=== PATIENT | female | born 1995 | race Caucasian/White ===

== ENCOUNTER 2019-04-14 17:28 | Inpatient (IN) | payer MEDICAID, OTHER ==
[~2019-04-14] VITALS: Ht 167.6 cm; Wt 79.2 kg
[~2019-04-14 17:28] MED LIST: QUET200T PO
[2019-04-14 18:41] LABS: BASOPHILS % (AUTO) 0.4 % (0.0-2.0); HEMATOCRIT 35.8 % (36-46); HEMOGLOBIN 11.6 g/dL (12.0-16.0); LYMPHOCYTES % (AUTO) 16.4 % (22.0-44.0); MEAN CORPUSCULAR HEMOGLOBIN 29.2 pg (26.0-34.0); MEAN CORPUSCULAR HGB CONC 32.5 G/dL (31.0-37.0); MEAN CORPUSCULAR VOLUME 90 fL (80-100); MONOCYTES # (AUTO) 1.1 K/uL (0.1-1.0); MONOCYTES % (AUTO) 8.8 % (2.0-9.0); NEUTROPHILS # (AUTO) 9.1 K/uL (1.8-7.7); NEUTROPHILS % (AUTO) 73.4 % (40.0-70.0); PLATELET COUNT (AUTO) 260 K/uL (150-450); RED BLOOD CELL COUNT(AUTO) 3.98 MIL/uL (4.00-5.20); RED CELL DISTRIBUTION WIDTH 12.9 % (11.5-14.5)
[2019-04-14 18:48] LABS: ANION GAP 7 mmol/L (8-16); CALCIUM, TOTAL 9.4 mg/dL (8.8-10.5); CARBON DIOXIDE 27 mmol/L (22-29); CHLORIDE 103 mmol/L (98-107); CREATININE 0.86 mg/dL (0.60-1.30); GLOMERULAR FILTR. RATE CALC > 60 mL/min (>60); GLUCOSE,RANDOM 109 mg/dL (70-110); POTASSIUM 3.4 mmol/L (3.5-5.1); SODIUM SERUM 137 mmol/L (136-145); UREA NITROGEN, BLOOD 9 mg/dL (7-18)
[2019-04-14 19:00] LABS: ALANINE AMINOTRANSFERASE 58 U/L (12-78); ALBUMIN 3.7 g/dL (3.4-5.0); ALKALINE PHOSPHATASE 61 U/L (46-116); ASPARTATE AMINOTRANSFERASE 57 U/L (15-37); BILIRUBIN,TOTAL 0.6 mg/dL (0.1-1.0); HCG,QUANTITATIVE < 1 mIU/mL (0-6)
[2019-04-14] MEDS ORDERED: DiphenhydrAMINE HCL 25 MG CAPSULE PO ONE (19:00)
[2019-04-14] MEDS ORDERED: LORazepam 2 MG TABLET PO ONE (19:00)
[2019-04-14] MEDS ORDERED: HALOPERIDOL 5 MG TABLET PO ONE (19:00)
[2019-04-14 19:16] LABS: SALICYLATE < 2.8 mg/dL (2.8-20.0)
[2019-04-14 20:17] LABS: ACETAMINOPHEN < 2 mcg/mL (10-30)
[2019-04-15] MEDS ORDERED: HALOPERIDOL 5 MG TABLET PO PRN (10:15)
[2019-04-15] MEDS ORDERED: LORazepam 2 MG/ML VIAL ONE (13:09)
[2019-04-15] MEDS ORDERED: HALOPERIDOL LACTATE 5 MG/ML VIAL ONE (13:09)
[2019-04-15] MEDS ORDERED: DiphenhydrAMINE HCL 50 MG/ML VIAL ONE (13:09)
[2019-04-15] MEDS ORDERED: HALOPERIDOL LACTATE 5 MG/ML VIAL IM ONE (13:15)
[2019-04-15] MEDS ORDERED: LORazepam 2 MG/ML VIAL IM ONE (13:15)
[2019-04-15] MEDS ORDERED: DiphenhydrAMINE HCL 50 MG/ML VIAL IM ONE (13:15)
[2019-04-15 13:57] VITALS: BP 138/74
[2019-04-15 13:59] VITALS: BP 138/74
[2019-04-15] MEDS ORDERED: MAG HYDROX/AL HYDROX/SIMETH ES 30 ML SUSPENSION UDCUP PO PRN (16:00)
[2019-04-15] MEDS ORDERED: DOCUSATE SODIUM 100 MG CAPSULE PO PRN (16:00)
[2019-04-15] MEDS ORDERED: MAGNESIUM HYDROXIDE SUSPENSION 30 ML UDCUP PO PRN (16:00)
[2019-04-15] MEDS ORDERED: ALBUTEROL SULFATE HFA 90 MCG/PUFF 8 GM INHALER IH PRN (16:00)
[2019-04-15] MEDS ORDERED: ACETAMINOPHEN 325 MG TABLET PO PRN (16:00)
[2019-04-15] MEDS ORDERED: ONDANSETRON HCL 4 MG TABLET PO PRN (16:00)
[2019-04-15] MEDS ORDERED: LOPERAMIDE HCL 2 MG CAPSULE PO PRN (16:00)
[2019-04-15] MEDS ORDERED: PETROLATUM,WHITE 28 GM JELLY TP PRN (16:00)
[2019-04-15] MEDS: NICOTINE 21 MG/24 HOUR PATCH TD SCH (16:00)
[2019-04-15] MEDS ORDERED: GuaiFENesin/D-METHORPHAN [SUGAR-FREE] 200-20MG/10 ML SYRUP UDCUP PO PRN (16:00)
[2019-04-15] MEDS ORDERED: CloNIDine HCL 0.1 MG TABLET PO PRN (16:00)
[2019-04-15] MEDS ORDERED: POTASSIUM CHLORIDE 20 MEQ ER TABLET PO ONE (16:00)
[2019-04-15 16:09] VITALS: BP 102/60
[2019-04-16 05:59] VITALS: BP 115/65
[2019-04-16 08:10] VITALS: BP 104/64
[2019-04-16] MEDS: ZINC OXIDE 16% PASTE 57 GM TUBE TP SCH ×2 (09:41→16:23)
[2019-04-16] MEDS: NICOTINE 21 MG/24 HOUR PATCH TD SCH (09:44)
[2019-04-16 16:04] VITALS: BP 116/64
[2019-04-16] MEDS: LORazepam 2 MG TABLET PO PRN (16:23)
[2019-04-16] MEDS: ZOLPIDEM TARTRATE 10 MG TABLET PO PRN (20:54)
[2019-04-16] MEDS: QUEtiapine FUMARATE 200 MG TABLET PO SCH (20:54)
[2019-04-17 05:21] VITALS: BP 118/67
[2019-04-17 08:13] VITALS: BP 121/79
[2019-04-17 08:24] LABS: BASOPHILS % (AUTO) 0.4 % (0.0-2.0); EOSINOPHILS % (AUTO) 1.8 % (1.0-6.0); HEMATOCRIT 36.4 % (36-46); HEMOGLOBIN 11.7 g/dL (12.0-16.0); LYMPHOCYTES # (AUTO) 1.5 K/uL (1.0-4.8); LYMPHOCYTES % (AUTO) 28.1 % (22.0-44.0); MEAN CORPUSCULAR HEMOGLOBIN 29.4 pg (26.0-34.0); MEAN CORPUSCULAR HGB CONC 32.1 G/dL (31.0-37.0); MEAN CORPUSCULAR VOLUME 92 fL (80-100); MONOCYTES # (AUTO) 0.2 K/uL (0.1-1.0); MONOCYTES % (AUTO) 4.3 % (2.0-9.0); NEUTROPHILS # (AUTO) 3.5 K/uL (1.8-7.7); NEUTROPHILS % (AUTO) 65.4 % (40.0-70.0); PLATELET COUNT (AUTO) 218 K/uL (150-450); RED BLOOD CELL COUNT(AUTO) 3.97 MIL/uL (4.00-5.20); RED CELL DISTRIBUTION WIDTH 13.3 % (11.5-14.5)
[2019-04-17 08:38] LABS: HEMOGLOBIN A1C 4.9 % (4.5-6.2)
[2019-04-17] MEDS: ZINC OXIDE 16% PASTE 57 GM TUBE TP SCH ×2 (09:00→17:00)
[2019-04-17 09:02] LABS: ALANINE AMINOTRANSFERASE 35 U/L (12-78); ALBUMIN 2.8 g/dL (3.4-5.0); ALKALINE PHOSPHATASE 61 U/L (46-116); ANION GAP 6 mmol/L (8-16); ASPARTATE AMINOTRANSFERASE 23 U/L (15-37); BILIRUBIN,TOTAL 0.2 mg/dL (0.1-1.0); CALCIUM, TOTAL 8.9 mg/dL (8.8-10.5); CARBON DIOXIDE 26 mmol/L (22-29); CHLORIDE 107 mmol/L (98-107); CHOL/HDL RATIO 3.1 (3.9-5.7); CHOLESTEROL 156 mg/dL (131-200); CREATININE 0.59 mg/dL (0.60-1.30); GLOMERULAR FILTR. RATE CALC > 60 mL/min (>60); GLUCOSE,RANDOM 114 mg/dL (70-110); HDL CHOLESTEROL 50 mg/dL (40-60); LDL CHOL (CALC.) 87 mg/dL (0-130); POTASSIUM 3.5 mmol/L (3.5-5.1); SODIUM SERUM 139 mmol/L (136-145); THYROID STIMULATING HORMONE 0.33 uIU/mL (0.36-3.74); TOTAL PROTEIN, SERUM 6.2 g/dL (6.4-8.2); TRIGLYCERIDES 95 mg/dL (15-150); UREA NITROGEN, BLOOD 5 mg/dL (7-18)
[2019-04-17] MEDS: QUEtiapine FUMARATE 200 MG TABLET PO SCH ×2 (09:11→21:00)
[2019-04-17] MEDS: NICOTINE 21 MG/24 HOUR PATCH TD SCH (09:21)
[2019-04-17] MEDS ORDERED: HALOPERIDOL LACTATE 5 MG/ML VIAL IM PRN (15:00)
[2019-04-17 16:04] VITALS: BP 134/84
[2019-04-17] MEDS: DIVALPROEX SODIUM 500 MG DR TABLET PO SCH (16:27)
[2019-04-17] MEDS: IBUPROFEN 400 MG TABLET PO PRN (19:14)
[2019-04-17] MEDS: ZOLPIDEM TARTRATE 10 MG TABLET PO PRN (21:00)
[2019-04-18 06:48] VITALS: BP 126/70
[2019-04-18] MEDS: DIVALPROEX SODIUM 500 MG DR TABLET PO SCH ×2 (08:02→17:09)
[2019-04-18] MEDS: QUEtiapine FUMARATE 200 MG TABLET PO SCH ×2 (08:03→20:19)
[2019-04-18] MEDS: NICOTINE 21 MG/24 HOUR PATCH TD SCH (08:09)
[2019-04-18] MEDS: ZINC OXIDE 16% PASTE 57 GM TUBE TP SCH ×2 (08:09→17:09)
[2019-04-19 00:48] VITALS: BP 134/79
[2019-04-19] MEDS: QUEtiapine FUMARATE 200 MG TABLET PO SCH ×2 (08:06→20:36)
[2019-04-19] MEDS: DIVALPROEX SODIUM 500 MG DR TABLET PO SCH ×2 (08:06→16:01)
[2019-04-19] MEDS: LORazepam 2 MG TABLET PO PRN ×2 (08:06→21:06)
[2019-04-19] MEDS: ZINC OXIDE 16% PASTE 57 GM TUBE TP SCH ×2 (08:11→16:25)
[2019-04-19] MEDS: NICOTINE 21 MG/24 HOUR PATCH TD SCH (08:11)
[2019-04-19 08:29] VITALS: BP 155/118
[2019-04-19 12:00] VITALS: BP 127/90
[2019-04-19 16:11] VITALS: BP 112/65
[2019-04-19 21:06] VITALS: BP 128/77
[2019-04-19] MEDS: ZOLPIDEM TARTRATE 10 MG TABLET PO PRN (21:06)
[2019-04-20] MEDS: DIVALPROEX SODIUM 500 MG DR TABLET PO SCH ×2 (08:50→16:09)
[2019-04-20] MEDS: QUEtiapine FUMARATE 200 MG TABLET PO SCH ×2 (08:51→20:26)
[2019-04-20] MEDS: NICOTINE 21 MG/24 HOUR PATCH TD SCH (08:59)
[2019-04-20] MEDS: LORazepam 2 MG TABLET PO PRN (08:59)
[2019-04-20] MEDS: ZINC OXIDE 16% PASTE 57 GM TUBE TP SCH ×2 (08:59→16:09)
[2019-04-20 16:13] VITALS: BP 110/73
[2019-04-20] MEDS: ZOLPIDEM TARTRATE 10 MG TABLET PO PRN (20:28)
[2019-04-21] MEDS: IBUPROFEN 400 MG TABLET PO PRN ×2 (06:40→12:54)
[2019-04-21 08:08] VITALS: BP 114/85
[2019-04-21] MEDS: QUEtiapine FUMARATE 200 MG TABLET PO SCH (08:24)
[2019-04-21] MEDS: DIVALPROEX SODIUM 500 MG DR TABLET PO SCH (08:25)
[2019-04-21] MEDS: NICOTINE 21 MG/24 HOUR PATCH TD SCH (08:44)
[2019-04-21] MEDS ORDERED: DIVA-78 PO (08:47)
[2019-04-21] MEDS: ZINC OXIDE 16% PASTE 57 GM TUBE TP SCH (09:00)
== END 2019-04-21 10:44 | disposition home or self-care (01) | DRG 750 ==
LOC: EMS 17:29 → B3A 04-15 11:33
PROVIDERS: ADMIT Psychiatry & Neurology Psychiatry; ATTEND Psychiatry & Neurology Psychiatry
DX: F20.0 Paranoid schizophrenia (principal); Z59.0 Homelessness; D64.9 Anemia, unspecified; D72.829 Elevated white blood cell count, unspecified; E87.6 Hypokalemia
CPT/HCPCS: 83036; 84443; G0480; G0481; J1200; J1630; J2060

== ENCOUNTER 2019-05-20 08:07 | Inpatient (IN) | payer MEDICAID, OTHER ==
[~2019-05-20] VITALS: Ht 167.6 cm; Wt 68.9 kg
[~2019-05-20 08:07] MED LIST changes: +DIVA-78 PO
[2019-05-20] MEDS ORDERED: LORazepam 2 MG/ML VIAL IM ONE (09:45)
[2019-05-20] MEDS ORDERED: HALOPERIDOL LACTATE 5 MG/ML VIAL IM ONE (09:45)
[2019-05-20] MEDS ORDERED: DiphenhydrAMINE HCL 50 MG/ML VIAL IM ONE (09:45)
[2019-05-20 11:44] LABS: BASOPHILS % (AUTO) 0.5 % (0.0-2.0); EOSINOPHILS % (AUTO) 0.8 % (1.0-6.0); HEMATOCRIT 35.3 % (36-46); HEMOGLOBIN 11.7 g/dL (12.0-16.0); LYMPHOCYTES % (AUTO) 22.4 % (22.0-44.0); MEAN CORPUSCULAR HEMOGLOBIN 29.4 pg (26.0-34.0); MEAN CORPUSCULAR HGB CONC 33.1 G/dL (31.0-37.0); MEAN CORPUSCULAR VOLUME 89 fL (80-100); MONOCYTES % (AUTO) 10.7 % (2.0-9.0); NEUTROPHILS # (AUTO) 5.9 K/uL (1.8-7.7); NEUTROPHILS % (AUTO) 65.6 % (40.0-70.0); PLATELET COUNT (AUTO) 196 K/uL (150-450); RED BLOOD CELL COUNT(AUTO) 3.98 MIL/uL (4.00-5.20); RED CELL DISTRIBUTION WIDTH 13.2 % (11.5-14.5)
[2019-05-20 11:56] LABS: AMPHET/METH SCREEN,URINE POSITIVE (NEGATIVE); BARBITURATE SCREEN, URINE NEGATIVE (NEGATIVE); BENZODIAZEPINES SCREEN,URINE NEGATIVE (NEGATIVE); CANNABINOID SCREEN,URINE NEGATIVE (NEGATIVE); COCAINE SCREEN,URINE NEGATIVE (NEGATIVE); METHADONE SCREEN, URINE NEGATIVE (NEGATIVE); OPIATE SCREEN,URINE NEGATIVE (NEGATIVE)
[2019-05-20 11:58] LABS: PHENCYCLIDINE SCREEN,URINE NEGATIVE (NEGATIVE)
[2019-05-20 12:23] LABS: ALANINE AMINOTRANSFERASE 53 U/L (12-78); ALBUMIN 3.5 g/dL (3.4-5.0); ALKALINE PHOSPHATASE 46 U/L (46-116); ANION GAP 11 mmol/L (8-16); ASPARTATE AMINOTRANSFERASE 67 U/L (15-37); BILIRUBIN,TOTAL 0.7 mg/dL (0.1-1.0); CALCIUM, TOTAL 9.1 mg/dL (8.8-10.5); CARBON DIOXIDE 26 mmol/L (22-29); CHLORIDE 100 mmol/L (98-107); CREATININE 0.68 mg/dL (0.60-1.30); GLOMERULAR FILTR. RATE CALC > 60 mL/min (>60); GLUCOSE,RANDOM 88 mg/dL (70-110); HCG,QUANTITATIVE < 1 mIU/mL (0-6); POTASSIUM 3.4 mmol/L (3.5-5.1); SODIUM SERUM 137 mmol/L (136-145); TOTAL PROTEIN, SERUM 6.9 g/dL (6.4-8.2); UREA NITROGEN, BLOOD 8 mg/dL (7-18)
[2019-05-20 14:33] VITALS: BP 117/78
[2019-05-20] MEDS ORDERED: INFLUENZA VIRUS VACCINE QVS 2019-20 (3YR+)/PF 60 MCG/0.5 ML SYRINGE IM ONE (16:15)
[2019-05-20] MEDS ORDERED: POTASSIUM CHLORIDE 20 MEQ ER TABLET PO ONE (19:15)
[2019-05-20] MEDS: QUEtiapine FUMARATE 200 MG TABLET PO SCH (21:00)
[2019-05-21 07:01] VITALS: BP 109/68
[2019-05-21] MEDS ORDERED: POTASSIUM CHLORIDE 20 MEQ ER TABLET PO ONE (09:45)
[2019-05-21] MEDS: QUEtiapine FUMARATE 200 MG TABLET PO SCH ×2 (10:09→21:00)
[2019-05-21] MEDS: DIVALPROEX SODIUM 500 MG DR TABLET PO SCH ×2 (10:09→16:12)
[2019-05-21] MEDS ORDERED: MAGNESIUM HYDROXIDE SUSPENSION 30 ML UDCUP PO PRN (20:00)
[2019-05-21] MEDS ORDERED: ALBUTEROL SULFATE HFA 90 MCG/PUFF 8 GM INHALER IH PRN (20:00)
[2019-05-21] MEDS ORDERED: CloNIDine HCL 0.1 MG TABLET PO PRN (20:00)
[2019-05-21] MEDS ORDERED: OMEPRAZOLE 20 MG CAPSULE PO PRN (20:00)
[2019-05-21] MEDS ORDERED: PETROLATUM,WHITE 28 GM JELLY TP PRN (20:00)
[2019-05-21] MEDS ORDERED: LOPERAMIDE HCL 2 MG CAPSULE PO PRN (20:00)
[2019-05-21] MEDS ORDERED: BACITRACIN 28.4 GM OINTMENT TP PRN (20:00)
[2019-05-21] MEDS ORDERED: MAG HYDROX/AL HYDROX/SIMETH ES 30 ML SUSPENSION UDCUP PO PRN (20:00)
[2019-05-21] MEDS ORDERED: DOCUSATE SODIUM 100 MG CAPSULE PO PRN (20:00)
[2019-05-21] MEDS ORDERED: BENZOCAINE/MENTHOL LOZENGE MM PRN (20:00)
[2019-05-21] MEDS ORDERED: ONDANSETRON HCL 4 MG TABLET PO PRN (20:00)
[2019-05-21] MEDS ORDERED: ACETAMINOPHEN 325 MG TABLET PO PRN (20:00)
[2019-05-22 08:05] LABS: ANION GAP 11 mmol/L (8-16); CALCIUM, TOTAL 8.1 mg/dL (8.8-10.5); CARBON DIOXIDE 27 mmol/L (22-29); CHLORIDE 106 mmol/L (98-107); CREATININE 0.63 mg/dL (0.60-1.30); GLOMERULAR FILTR. RATE CALC > 60 mL/min (>60); GLUCOSE,RANDOM 87 mg/dL (70-110); POTASSIUM 3.6 mmol/L (3.5-5.1); SODIUM SERUM 144 mmol/L (136-145); UREA NITROGEN, BLOOD 5 mg/dL (7-18)
[2019-05-22] MEDS: QUEtiapine FUMARATE 200 MG TABLET PO SCH ×2 (09:16→21:00)
[2019-05-22] MEDS: DIVALPROEX SODIUM 500 MG DR TABLET PO SCH ×2 (09:16→16:27)
[2019-05-23] MEDS: QUEtiapine FUMARATE 200 MG TABLET PO SCH ×2 (08:06→20:05)
[2019-05-23] MEDS: DIVALPROEX SODIUM 500 MG DR TABLET PO SCH ×2 (08:06→16:52)
[2019-05-24] MEDS: DIVALPROEX SODIUM 500 MG DR TABLET PO SCH ×2 (08:44→17:27)
[2019-05-24] MEDS: QUEtiapine FUMARATE 200 MG TABLET PO SCH ×2 (08:44→20:36)
[2019-05-24] MEDS: LORazepam 2 MG TABLET PO PRN (09:14)
[2019-05-24] MEDS: HALOPERIDOL 5 MG TABLET PO PRN (09:34)
[2019-05-25 05:06] VITALS: BP 119/80
[2019-05-25] MEDS: DIVALPROEX SODIUM 500 MG DR TABLET PO SCH ×2 (08:40→16:49)
[2019-05-25] MEDS: QUEtiapine FUMARATE 200 MG TABLET PO SCH ×2 (08:40→20:35)
[2019-05-25] MEDS: LORazepam 2 MG TABLET PO PRN ×2 (08:40→16:51)
[2019-05-25 08:48] VITALS: BP 102/59
[2019-05-25 16:11] VITALS: BP 106/66
[2019-05-26] MEDS: QUEtiapine FUMARATE 200 MG TABLET PO SCH ×2 (08:42→20:04)
[2019-05-26] MEDS: DIVALPROEX SODIUM 500 MG DR TABLET PO SCH ×2 (08:43→16:26)
[2019-05-26] MEDS: LORazepam 2 MG TABLET PO PRN ×2 (08:43→17:59)
[2019-05-26] MEDS: ZOLPIDEM TARTRATE 10 MG TABLET PO PRN (20:04)
[2019-05-27] MEDS: DIVALPROEX SODIUM 500 MG DR TABLET PO SCH ×2 (08:26→16:07)
[2019-05-27] MEDS: QUEtiapine FUMARATE 200 MG TABLET PO SCH ×2 (08:26→20:13)
[2019-05-27] MEDS: LORazepam 2 MG TABLET PO PRN ×2 (08:26→19:29)
[2019-05-27 16:13] VITALS: BP 114/86
[2019-05-27] MEDS: HALOPERIDOL 5 MG TABLET PO PRN (19:29)
[2019-05-28 08:11] VITALS: BP 112/68
[2019-05-28] MEDS: QUEtiapine FUMARATE 200 MG TABLET PO SCH ×2 (08:51→20:43)
[2019-05-28] MEDS: DIVALPROEX SODIUM 500 MG DR TABLET PO SCH ×2 (08:51→16:45)
[2019-05-28] MEDS: LORazepam 2 MG TABLET PO PRN ×2 (08:53→16:45)
[2019-05-28] MEDS: ZOLPIDEM TARTRATE 10 MG TABLET PO PRN (20:43)
[2019-05-29 07:24] VITALS: BP 117/84
[2019-05-29] MEDS: DIVALPROEX SODIUM 500 MG DR TABLET PO SCH ×2 (08:28→16:18)
[2019-05-29] MEDS: QUEtiapine FUMARATE 200 MG TABLET PO SCH ×2 (08:28→21:04)
[2019-05-29] MEDS: LORazepam 2 MG TABLET PO PRN (14:10)
[2019-05-29] MEDS: HALOPERIDOL 5 MG TABLET PO PRN (14:10)
[2019-05-29 16:12] VITALS: BP 119/71
[2019-05-29] MEDS: ZOLPIDEM TARTRATE 10 MG TABLET PO PRN (23:50)
[2019-05-30 03:17] VITALS: BP 120/76
[2019-05-30] MEDS: LORazepam 2 MG TABLET PO PRN ×2 (08:17→16:05)
[2019-05-30] MEDS: DIVALPROEX SODIUM 500 MG DR TABLET PO SCH ×2 (08:17→16:04)
[2019-05-30] MEDS: QUEtiapine FUMARATE 200 MG TABLET PO SCH ×2 (08:17→20:11)
[2019-05-30 08:45] VITALS: BP 118/74
[2019-05-30 16:22] VITALS: BP 126/61
[2019-05-30] MEDS: HALOPERIDOL 5 MG TABLET PO PRN (16:56)
[2019-05-30] MEDS: IBUPROFEN 600 MG TABLET PO PRN (19:35)
[2019-05-30] MEDS: ZOLPIDEM TARTRATE 10 MG TABLET PO PRN (20:55)
[2019-05-31] MEDS: DIVALPROEX SODIUM 500 MG DR TABLET PO SCH ×2 (08:49→16:08)
[2019-05-31] MEDS: LORazepam 2 MG TABLET PO PRN ×2 (08:49→16:08)
[2019-05-31] MEDS: QUEtiapine FUMARATE 200 MG TABLET PO SCH ×2 (08:49→20:16)
[2019-05-31] MEDS: HALOPERIDOL 5 MG TABLET PO PRN (09:50)
[2019-05-31 16:10] VITALS: BP 114/68
[2019-05-31] MEDS: ZOLPIDEM TARTRATE 10 MG TABLET PO PRN (20:16)
[2019-06-01 01:23] VITALS: BP 121/63
[2019-06-01] MEDS: QUEtiapine FUMARATE 200 MG TABLET PO SCH ×2 (09:26→20:34)
[2019-06-01] MEDS: LORazepam 2 MG TABLET PO PRN ×2 (09:26→18:21)
[2019-06-01] MEDS: DIVALPROEX SODIUM 500 MG DR TABLET PO SCH ×2 (09:26→16:39)
[2019-06-01] MEDS: HALOPERIDOL 5 MG TABLET PO PRN (09:47)
[2019-06-01] MEDS ORDERED: TUBERCULIN, PURIFIED PROTEIN DERIVATIVE 5 TU/0.1 ML SYRINGE ID ONE (11:45)
[2019-06-01 16:21] VITALS: BP 111/66
[2019-06-01] MEDS: IBUPROFEN 600 MG TABLET PO PRN (18:21)
[2019-06-02 08:25] VITALS: BP 111/67
[2019-06-02] MEDS: LORazepam 2 MG TABLET PO PRN (09:30)
[2019-06-02] MEDS: QUEtiapine FUMARATE 200 MG TABLET PO SCH ×2 (09:30→20:41)
[2019-06-02] MEDS: DIVALPROEX SODIUM 500 MG DR TABLET PO SCH ×2 (09:30→16:51)
[2019-06-03] MEDS: LORazepam 2 MG TABLET PO PRN ×2 (09:14→16:16)
[2019-06-03] MEDS: QUEtiapine FUMARATE 200 MG TABLET PO SCH ×2 (09:15→20:15)
[2019-06-03] MEDS: DIVALPROEX SODIUM 500 MG DR TABLET PO SCH ×2 (09:15→16:16)
[2019-06-03 16:13] VITALS: BP 109/66
[2019-06-03] MEDS: HALOPERIDOL 5 MG TABLET PO PRN (16:16)
[2019-06-04 01:59] VITALS: BP 102/70
[2019-06-04 08:23] VITALS: BP 106/71
[2019-06-04] MEDS: DIVALPROEX SODIUM 500 MG DR TABLET PO SCH ×2 (09:06→16:07)
[2019-06-04] MEDS: QUEtiapine FUMARATE 200 MG TABLET PO SCH ×2 (09:06→20:09)
[2019-06-04] MEDS: LORazepam 2 MG TABLET PO PRN ×2 (09:06→18:18)
[2019-06-04 16:04] VITALS: BP 103/52
[2019-06-04 18:18] VITALS: BP 114/70
[2019-06-04] MEDS: IBUPROFEN 600 MG TABLET PO PRN (18:18)
[2019-06-05 02:45] VITALS: BP 104/85
[2019-06-05] MEDS: DIVALPROEX SODIUM 500 MG DR TABLET PO SCH ×2 (08:10→16:43)
[2019-06-05] MEDS: HALOPERIDOL 5 MG TABLET PO PRN (08:10)
[2019-06-05] MEDS: LORazepam 2 MG TABLET PO PRN ×2 (08:10→18:48)
[2019-06-05] MEDS: QUEtiapine FUMARATE 200 MG TABLET PO SCH ×2 (08:10→20:44)
[2019-06-05 08:13] VITALS: BP 106/69
[2019-06-05 18:47] VITALS: BP 110/75
[2019-06-06 08:29] VITALS: BP 123/62
[2019-06-06] MEDS: QUEtiapine FUMARATE 200 MG TABLET PO SCH ×2 (08:42→20:34)
[2019-06-06] MEDS: DIVALPROEX SODIUM 500 MG DR TABLET PO SCH ×2 (08:43→16:23)
[2019-06-06] MEDS: IBUPROFEN 600 MG TABLET PO PRN (18:34)
[2019-06-06] MEDS: LORazepam 2 MG TABLET PO PRN (18:52)
[2019-06-06] MEDS: ZOLPIDEM TARTRATE 10 MG TABLET PO PRN (20:34)
[2019-06-07] MEDS: QUEtiapine FUMARATE 200 MG TABLET PO SCH ×2 (08:35→20:25)
[2019-06-07] MEDS: DIVALPROEX SODIUM 500 MG DR TABLET PO SCH ×2 (08:36→16:13)
[2019-06-07 16:00] VITALS: BP 137/70
[2019-06-07] MEDS: LORazepam 2 MG TABLET PO PRN (16:13)
[2019-06-07] MEDS: HALOPERIDOL 5 MG TABLET PO PRN (17:08)
[2019-06-08 05:06] VITALS: BP 132/68
[2019-06-08] MEDS: DIVALPROEX SODIUM 500 MG DR TABLET PO SCH ×2 (08:34→16:00)
[2019-06-08] MEDS: QUEtiapine FUMARATE 200 MG TABLET PO SCH ×2 (08:34→20:02)
[2019-06-08] MEDS: LORazepam 2 MG TABLET PO PRN ×2 (08:37→16:00)
[2019-06-09] MEDS: DIVALPROEX SODIUM 500 MG DR TABLET PO SCH ×2 (08:51→16:10)
[2019-06-09] MEDS: QUEtiapine FUMARATE 200 MG TABLET PO SCH ×2 (08:51→20:26)
[2019-06-09] MEDS: LORazepam 2 MG TABLET PO PRN ×2 (08:51→16:10)
[2019-06-09 16:32] VITALS: BP 108/72
[2019-06-10 08:34] VITALS: BP 100/69
[2019-06-10 09:00] VITALS: BP 112/78
[2019-06-10] MEDS: QUEtiapine FUMARATE 200 MG TABLET PO SCH ×2 (09:06→20:04)
[2019-06-10] MEDS: LORazepam 2 MG TABLET PO PRN ×2 (09:06→16:09)
[2019-06-10] MEDS: DIVALPROEX SODIUM 500 MG DR TABLET PO SCH ×2 (09:06→16:09)
[2019-06-10 17:15] VITALS: BP 107/62
[2019-06-10] MEDS: ZOLPIDEM TARTRATE 10 MG TABLET PO PRN (20:04)
[2019-06-11] MEDS: LORazepam 2 MG TABLET PO PRN ×2 (08:42→16:04)
[2019-06-11] MEDS: DIVALPROEX SODIUM 500 MG DR TABLET PO SCH ×2 (08:42→16:04)
[2019-06-11] MEDS: QUEtiapine FUMARATE 200 MG TABLET PO SCH ×2 (08:42→20:12)
[2019-06-11 16:34] VITALS: BP 116/72
[2019-06-11] MEDS: ZOLPIDEM TARTRATE 10 MG TABLET PO PRN (20:59)
[2019-06-11 21:08] VITALS: BP 111/67
[2019-06-11] MEDS: IBUPROFEN 600 MG TABLET PO PRN (21:11)
[2019-06-12] MEDS: QUEtiapine FUMARATE 200 MG TABLET PO SCH (09:11)
[2019-06-12] MEDS: DIVALPROEX SODIUM 500 MG DR TABLET PO SCH (09:11)
== END 2019-06-12 11:25 | DRG 750 ==
LOC: EMS 08:08 → B3A 12:03
PROVIDERS: ADMIT Psychiatry & Neurology Psychiatry; ATTEND Psychiatry & Neurology Psychiatry
DX: F20.0 Paranoid schizophrenia (principal); Z78.1 Physical restraint status; G47.00 Insomnia, unspecified; K59.00 Constipation, unspecified; F19.959 Other psychoactive substance use, unspecified with psychoactive substance-induced psychotic disorder, unspecified; Z59.0 Homelessness
CPT/HCPCS: 87081; 96372; 99291; G0480; J1200; J1630; J2060

== ENCOUNTER 2019-06-18 01:40 | Inpatient (IN) | payer MEDICAID, OTHER ==
[~2019-06-18] VITALS: Ht 170.2 cm; Wt 71.1 kg
[2019-06-18 03:21] LABS: BASOPHILS % (AUTO) 0.4 % (0.0-2.0); EOSINOPHILS % (AUTO) 0.9 % (1.0-6.0); HEMATOCRIT 31.9 % (36-46); HEMOGLOBIN 10.7 g/dL (12.0-16.0); LYMPHOCYTES % (AUTO) 31.6 % (22.0-44.0); MEAN CORPUSCULAR HEMOGLOBIN 29.6 pg (26.0-34.0); MEAN CORPUSCULAR HGB CONC 33.5 G/dL (31.0-37.0); MEAN CORPUSCULAR VOLUME 88 fL (80-100); MONOCYTES # (AUTO) 0.8 K/uL (0.1-1.0); MONOCYTES % (AUTO) 12.4 % (2.0-9.0); NEUTROPHILS # (AUTO) 3.5 K/uL (1.8-7.7); NEUTROPHILS % (AUTO) 54.7 % (40.0-70.0); PLATELET COUNT (AUTO) 180 K/uL (150-450); RED BLOOD CELL COUNT(AUTO) 3.61 MIL/uL (4.00-5.20); RED CELL DISTRIBUTION WIDTH 12.8 % (11.5-14.5)
[2019-06-18 03:23] LABS: ANION GAP 7 mmol/L (8-16); CALCIUM, TOTAL 8.6 mg/dL (8.8-10.5); CARBON DIOXIDE 31 mmol/L (22-29); CHLORIDE 103 mmol/L (98-107); CREATININE 0.58 mg/dL (0.60-1.30); GLOMERULAR FILTR. RATE CALC > 60 mL/min (>60); GLUCOSE,RANDOM 99 mg/dL (70-110); SODIUM SERUM 141 mmol/L (136-145); UREA NITROGEN, BLOOD 10 mg/dL (7-18)
[2019-06-18 03:27] LABS: AMPHET/METH SCREEN,URINE POSITIVE (NEGATIVE); BARBITURATE SCREEN, URINE NEGATIVE (NEGATIVE); BENZODIAZEPINES SCREEN,URINE NEGATIVE (NEGATIVE); CANNABINOID SCREEN,URINE NEGATIVE (NEGATIVE); COCAINE SCREEN,URINE NEGATIVE (NEGATIVE); METHADONE SCREEN, URINE NEGATIVE (NEGATIVE); OPIATE SCREEN,URINE NEGATIVE (NEGATIVE)
[2019-06-18 03:29] LABS: PHENCYCLIDINE SCREEN,URINE NEGATIVE (NEGATIVE)
[2019-06-18] MEDS ORDERED: ZOLPIDEM TARTRATE 10 MG TABLET PO PRN (03:30)
[2019-06-18 03:36] LABS: SALICYLATE 1.3 mg/dL (2.8-20.0)
[2019-06-18 03:39] LABS: ACETAMINOPHEN < 2 mcg/mL (10-30); ALANINE AMINOTRANSFERASE 61 U/L (12-78); ALBUMIN 3.4 g/dL (3.4-5.0); ALKALINE PHOSPHATASE 47 U/L (46-116); ASPARTATE AMINOTRANSFERASE 54 U/L (15-37); BILIRUBIN,TOTAL 0.5 mg/dL (0.1-1.0); HCG,QUANTITATIVE 1 mIU/mL (0-6); TOTAL PROTEIN, SERUM 6.8 g/dL (6.4-8.2)
[2019-06-18] MEDS ORDERED: POTASSIUM CHLORIDE 20 MEQ ER TABLET PO ONE (04:00)
[2019-06-18 04:50] LABS: APPEARANCE,URINE CLOUDY (CLEAR); GLUCOSE, URINE (UA) NEGATIVE (NEGATIVE); KETONES,URINE NEGATIVE (NEGATIVE); LEUKOCYTE ESTERASE ,URINE NEGATIVE (NEGATIVE); NITRATE,URINE NEGATIVE (NEGATIVE); OCCULT BLOOD,URINE NEGATIVE (NEGATIVE); PROTEIN,URINE TRACE (NEGATIVE)
[2019-06-18 04:52] LABS: BILIRUBIN,URINE PRELIM. POSITIVE (NEGATIVE)
[2019-06-18 04:59] LABS: BACTERIA,URINE None Seen /HPF (None Seen); RBC,URINE 0-2 /HPF (0-2); SQUAMOUS EPITHELIAL CELL,UR Rare /LPF (None Seen)
[2019-06-18 06:00] VITALS: BP 114/96
[2019-06-18 07:00] VITALS: BP 109/67
[2019-06-18] MEDS: HALOPERIDOL 5 MG TABLET PO PRN (08:28)
[2019-06-18] MEDS: LORazepam 2 MG TABLET PO PRN (08:28)
[2019-06-18] MEDS: DIVALPROEX SODIUM 500 MG DR TABLET PO SCH (17:04)
[2019-06-18] MEDS: QUEtiapine FUMARATE 200 MG TABLET PO SCH (20:47)
[2019-06-19 04:00] VITALS: BP 106/62
[2019-06-19 06:57] VITALS: BP 123/74
[2019-06-19] MEDS ORDERED: INFLUENZA VIRUS VACCINE QVS 2019-20 (3YR+)/PF 60 MCG/0.5 ML SYRINGE IM ONE (07:15)
[2019-06-19] MEDS: DIVALPROEX SODIUM 500 MG DR TABLET PO SCH ×2 (08:02→16:20)
[2019-06-19] MEDS: QUEtiapine FUMARATE 200 MG TABLET PO SCH ×2 (08:02→20:32)
[2019-06-19] MEDS: LORazepam 2 MG TABLET PO PRN ×2 (08:02→16:20)
[2019-06-19 08:26] VITALS: BP 107/67
[2019-06-19] MEDS: HALOPERIDOL 5 MG TABLET PO PRN (09:26)
[2019-06-19 09:36] LABS: CHOL/HDL RATIO 2.4 (3.9-5.7)
[2019-06-19 16:44] VITALS: BP 104/70
[2019-06-19 17:05] VITALS: BP 104/70
[2019-06-20 05:50] VITALS: BP 118/71
[2019-06-20 05:51] VITALS: BP 118/71
[2019-06-20] MEDS: LORazepam 2 MG TABLET PO PRN (08:02)
[2019-06-20] MEDS: HALOPERIDOL 5 MG TABLET PO PRN (08:02)
[2019-06-20] MEDS: DIVALPROEX SODIUM 500 MG DR TABLET PO SCH ×2 (08:02→17:05)
[2019-06-20] MEDS: QUEtiapine FUMARATE 200 MG TABLET PO SCH ×2 (08:02→21:07)
[2019-06-20 08:22] VITALS: BP 111/60
[2019-06-20 16:30] VITALS: BP 104/65
[2019-06-20 17:18] VITALS: BP 104/65
[2019-06-21 03:55] VITALS: BP 125/79
[2019-06-21 08:00] VITALS: BP 136/74
[2019-06-21] MEDS: DIVALPROEX SODIUM 500 MG DR TABLET PO SCH ×2 (08:16→16:22)
[2019-06-21] MEDS: QUEtiapine FUMARATE 200 MG TABLET PO SCH ×2 (08:16→21:05)
[2019-06-21 08:32] VITALS: BP 136/74
[2019-06-21] MEDS ORDERED: IBUPROFEN 400 MG TABLET PO PRN ×2 (09:30→17:45)
[2019-06-21 09:54] VITALS: BP 128/76
[2019-06-21] MEDS: AMOX TR/POT CLAV 500 MG/125 MG TABLET PO SCH ×2 (09:54→16:22)
[2019-06-21] MEDS: LORazepam 2 MG TABLET PO PRN (16:28)
[2019-06-21 16:31] VITALS: BP 120/66
[2019-06-21] MEDS ORDERED: CloNIDine HCL 0.1 MG TABLET PO PRN (17:45)
[2019-06-21] MEDS ORDERED: ACETAMINOPHEN 325 MG TABLET PO PRN (17:45)
[2019-06-21] MEDS ORDERED: ALBUTEROL SULFATE HFA 90 MCG/PUFF 8 GM INHALER IH PRN (17:45)
[2019-06-21] MEDS ORDERED: NICOTINE 14 MG/24 HOUR PATCH TD PRN (17:45)
[2019-06-21] MEDS ORDERED: MAGNESIUM HYDROXIDE SUSPENSION 30 ML UDCUP PO PRN (17:45)
[2019-06-21] MEDS ORDERED: GuaiFENesin/D-METHORPHAN [SUGAR-FREE] 200-20MG/10 ML SYRUP UDCUP PO PRN (17:45)
[2019-06-21] MEDS ORDERED: ONDANSETRON HCL 4 MG TABLET PO PRN (17:45)
[2019-06-21] MEDS ORDERED: MAG HYDROX/AL HYDROX/SIMETH ES 30 ML SUSPENSION UDCUP PO PRN (17:45)
[2019-06-21] MEDS ORDERED: DOCUSATE SODIUM 100 MG CAPSULE PO PRN (17:45)
[2019-06-21] MEDS ORDERED: PETROLATUM,WHITE 28 GM JELLY TP PRN (17:45)
[2019-06-21] MEDS ORDERED: LOPERAMIDE HCL 2 MG CAPSULE PO PRN (17:45)
[2019-06-21 17:50] VITALS: BP 120/66
[2019-06-22] MEDS: QUEtiapine FUMARATE 200 MG TABLET PO SCH (08:16)
[2019-06-22] MEDS: DIVALPROEX SODIUM 500 MG DR TABLET PO SCH (08:17)
[2019-06-22] MEDS: AMOX TR/POT CLAV 500 MG/125 MG TABLET PO SCH (08:18)
[2019-06-22 08:21] VITALS: BP 100/63
[2019-06-22] MEDS: LORazepam 2 MG TABLET PO PRN (08:21)
[2019-06-22 08:38] VITALS: BP 100/63
[2019-06-22] MEDS ORDERED: AMOX1TAB15 PO (09:12)
== END 2019-06-22 10:00 | DRG 750 ==
LOC: EMS 01:42 → B3A 04:17
PROVIDERS: ADMIT Psychiatry & Neurology Psychiatry; ATTEND Psychiatry & Neurology Psychiatry
DX: F25.9 Schizoaffective disorder, unspecified (principal); D64.9 Anemia, unspecified; E87.6 Hypokalemia; F10.10 Alcohol abuse, uncomplicated; F15.10 Other stimulant abuse, uncomplicated; F17.210 Nicotine dependence, cigarettes, uncomplicated; F31.9 Bipolar disorder, unspecified; Z79.899 Other long term (current) drug therapy
CPT/HCPCS: 84132; 87081; G0480; G0481

== ENCOUNTER 2019-12-08 18:09 | Emergency (ER) | payer OTHER ==
[~2019-12-08] VITALS: Ht 170.2 cm; Wt 72.7 kg
[~2019-12-08 18:09] MED LIST changes: +AMOX1TAB15 PO
[2019-12-08 18:33] VITALS: BP 138/61
[2019-12-09] MEDS ORDERED: BENZ1TAB10 PO (13:08)
[2019-12-09] MEDS ORDERED: QUET25TA PO (13:08)
[2019-12-09] MEDS ORDERED: HALO50VI4 IM (13:08)
== END 2019-12-08 18:49 | disposition left against medical advice (07) ==
LOC: EMS 18:09
DX: F10.129 Alcohol abuse with intoxication, unspecified (principal); Z53.21 Procedure and treatment not carried out due to patient leaving prior to being seen by health care provider; Y90.9 Presence of alcohol in blood, level not specified

== ENCOUNTER 2019-12-09 11:18 | Emergency (ER) | payer OTHER ==
[~2019-12-09] VITALS: Ht 172.7 cm; Wt 70.5 kg
[~2019-12-09 11:18] MED LIST changes: -AMOX1TAB15 PO
[2019-12-09] MEDS ORDERED: LORazepam 2 MG/ML VIAL IM ONE (13:00)
[2019-12-09] MEDS ORDERED: HALOPERIDOL LACTATE 5 MG/ML VIAL IM ONE (13:00)
[2019-12-09] MEDS ORDERED: DiphenhydrAMINE HCL 50 MG/ML VIAL IM ONE (13:00)
[2019-12-09] MEDS ORDERED: HALO50VI4 IM (13:08)
[2019-12-09] MEDS ORDERED: QUET25TA PO (13:08)
[2019-12-09] MEDS ORDERED: BENZ1TAB10 PO (13:08)
[2019-12-09 14:03] LABS: BASOPHILS % (AUTO) 0.4 % (0.0-2.0); EOSINOPHILS % (AUTO) 0.4 % (1.0-6.0); HEMATOCRIT 32.5 % (36-46); HEMOGLOBIN 10.9 g/dL (12.0-16.0); LYMPHOCYTES % (AUTO) 26.4 % (22.0-44.0); MEAN CORPUSCULAR HEMOGLOBIN 30.9 pg (26.0-34.0); MEAN CORPUSCULAR HGB CONC 33.5 G/dL (31.0-37.0); MEAN CORPUSCULAR VOLUME 92 fL (80-100); MONOCYTES # (AUTO) 0.8 K/uL (0.1-1.0); NEUTROPHILS # (AUTO) 4.7 K/uL (1.8-7.7); NEUTROPHILS % (AUTO) 61.8 % (40.0-70.0); PLATELET COUNT (AUTO) 198 K/uL (150-450); RED BLOOD CELL COUNT(AUTO) 3.53 MIL/uL (4.00-5.20); RED CELL DISTRIBUTION WIDTH 12.5 % (11.5-14.5)
[2019-12-09 14:20] LABS: ANION GAP 10 mmol/L (8-16); CALCIUM, TOTAL 9.1 mg/dL (8.8-10.5); CARBON DIOXIDE 28 mmol/L (22-29); CHLORIDE 102 mmol/L (98-107); CREATININE 0.65 mg/dL (0.60-1.30); GLOMERULAR FILTR. RATE CALC > 60 mL/min (>60); GLUCOSE,RANDOM 104 mg/dL (70-110); POTASSIUM 3.2 mmol/L (3.5-5.1); SODIUM SERUM 140 mmol/L (136-145); UREA NITROGEN, BLOOD 6 mg/dL (7-18)
[2019-12-09 14:27] LABS: ALANINE AMINOTRANSFERASE 55 U/L (12-78); ALBUMIN 3.9 g/dL (3.4-5.0); ALKALINE PHOSPHATASE 50 U/L (46-116); ASPARTATE AMINOTRANSFERASE 65 U/L (15-37); BILIRUBIN,TOTAL 0.4 mg/dL (0.1-1.0)
[2019-12-09 14:28] VITALS: BP 108/66
[2019-12-09] MEDS ORDERED: POTASSIUM CHLORIDE 20 MEQ ER TABLET PO ONE (14:45)
[2019-12-09 16:02] LABS: HCG,QUANTITATIVE < 1 mIU/mL (0-6)
== END 2019-12-09 16:53 | disposition home or self-care (01) ==
LOC: EMS 11:21
DX: F20.9 Schizophrenia, unspecified (principal); F17.200 Nicotine dependence, unspecified, uncomplicated; F15.90 Other stimulant use, unspecified, uncomplicated
CPT/HCPCS: 80053; 84702; 85025; 96372; 99285; G0480; J1200; J1630; J2060

== ENCOUNTER 2019-12-09 18:09 | Inpatient (IN) | payer MEDICAID, OTHER ==
[~2019-12-09] VITALS: Ht 167.6 cm; Wt 85.8 kg
[~2019-12-09 18:09] MED LIST changes: +BENZ1TAB10 PO; +DIVA-112 PO; -DIVA-78 PO; +HALO50VI4 IM; +QUET25TA PO
[2019-12-10 00:28] VITALS: BP 151/64
[2019-12-10] MEDS ORDERED: BACITRACIN 28.4 GM OINTMENT TP PRN (11:45)
[2019-12-10] MEDS ORDERED: POTASSIUM CHLORIDE 20 MEQ ER TABLET PO ONE (11:45)
[2019-12-10] MEDS ORDERED: DOCUSATE SODIUM 100 MG CAPSULE PO PRN (11:45)
[2019-12-10] MEDS ORDERED: MAGNESIUM HYDROXIDE SUSPENSION 30 ML UDCUP PO PRN (11:45)
[2019-12-10] MEDS ORDERED: ONDANSETRON HCL 4 MG TABLET PO PRN (11:45)
[2019-12-10] MEDS ORDERED: LOPERAMIDE HCL 2 MG CAPSULE PO PRN (11:45)
[2019-12-10] MEDS ORDERED: MAG HYDROX/AL HYDROX/SIMETH ES 30 ML SUSPENSION UDCUP PO PRN (11:45)
[2019-12-10] MEDS ORDERED: BENZOCAINE/MENTHOL LOZENGE MM PRN (11:45)
[2019-12-10] MEDS ORDERED: ALBUTEROL SULFATE HFA 90 MCG/PUFF 8 GM INHALER IH PRN (11:45)
[2019-12-10] MEDS ORDERED: OMEPRAZOLE 20 MG CAPSULE PO PRN (11:45)
[2019-12-10] MEDS ORDERED: CloNIDine HCL 0.1 MG TABLET PO PRN (11:45)
[2019-12-10 16:00] VITALS: BP 111/58
[2019-12-10] MEDS: LORazepam 2 MG TABLET PO PRN (16:40)
[2019-12-10] MEDS: QUEtiapine FUMARATE 200 MG TABLET PO SCH (20:37)
[2019-12-11] MEDS: DIVALPROEX SODIUM 500 MG DR TABLET PO SCH ×2 (07:56→16:06)
[2019-12-11] MEDS: QUEtiapine FUMARATE 200 MG TABLET PO SCH ×2 (07:56→20:08)
[2019-12-11 08:00] VITALS: BP 106/69
[2019-12-11] MEDS: LORazepam 2 MG TABLET PO PRN (14:23)
[2019-12-11] MEDS: HALOPERIDOL 5 MG TABLET PO PRN (14:23)
[2019-12-11] MEDS: IBUPROFEN 600 MG TABLET PO PRN (14:24)
[2019-12-11 16:00] VITALS: BP 107/64
[2019-12-12] MEDS: QUEtiapine FUMARATE 200 MG TABLET PO SCH ×2 (09:47→20:23)
[2019-12-12] MEDS: DIVALPROEX SODIUM 500 MG DR TABLET PO SCH ×2 (09:47→16:23)
[2019-12-12] MEDS: IBUPROFEN 600 MG TABLET PO PRN (17:58)
[2019-12-12] MEDS: ACETAMINOPHEN 325 MG TABLET PO PRN (20:52)
[2019-12-12 21:20] VITALS: BP 138/94
[2019-12-12] MEDS: LORazepam 2 MG TABLET PO PRN (21:39)
[2019-12-13] MEDS: LORazepam 2 MG TABLET PO PRN (08:45)
[2019-12-13] MEDS: QUEtiapine FUMARATE 200 MG TABLET PO SCH ×2 (08:46→20:31)
[2019-12-13] MEDS: DIVALPROEX SODIUM 500 MG DR TABLET PO SCH ×2 (08:46→16:49)
[2019-12-13] MEDS: ACETAMINOPHEN 325 MG TABLET PO PRN ×2 (08:46→20:26)
[2019-12-13 09:13] VITALS: BP 135/88
[2019-12-13 20:22] VITALS: BP 140/76
[2019-12-13] MEDS: ZOLPIDEM TARTRATE 10 MG TABLET PO PRN (23:18)
[2019-12-14 00:01] VITALS: BP 140/98
[2019-12-14] MEDS: LORazepam 2 MG TABLET PO PRN ×3 (00:02→14:36)
[2019-12-14] MEDS: PETROLATUM,WHITE 28 GM JELLY TP PRN (02:04)
[2019-12-14] MEDS: HALOPERIDOL 5 MG TABLET PO PRN ×3 (03:02→14:36)
[2019-12-14] MEDS: QUEtiapine FUMARATE 200 MG TABLET PO SCH ×2 (07:37→20:35)
[2019-12-14] MEDS: DIVALPROEX SODIUM 500 MG DR TABLET PO SCH ×2 (07:37→17:01)
[2019-12-14 08:00] VITALS: BP 121/69
[2019-12-14 16:06] VITALS: BP 122/81
[2019-12-15 08:00] VITALS: BP 131/72
[2019-12-15] MEDS: LORazepam 2 MG TABLET PO PRN ×2 (09:30→16:06)
[2019-12-15] MEDS: QUEtiapine FUMARATE 200 MG TABLET PO SCH ×2 (09:30→21:12)
[2019-12-15] MEDS: HALOPERIDOL 5 MG TABLET PO PRN (09:30)
[2019-12-15] MEDS: DIVALPROEX SODIUM 500 MG DR TABLET PO SCH ×2 (09:30→16:04)
[2019-12-15 16:04] VITALS: BP 121/80
[2019-12-15] MEDS: ACETAMINOPHEN 325 MG TABLET PO PRN (16:04)
[2019-12-16] MEDS ORDERED: TUBERCULIN, PURIFIED PROTEIN DERIVATIVE 5 TU/0.1 ML SYRINGE ID ONE (08:00)
[2019-12-16 08:03] LABS: BAND NEUTROPHILS % (MANUAL) 0 % (0-5)
[2019-12-16 08:15] LABS: HEMATOCRIT 36.1 % (36-46); MEAN CORPUSCULAR HEMOGLOBIN 31.1 pg (26.0-34.0); MEAN CORPUSCULAR HGB CONC 33.4 G/dL (31.0-37.0); MEAN CORPUSCULAR VOLUME 93 fL (80-100); PLATELET COUNT (AUTO) 216 K/uL (150-450); RED BLOOD CELL COUNT(AUTO) 3.88 MIL/uL (4.00-5.20); RED CELL DISTRIBUTION WIDTH 12.8 % (11.5-14.5)
[2019-12-16 09:21] LABS: ANION GAP 7 mmol/L (8-16); CALCIUM, TOTAL 8.8 mg/dL (8.8-10.5); CARBON DIOXIDE 29 mmol/L (22-29); CHLORIDE 105 mmol/L (98-107); CREATININE 0.59 mg/dL (0.60-1.30); GLOMERULAR FILTR. RATE CALC > 60 mL/min (>60); GLUCOSE,RANDOM 88 mg/dL (70-110); PHOSPHORUS 3.4 mg/dL (2.5-4.9); POTASSIUM 4.1 mmol/L (3.5-5.1); SODIUM SERUM 141 mmol/L (136-145); UREA NITROGEN, BLOOD 10 mg/dL (7-18)
[2019-12-16 09:27] LABS: % IRON SATURATION 25.4 % (22-44); IRON, SERUM 74 mcg/dL (50-175); TOTAL IRON BINDING CAPACITY 291 mcg/dL (250-450)
[2019-12-16 09:50] LABS: EOSINOPHILS % (MANUAL) 1 % (1-6); LYMPHOCYTES % (MANUAL) 34 % (22-44); MONOCYTES % (MANUAL) 3 % (2-9); SEGMENTED NEUTROPHILS % 62 % (40-70)
[2019-12-16] MEDS: DIVALPROEX SODIUM 500 MG DR TABLET PO SCH ×2 (10:50→16:34)
[2019-12-16] MEDS: QUEtiapine FUMARATE 200 MG TABLET PO SCH ×2 (10:50→20:17)
[2019-12-16] MEDS: LORazepam 2 MG TABLET PO PRN (10:50)
[2019-12-16] MEDS: HALOPERIDOL 5 MG TABLET PO PRN (10:50)
[2019-12-17 00:58] VITALS: BP 107/75
[2019-12-17] MEDS: BENZOCAINE 10% 7 GM GEL TP PRN (01:00)
[2019-12-17] MEDS: IBUPROFEN 600 MG TABLET PO PRN ×2 (01:00→15:38)
[2019-12-17] MEDS: QUEtiapine FUMARATE 200 MG TABLET PO SCH ×2 (08:42→20:18)
[2019-12-17] MEDS: DIVALPROEX SODIUM 500 MG DR TABLET PO SCH ×2 (08:42→16:04)
[2019-12-17] MEDS: LORazepam 2 MG TABLET PO PRN (15:28)
[2019-12-17 16:41] VITALS: BP 120/83
[2019-12-18] MEDS: DIVALPROEX SODIUM 500 MG DR TABLET PO SCH ×2 (09:58→15:56)
[2019-12-18] MEDS: QUEtiapine FUMARATE 200 MG TABLET PO SCH ×2 (09:58→20:42)
[2019-12-18] MEDS: BENZOCAINE 10% 7 GM GEL TP PRN (11:32)
[2019-12-18] MEDS: IBUPROFEN 600 MG TABLET PO PRN (11:33)
[2019-12-18] MEDS: LORazepam 2 MG TABLET PO PRN (15:56)
[2019-12-19 09:10] VITALS: BP 142/86
[2019-12-19] MEDS: DIVALPROEX SODIUM 500 MG DR TABLET PO SCH ×2 (09:22→17:20)
[2019-12-19] MEDS: QUEtiapine FUMARATE 200 MG TABLET PO SCH ×2 (09:22→20:14)
[2019-12-19] MEDS: LORazepam 2 MG TABLET PO PRN (15:39)
[2019-12-19 16:29] VITALS: BP 101/73
[2019-12-19] MEDS: HALOPERIDOL 5 MG TABLET PO PRN (19:22)
[2019-12-20 09:07] VITALS: BP 124/71
[2019-12-20] MEDS: DIVALPROEX SODIUM 500 MG DR TABLET PO SCH ×2 (11:48→17:14)
[2019-12-20] MEDS: QUEtiapine FUMARATE 200 MG TABLET PO SCH ×2 (11:48→20:13)
[2019-12-20] MEDS: LORazepam 2 MG TABLET PO PRN (15:47)
[2019-12-20 17:02] VITALS: BP 114/78
[2019-12-20] MEDS: HALOPERIDOL 5 MG TABLET PO PRN (18:50)
[2019-12-21 08:00] VITALS: BP 131/72
[2019-12-21] MEDS: LORazepam 2 MG TABLET PO PRN (08:21)
[2019-12-21] MEDS: DIVALPROEX SODIUM 500 MG DR TABLET PO SCH ×2 (08:22→16:00)
[2019-12-21] MEDS: QUEtiapine FUMARATE 200 MG TABLET PO SCH ×2 (08:22→20:34)
[2019-12-21 16:05] VITALS: BP 108/68
[2019-12-21 17:31] VITALS: BP 104/50
[2019-12-21] MEDS: IBUPROFEN 600 MG TABLET PO PRN (17:31)
[2019-12-22 03:44] VITALS: BP 133/81
[2019-12-22] MEDS: IBUPROFEN 600 MG TABLET PO PRN (03:47)
[2019-12-22] MEDS: LORazepam 2 MG TABLET PO PRN ×2 (03:47→10:14)
[2019-12-22] MEDS: HALOPERIDOL 5 MG TABLET PO PRN ×2 (03:47→10:14)
[2019-12-22 10:02] VITALS: BP 106/77
[2019-12-22] MEDS: QUEtiapine FUMARATE 200 MG TABLET PO SCH ×2 (10:14→20:59)
[2019-12-22] MEDS: DIVALPROEX SODIUM 500 MG DR TABLET PO SCH ×2 (10:14→17:37)
[2019-12-22 16:15] VITALS: BP 112/72
[2019-12-23] MEDS: IBUPROFEN 600 MG TABLET PO PRN ×2 (02:03→19:25)
[2019-12-23] MEDS: BENZOCAINE 10% 7 GM GEL TP PRN (02:03)
[2019-12-23] MEDS: LORazepam 2 MG TABLET PO PRN ×2 (02:03→09:53)
[2019-12-23] MEDS: QUEtiapine FUMARATE 200 MG TABLET PO SCH ×2 (09:53→20:32)
[2019-12-23] MEDS: DIVALPROEX SODIUM 500 MG DR TABLET PO SCH ×2 (09:53→17:43)
[2019-12-23] MEDS: HALOPERIDOL 5 MG TABLET PO PRN (09:53)
[2019-12-24] MEDS: QUEtiapine FUMARATE 200 MG TABLET PO SCH ×2 (10:07→20:16)
[2019-12-24] MEDS: DIVALPROEX SODIUM 500 MG DR TABLET PO SCH ×2 (10:07→16:50)
[2019-12-24 18:30] VITALS: BP 120/82
[2019-12-24] MEDS: ACETAMINOPHEN 325 MG TABLET PO PRN (18:36)
[2019-12-24] MEDS: ZOLPIDEM TARTRATE 10 MG TABLET PO PRN (21:52)
[2019-12-25 08:15] VITALS: BP 132/74
[2019-12-25] MEDS: DIVALPROEX SODIUM 500 MG DR TABLET PO SCH ×2 (08:29→16:08)
[2019-12-25] MEDS: QUEtiapine FUMARATE 200 MG TABLET PO SCH ×2 (08:29→19:59)
[2019-12-25] MEDS: IBUPROFEN 600 MG TABLET PO PRN (16:08)
[2019-12-25] MEDS: HALOPERIDOL 5 MG TABLET PO PRN (16:08)
[2019-12-25 16:09] VITALS: BP 122/61
[2019-12-25] MEDS: LORazepam 2 MG TABLET PO PRN (19:48)
[2019-12-25] MEDS: ZOLPIDEM TARTRATE 10 MG TABLET PO PRN (20:28)
[2019-12-26] MEDS: QUEtiapine FUMARATE 200 MG TABLET PO SCH ×2 (09:36→20:20)
[2019-12-26] MEDS: DIVALPROEX SODIUM 500 MG DR TABLET PO SCH ×2 (09:36→16:40)
[2019-12-26] MEDS: IBUPROFEN 600 MG TABLET PO PRN ×2 (14:10→21:33)
[2019-12-26 16:08] VITALS: BP 102/72
[2019-12-26] MEDS: ZOLPIDEM TARTRATE 10 MG TABLET PO PRN (20:49)
[2019-12-27] MEDS: LORazepam 2 MG TABLET PO PRN (03:56)
[2019-12-27] MEDS: QUEtiapine FUMARATE 200 MG TABLET PO SCH ×2 (08:24→20:45)
[2019-12-27] MEDS: DIVALPROEX SODIUM 500 MG DR TABLET PO SCH ×2 (08:24→16:15)
[2019-12-27] MEDS: IBUPROFEN 600 MG TABLET PO PRN (20:45)
[2019-12-27 20:46] VITALS: BP 118/76
[2019-12-28] MEDS: ZOLPIDEM TARTRATE 10 MG TABLET PO PRN ×2 (01:33→20:37)
[2019-12-28 02:23] VITALS: BP 100/72
[2019-12-28] MEDS: QUEtiapine FUMARATE 200 MG TABLET PO SCH ×2 (09:46→20:37)
[2019-12-28] MEDS: DIVALPROEX SODIUM 500 MG DR TABLET PO SCH ×2 (09:46→16:16)
[2019-12-28 23:34] VITALS: BP 141/90
[2019-12-28] MEDS: LORazepam 2 MG TABLET PO PRN (23:34)
[2019-12-28] MEDS: IBUPROFEN 600 MG TABLET PO PRN (23:34)
[2019-12-29] MEDS: DIVALPROEX SODIUM 500 MG DR TABLET PO SCH ×2 (09:46→16:33)
[2019-12-29] MEDS: LORazepam 2 MG TABLET PO PRN (09:47)
[2019-12-29] MEDS: QUEtiapine FUMARATE 200 MG TABLET PO SCH ×2 (09:47→20:54)
[2019-12-29] MEDS: HALOPERIDOL 5 MG TABLET PO PRN ×2 (09:47→16:33)
[2019-12-29 17:53] VITALS: BP 100/60
[2019-12-29] MEDS: ZOLPIDEM TARTRATE 10 MG TABLET PO PRN (20:54)
[2019-12-29 22:16] VITALS: BP 105/65
[2019-12-29] MEDS: IBUPROFEN 600 MG TABLET PO PRN (22:17)
[2019-12-30] MEDS: QUEtiapine FUMARATE 200 MG TABLET PO SCH ×2 (08:12→21:02)
[2019-12-30] MEDS: DIVALPROEX SODIUM 500 MG DR TABLET PO SCH ×2 (08:13→16:02)
[2019-12-30] MEDS: LORazepam 2 MG TABLET PO PRN ×2 (12:56→19:15)
[2019-12-30] MEDS: HALOPERIDOL 5 MG TABLET PO PRN ×2 (12:56→17:00)
[2019-12-31] MEDS: IBUPROFEN 600 MG TABLET PO PRN (00:09)
[2019-12-31] MEDS: ZOLPIDEM TARTRATE 10 MG TABLET PO PRN (00:09)
[2019-12-31] MEDS: LORazepam 2 MG TABLET PO PRN (01:39)
[2019-12-31] MEDS: HALOPERIDOL 5 MG TABLET PO PRN (01:39)
[2019-12-31] MEDS: QUEtiapine FUMARATE 200 MG TABLET PO SCH ×2 (09:01→20:20)
[2019-12-31] MEDS: DIVALPROEX SODIUM 500 MG DR TABLET PO SCH ×2 (09:01→16:50)
[2020-01-01] MEDS: ZOLPIDEM TARTRATE 10 MG TABLET PO PRN ×2 (00:22→20:21)
[2020-01-01] MEDS: QUEtiapine FUMARATE 200 MG TABLET PO SCH ×2 (09:39→20:20)
[2020-01-01] MEDS: DIVALPROEX SODIUM 500 MG DR TABLET PO SCH ×2 (09:39→16:18)
[2020-01-01] MEDS: HALOPERIDOL 5 MG TABLET PO PRN (16:18)
[2020-01-01] MEDS: LORazepam 2 MG TABLET PO PRN (19:43)
[2020-01-01 20:28] VITALS: BP 117/77
[2020-01-02] MEDS: DIVALPROEX SODIUM 500 MG DR TABLET PO SCH ×2 (08:56→16:42)
[2020-01-02] MEDS: QUEtiapine FUMARATE 200 MG TABLET PO SCH ×2 (08:57→20:15)
[2020-01-02] MEDS: HALOPERIDOL 5 MG TABLET PO PRN (20:16)
[2020-01-02] MEDS: LORazepam 2 MG TABLET PO PRN (20:16)
[2020-01-03] MEDS: QUEtiapine FUMARATE 200 MG TABLET PO SCH ×2 (09:05→20:26)
[2020-01-03] MEDS: DIVALPROEX SODIUM 500 MG DR TABLET PO SCH ×2 (09:05→16:32)
[2020-01-04 00:20] VITALS: BP 111/73
[2020-01-04] MEDS: ZOLPIDEM TARTRATE 10 MG TABLET PO PRN ×2 (00:25→21:46)
[2020-01-04] MEDS: HALOPERIDOL 5 MG TABLET PO PRN (03:21)
[2020-01-04] MEDS: LORazepam 2 MG TABLET PO PRN (03:21)
[2020-01-04] MEDS: DIVALPROEX SODIUM 500 MG DR TABLET PO SCH ×2 (08:20→16:19)
[2020-01-04] MEDS: QUEtiapine FUMARATE 200 MG TABLET PO SCH ×2 (08:20→20:07)
[2020-01-04 08:48] VITALS: BP 108/72
[2020-01-04 16:33] VITALS: BP 95/58
[2020-01-05 03:24] VITALS: BP 117/72
[2020-01-05] MEDS: QUEtiapine FUMARATE 200 MG TABLET PO SCH ×2 (08:55→20:03)
[2020-01-05] MEDS: DIVALPROEX SODIUM 500 MG DR TABLET PO SCH ×2 (08:56→16:35)
[2020-01-05 16:32] VITALS: BP 103/69
[2020-01-05] MEDS: PETROLATUM,WHITE 28 GM JELLY TP PRN (18:08)
[2020-01-05] MEDS: ZOLPIDEM TARTRATE 10 MG TABLET PO PRN (22:58)
[2020-01-06 00:20] VITALS: BP 114/71
[2020-01-06 08:00] VITALS: BP 129/75
[2020-01-06] MEDS: DIVALPROEX SODIUM 500 MG DR TABLET PO SCH ×2 (09:01→16:23)
[2020-01-06] MEDS: QUEtiapine FUMARATE 200 MG TABLET PO SCH ×2 (09:02→20:41)
[2020-01-06 17:17] VITALS: BP 107/69
[2020-01-06] MEDS: ZOLPIDEM TARTRATE 10 MG TABLET PO PRN (23:43)
[2020-01-07 00:55] VITALS: BP 123/89
[2020-01-07] MEDS: DIVALPROEX SODIUM 500 MG DR TABLET PO SCH ×2 (08:25→16:25)
[2020-01-07] MEDS: QUEtiapine FUMARATE 200 MG TABLET PO SCH ×2 (08:25→21:11)
[2020-01-07] MEDS: LORazepam 2 MG TABLET PO PRN (08:25)
[2020-01-07 08:43] VITALS: BP 134/87
[2020-01-07 16:05] VITALS: BP 97/55
[2020-01-07] MEDS: ZOLPIDEM TARTRATE 10 MG TABLET PO PRN (23:00)
[2020-01-08 09:09] VITALS: BP 99/61
[2020-01-08] MEDS: DIVALPROEX SODIUM 500 MG DR TABLET PO SCH ×2 (09:27→16:16)
[2020-01-08] MEDS: QUEtiapine FUMARATE 200 MG TABLET PO SCH ×2 (09:28→20:16)
[2020-01-08 17:03] VITALS: BP 112/78
[2020-01-08] MEDS: LORazepam 2 MG TABLET PO PRN (18:25)
[2020-01-08] MEDS: HALOPERIDOL 5 MG TABLET PO PRN (18:25)
[2020-01-09 08:00] VITALS: BP 114/76
[2020-01-09] MEDS: DIVALPROEX SODIUM 500 MG DR TABLET PO SCH ×2 (09:03→16:49)
[2020-01-09] MEDS: QUEtiapine FUMARATE 200 MG TABLET PO SCH ×2 (09:03→20:32)
[2020-01-09 16:00] VITALS: BP 91/56
[2020-01-10] MEDS: ZOLPIDEM TARTRATE 10 MG TABLET PO PRN ×2 (00:25→22:01)
[2020-01-10 08:15] VITALS: BP 101/65
[2020-01-10] MEDS: QUEtiapine FUMARATE 200 MG TABLET PO SCH ×2 (08:54→20:16)
[2020-01-10] MEDS: DIVALPROEX SODIUM 500 MG DR TABLET PO SCH ×2 (08:54→16:13)
[2020-01-10] MEDS: PETROLATUM,WHITE 28 GM JELLY TP PRN (16:13)
[2020-01-10 17:50] VITALS: BP 123/85
[2020-01-10] MEDS: HALOPERIDOL 5 MG TABLET PO PRN (17:52)
[2020-01-10] MEDS: LORazepam 2 MG TABLET PO PRN (17:52)
[2020-01-11] MEDS: HALOPERIDOL 5 MG TABLET PO PRN ×2 (08:59→20:18)
[2020-01-11] MEDS: LORazepam 2 MG TABLET PO PRN ×2 (08:59→20:18)
[2020-01-11] MEDS: DIVALPROEX SODIUM 500 MG DR TABLET PO SCH ×2 (08:59→16:25)
[2020-01-11] MEDS: QUEtiapine FUMARATE 200 MG TABLET PO SCH ×2 (08:59→20:18)
[2020-01-12] MEDS: HALOPERIDOL 5 MG TABLET PO PRN (08:54)
[2020-01-12] MEDS: LORazepam 2 MG TABLET PO PRN ×2 (08:54→19:36)
[2020-01-12] MEDS: DIVALPROEX SODIUM 500 MG DR TABLET PO SCH ×2 (08:54→16:40)
[2020-01-12] MEDS: QUEtiapine FUMARATE 200 MG TABLET PO SCH ×2 (08:54→20:07)
[2020-01-13 08:00] VITALS: BP 96/56
[2020-01-13] MEDS: QUEtiapine FUMARATE 200 MG TABLET PO SCH ×2 (09:33→20:12)
[2020-01-13] MEDS: DIVALPROEX SODIUM 500 MG DR TABLET PO SCH ×2 (09:33→16:22)
[2020-01-13 16:05] VITALS: BP 102/52
[2020-01-13] MEDS: ZOLPIDEM TARTRATE 10 MG TABLET PO PRN (23:32)
[2020-01-13] MEDS: LORazepam 2 MG TABLET PO PRN (23:32)
[2020-01-14] VITALS: BP 109/72
[2020-01-14] MEDS: DIVALPROEX SODIUM 500 MG DR TABLET PO SCH ×2 (08:05→16:47)
[2020-01-14] MEDS: QUEtiapine FUMARATE 200 MG TABLET PO SCH ×2 (08:05→20:43)
[2020-01-14 09:38] VITALS: BP 105/67
[2020-01-14 16:00] VITALS: BP 110/78
[2020-01-14] MEDS: ZOLPIDEM TARTRATE 10 MG TABLET PO PRN (23:36)
[2020-01-14] MEDS: LORazepam 2 MG TABLET PO PRN (23:37)
[2020-01-15] VITALS: BP 123/85
[2020-01-15] MEDS: QUEtiapine FUMARATE 200 MG TABLET PO SCH ×2 (09:20→20:48)
[2020-01-15] MEDS: DIVALPROEX SODIUM 500 MG DR TABLET PO SCH ×2 (09:20→16:33)
[2020-01-15 16:52] VITALS: BP 93/68
[2020-01-15] MEDS: ZOLPIDEM TARTRATE 10 MG TABLET PO PRN (23:13)
[2020-01-16 00:10] VITALS: BP 126/77
[2020-01-16 05:42] VITALS: BP 129/84
[2020-01-16] MEDS: LORazepam 2 MG TABLET PO PRN (05:43)
[2020-01-16] MEDS: QUEtiapine FUMARATE 200 MG TABLET PO SCH ×2 (09:54→20:35)
[2020-01-16] MEDS: DIVALPROEX SODIUM 500 MG DR TABLET PO SCH ×2 (09:55→16:12)
[2020-01-17 00:05] VITALS: BP 116/70
[2020-01-17] MEDS: ZOLPIDEM TARTRATE 10 MG TABLET PO PRN (00:06)
[2020-01-17] MEDS: LORazepam 2 MG TABLET PO PRN ×2 (00:06→22:29)
[2020-01-17] MEDS: QUEtiapine FUMARATE 200 MG TABLET PO SCH ×3 (10:02→20:01)
[2020-01-17] MEDS: DIVALPROEX SODIUM 500 MG DR TABLET PO SCH ×2 (10:02→16:48)
[2020-01-17] MEDS: HALOPERIDOL 5 MG TABLET PO PRN (22:29)
[2020-01-18] MEDS: DIVALPROEX SODIUM 500 MG DR TABLET PO SCH ×2 (09:09→16:12)
[2020-01-18] MEDS: QUEtiapine FUMARATE 200 MG TABLET PO SCH ×2 (09:09→20:22)
[2020-01-18] MEDS: ZOLPIDEM TARTRATE 10 MG TABLET PO PRN (20:21)
[2020-01-18] MEDS: LORazepam 2 MG TABLET PO PRN (22:46)
[2020-01-19 08:43] VITALS: BP 126/67
[2020-01-19] MEDS: DIVALPROEX SODIUM 500 MG DR TABLET PO SCH ×2 (09:07→16:13)
[2020-01-19] MEDS: QUEtiapine FUMARATE 200 MG TABLET PO SCH ×2 (09:07→20:22)
[2020-01-19 16:43] VITALS: BP 101/65
[2020-01-19] MEDS: LORazepam 2 MG TABLET PO PRN ×2 (19:04→23:28)
[2020-01-19] MEDS: ACETAMINOPHEN 325 MG TABLET PO PRN (19:04)
[2020-01-19 23:25] VITALS: BP 106/70
[2020-01-19] MEDS: ZOLPIDEM TARTRATE 10 MG TABLET PO PRN (23:28)
[2020-01-20 00:05] VITALS: BP 108/67
[2020-01-20] MEDS: ACETAMINOPHEN 325 MG TABLET PO PRN (00:06)
[2020-01-20] MEDS: QUEtiapine FUMARATE 200 MG TABLET PO SCH ×2 (08:39→20:13)
[2020-01-20] MEDS: DIVALPROEX SODIUM 500 MG DR TABLET PO SCH ×2 (08:39→16:18)
[2020-01-21] VITALS: BP 107/78
[2020-01-21] MEDS: LORazepam 2 MG TABLET PO PRN (06:39)
[2020-01-21] MEDS: DIVALPROEX SODIUM 500 MG DR TABLET PO SCH ×2 (08:06→19:50)
[2020-01-21] MEDS: QUEtiapine FUMARATE 200 MG TABLET PO SCH ×2 (08:06→22:03)
[2020-01-21 09:49] VITALS: BP 118/89
[2020-01-21] MEDS ORDERED: DiphenhydrAMINE HCL 50 MG/ML VIAL ONE (12:33)
[2020-01-21] MEDS ORDERED: HALOPERIDOL LACTATE 5 MG/ML VIAL ONE (12:33)
[2020-01-21] MEDS ORDERED: DiphenhydrAMINE HCL 50 MG/ML VIAL IM ONE (12:45)
[2020-01-21] MEDS ORDERED: HALOPERIDOL LACTATE 5 MG/ML VIAL IM ONE (12:45)
[2020-01-21] MEDS ORDERED: LORazepam 2 MG/ML VIAL IM ONE (12:45)
[2020-01-22] MEDS: LORazepam 2 MG TABLET PO PRN (10:43)
[2020-01-22] MEDS: QUEtiapine FUMARATE 200 MG TABLET PO SCH ×2 (10:43→20:11)
[2020-01-22] MEDS: HALOPERIDOL 5 MG TABLET PO PRN (10:44)
[2020-01-22] MEDS: DIVALPROEX SODIUM 500 MG DR TABLET PO SCH ×2 (10:44→17:52)
[2020-01-23] MEDS: LORazepam 2 MG TABLET PO PRN ×2 (00:59→20:26)
[2020-01-23] MEDS: ZOLPIDEM TARTRATE 10 MG TABLET PO PRN (00:59)
[2020-01-23] MEDS: QUEtiapine FUMARATE 200 MG TABLET PO SCH ×2 (07:58→20:35)
[2020-01-23] MEDS: DIVALPROEX SODIUM 500 MG DR TABLET PO SCH ×2 (07:58→16:30)
[2020-01-23 16:37] VITALS: BP 109/56
[2020-01-24] MEDS: LORazepam 2 MG TABLET PO PRN ×2 (00:33→20:24)
[2020-01-24] MEDS: ZOLPIDEM TARTRATE 10 MG TABLET PO PRN (00:33)
[2020-01-24] MEDS: ACETAMINOPHEN 325 MG TABLET PO PRN (05:15)
[2020-01-24] MEDS: DIVALPROEX SODIUM 500 MG DR TABLET PO SCH ×2 (08:45→16:26)
[2020-01-24] MEDS: QUEtiapine FUMARATE 200 MG TABLET PO SCH ×2 (08:45→20:21)
[2020-01-24 16:05] VITALS: BP 134/88
[2020-01-25] VITALS: BP 117/76
[2020-01-25] MEDS: ZOLPIDEM TARTRATE 10 MG TABLET PO PRN ×2 (00:09→23:58)
[2020-01-25] MEDS: LORazepam 2 MG TABLET PO PRN ×2 (01:39→23:59)
[2020-01-25] MEDS: HALOPERIDOL 5 MG TABLET PO PRN (01:39)
[2020-01-25] MEDS: DIVALPROEX SODIUM 500 MG DR TABLET PO SCH ×2 (08:27→17:36)
[2020-01-25] MEDS: QUEtiapine FUMARATE 200 MG TABLET PO SCH ×2 (08:27→20:42)
[2020-01-26] MEDS: QUEtiapine FUMARATE 200 MG TABLET PO SCH ×2 (08:27→21:10)
[2020-01-26] MEDS: DIVALPROEX SODIUM 500 MG DR TABLET PO SCH ×2 (08:27→16:07)
[2020-01-26] MEDS: LORazepam 2 MG TABLET PO PRN ×2 (17:48→23:46)
[2020-01-26] MEDS: HALOPERIDOL 5 MG TABLET PO PRN ×2 (17:48→23:46)
[2020-01-27] MEDS: ZOLPIDEM TARTRATE 10 MG TABLET PO PRN ×2 (00:41→21:05)
[2020-01-27] MEDS: QUEtiapine FUMARATE 200 MG TABLET PO SCH ×2 (08:39→20:17)
[2020-01-27] MEDS: VALPROIC ACID 250 MG/5 ML SYRUP UDCUP PO SCH ×2 (08:39→20:17)
[2020-01-27] MEDS: LORazepam 2 MG TABLET PO PRN (23:43)
[2020-01-28 00:01] VITALS: BP 108/57
[2020-01-28] MEDS: HALOPERIDOL 5 MG TABLET PO PRN (01:33)
[2020-01-28] MEDS: QUEtiapine FUMARATE 200 MG TABLET PO SCH ×2 (08:16→21:12)
[2020-01-28] MEDS: VALPROIC ACID 250 MG/5 ML SYRUP UDCUP PO SCH ×2 (08:17→21:12)
[2020-01-28] MEDS: LORazepam 2 MG TABLET PO PRN (23:44)
[2020-01-28] MEDS: ZOLPIDEM TARTRATE 10 MG TABLET PO PRN (23:44)
[2020-01-29 00:41] VITALS: BP 97/68
[2020-01-29] MEDS: VALPROIC ACID 250 MG/5 ML SYRUP UDCUP PO SCH ×2 (08:14→20:49)
[2020-01-29] MEDS: QUEtiapine FUMARATE 200 MG TABLET PO SCH ×2 (08:14→20:48)
[2020-01-29 16:46] VITALS: BP 102/70
[2020-01-30] MEDS: ZOLPIDEM TARTRATE 10 MG TABLET PO PRN ×2 (01:04→23:39)
[2020-01-30] MEDS: LORazepam 2 MG TABLET PO PRN ×2 (01:04→23:39)
[2020-01-30] MEDS: QUEtiapine FUMARATE 200 MG TABLET PO SCH ×2 (09:05→20:55)
[2020-01-30] MEDS: VALPROIC ACID 250 MG/5 ML SYRUP UDCUP PO SCH ×2 (09:05→20:55)
[2020-01-30 16:25] VITALS: BP 106/74
[2020-01-31 00:21] VITALS: BP 110/78
[2020-01-31] MEDS: VALPROIC ACID 250 MG/5 ML SYRUP UDCUP PO SCH ×2 (08:08→20:49)
[2020-01-31] MEDS: QUEtiapine FUMARATE 200 MG TABLET PO SCH ×2 (08:08→20:49)
[2020-01-31] MEDS: HALOPERIDOL 5 MG TABLET PO PRN (15:47)
[2020-01-31] MEDS: LORazepam 2 MG TABLET PO PRN (15:48)
[2020-01-31 17:01] VITALS: BP 103/62
[2020-01-31] MEDS: ZOLPIDEM TARTRATE 10 MG TABLET PO PRN (20:50)
[2020-02-01] MEDS: QUEtiapine FUMARATE 200 MG TABLET PO SCH ×2 (08:36→20:16)
[2020-02-01] MEDS: VALPROIC ACID 250 MG/5 ML SYRUP UDCUP PO SCH ×2 (08:36→20:13)
[2020-02-01] MEDS: LORazepam 2 MG TABLET PO PRN (23:54)
[2020-02-01] MEDS: ZOLPIDEM TARTRATE 10 MG TABLET PO PRN (23:54)
[2020-02-02] MEDS: VALPROIC ACID 250 MG/5 ML SYRUP UDCUP PO SCH ×2 (08:48→20:24)
[2020-02-02] MEDS: QUEtiapine FUMARATE 200 MG TABLET PO SCH ×2 (08:48→20:23)
[2020-02-02] MEDS: HALOPERIDOL 5 MG TABLET PO PRN ×2 (15:31→22:52)
[2020-02-02] MEDS: LORazepam 2 MG TABLET PO PRN ×2 (15:31→22:52)
[2020-02-03] MEDS: VALPROIC ACID 250 MG/5 ML SYRUP UDCUP PO SCH ×2 (08:32→20:23)
[2020-02-03] MEDS: QUEtiapine FUMARATE 200 MG TABLET PO SCH ×2 (08:32→20:23)
[2020-02-03] MEDS: HALOPERIDOL 5 MG TABLET PO PRN (20:23)
[2020-02-03] MEDS: LORazepam 2 MG TABLET PO PRN (20:23)
[2020-02-04] MEDS: VALPROIC ACID 250 MG/5 ML SYRUP UDCUP PO SCH ×2 (08:38→20:49)
[2020-02-04] MEDS: QUEtiapine FUMARATE 200 MG TABLET PO SCH ×2 (08:38→20:49)
[2020-02-04] MEDS: HALOPERIDOL 5 MG TABLET PO PRN (20:48)
[2020-02-04] MEDS: LORazepam 2 MG TABLET PO PRN (20:48)
[2020-02-05] MEDS: ZOLPIDEM TARTRATE 10 MG TABLET PO PRN ×2 (00:17→22:28)
[2020-02-05] MEDS: IBUPROFEN 600 MG TABLET PO PRN ×2 (04:33→17:02)
[2020-02-05] MEDS: VALPROIC ACID 250 MG/5 ML SYRUP UDCUP PO SCH ×2 (08:52→20:13)
[2020-02-05] MEDS: QUEtiapine FUMARATE 200 MG TABLET PO SCH ×2 (08:52→20:13)
[2020-02-05] MEDS: HALOPERIDOL 5 MG TABLET PO PRN (19:08)
[2020-02-05] MEDS: LORazepam 2 MG TABLET PO PRN (19:08)
[2020-02-06] MEDS: QUEtiapine FUMARATE 200 MG TABLET PO SCH ×2 (08:45→20:31)
[2020-02-06] MEDS: VALPROIC ACID 250 MG/5 ML SYRUP UDCUP PO SCH ×2 (08:46→20:31)
[2020-02-06] MEDS: IBUPROFEN 600 MG TABLET PO PRN (14:25)
[2020-02-06 20:18] VITALS: BP 118/79
[2020-02-06] MEDS: LORazepam 2 MG TABLET PO PRN (20:20)
[2020-02-07] MEDS: IBUPROFEN 600 MG TABLET PO PRN (02:05)
[2020-02-07] MEDS: QUEtiapine FUMARATE 200 MG TABLET PO SCH ×2 (08:41→20:36)
[2020-02-07] MEDS: VALPROIC ACID 250 MG/5 ML SYRUP UDCUP PO SCH ×2 (08:41→20:36)
[2020-02-07] MEDS: ZOLPIDEM TARTRATE 10 MG TABLET PO PRN (23:46)
[2020-02-07] MEDS: LORazepam 2 MG TABLET PO PRN (23:46)
[2020-02-08] MEDS: HALOPERIDOL 5 MG TABLET PO PRN (01:41)
[2020-02-08] MEDS: QUEtiapine FUMARATE 200 MG TABLET PO SCH ×2 (09:00→20:24)
[2020-02-08] MEDS: VALPROIC ACID 250 MG/5 ML SYRUP UDCUP PO SCH ×2 (09:01→20:24)
[2020-02-08] MEDS: ZOLPIDEM TARTRATE 10 MG TABLET PO PRN (23:28)
[2020-02-08] MEDS: LORazepam 2 MG TABLET PO PRN (23:49)
[2020-02-09 00:17] VITALS: BP 125/79
[2020-02-09] MEDS: QUEtiapine FUMARATE 200 MG TABLET PO SCH ×2 (08:01→22:21)
[2020-02-09] MEDS: VALPROIC ACID 250 MG/5 ML SYRUP UDCUP PO SCH ×2 (08:02→22:22)
[2020-02-09 16:00] VITALS: BP 124/78
[2020-02-09] MEDS: LORazepam 2 MG TABLET PO PRN (17:07)
[2020-02-09] MEDS: HALOPERIDOL 5 MG TABLET PO PRN (17:07)
[2020-02-09] MEDS: ZOLPIDEM TARTRATE 10 MG TABLET PO PRN (22:21)
[2020-02-10] MEDS: QUEtiapine FUMARATE 200 MG TABLET PO SCH ×2 (08:14→20:37)
[2020-02-10] MEDS: VALPROIC ACID 250 MG/5 ML SYRUP UDCUP PO SCH ×2 (08:14→20:37)
[2020-02-10 16:30] VITALS: BP 116/83
[2020-02-11] MEDS: LORazepam 2 MG TABLET PO PRN ×2 (00:04→23:43)
[2020-02-11] MEDS: ZOLPIDEM TARTRATE 10 MG TABLET PO PRN ×2 (00:04→23:43)
[2020-02-11 00:06] VITALS: BP 137/82
[2020-02-11] MEDS: IBUPROFEN 600 MG TABLET PO PRN ×2 (04:51→23:44)
[2020-02-11] MEDS: QUEtiapine FUMARATE 200 MG TABLET PO SCH ×2 (08:34→20:24)
[2020-02-11] MEDS: VALPROIC ACID 250 MG/5 ML SYRUP UDCUP PO SCH ×2 (08:35→20:23)
[2020-02-11 17:00] VITALS: BP 118/57
[2020-02-11 23:40] VITALS: BP 117/76
[2020-02-12] MEDS: VALPROIC ACID 250 MG/5 ML SYRUP UDCUP PO SCH ×2 (08:42→20:47)
[2020-02-12] MEDS: QUEtiapine FUMARATE 200 MG TABLET PO SCH ×2 (08:43→20:47)
[2020-02-12 10:13] VITALS: BP 118/57
[2020-02-12] MEDS: LORazepam 2 MG TABLET PO PRN (23:42)
[2020-02-12] MEDS: ZOLPIDEM TARTRATE 10 MG TABLET PO PRN (23:42)
[2020-02-13 00:23] VITALS: BP 107/76
[2020-02-13] MEDS: QUEtiapine FUMARATE 200 MG TABLET PO SCH ×2 (09:08→20:13)
[2020-02-13] MEDS: VALPROIC ACID 250 MG/5 ML SYRUP UDCUP PO SCH ×2 (09:09→20:13)
[2020-02-13 16:13] VITALS: BP 112/70
[2020-02-13] MEDS: LORazepam 2 MG TABLET PO PRN (17:46)
[2020-02-13] MEDS: HALOPERIDOL 5 MG TABLET PO PRN (17:46)
[2020-02-13] MEDS: ZOLPIDEM TARTRATE 10 MG TABLET PO PRN (20:27)
[2020-02-14] MEDS: VALPROIC ACID 250 MG/5 ML SYRUP UDCUP PO SCH ×2 (08:09→21:08)
[2020-02-14] MEDS: QUEtiapine FUMARATE 200 MG TABLET PO SCH ×2 (08:09→21:07)
[2020-02-14] MEDS: HALOPERIDOL 5 MG TABLET PO PRN (16:30)
[2020-02-14] MEDS: LORazepam 2 MG TABLET PO PRN (16:30)
[2020-02-14 16:46] VITALS: BP 123/79
[2020-02-14] MEDS: ZOLPIDEM TARTRATE 10 MG TABLET PO PRN (21:09)
[2020-02-15] MEDS: QUEtiapine FUMARATE 200 MG TABLET PO SCH ×2 (09:09→20:18)
[2020-02-15] MEDS: VALPROIC ACID 250 MG/5 ML SYRUP UDCUP PO SCH ×2 (09:09→20:18)
[2020-02-15 17:53] VITALS: BP 117/79
[2020-02-15] MEDS: TRIAMCINOLONE 0.1% 15 GM CREAM TP SCH (18:36)
[2020-02-15] MEDS: ZOLPIDEM TARTRATE 10 MG TABLET PO PRN (23:52)
[2020-02-15] MEDS: LORazepam 2 MG TABLET PO PRN (23:52)
[2020-02-15] MEDS: HALOPERIDOL 5 MG TABLET PO PRN (23:53)
[2020-02-16 00:03] VITALS: BP 120/80
[2020-02-16] MEDS: VALPROIC ACID 250 MG/5 ML SYRUP UDCUP PO SCH ×2 (08:22→20:41)
[2020-02-16] MEDS: QUEtiapine FUMARATE 200 MG TABLET PO SCH ×2 (08:22→20:41)
[2020-02-16] MEDS: TRIAMCINOLONE 0.1% 15 GM CREAM TP SCH ×2 (08:23→17:48)
[2020-02-17] MEDS: LORazepam 2 MG TABLET PO PRN (00:11)
[2020-02-17] MEDS: ZOLPIDEM TARTRATE 10 MG TABLET PO PRN (00:11)
[2020-02-17] MEDS: TRIAMCINOLONE 0.1% 15 GM CREAM TP SCH ×2 (08:48→16:57)
[2020-02-17] MEDS: VALPROIC ACID 250 MG/5 ML SYRUP UDCUP PO SCH ×2 (08:49→20:34)
[2020-02-17] MEDS: QUEtiapine FUMARATE 200 MG TABLET PO SCH ×2 (08:49→20:34)
[2020-02-17 21:39] VITALS: BP 122/68
[2020-02-17] MEDS: ACETAMINOPHEN 325 MG TABLET PO PRN (21:44)
[2020-02-18] MEDS: QUEtiapine FUMARATE 200 MG TABLET PO SCH ×2 (08:42→20:34)
[2020-02-18] MEDS: VALPROIC ACID 250 MG/5 ML SYRUP UDCUP PO SCH ×2 (08:42→20:34)
[2020-02-18] MEDS: TRIAMCINOLONE 0.1% 15 GM CREAM TP SCH ×2 (14:14→17:16)
[2020-02-18] MEDS: LORazepam 2 MG TABLET PO PRN ×2 (23:43)
[2020-02-18] MEDS: ZOLPIDEM TARTRATE 10 MG TABLET PO PRN ×2 (23:43)
[2020-02-19 00:56] VITALS: BP 115/78
[2020-02-19] MEDS: VALPROIC ACID 250 MG/5 ML SYRUP UDCUP PO SCH ×2 (08:26→20:21)
[2020-02-19] MEDS: QUEtiapine FUMARATE 200 MG TABLET PO SCH ×2 (08:26→20:20)
[2020-02-19] MEDS: TRIAMCINOLONE 0.1% 15 GM CREAM TP SCH ×2 (08:27→17:07)
[2020-02-20] MEDS: ZOLPIDEM TARTRATE 10 MG TABLET PO PRN (00:53)
[2020-02-20] MEDS: LORazepam 2 MG TABLET PO PRN (00:54)
[2020-02-20] MEDS: VALPROIC ACID 250 MG/5 ML SYRUP UDCUP PO SCH ×2 (08:27→20:32)
[2020-02-20] MEDS: QUEtiapine FUMARATE 200 MG TABLET PO SCH ×2 (08:27→20:32)
[2020-02-20] MEDS: TRIAMCINOLONE 0.1% 15 GM CREAM TP SCH ×2 (09:47→16:32)
[2020-02-21 01:28] VITALS: BP 110/77
[2020-02-21 08:00] VITALS: BP 132/89
[2020-02-21] MEDS: VALPROIC ACID 250 MG/5 ML SYRUP UDCUP PO SCH ×2 (08:14→20:47)
[2020-02-21] MEDS: QUEtiapine FUMARATE 200 MG TABLET PO SCH ×2 (08:14→20:47)
[2020-02-21] MEDS: TRIAMCINOLONE 0.1% 15 GM CREAM TP SCH ×2 (08:22→16:41)
[2020-02-21 16:25] VITALS: BP 121/77
[2020-02-22] MEDS: LORazepam 2 MG TABLET PO PRN ×2 (00:16→16:10)
[2020-02-22] MEDS: ZOLPIDEM TARTRATE 10 MG TABLET PO PRN (00:16)
[2020-02-22 00:28] VITALS: BP 123/85
[2020-02-22] MEDS: QUEtiapine FUMARATE 200 MG TABLET PO SCH ×2 (08:02→21:13)
[2020-02-22] MEDS: TRIAMCINOLONE 0.1% 15 GM CREAM TP SCH ×2 (08:03→16:10)
[2020-02-22] MEDS: VALPROIC ACID 250 MG/5 ML SYRUP UDCUP PO SCH ×2 (08:03→21:13)
[2020-02-23 06:46] LABS: BAND NEUTROPHILS % (MANUAL) 0 % (0-5)
[2020-02-23 06:51] LABS: HEMATOCRIT 37.7 % (36-46); HEMOGLOBIN 13.1 g/dL (12.0-16.0); MEAN CORPUSCULAR HEMOGLOBIN 30.8 pg (26.0-34.0); MEAN CORPUSCULAR HGB CONC 34.6 G/dL (31.0-37.0); MEAN CORPUSCULAR VOLUME 89 fL (80-100); PLATELET COUNT (AUTO) 202 K/uL (150-450); RED BLOOD CELL COUNT(AUTO) 4.24 MIL/uL (4.00-5.20); RED CELL DISTRIBUTION WIDTH 12.8 % (11.5-14.5)
[2020-02-23 07:23] LABS: ANION GAP 9 mmol/L (8-16); CALCIUM, TOTAL 9.1 mg/dL (8.8-10.5); CARBON DIOXIDE 28 mmol/L (22-29); CHLORIDE 107 mmol/L (98-107); CREATININE 0.52 mg/dL (0.60-1.30); GLOMERULAR FILTR. RATE CALC > 60 mL/min (>60); GLUCOSE,RANDOM 109 mg/dL (70-110); PHOSPHORUS 3.8 mg/dL (2.5-4.9); POTASSIUM 4.1 mmol/L (3.5-5.1); SODIUM SERUM 144 mmol/L (136-145); UREA NITROGEN, BLOOD 16 mg/dL (7-18)
[2020-02-23] MEDS: QUEtiapine FUMARATE 200 MG TABLET PO SCH ×2 (08:07→20:28)
[2020-02-23] MEDS: VALPROIC ACID 250 MG/5 ML SYRUP UDCUP PO SCH ×2 (08:07→20:28)
[2020-02-23] MEDS: TRIAMCINOLONE 0.1% 15 GM CREAM TP SCH ×2 (09:30→16:03)
[2020-02-23 11:50] LABS: LYMPHOCYTES % (MANUAL) 40 % (22-44); MONOCYTES % (MANUAL) 6 % (2-9); SEGMENTED NEUTROPHILS % 54 % (40-70)
[2020-02-23] MEDS: LORazepam 2 MG TABLET PO PRN (19:30)
[2020-02-23] MEDS: HALOPERIDOL 5 MG TABLET PO PRN (19:30)
[2020-02-23] MEDS: ZOLPIDEM TARTRATE 10 MG TABLET PO PRN (21:41)
[2020-02-24] MEDS: QUEtiapine FUMARATE 200 MG TABLET PO SCH ×2 (08:18→20:45)
[2020-02-24] MEDS: VALPROIC ACID 250 MG/5 ML SYRUP UDCUP PO SCH ×2 (08:18→20:46)
[2020-02-24] MEDS: TRIAMCINOLONE 0.1% 15 GM CREAM TP SCH ×2 (11:24→16:03)
[2020-02-24] MEDS: HALOPERIDOL 5 MG TABLET PO PRN (18:04)
[2020-02-24] MEDS: LORazepam 2 MG TABLET PO PRN (18:04)
[2020-02-25] MEDS: VALPROIC ACID 250 MG/5 ML SYRUP UDCUP PO SCH ×2 (08:35→20:39)
[2020-02-25] MEDS: QUEtiapine FUMARATE 200 MG TABLET PO SCH ×2 (08:35→20:39)
[2020-02-25] MEDS: TRIAMCINOLONE 0.1% 15 GM CREAM TP SCH ×2 (09:48→16:48)
[2020-02-25 17:15] VITALS: BP 127/84
[2020-02-26 00:39] VITALS: BP 132/85
[2020-02-26] MEDS: ZOLPIDEM TARTRATE 10 MG TABLET PO PRN (00:59)
[2020-02-26] MEDS: LORazepam 2 MG TABLET PO PRN ×2 (00:59→18:40)
[2020-02-26] MEDS: VALPROIC ACID 250 MG/5 ML SYRUP UDCUP PO SCH ×2 (10:05→20:15)
[2020-02-26] MEDS: HALOPERIDOL 5 MG TABLET PO PRN ×2 (10:05→18:40)
[2020-02-26] MEDS: TRIAMCINOLONE 0.1% 15 GM CREAM TP SCH ×2 (10:06→16:49)
[2020-02-26] MEDS: QUEtiapine FUMARATE 200 MG TABLET PO SCH ×2 (10:06→20:15)
[2020-02-26] MEDS: MAGNESIUM OXIDE 400 MG TABLET PO SCH ×2 (10:06→16:49)
[2020-02-27] MEDS: VALPROIC ACID 250 MG/5 ML SYRUP UDCUP PO SCH ×2 (08:47→19:58)
[2020-02-27] MEDS: QUEtiapine FUMARATE 200 MG TABLET PO SCH ×2 (08:48→19:58)
[2020-02-27] MEDS: MAGNESIUM OXIDE 400 MG TABLET PO SCH ×2 (08:48→16:09)
[2020-02-27] MEDS: IBUPROFEN 600 MG TABLET PO PRN (08:48)
[2020-02-27] MEDS: TRIAMCINOLONE 0.1% 15 GM CREAM TP SCH ×2 (09:32→16:09)
[2020-02-27 16:00] VITALS: BP 123/74
[2020-02-27 16:47] VITALS: BP 123/74
[2020-02-27] MEDS: LORazepam 2 MG TABLET PO PRN (18:48)
[2020-02-27] MEDS: HALOPERIDOL 5 MG TABLET PO PRN (19:56)
[2020-02-28] MEDS: QUEtiapine FUMARATE 200 MG TABLET PO SCH ×2 (09:28→20:27)
[2020-02-28] MEDS: MAGNESIUM OXIDE 400 MG TABLET PO SCH ×2 (09:28→16:15)
[2020-02-28] MEDS: VALPROIC ACID 250 MG/5 ML SYRUP UDCUP PO SCH ×2 (09:30→20:27)
[2020-02-28] MEDS: TRIAMCINOLONE 0.1% 15 GM CREAM TP SCH ×2 (09:30→16:15)
[2020-02-28 16:05] VITALS: BP 124/78
[2020-02-28] MEDS: LORazepam 2 MG TABLET PO PRN (18:55)
[2020-02-28] MEDS: HALOPERIDOL 5 MG TABLET PO PRN (20:24)
[2020-02-29] MEDS: MAGNESIUM OXIDE 400 MG TABLET PO SCH ×2 (08:35→16:36)
[2020-02-29] MEDS: QUEtiapine FUMARATE 200 MG TABLET PO SCH ×2 (08:35→20:40)
[2020-02-29] MEDS: VALPROIC ACID 250 MG/5 ML SYRUP UDCUP PO SCH ×2 (08:36→20:40)
[2020-02-29] MEDS: TRIAMCINOLONE 0.1% 15 GM CREAM TP SCH ×2 (08:36→16:34)
[2020-03-01] MEDS: MAGNESIUM OXIDE 400 MG TABLET PO SCH ×2 (08:20→16:12)
[2020-03-01] MEDS: TRIAMCINOLONE 0.1% 15 GM CREAM TP SCH ×2 (08:21→16:12)
[2020-03-01] MEDS: QUEtiapine FUMARATE 200 MG TABLET PO SCH ×2 (08:21→20:36)
[2020-03-01] MEDS: VALPROIC ACID 250 MG/5 ML SYRUP UDCUP PO SCH ×2 (08:21→20:35)
[2020-03-01 17:10] VITALS: BP 116/69
[2020-03-01 18:24] VITALS: BP 112/76
[2020-03-01] MEDS: ACETAMINOPHEN 325 MG TABLET PO PRN (18:24)
[2020-03-02] MEDS: ACETAMINOPHEN 325 MG TABLET PO PRN (00:34)
[2020-03-02] MEDS: MAGNESIUM OXIDE 400 MG TABLET PO SCH ×2 (08:37→17:36)
[2020-03-02] MEDS: TRIAMCINOLONE 0.1% 15 GM CREAM TP SCH ×2 (08:37→17:36)
[2020-03-02] MEDS: QUEtiapine FUMARATE 200 MG TABLET PO SCH (08:37)
[2020-03-02] MEDS: VALPROIC ACID 250 MG/5 ML SYRUP UDCUP PO SCH ×2 (08:37→20:20)
[2020-03-02] MEDS: QUEtiapine FUMARATE 300 MG TABLET PO SCH (20:20)
[2020-03-03 08:00] VITALS: BP 110/70
[2020-03-03] MEDS: VALPROIC ACID 250 MG/5 ML SYRUP UDCUP PO SCH ×2 (08:44→20:18)
[2020-03-03] MEDS: QUEtiapine FUMARATE 300 MG TABLET PO SCH ×2 (08:44→20:18)
[2020-03-03] MEDS: TRIAMCINOLONE 0.1% 15 GM CREAM TP SCH ×2 (08:44→16:58)
[2020-03-03] MEDS: MAGNESIUM OXIDE 400 MG TABLET PO SCH ×2 (08:44→16:58)
[2020-03-03 17:12] VITALS: BP 107/66
[2020-03-04] MEDS: TRIAMCINOLONE 0.1% 15 GM CREAM TP SCH ×2 (08:34→16:20)
[2020-03-04] MEDS: MAGNESIUM OXIDE 400 MG TABLET PO SCH ×2 (08:34→16:20)
[2020-03-04] MEDS: QUEtiapine FUMARATE 300 MG TABLET PO SCH ×2 (08:34→20:56)
[2020-03-04] MEDS: VALPROIC ACID 250 MG/5 ML SYRUP UDCUP PO SCH ×2 (08:34→20:55)
[2020-03-04 16:40] VITALS: BP 111/70
[2020-03-05] MEDS: VALPROIC ACID 250 MG/5 ML SYRUP UDCUP PO SCH ×2 (08:16→20:27)
[2020-03-05] MEDS: QUEtiapine FUMARATE 300 MG TABLET PO SCH ×2 (08:16→20:28)
[2020-03-05] MEDS: TRIAMCINOLONE 0.1% 15 GM CREAM TP SCH ×2 (08:17→16:39)
[2020-03-05] MEDS: MAGNESIUM OXIDE 400 MG TABLET PO SCH ×2 (08:17→16:38)
[2020-03-05] MEDS: ACETAMINOPHEN 325 MG TABLET PO PRN (09:00)
[2020-03-06] MEDS: LORazepam 2 MG TABLET PO PRN (00:10)
[2020-03-06] MEDS: ZOLPIDEM TARTRATE 10 MG TABLET PO PRN (00:10)
[2020-03-06] MEDS: VALPROIC ACID 250 MG/5 ML SYRUP UDCUP PO SCH ×2 (08:15→20:34)
[2020-03-06] MEDS: MAGNESIUM OXIDE 400 MG TABLET PO SCH ×2 (08:15→17:14)
[2020-03-06] MEDS: QUEtiapine FUMARATE 300 MG TABLET PO SCH ×2 (08:15→20:34)
[2020-03-06] MEDS: TRIAMCINOLONE 0.1% 15 GM CREAM TP SCH ×2 (09:00→17:14)
[2020-03-07] MEDS: MAGNESIUM OXIDE 400 MG TABLET PO SCH ×2 (08:18→17:25)
[2020-03-07] MEDS: VALPROIC ACID 250 MG/5 ML SYRUP UDCUP PO SCH ×2 (08:18→20:08)
[2020-03-07] MEDS: TRIAMCINOLONE 0.1% 15 GM CREAM TP SCH ×2 (08:18→17:25)
[2020-03-07] MEDS: QUEtiapine FUMARATE 300 MG TABLET PO SCH ×2 (08:18→20:08)
[2020-03-07] MEDS: HALOPERIDOL 5 MG TABLET PO PRN (20:08)
[2020-03-07] MEDS: LORazepam 2 MG TABLET PO PRN (20:08)
[2020-03-08] MEDS: MAGNESIUM OXIDE 400 MG TABLET PO SCH ×2 (09:09→16:58)
[2020-03-08] MEDS: VALPROIC ACID 250 MG/5 ML SYRUP UDCUP PO SCH ×2 (09:09→21:04)
[2020-03-08] MEDS: TRIAMCINOLONE 0.1% 15 GM CREAM TP SCH ×2 (09:09→16:58)
[2020-03-08] MEDS: QUEtiapine FUMARATE 300 MG TABLET PO SCH ×2 (09:09→21:04)
[2020-03-08] MEDS: LORazepam 2 MG TABLET PO PRN (21:03)
[2020-03-08] MEDS: HALOPERIDOL 5 MG TABLET PO PRN (21:03)
[2020-03-09] MEDS: MAGNESIUM OXIDE 400 MG TABLET PO SCH ×2 (09:02→15:59)
[2020-03-09] MEDS: QUEtiapine FUMARATE 300 MG TABLET PO SCH ×2 (09:02→21:04)
[2020-03-09] MEDS: VALPROIC ACID 250 MG/5 ML SYRUP UDCUP PO SCH ×2 (09:03→21:03)
[2020-03-09] MEDS: TRIAMCINOLONE 0.1% 15 GM CREAM TP SCH ×2 (09:03→15:59)
[2020-03-09] MEDS: LORazepam 2 MG TABLET PO PRN (19:56)
[2020-03-09] MEDS: HALOPERIDOL 5 MG TABLET PO PRN (19:56)
[2020-03-10] MEDS: VALPROIC ACID 250 MG/5 ML SYRUP UDCUP PO SCH ×2 (08:19→20:44)
[2020-03-10] MEDS: QUEtiapine FUMARATE 300 MG TABLET PO SCH ×2 (08:19→20:43)
[2020-03-10] MEDS: MAGNESIUM OXIDE 400 MG TABLET PO SCH ×2 (08:19→16:27)
[2020-03-10] MEDS: TRIAMCINOLONE 0.1% 15 GM CREAM TP SCH ×2 (08:19→16:27)
[2020-03-11] MEDS: MAGNESIUM OXIDE 400 MG TABLET PO SCH ×2 (08:26→16:26)
[2020-03-11] MEDS: HALOPERIDOL 5 MG TABLET PO PRN (08:26)
[2020-03-11] MEDS: QUEtiapine FUMARATE 300 MG TABLET PO SCH ×2 (08:26→20:05)
[2020-03-11] MEDS: VALPROIC ACID 250 MG/5 ML SYRUP UDCUP PO SCH ×2 (08:26→20:05)
[2020-03-11] MEDS: TRIAMCINOLONE 0.1% 15 GM CREAM TP SCH ×2 (08:27→16:26)
[2020-03-11 22:52] VITALS: BP 130/77
[2020-03-11] MEDS: ACETAMINOPHEN 325 MG TABLET PO PRN (22:52)
[2020-03-12] MEDS: MAGNESIUM OXIDE 400 MG TABLET PO SCH ×2 (08:17→16:48)
[2020-03-12] MEDS: VALPROIC ACID 250 MG/5 ML SYRUP UDCUP PO SCH ×2 (08:17→20:26)
[2020-03-12] MEDS: QUEtiapine FUMARATE 300 MG TABLET PO SCH ×2 (08:17→20:26)
[2020-03-12] MEDS: TRIAMCINOLONE 0.1% 15 GM CREAM TP SCH ×2 (08:18→16:48)
[2020-03-12 17:02] VITALS: BP 118/63
[2020-03-12] MEDS: LORazepam 2 MG TABLET PO PRN (23:40)
[2020-03-12] MEDS: ZOLPIDEM TARTRATE 10 MG TABLET PO PRN (23:40)
[2020-03-13] VITALS: BP 110/75
[2020-03-13] MEDS: QUEtiapine FUMARATE 300 MG TABLET PO SCH ×2 (08:17→20:32)
[2020-03-13] MEDS: TRIAMCINOLONE 0.1% 15 GM CREAM TP SCH ×2 (08:17→17:36)
[2020-03-13] MEDS: MAGNESIUM OXIDE 400 MG TABLET PO SCH ×2 (08:17→17:35)
[2020-03-13] MEDS: VALPROIC ACID 250 MG/5 ML SYRUP UDCUP PO SCH ×2 (08:17→20:32)
[2020-03-13] MEDS: HALOPERIDOL 5 MG TABLET PO PRN (20:30)
[2020-03-13] MEDS: LORazepam 2 MG TABLET PO PRN (20:30)
[2020-03-14] MEDS: MAGNESIUM OXIDE 400 MG TABLET PO SCH ×2 (08:53→16:18)
[2020-03-14] MEDS: QUEtiapine FUMARATE 300 MG TABLET PO SCH ×2 (08:53→20:07)
[2020-03-14] MEDS: VALPROIC ACID 250 MG/5 ML SYRUP UDCUP PO SCH ×2 (08:53→20:07)
[2020-03-14] MEDS: TRIAMCINOLONE 0.1% 15 GM CREAM TP SCH ×2 (08:53→17:28)
[2020-03-14] MEDS: ATENOLOL 50 MG TABLET PO SCH (09:00)
[2020-03-14] MEDS: ZOLPIDEM TARTRATE 10 MG TABLET PO PRN (23:12)
[2020-03-15] MEDS: QUEtiapine FUMARATE 300 MG TABLET PO SCH ×2 (08:58→20:23)
[2020-03-15] MEDS: VALPROIC ACID 250 MG/5 ML SYRUP UDCUP PO SCH ×2 (08:58→20:23)
[2020-03-15] MEDS: MAGNESIUM OXIDE 400 MG TABLET PO SCH ×2 (08:58→16:51)
[2020-03-15] MEDS: TRIAMCINOLONE 0.1% 15 GM CREAM TP SCH ×2 (08:59→16:51)
[2020-03-15] MEDS: ATENOLOL 50 MG TABLET PO SCH (09:00)
[2020-03-15 23:23] VITALS: BP 122/85
[2020-03-15] MEDS: LORazepam 2 MG TABLET PO PRN (23:24)
[2020-03-16] MEDS: VALPROIC ACID 250 MG/5 ML SYRUP UDCUP PO SCH ×2 (08:17→20:32)
[2020-03-16] MEDS: TRIAMCINOLONE 0.1% 15 GM CREAM TP SCH ×2 (08:17→16:33)
[2020-03-16] MEDS: QUEtiapine FUMARATE 300 MG TABLET PO SCH ×2 (08:17→20:32)
[2020-03-16] MEDS: ATENOLOL 50 MG TABLET PO SCH (08:17)
[2020-03-16] MEDS: MAGNESIUM OXIDE 400 MG TABLET PO SCH ×2 (08:17→16:33)
[2020-03-17] MEDS: QUEtiapine FUMARATE 300 MG TABLET PO SCH ×2 (08:25→20:08)
[2020-03-17] MEDS: MAGNESIUM OXIDE 400 MG TABLET PO SCH ×2 (08:25→16:32)
[2020-03-17] MEDS: ATENOLOL 50 MG TABLET PO SCH (08:26)
[2020-03-17] MEDS: VALPROIC ACID 250 MG/5 ML SYRUP UDCUP PO SCH ×2 (08:26→20:08)
[2020-03-17] MEDS: TRIAMCINOLONE 0.1% 15 GM CREAM TP SCH ×2 (08:26→16:32)
[2020-03-17 10:17] VITALS: BP 116/88
[2020-03-17 16:45] VITALS: BP 123/78
[2020-03-17] MEDS: ACETAMINOPHEN 325 MG TABLET PO PRN (17:06)
[2020-03-18] MEDS: QUEtiapine FUMARATE 300 MG TABLET PO SCH ×2 (09:42→22:41)
[2020-03-18] MEDS: ATENOLOL 50 MG TABLET PO SCH (09:42)
[2020-03-18] MEDS: TRIAMCINOLONE 0.1% 15 GM CREAM TP SCH ×2 (09:42→16:13)
[2020-03-18] MEDS: VALPROIC ACID 250 MG/5 ML SYRUP UDCUP PO SCH ×2 (09:42→22:41)
[2020-03-18] MEDS: MAGNESIUM OXIDE 400 MG TABLET PO SCH ×2 (09:42→16:12)
[2020-03-18] MEDS: LORazepam 2 MG TABLET PO PRN (16:14)
[2020-03-18] MEDS: HALOPERIDOL 5 MG TABLET PO PRN (16:14)
[2020-03-19] MEDS: VALPROIC ACID 250 MG/5 ML SYRUP UDCUP PO SCH ×2 (08:46→20:15)
[2020-03-19] MEDS: MAGNESIUM OXIDE 400 MG TABLET PO SCH ×2 (08:46→17:00)
[2020-03-19] MEDS: TRIAMCINOLONE 0.1% 15 GM CREAM TP SCH ×2 (08:47→17:00)
[2020-03-19] MEDS: QUEtiapine FUMARATE 300 MG TABLET PO SCH ×2 (08:47→20:15)
[2020-03-19] MEDS: ATENOLOL 50 MG TABLET PO SCH (08:49)
[2020-03-19] MEDS: ZOLPIDEM TARTRATE 10 MG TABLET PO PRN (23:03)
[2020-03-19] MEDS: HALOPERIDOL 5 MG TABLET PO PRN (23:42)
[2020-03-19] MEDS: LORazepam 2 MG TABLET PO PRN (23:42)
[2020-03-20] MEDS: MAGNESIUM OXIDE 400 MG TABLET PO SCH ×2 (08:44→16:42)
[2020-03-20] MEDS: QUEtiapine FUMARATE 300 MG TABLET PO SCH ×2 (08:44→20:14)
[2020-03-20] MEDS: VALPROIC ACID 250 MG/5 ML SYRUP UDCUP PO SCH ×2 (08:44→20:14)
[2020-03-20] MEDS: ATENOLOL 50 MG TABLET PO SCH (09:00)
[2020-03-20] MEDS: TRIAMCINOLONE 0.1% 15 GM CREAM TP SCH ×2 (11:08→16:42)
[2020-03-21 08:00] VITALS: BP 118/74
[2020-03-21] MEDS: ATENOLOL 50 MG TABLET PO SCH (08:13)
[2020-03-21] MEDS: MAGNESIUM OXIDE 400 MG TABLET PO SCH ×2 (08:13→16:16)
[2020-03-21] MEDS: QUEtiapine FUMARATE 300 MG TABLET PO SCH ×2 (08:13→22:09)
[2020-03-21] MEDS: VALPROIC ACID 250 MG/5 ML SYRUP UDCUP PO SCH ×2 (08:14→22:09)
[2020-03-21] MEDS: TRIAMCINOLONE 0.1% 15 GM CREAM TP SCH ×2 (08:14→16:16)
[2020-03-21] MEDS: HALOPERIDOL 5 MG TABLET PO PRN (16:58)
[2020-03-21] MEDS: LORazepam 2 MG TABLET PO PRN (16:58)
[2020-03-21 19:00] VITALS: BP 113/67
[2020-03-21] MEDS ORDERED: QUET300T2 PO (22:57)
[2020-03-22] MEDS: QUEtiapine FUMARATE 300 MG TABLET PO SCH (08:24)
[2020-03-22] MEDS: MAGNESIUM OXIDE 400 MG TABLET PO SCH (08:24)
[2020-03-22] MEDS: VALPROIC ACID 250 MG/5 ML SYRUP UDCUP PO SCH (08:25)
[2020-03-22] MEDS: TRIAMCINOLONE 0.1% 15 GM CREAM TP SCH (08:29)
[2020-03-22] MEDS: ATENOLOL 50 MG TABLET PO SCH (09:00)
[2020-03-22] MEDS ORDERED: QUET300T2 PO (11:50)
[2020-03-22] MEDS ORDERED: DIVA-80 PO ×2 (11:53)
[2020-03-22] MEDS ORDERED: ATEN-73 PO (11:54)
[2020-03-22] MEDS ORDERED: MAGOX PO (11:55)
[2020-03-22] MEDS ORDERED: TRIA15CR49 TP (11:56)
== END 2020-03-22 11:50 | DRG 885 ==
LOC: EMS 18:09 → 3EC 20:53 → 3EI 01-01 21:45 → 3EC 01-21 12:33
PROVIDERS: ADMIT Psychiatry & Neurology Psychiatry; ATTEND Psychiatry & Neurology Psychiatry
DX: F20.0 Paranoid schizophrenia (principal); Z59.0 Homelessness; G47.00 Insomnia, unspecified; K59.00 Constipation, unspecified; F41.9 Anxiety disorder, unspecified; D64.9 Anemia, unspecified; I10 Essential (primary) hypertension; E87.6 Hypokalemia; F19.10 Other psychoactive substance abuse, uncomplicated; R00.0 Tachycardia, unspecified; D72.819 Decreased white blood cell count, unspecified; R45.87 Impulsiveness; Z20.828 Contact with and (suspected) exposure to other viral communicable diseases; Z56.0 Unemployment, unspecified; Z91.14 Patient's other noncompliance with medication regimen
CPT/HCPCS: 83540; 83550; 83735; 84100; 84132; 85007; 87081; J1200; J1630; J2060; 36415-L1; 36415-TC; 71046; 71046-TC; 87635

== ENCOUNTER 2020-03-31 15:35 | Inpatient (IN) | payer MEDICAID ==
[~2020-03-31] VITALS: Ht 172.7 cm; Wt 119.7 kg
[~2020-03-31 15:35] MED LIST changes: +ATEN-73 PO; -BENZ1TAB10 PO; -DIVA-112 PO; +DIVA-80 PO; -HALO50VI4 IM; +MAGN400T7 PO; -QUET200T PO; -QUET25TA PO; +QUET300T2 PO; +TRIA15CR49 TP
[2020-03-31 17:51] VITALS: BP 113/98
[2020-04-01 04:25] VITALS: BP 110/68
[2020-04-01] MEDS ORDERED: ONDANSETRON HCL 4 MG TABLET PO PRN (07:00)
[2020-04-01] MEDS ORDERED: LOPERAMIDE HCL 2 MG CAPSULE PO PRN (07:00)
[2020-04-01] MEDS ORDERED: ALBUTEROL SULFATE HFA 90 MCG/PUFF 8 GM INHALER IH PRN (07:00)
[2020-04-01] MEDS ORDERED: BENZOCAINE/MENTHOL LOZENGE PO PRN (07:00)
[2020-04-01] MEDS ORDERED: CloNIDine HCL 0.1 MG TABLET PO PRN (07:00)
[2020-04-01] MEDS ORDERED: BACITRACIN 28 GM OINTMENT TP PRN (07:00)
[2020-04-01] MEDS ORDERED: PETROLATUM,WHITE 28 GM JELLY TP PRN (07:00)
[2020-04-01 08:08] LABS: BASOPHILS % (AUTO) 0.4 % (0.0-2.0); EOSINOPHILS % (AUTO) 1.4 % (1.0-6.0); HEMATOCRIT 32.2 % (36-46); HEMOGLOBIN 10.9 g/dL (12.0-16.0); LYMPHOCYTES # (AUTO) 1.5 K/uL (1.0-4.8); LYMPHOCYTES % (AUTO) 26.2 % (22.0-44.0); MEAN CORPUSCULAR HEMOGLOBIN 30.6 pg (26.0-34.0); MEAN CORPUSCULAR HGB CONC 33.9 G/dL (31.0-37.0); MEAN CORPUSCULAR VOLUME 90 fL (80-100); MONOCYTES # (AUTO) 0.5 K/uL (0.1-1.0); NEUTROPHILS # (AUTO) 3.5 K/uL (1.8-7.7); PLATELET COUNT (AUTO) 199 K/uL (150-450); RED BLOOD CELL COUNT(AUTO) 3.57 MIL/uL (4.00-5.20); RED CELL DISTRIBUTION WIDTH 13.3 % (11.5-14.5)
[2020-04-01 08:24] LABS: HEMOGLOBIN A1C 4.7 % (3.8-5.6)
[2020-04-01 08:38] LABS: ALANINE AMINOTRANSFERASE 37 U/L (12-78); ALKALINE PHOSPHATASE 44 U/L (46-116); ANION GAP 6 mmol/L (8-16); ASPARTATE AMINOTRANSFERASE 24 U/L (15-37); BILIRUBIN,TOTAL 0.3 mg/dL (0.1-1.0); CALCIUM, TOTAL 8.4 mg/dL (8.8-10.5); CARBON DIOXIDE 30 mmol/L (22-29); CHLORIDE 101 mmol/L (98-107); CHOL/HDL RATIO 2.7 (3.9-5.7); CHOLESTEROL 111 mg/dL (131-200); CREATININE 0.68 mg/dL (0.60-1.30); FREE T4 (FREE THYROXINE) 1.54 ng/dL (0.76-1.46); GLOMERULAR FILTR. RATE CALC > 60 mL/min (>60); GLUCOSE,RANDOM 106 mg/dL (70-110); HCG,QUANTITATIVE < 1 mIU/mL (0-6); HDL CHOLESTEROL 41 mg/dL (40-60); LDL CHOL (CALC.) 59 mg/dL (0-130); POTASSIUM 3.3 mmol/L (3.5-5.1); SODIUM SERUM 137 mmol/L (136-145); THYROID STIMULATING HORMONE 0.48 uIU/mL (0.36-3.74); TOTAL PROTEIN, SERUM 5.9 g/dL (6.4-8.2); TRIGLYCERIDES 55 mg/dL (15-150); UREA NITROGEN, BLOOD 12 mg/dL (7-18)
[2020-04-01] MEDS: LORazepam 2 MG TABLET PO PRN ×2 (08:46→15:53)
[2020-04-01] MEDS: NICOTINE 21 MG/24 HOUR PATCH TD SCH (08:46)
[2020-04-01] MEDS: DIVALPROEX SODIUM 500 MG DR TABLET PO SCH ×3 (12:32→22:19)
[2020-04-01] MEDS: QUEtiapine FUMARATE 300 MG TABLET PO SCH ×2 (12:32→20:36)
[2020-04-01] MEDS: HALOPERIDOL 5 MG TABLET PO PRN (15:53)
[2020-04-01 22:28] VITALS: BP 114/72
[2020-04-02] MEDS ORDERED: LORazepam 2 MG/ML VIAL ONE (01:13)
[2020-04-02] MEDS ORDERED: HALOPERIDOL LACTATE 5 MG/ML VIAL ONE (01:14)
[2020-04-02] MEDS ORDERED: DiphenhydrAMINE HCL 50 MG/ML VIAL ONE (01:14)
[2020-04-02] MEDS ORDERED: LORazepam 2 MG/ML VIAL IM ONE (01:30)
[2020-04-02] MEDS ORDERED: HALOPERIDOL LACTATE 5 MG/ML VIAL IM ONE (01:30)
[2020-04-02] MEDS ORDERED: DiphenhydrAMINE HCL 50 MG/ML VIAL IM ONE (01:30)
[2020-04-02 08:45] VITALS: BP 124/81
[2020-04-02] MEDS ORDERED: POTASSIUM CHLORIDE 20 MEQ ER TABLET PO ONE (09:00)
[2020-04-02] MEDS: QUEtiapine FUMARATE 300 MG TABLET PO SCH (09:02)
[2020-04-02] MEDS: DIVALPROEX SODIUM 500 MG DR TABLET PO SCH ×2 (09:02→21:04)
[2020-04-02] MEDS: LORazepam 2 MG TABLET PO PRN ×2 (09:06→14:58)
[2020-04-02] MEDS: NICOTINE 21 MG/24 HOUR PATCH TD SCH (09:08)
[2020-04-02] MEDS: LITHIUM CARBONATE 300 MG CAPSULE PO SCH (17:03)
[2020-04-02] MEDS: QUEtiapine FUMARATE 200 MG TABLET PO SCH (17:03)
[2020-04-03 02:03] VITALS: BP 115/79
[2020-04-03 08:00] VITALS: BP 116/74
[2020-04-03] MEDS: DIVALPROEX SODIUM 500 MG DR TABLET PO SCH ×2 (09:33→21:48)
[2020-04-03] MEDS: NICOTINE 21 MG/24 HOUR PATCH TD SCH (09:33)
[2020-04-03] MEDS: LITHIUM CARBONATE 300 MG CAPSULE PO SCH ×2 (09:33→17:18)
[2020-04-03] MEDS: QUEtiapine FUMARATE 200 MG TABLET PO SCH ×2 (09:33→17:18)
[2020-04-03] MEDS: LORazepam 2 MG TABLET PO PRN ×2 (09:36→20:55)
[2020-04-04] MEDS: IBUPROFEN 600 MG TABLET PO PRN (05:59)
[2020-04-04 08:21] VITALS: BP 125/85
[2020-04-04] MEDS: LITHIUM CARBONATE 300 MG CAPSULE PO SCH ×2 (08:28→16:47)
[2020-04-04] MEDS: QUEtiapine FUMARATE 200 MG TABLET PO SCH ×2 (08:28→16:47)
[2020-04-04] MEDS: NICOTINE 21 MG/24 HOUR PATCH TD SCH (08:28)
[2020-04-04] MEDS: DIVALPROEX SODIUM 500 MG DR TABLET PO SCH ×2 (08:28→20:19)
[2020-04-04] MEDS: LORazepam 2 MG TABLET PO PRN (08:28)
[2020-04-04] MEDS: ACETAMINOPHEN 325 MG TABLET PO PRN (09:16)
[2020-04-04 16:14] VITALS: BP 122/84
[2020-04-04] MEDS: HALOPERIDOL 5 MG TABLET PO PRN (16:47)
[2020-04-05 08:19] LABS: POTASSIUM 4.4 mmol/L (3.5-5.1)
[2020-04-05] MEDS: HALOPERIDOL 5 MG TABLET PO PRN (08:28)
[2020-04-05] MEDS: NICOTINE 21 MG/24 HOUR PATCH TD SCH (09:00)
[2020-04-05] MEDS ORDERED: TUBERCULIN, PURIFIED PROTEIN DERIVATIVE 5 TU/0.1 ML SYRINGE ID ONE (10:15)
[2020-04-05] MEDS: LITHIUM CARBONATE 300 MG CAPSULE PO SCH ×2 (10:52→16:37)
[2020-04-05] MEDS: DIVALPROEX SODIUM 500 MG DR TABLET PO SCH ×2 (10:52→20:34)
[2020-04-05] MEDS: QUEtiapine FUMARATE 200 MG TABLET PO SCH ×2 (10:52→16:37)
[2020-04-05] MEDS: ZOLPIDEM TARTRATE 10 MG TABLET PO PRN (20:34)
[2020-04-06] MEDS: DIVALPROEX SODIUM 500 MG DR TABLET PO SCH ×2 (08:19→20:32)
[2020-04-06] MEDS: QUEtiapine FUMARATE 200 MG TABLET PO SCH ×2 (08:19→16:06)
[2020-04-06] MEDS: NICOTINE 21 MG/24 HOUR PATCH TD SCH (08:19)
[2020-04-06] MEDS: LITHIUM CARBONATE 300 MG CAPSULE PO SCH ×2 (08:19→16:06)
[2020-04-06] MEDS: LORazepam 2 MG TABLET PO PRN ×2 (08:19→16:06)
[2020-04-06 16:09] VITALS: BP 121/74
[2020-04-06] MEDS: ACETAMINOPHEN 325 MG TABLET PO PRN (16:31)
[2020-04-06] MEDS: ZOLPIDEM TARTRATE 10 MG TABLET PO PRN (20:36)
[2020-04-07] MEDS: DIVALPROEX SODIUM 500 MG DR TABLET PO SCH ×2 (08:02→20:10)
[2020-04-07] MEDS: QUEtiapine FUMARATE 200 MG TABLET PO SCH ×2 (08:02→16:44)
[2020-04-07] MEDS: LITHIUM CARBONATE 300 MG CAPSULE PO SCH (08:02)
[2020-04-07] MEDS: NICOTINE 21 MG/24 HOUR PATCH TD SCH (08:02)
[2020-04-07 08:21] VITALS: BP 117/74
[2020-04-07] MEDS: LORazepam 2 MG TABLET PO PRN ×2 (08:34→16:46)
[2020-04-07 16:39] VITALS: BP 105/63
[2020-04-07] MEDS: LITHIUM CARBONATE 600 MG CAPSULE PO SCH (16:44)
[2020-04-07] MEDS: ZOLPIDEM TARTRATE 10 MG TABLET PO PRN (20:10)
[2020-04-08 08:21] VITALS: BP 121/78
[2020-04-08 08:46] LABS: APPEARANCE,URINE CLOUDY (CLEAR); BILIRUBIN,URINE NEGATIVE (NEGATIVE); GLUCOSE, URINE (UA) NEGATIVE (NEGATIVE); KETONES,URINE NEGATIVE (NEGATIVE); LEUKOCYTE ESTERASE ,URINE MODERATE (NEGATIVE); NITRATE,URINE NEGATIVE (NEGATIVE); OCCULT BLOOD,URINE NEGATIVE (NEGATIVE); PH,URINE 7.5 (5.0-8.0); PROTEIN,URINE NEGATIVE (NEGATIVE); UROBILINOGEN,URINE 0.2 mg/dL (<=1.0)
[2020-04-08] MEDS: HALOPERIDOL 5 MG TABLET PO PRN (08:48)
[2020-04-08] MEDS: LORazepam 2 MG TABLET PO PRN (08:48)
[2020-04-08] MEDS: DIVALPROEX SODIUM 500 MG DR TABLET PO SCH ×2 (08:48→20:08)
[2020-04-08] MEDS: LITHIUM CARBONATE 600 MG CAPSULE PO SCH ×2 (08:48→17:11)
[2020-04-08] MEDS: QUEtiapine FUMARATE 200 MG TABLET PO SCH ×2 (08:48→17:12)
[2020-04-08] MEDS: NICOTINE 21 MG/24 HOUR PATCH TD SCH (08:49)
[2020-04-08 09:01] LABS: AMPHET/METH SCREEN,URINE NEGATIVE (NEGATIVE); BACTERIA,URINE Few /HPF (None Seen); BARBITURATE SCREEN, URINE NEGATIVE (NEGATIVE); BENZODIAZEPINES SCREEN,URINE NEGATIVE (NEGATIVE); CANNABINOID SCREEN,URINE NEGATIVE (NEGATIVE); COCAINE SCREEN,URINE NEGATIVE (NEGATIVE); METHADONE SCREEN, URINE NEGATIVE (NEGATIVE); OPIATE SCREEN,URINE NEGATIVE (NEGATIVE); RBC,URINE None Seen /HPF (0-2)
[2020-04-08 09:02] LABS: SQUAMOUS EPITHELIAL CELL,UR Moderate /LPF (None Seen)
[2020-04-08 09:08] LABS: PHENCYCLIDINE SCREEN,URINE NEGATIVE (NEGATIVE)
[2020-04-08 16:12] VITALS: BP 119/69
[2020-04-08] MEDS: IBUPROFEN 600 MG TABLET PO PRN (19:46)
[2020-04-08] MEDS: ZOLPIDEM TARTRATE 10 MG TABLET PO PRN (20:08)
[2020-04-09 00:31] VITALS: BP 112/63
[2020-04-09] MEDS: NICOTINE 21 MG/24 HOUR PATCH TD SCH (09:00)
[2020-04-09] MEDS: QUEtiapine FUMARATE 200 MG TABLET PO SCH ×2 (10:01→16:26)
[2020-04-09] MEDS: LITHIUM CARBONATE 600 MG CAPSULE PO SCH ×2 (10:01→16:26)
[2020-04-09] MEDS: DIVALPROEX SODIUM 500 MG DR TABLET PO SCH ×2 (10:02→20:19)
[2020-04-09] MEDS: LORazepam 2 MG TABLET PO PRN (15:37)
[2020-04-09 16:50] VITALS: BP 130/85
[2020-04-09] MEDS: ZOLPIDEM TARTRATE 10 MG TABLET PO PRN (20:19)
[2020-04-09] MEDS: ACETAMINOPHEN 325 MG TABLET PO PRN (20:45)
[2020-04-10 04:04] VITALS: BP 132/79
[2020-04-10 08:19] VITALS: BP 111/73
[2020-04-10] MEDS: NICOTINE 21 MG/24 HOUR PATCH TD SCH (09:00)
[2020-04-10] MEDS: QUEtiapine FUMARATE 200 MG TABLET PO SCH ×2 (09:18→16:07)
[2020-04-10] MEDS: DIVALPROEX SODIUM 500 MG DR TABLET PO SCH ×2 (09:18→20:09)
[2020-04-10] MEDS: LITHIUM CARBONATE 600 MG CAPSULE PO SCH ×2 (09:18→16:06)
[2020-04-10] MEDS: LORazepam 2 MG TABLET PO PRN ×2 (14:35→18:35)
[2020-04-10] MEDS: HALOPERIDOL 5 MG TABLET PO PRN ×2 (14:35→18:35)
[2020-04-10 16:09] VITALS: BP 119/76
[2020-04-11 06:26] VITALS: BP 115/62
[2020-04-11 08:29] VITALS: BP 112/78
[2020-04-11] MEDS: NICOTINE 21 MG/24 HOUR PATCH TD SCH (09:00)
[2020-04-11] MEDS: LITHIUM CARBONATE 600 MG CAPSULE PO SCH ×2 (09:32→16:30)
[2020-04-11] MEDS: DIVALPROEX SODIUM 500 MG DR TABLET PO SCH ×2 (09:33→20:36)
[2020-04-11] MEDS: HALOPERIDOL 5 MG TABLET PO PRN (09:33)
[2020-04-11] MEDS: QUEtiapine FUMARATE 200 MG TABLET PO SCH ×2 (09:33→16:30)
[2020-04-11] MEDS: LORazepam 2 MG TABLET PO PRN (09:33)
[2020-04-11 16:16] VITALS: BP 102/70
[2020-04-11] MEDS: ZOLPIDEM TARTRATE 10 MG TABLET PO PRN (20:36)
[2020-04-12 01:10] VITALS: BP 100/72
[2020-04-12] MEDS: QUEtiapine FUMARATE 200 MG TABLET PO SCH ×2 (08:47→16:37)
[2020-04-12] MEDS: LITHIUM CARBONATE 600 MG CAPSULE PO SCH ×2 (08:47→16:37)
[2020-04-12] MEDS: DIVALPROEX SODIUM 500 MG DR TABLET PO SCH ×2 (08:47→20:38)
[2020-04-12] MEDS: LORazepam 2 MG TABLET PO PRN (08:47)
[2020-04-12] MEDS: NICOTINE 21 MG/24 HOUR PATCH TD SCH (08:47)
[2020-04-12 16:20] VITALS: BP 110/74
[2020-04-12] MEDS: ZOLPIDEM TARTRATE 10 MG TABLET PO PRN (20:37)
[2020-04-12] MEDS ORDERED: NICOTINE 21 MG/24 HOUR PATCH TD PRN (22:45)
[2020-04-13] MEDS: LORazepam 2 MG TABLET PO PRN (01:36)
[2020-04-13] MEDS: HALOPERIDOL 5 MG TABLET PO PRN (01:36)
[2020-04-13 04:40] VITALS: BP 106/78
[2020-04-13 08:23] VITALS: BP 109/62
[2020-04-13] MEDS: DIVALPROEX SODIUM 500 MG DR TABLET PO SCH ×2 (09:47→20:13)
[2020-04-13] MEDS: LITHIUM CARBONATE 600 MG CAPSULE PO SCH ×2 (09:47→16:52)
[2020-04-13] MEDS: QUEtiapine FUMARATE 200 MG TABLET PO SCH ×2 (09:47→16:52)
[2020-04-13] MEDS: ZOLPIDEM TARTRATE 10 MG TABLET PO PRN (20:13)
[2020-04-14 01:28] VITALS: BP 104/63
[2020-04-14 07:59] LABS: BASOPHILS % (AUTO) 0.3 % (0.0-2.0); EOSINOPHILS % (AUTO) 0.7 % (1.0-6.0); HEMATOCRIT 39.2 % (36-46); HEMOGLOBIN 13.1 g/dL (12.0-16.0); LYMPHOCYTES # (AUTO) 2.2 K/uL (1.0-4.8); LYMPHOCYTES % (AUTO) 25.6 % (22.0-44.0); MEAN CORPUSCULAR HEMOGLOBIN 30.7 pg (26.0-34.0); MEAN CORPUSCULAR HGB CONC 33.5 G/dL (31.0-37.0); MEAN CORPUSCULAR VOLUME 92 fL (80-100); MONOCYTES # (AUTO) 0.4 K/uL (0.1-1.0); NEUTROPHILS # (AUTO) 5.9 K/uL (1.8-7.7); NEUTROPHILS % (AUTO) 68.4 % (40.0-70.0); PLATELET COUNT (AUTO) 203 K/uL (150-450); RED BLOOD CELL COUNT(AUTO) 4.27 MIL/uL (4.00-5.20)
[2020-04-14 08:11] LABS: ALANINE AMINOTRANSFERASE 20 U/L (12-78); ALBUMIN 3.4 g/dL (3.4-5.0); ALKALINE PHOSPHATASE 68 U/L (46-116); ANION GAP 10 mmol/L (8-16); ASPARTATE AMINOTRANSFERASE 9 U/L (15-37); BILIRUBIN,TOTAL 0.2 mg/dL (0.1-1.0); CALCIUM, TOTAL 9.2 mg/dL (8.8-10.5); CARBON DIOXIDE 24 mmol/L (22-29); CHLORIDE 102 mmol/L (98-107); CREATININE 0.89 mg/dL (0.60-1.30); GLOMERULAR FILTR. RATE CALC > 60 mL/min (>60); GLUCOSE,RANDOM 119 mg/dL (70-110); PHOSPHORUS 4.2 mg/dL (2.5-4.9); POTASSIUM 3.9 mmol/L (3.5-5.1); SODIUM SERUM 136 mmol/L (136-145); TOTAL PROTEIN, SERUM 7.6 g/dL (6.4-8.2); UREA NITROGEN, BLOOD 16 mg/dL (7-18)
[2020-04-14 08:14] LABS: % IRON SATURATION 12.8 % (22-44); IRON, SERUM 54 mcg/dL (50-175); TOTAL IRON BINDING CAPACITY 420 mcg/dL (250-450)
[2020-04-14 08:16] VITALS: BP 112/78
[2020-04-14] MEDS: LITHIUM CARBONATE 600 MG CAPSULE PO SCH ×2 (08:23→16:34)
[2020-04-14] MEDS: DIVALPROEX SODIUM 500 MG DR TABLET PO SCH ×2 (08:24→20:21)
[2020-04-14] MEDS: QUEtiapine FUMARATE 200 MG TABLET PO SCH ×2 (08:25→16:34)
[2020-04-14 16:13] VITALS: BP 118/68
[2020-04-14] MEDS: ACETAMINOPHEN 325 MG TABLET PO PRN (18:36)
[2020-04-14] MEDS: ZOLPIDEM TARTRATE 10 MG TABLET PO PRN (20:22)
[2020-04-15 01:42] VITALS: BP 116/65
[2020-04-15] MEDS: LITHIUM CARBONATE 600 MG CAPSULE PO SCH ×2 (08:12→16:43)
[2020-04-15] MEDS: QUEtiapine FUMARATE 200 MG TABLET PO SCH ×2 (08:12→16:43)
[2020-04-15] MEDS: DIVALPROEX SODIUM 500 MG DR TABLET PO SCH ×2 (08:12→20:04)
[2020-04-15 08:17] VITALS: BP 127/69
[2020-04-15] MEDS: LORazepam 2 MG TABLET PO PRN (13:00)
[2020-04-15 16:31] VITALS: BP 121/68
[2020-04-15] MEDS: ZOLPIDEM TARTRATE 10 MG TABLET PO PRN (20:04)
[2020-04-16 04:00] VITALS: BP 114/66
[2020-04-16 08:21] VITALS: BP 121/82
[2020-04-16] MEDS: LORazepam 2 MG TABLET PO PRN (08:48)
[2020-04-16] MEDS: LITHIUM CARBONATE 600 MG CAPSULE PO SCH ×2 (08:48→16:30)
[2020-04-16] MEDS: DIVALPROEX SODIUM 500 MG DR TABLET PO SCH ×2 (08:48→20:17)
[2020-04-16] MEDS: QUEtiapine FUMARATE 200 MG TABLET PO SCH ×2 (08:49→16:30)
[2020-04-16] MEDS: HALOPERIDOL 5 MG TABLET PO PRN (08:49)
[2020-04-16] MEDS: ZOLPIDEM TARTRATE 10 MG TABLET PO PRN (20:29)
[2020-04-17 08:10] VITALS: BP 116/68
[2020-04-17] MEDS: ACETAMINOPHEN 325 MG TABLET PO PRN (08:31)
[2020-04-17] MEDS: DIVALPROEX SODIUM 500 MG DR TABLET PO SCH ×2 (08:31→20:14)
[2020-04-17] MEDS: HALOPERIDOL 5 MG TABLET PO PRN (08:32)
[2020-04-17] MEDS: QUEtiapine FUMARATE 200 MG TABLET PO SCH ×2 (08:32→16:20)
[2020-04-17] MEDS: LITHIUM CARBONATE 600 MG CAPSULE PO SCH ×2 (08:32→16:20)
[2020-04-17] MEDS: LORazepam 2 MG TABLET PO PRN (08:42)
[2020-04-17] MEDS: ZOLPIDEM TARTRATE 10 MG TABLET PO PRN (20:14)
[2020-04-18 01:40] VITALS: BP 112/65
[2020-04-18] MEDS: DIVALPROEX SODIUM 500 MG DR TABLET PO SCH ×2 (08:53→20:33)
[2020-04-18] MEDS: LORazepam 2 MG TABLET PO PRN (08:53)
[2020-04-18] MEDS: HALOPERIDOL 5 MG TABLET PO PRN (08:53)
[2020-04-18] MEDS: QUEtiapine FUMARATE 200 MG TABLET PO SCH ×2 (08:53→18:04)
[2020-04-18] MEDS: LITHIUM CARBONATE 600 MG CAPSULE PO SCH ×2 (08:53→18:05)
[2020-04-18 13:14] VITALS: BP 113/68
[2020-04-18 16:15] VITALS: BP 128/60
[2020-04-18 20:30] VITALS: BP 124/68
[2020-04-18] MEDS: ACETAMINOPHEN 325 MG TABLET PO PRN (20:34)
[2020-04-19 01:09] VITALS: BP 117/73
[2020-04-19] MEDS: LORazepam 2 MG TABLET PO PRN (01:45)
[2020-04-19] MEDS: LITHIUM CARBONATE 600 MG CAPSULE PO SCH ×2 (08:34→17:21)
[2020-04-19] MEDS: HALOPERIDOL 5 MG TABLET PO PRN (08:34)
[2020-04-19] MEDS: QUEtiapine FUMARATE 200 MG TABLET PO SCH ×2 (08:34→17:21)
[2020-04-19] MEDS: DIVALPROEX SODIUM 500 MG DR TABLET PO SCH ×2 (08:34→21:17)
[2020-04-20 04:18] VITALS: BP 110/68
[2020-04-20] MEDS: LITHIUM CARBONATE 600 MG CAPSULE PO SCH ×2 (08:30→17:00)
[2020-04-20] MEDS: HALOPERIDOL 5 MG TABLET PO PRN (08:30)
[2020-04-20] MEDS: DIVALPROEX SODIUM 500 MG DR TABLET PO SCH ×2 (08:31→20:32)
[2020-04-20] MEDS: QUEtiapine FUMARATE 200 MG TABLET PO SCH ×2 (08:31→17:00)
[2020-04-20 08:36] VITALS: BP 114/69
[2020-04-20 16:11] VITALS: BP 142/81
[2020-04-20] MEDS: ACETAMINOPHEN 325 MG TABLET PO PRN (20:32)
[2020-04-20 20:33] VITALS: BP 139/75
[2020-04-21 02:45] VITALS: BP 125/72
[2020-04-21] MEDS: LORazepam 2 MG TABLET PO PRN (02:49)
[2020-04-21] MEDS: ACETAMINOPHEN 325 MG TABLET PO PRN ×2 (02:49→21:37)
[2020-04-21] MEDS: LITHIUM CARBONATE 600 MG CAPSULE PO SCH ×2 (08:37→16:51)
[2020-04-21] MEDS: DIVALPROEX SODIUM 500 MG DR TABLET PO SCH ×2 (08:37→19:59)
[2020-04-21] MEDS: HALOPERIDOL 5 MG TABLET PO PRN (08:37)
[2020-04-21] MEDS: QUEtiapine FUMARATE 200 MG TABLET PO SCH ×2 (08:37→16:51)
[2020-04-22 02:44] VITALS: BP 122/75
[2020-04-22 07:51] LABS: HEMATOCRIT 37.2 % (36-46); HEMOGLOBIN 12.7 g/dL (12.0-16.0); MEAN CORPUSCULAR HEMOGLOBIN 30.6 pg (26.0-34.0); MEAN CORPUSCULAR HGB CONC 34.1 G/dL (31.0-37.0); MEAN CORPUSCULAR VOLUME 90 fL (80-100); PLATELET COUNT (AUTO) 242 K/uL (150-450); RED BLOOD CELL COUNT(AUTO) 4.14 MIL/uL (4.00-5.20); RED CELL DISTRIBUTION WIDTH 12.8 % (11.5-14.5)
[2020-04-22 08:04] LABS: ANION GAP 4 mmol/L (8-16); CALCIUM, TOTAL 8.8 mg/dL (8.8-10.5); CARBON DIOXIDE 29 mmol/L (22-29); CHLORIDE 105 mmol/L (98-107); CREATININE 0.61 mg/dL (0.60-1.30); GLOMERULAR FILTR. RATE CALC > 60 mL/min (>60); GLUCOSE,RANDOM 87 mg/dL (70-110); PHOSPHORUS 3.8 mg/dL (2.5-4.9); SODIUM SERUM 138 mmol/L (136-145); UREA NITROGEN, BLOOD 12 mg/dL (7-18)
[2020-04-22 08:40] LABS: BAND NEUTROPHILS % (MANUAL) 1 % (0-5); EOSINOPHILS % (MANUAL) 1 % (1-6); LYMPHOCYTES % (MANUAL) 22 % (22-44); MONOCYTES % (MANUAL) 4 % (2-9); SEGMENTED NEUTROPHILS % 72 % (40-70)
[2020-04-22] MEDS: LITHIUM CARBONATE 600 MG CAPSULE PO SCH ×2 (08:45→16:12)
[2020-04-22] MEDS: DIVALPROEX SODIUM 500 MG DR TABLET PO SCH ×2 (08:45→19:58)
[2020-04-22] MEDS: QUEtiapine FUMARATE 200 MG TABLET PO SCH ×2 (08:45→16:13)
[2020-04-22] MEDS: HALOPERIDOL 5 MG TABLET PO PRN (08:45)
[2020-04-22 08:59] VITALS: BP 118/71
[2020-04-22] MEDS: LORazepam 2 MG TABLET PO PRN (16:13)
[2020-04-22 16:14] VITALS: BP 126/86
[2020-04-23 08:06] VITALS: BP 120/70
[2020-04-23] MEDS: QUEtiapine FUMARATE 200 MG TABLET PO SCH ×2 (08:07→17:32)
[2020-04-23] MEDS: DIVALPROEX SODIUM 500 MG DR TABLET PO SCH ×2 (08:07→20:45)
[2020-04-23] MEDS: LITHIUM CARBONATE 600 MG CAPSULE PO SCH ×2 (08:07→17:32)
[2020-04-23 20:21] VITALS: BP 114/97
[2020-04-24] MEDS: LITHIUM CARBONATE 600 MG CAPSULE PO SCH ×2 (08:45→16:19)
[2020-04-24] MEDS: QUEtiapine FUMARATE 200 MG TABLET PO SCH ×2 (08:45→16:20)
[2020-04-24] MEDS: DIVALPROEX SODIUM 500 MG DR TABLET PO SCH ×2 (08:46→20:07)
[2020-04-24 16:16] VITALS: BP 112/66
[2020-04-25 00:18] VITALS: BP 136/97
[2020-04-25] MEDS: LORazepam 2 MG TABLET PO PRN (00:44)
[2020-04-25] MEDS: QUEtiapine FUMARATE 200 MG TABLET PO SCH ×2 (09:29→16:08)
[2020-04-25] MEDS: DIVALPROEX SODIUM 500 MG DR TABLET PO SCH ×2 (09:29→20:10)
[2020-04-25] MEDS: LITHIUM CARBONATE 600 MG CAPSULE PO SCH ×2 (09:29→16:08)
[2020-04-25] MEDS: ZOLPIDEM TARTRATE 10 MG TABLET PO PRN (20:10)
[2020-04-26 01:11] VITALS: BP 124/86
[2020-04-26] MEDS: DIVALPROEX SODIUM 500 MG DR TABLET PO SCH ×2 (09:27→20:05)
[2020-04-26] MEDS: QUEtiapine FUMARATE 200 MG TABLET PO SCH ×2 (09:27→16:41)
[2020-04-26] MEDS: LITHIUM CARBONATE 600 MG CAPSULE PO SCH ×2 (09:27→16:41)
[2020-04-26 13:38] VITALS: BP 114/76
[2020-04-26] MEDS: ZOLPIDEM TARTRATE 10 MG TABLET PO PRN (20:05)
[2020-04-27 01:23] VITALS: BP 110/78
[2020-04-27] MEDS: LITHIUM CARBONATE 600 MG CAPSULE PO SCH ×2 (09:27→16:38)
[2020-04-27] MEDS: DIVALPROEX SODIUM 500 MG DR TABLET PO SCH ×2 (09:27→20:39)
[2020-04-27] MEDS: QUEtiapine FUMARATE 200 MG TABLET PO SCH ×2 (09:29→16:39)
[2020-04-27] MEDS: ZOLPIDEM TARTRATE 10 MG TABLET PO PRN (20:39)
[2020-04-28 01:26] VITALS: BP 117/65
[2020-04-28] MEDS: LITHIUM CARBONATE 600 MG CAPSULE PO SCH ×2 (08:15→17:12)
[2020-04-28] MEDS: DIVALPROEX SODIUM 500 MG DR TABLET PO SCH ×2 (08:16→21:11)
[2020-04-28] MEDS: QUEtiapine FUMARATE 200 MG TABLET PO SCH ×2 (08:17→17:12)
[2020-04-28] MEDS: HALOPERIDOL 5 MG TABLET PO SCH (21:00)
[2020-04-29 00:11] VITALS: BP 115/63
[2020-04-29] MEDS: LITHIUM CARBONATE 600 MG CAPSULE PO SCH ×2 (08:29→17:48)
[2020-04-29] MEDS: QUEtiapine FUMARATE 200 MG TABLET PO SCH ×2 (08:29→17:49)
[2020-04-29] MEDS: DIVALPROEX SODIUM 500 MG DR TABLET PO SCH ×2 (08:30→20:42)
[2020-04-29] MEDS: LORazepam 2 MG TABLET PO PRN (08:50)
[2020-04-29] MEDS: HALOPERIDOL 5 MG TABLET PO SCH (20:43)
[2020-04-29] MEDS ORDERED: HALOPERIDOL LACTATE 5 MG/ML VIAL IM PRN (21:15)
[2020-04-29] MEDS: ACETAMINOPHEN 325 MG TABLET PO PRN (22:49)
[2020-04-30 02:02] VITALS: BP 101/67
[2020-04-30] MEDS: DIVALPROEX SODIUM 500 MG DR TABLET PO SCH ×2 (08:10→21:14)
[2020-04-30] MEDS: LITHIUM CARBONATE 600 MG CAPSULE PO SCH ×2 (08:10→16:13)
[2020-04-30] MEDS: QUEtiapine FUMARATE 200 MG TABLET PO SCH ×2 (08:10→16:13)
[2020-04-30 08:13] VITALS: BP 100/62
[2020-04-30 16:10] VITALS: BP 118/71
[2020-04-30] MEDS: HALOPERIDOL 5 MG TABLET PO SCH (21:13)
[2020-05-01 00:59] VITALS: BP 111/70
[2020-05-01 08:20] VITALS: BP 109/61
[2020-05-01] MEDS: DIVALPROEX SODIUM 500 MG DR TABLET PO SCH ×2 (09:00→20:37)
[2020-05-01] MEDS: LITHIUM CARBONATE 600 MG CAPSULE PO SCH ×2 (09:00→16:39)
[2020-05-01] MEDS: QUEtiapine FUMARATE 200 MG TABLET PO SCH ×2 (09:01→16:39)
[2020-05-01] MEDS: LORazepam 2 MG TABLET PO PRN (20:36)
[2020-05-01] MEDS: HALOPERIDOL 5 MG TABLET PO SCH (20:37)
[2020-05-02 00:45] VITALS: BP 102/68
[2020-05-02 08:09] LABS: LITHIUM 0.62 mmol/L (0.60-1.20)
[2020-05-02] MEDS: LITHIUM CARBONATE 600 MG CAPSULE PO SCH ×2 (08:09→16:10)
[2020-05-02] MEDS: QUEtiapine FUMARATE 300 MG TABLET PO SCH ×2 (08:09→16:10)
[2020-05-02] MEDS: DIVALPROEX SODIUM 500 MG DR TABLET PO SCH ×2 (08:09→20:04)
[2020-05-02 08:25] VITALS: BP 114/68
[2020-05-02] MEDS: HALOPERIDOL 10 MG TABLET PO SCH (20:04)
[2020-05-02] MEDS: OLANZapine 5 MG RAPDIS TABLET PO SCH (20:04)
[2020-05-02] MEDS: LORazepam 2 MG TABLET PO PRN (20:05)
[2020-05-03 01:08] VITALS: BP 105/66
[2020-05-03] MEDS: DIVALPROEX SODIUM 500 MG DR TABLET PO SCH ×2 (09:02→20:21)
[2020-05-03] MEDS: QUEtiapine FUMARATE 300 MG TABLET PO SCH ×2 (09:02→16:37)
[2020-05-03] MEDS: LITHIUM CARBONATE 600 MG CAPSULE PO SCH ×2 (09:02→16:36)
[2020-05-03] MEDS: OLANZapine 5 MG RAPDIS TABLET PO SCH (20:22)
[2020-05-03] MEDS: HALOPERIDOL 10 MG TABLET PO SCH (20:22)
[2020-05-03] MEDS: LORazepam 2 MG TABLET PO PRN (22:04)
[2020-05-04 01:11] VITALS: BP 110/78
[2020-05-04] MEDS: DIVALPROEX SODIUM 500 MG DR TABLET PO SCH ×2 (09:51→20:25)
[2020-05-04] MEDS: LITHIUM CARBONATE 600 MG CAPSULE PO SCH ×2 (09:51→16:40)
[2020-05-04] MEDS: QUEtiapine FUMARATE 300 MG TABLET PO SCH ×2 (09:52→16:40)
[2020-05-04] MEDS: HALOPERIDOL 10 MG TABLET PO SCH (20:25)
[2020-05-04] MEDS: OLANZapine 5 MG RAPDIS TABLET PO SCH (20:25)
[2020-05-04] MEDS: LORazepam 2 MG TABLET PO PRN (20:28)
[2020-05-05 03:51] VITALS: BP 104/68
[2020-05-05] MEDS: LITHIUM CARBONATE 600 MG CAPSULE PO SCH ×2 (08:26→16:23)
[2020-05-05] MEDS: QUEtiapine FUMARATE 300 MG TABLET PO SCH ×2 (08:26→16:23)
[2020-05-05] MEDS: DIVALPROEX SODIUM 500 MG DR TABLET PO SCH ×2 (08:26→20:56)
[2020-05-05] MEDS: LORazepam 2 MG TABLET PO PRN (20:53)
[2020-05-05] MEDS: HALOPERIDOL 10 MG TABLET PO SCH (20:55)
[2020-05-05] MEDS: OLANZapine 5 MG RAPDIS TABLET PO SCH (20:56)
[2020-05-06 01:36] VITALS: BP 101/66
[2020-05-06] MEDS: QUEtiapine FUMARATE 300 MG TABLET PO SCH ×2 (08:39→16:58)
[2020-05-06] MEDS: LITHIUM CARBONATE 600 MG CAPSULE PO SCH ×2 (08:39→16:58)
[2020-05-06] MEDS: DIVALPROEX SODIUM 500 MG DR TABLET PO SCH ×2 (08:39→20:50)
[2020-05-06 17:36] VITALS: BP 108/70
[2020-05-06] MEDS: LORazepam 2 MG TABLET PO PRN (20:50)
[2020-05-06] MEDS: HALOPERIDOL 10 MG TABLET PO SCH (20:50)
[2020-05-06] MEDS: OLANZapine 5 MG RAPDIS TABLET PO SCH (20:51)
[2020-05-07] MEDS: LITHIUM CARBONATE 600 MG CAPSULE PO SCH ×2 (10:41→16:46)
[2020-05-07] MEDS: DIVALPROEX SODIUM 500 MG DR TABLET PO SCH ×2 (10:42→20:10)
[2020-05-07] MEDS: QUEtiapine FUMARATE 300 MG TABLET PO SCH ×2 (10:43→16:46)
[2020-05-07] MEDS: HALOPERIDOL 10 MG TABLET PO SCH (20:09)
[2020-05-07] MEDS: OLANZapine 5 MG RAPDIS TABLET PO SCH (20:11)
[2020-05-08 04:50] VITALS: BP 111/77
[2020-05-08] MEDS: LITHIUM CARBONATE 600 MG CAPSULE PO SCH ×2 (10:03→16:17)
[2020-05-08] MEDS: QUEtiapine FUMARATE 300 MG TABLET PO SCH ×2 (10:03→16:17)
[2020-05-08] MEDS: DIVALPROEX SODIUM 500 MG DR TABLET PO SCH ×2 (10:03→20:04)
[2020-05-08] MEDS: HALOPERIDOL 5 MG TABLET PO PRN (17:11)
[2020-05-08] MEDS: LORazepam 2 MG TABLET PO PRN ×2 (17:17→21:19)
[2020-05-08] MEDS: HALOPERIDOL 10 MG TABLET PO SCH (20:04)
[2020-05-08] MEDS: OLANZapine 5 MG RAPDIS TABLET PO SCH (20:04)
[2020-05-09 02:31] VITALS: BP 120/80
[2020-05-09] MEDS: LITHIUM CARBONATE 600 MG CAPSULE PO SCH ×2 (08:11→16:50)
[2020-05-09] MEDS: DIVALPROEX SODIUM 500 MG DR TABLET PO SCH ×2 (08:11→20:13)
[2020-05-09] MEDS: QUEtiapine FUMARATE 300 MG TABLET PO SCH ×2 (08:11→16:50)
[2020-05-09] MEDS: LORazepam 2 MG TABLET PO PRN ×2 (16:50→22:03)
[2020-05-09] MEDS: OLANZapine 5 MG RAPDIS TABLET PO SCH (20:13)
[2020-05-09] MEDS: HALOPERIDOL 10 MG TABLET PO SCH (20:13)
[2020-05-09] MEDS: ZOLPIDEM TARTRATE 10 MG TABLET PO PRN (22:22)
[2020-05-10 02:51] VITALS: BP 116/71
[2020-05-10 08:44] VITALS: BP 124/78
[2020-05-10] MEDS: DIVALPROEX SODIUM 500 MG DR TABLET PO SCH ×2 (10:20→20:32)
[2020-05-10] MEDS: LITHIUM CARBONATE 600 MG CAPSULE PO SCH ×2 (10:20→16:41)
[2020-05-10] MEDS: QUEtiapine FUMARATE 300 MG TABLET PO SCH ×2 (10:20→16:41)
[2020-05-10] MEDS: LORazepam 2 MG TABLET PO PRN (16:44)
[2020-05-10] MEDS: HALOPERIDOL 10 MG TABLET PO SCH (20:32)
[2020-05-10] MEDS: OLANZapine 5 MG RAPDIS TABLET PO SCH (20:33)
[2020-05-10] MEDS: ZOLPIDEM TARTRATE 10 MG TABLET PO PRN (20:39)
[2020-05-11 04:14] VITALS: BP 122/75
[2020-05-11] MEDS: DIVALPROEX SODIUM 500 MG DR TABLET PO SCH ×2 (09:15→20:15)
[2020-05-11] MEDS: LITHIUM CARBONATE 600 MG CAPSULE PO SCH ×2 (09:16→16:32)
[2020-05-11] MEDS: QUEtiapine FUMARATE 300 MG TABLET PO SCH ×2 (09:16→16:32)
[2020-05-11] MEDS: LORazepam 2 MG TABLET PO PRN ×2 (16:36→21:53)
[2020-05-11] MEDS: HALOPERIDOL 10 MG TABLET PO SCH (20:16)
[2020-05-11] MEDS: OLANZapine 5 MG RAPDIS TABLET PO SCH (20:17)
[2020-05-11] MEDS: ZOLPIDEM TARTRATE 10 MG TABLET PO PRN (20:32)
[2020-05-11] MEDS: IBUPROFEN 600 MG TABLET PO PRN (23:57)
[2020-05-12] MEDS: LITHIUM CARBONATE 600 MG CAPSULE PO SCH ×2 (08:22→17:27)
[2020-05-12] MEDS: QUEtiapine FUMARATE 300 MG TABLET PO SCH ×2 (08:23→17:27)
[2020-05-12] MEDS: DIVALPROEX SODIUM 500 MG DR TABLET PO SCH ×2 (08:23→20:33)
[2020-05-12] MEDS: HALOPERIDOL 10 MG TABLET PO SCH (20:34)
[2020-05-12] MEDS: OLANZapine 5 MG RAPDIS TABLET PO SCH (20:34)
[2020-05-12] MEDS: LORazepam 2 MG TABLET PO PRN (20:41)
[2020-05-12] MEDS: ZOLPIDEM TARTRATE 10 MG TABLET PO PRN (20:41)
[2020-05-13 02:38] VITALS: BP 123/71
[2020-05-13] MEDS: LORazepam 2 MG TABLET PO PRN ×2 (03:14→21:29)
[2020-05-13] MEDS: HALOPERIDOL 5 MG TABLET PO PRN (03:14)
[2020-05-13] MEDS: QUEtiapine FUMARATE 300 MG TABLET PO SCH ×2 (09:03→16:48)
[2020-05-13] MEDS: LITHIUM CARBONATE 600 MG CAPSULE PO SCH ×2 (09:03→16:48)
[2020-05-13] MEDS: DIVALPROEX SODIUM 500 MG DR TABLET PO SCH ×2 (09:03→21:11)
[2020-05-13 18:18] VITALS: BP 125/74
[2020-05-13] MEDS: HALOPERIDOL 10 MG TABLET PO SCH (21:11)
[2020-05-13] MEDS: OLANZapine 5 MG RAPDIS TABLET PO SCH (21:12)
[2020-05-14 02:37] VITALS: BP 120/78
[2020-05-14] MEDS: QUEtiapine FUMARATE 300 MG TABLET PO SCH ×2 (09:25→16:36)
[2020-05-14] MEDS: LITHIUM CARBONATE 600 MG CAPSULE PO SCH ×2 (09:25→16:36)
[2020-05-14] MEDS: DIVALPROEX SODIUM 500 MG DR TABLET PO SCH ×2 (09:26→20:23)
[2020-05-14] MEDS: OLANZapine 5 MG RAPDIS TABLET PO SCH (20:22)
[2020-05-14] MEDS: HALOPERIDOL 10 MG TABLET PO SCH (20:23)
[2020-05-14] MEDS: ZOLPIDEM TARTRATE 10 MG TABLET PO PRN (21:02)
[2020-05-15 00:18] VITALS: BP 102/72
[2020-05-15] MEDS: LORazepam 2 MG TABLET PO PRN ×3 (04:35→21:06)
[2020-05-15] MEDS: QUEtiapine FUMARATE 300 MG TABLET PO SCH ×2 (09:19→15:53)
[2020-05-15] MEDS: LITHIUM CARBONATE 600 MG CAPSULE PO SCH ×2 (09:19→15:53)
[2020-05-15] MEDS: DIVALPROEX SODIUM 500 MG DR TABLET PO SCH ×2 (09:19→20:04)
[2020-05-15] MEDS: TRIAMCINOLONE 0.1% 80 GM CREAM TP SCH ×3 (09:20→15:54)
[2020-05-15] MEDS: HALOPERIDOL 10 MG TABLET PO SCH (20:04)
[2020-05-15] MEDS: OLANZapine 5 MG RAPDIS TABLET PO SCH (20:04)
[2020-05-15] MEDS: ZOLPIDEM TARTRATE 10 MG TABLET PO PRN (22:10)
[2020-05-15] MEDS: IBUPROFEN 600 MG TABLET PO PRN (23:06)
[2020-05-16 08:22] VITALS: BP 110/62
[2020-05-16] MEDS: LITHIUM CARBONATE 600 MG CAPSULE PO SCH ×2 (08:45→16:48)
[2020-05-16] MEDS: DIVALPROEX SODIUM 500 MG DR TABLET PO SCH ×2 (08:45→20:30)
[2020-05-16] MEDS: QUEtiapine FUMARATE 300 MG TABLET PO SCH ×2 (08:45→16:48)
[2020-05-16] MEDS: TRIAMCINOLONE 0.1% 80 GM CREAM TP SCH ×3 (08:50→17:08)
[2020-05-16] MEDS: HALOPERIDOL 10 MG TABLET PO SCH (20:29)
[2020-05-16] MEDS: OLANZapine 5 MG RAPDIS TABLET PO SCH (20:30)
[2020-05-17] MEDS: ZOLPIDEM TARTRATE 10 MG TABLET PO PRN ×2 (00:06→22:01)
[2020-05-17 01:11] VITALS: BP 112/72
[2020-05-17 08:15] LABS: BASOPHILS % (AUTO) 0.3 % (0.0-2.0); EOSINOPHILS % (AUTO) 3.7 % (1.0-6.0); HEMATOCRIT 35.9 % (36-46); HEMOGLOBIN 12.5 g/dL (12.0-16.0); LYMPHOCYTES # (AUTO) 2.6 K/uL (1.0-4.8); LYMPHOCYTES % (AUTO) 38.7 % (22.0-44.0); MEAN CORPUSCULAR HEMOGLOBIN 31.3 pg (26.0-34.0); MEAN CORPUSCULAR HGB CONC 34.7 G/dL (31.0-37.0); MEAN CORPUSCULAR VOLUME 90 fL (80-100); MONOCYTES # (AUTO) 0.6 K/uL (0.1-1.0); MONOCYTES % (AUTO) 8.6 % (2.0-9.0); NEUTROPHILS # (AUTO) 3.3 K/uL (1.8-7.7); NEUTROPHILS % (AUTO) 48.7 % (40.0-70.0); PLATELET COUNT (AUTO) 205 K/uL (150-450); RED BLOOD CELL COUNT(AUTO) 3.99 MIL/uL (4.00-5.20)
[2020-05-17] MEDS: QUEtiapine FUMARATE 300 MG TABLET PO SCH ×2 (08:40→16:08)
[2020-05-17] MEDS: DIVALPROEX SODIUM 500 MG DR TABLET PO SCH ×2 (08:40→20:14)
[2020-05-17] MEDS: LITHIUM CARBONATE 600 MG CAPSULE PO SCH ×2 (08:40→16:08)
[2020-05-17] MEDS: TRIAMCINOLONE 0.1% 80 GM CREAM TP SCH ×3 (08:41→16:08)
[2020-05-17 08:47] LABS: HEMOGLOBIN A1C 4.9 % (3.8-5.6)
[2020-05-17 08:53] LABS: ALANINE AMINOTRANSFERASE 12 U/L (12-78); ALBUMIN 2.9 g/dL (3.4-5.0); ALKALINE PHOSPHATASE 54 U/L (46-116); ANION GAP 5 mmol/L (8-16); ASPARTATE AMINOTRANSFERASE 8 U/L (15-37); BILIRUBIN,TOTAL 0.2 mg/dL (0.1-1.0); CALCIUM, TOTAL 8.6 mg/dL (8.8-10.5); CARBON DIOXIDE 28 mmol/L (22-29); CHLORIDE 105 mmol/L (98-107); CHOL/HDL RATIO 2.7 (3.9-5.7); CHOLESTEROL 135 mg/dL (131-200); CREATININE 0.61 mg/dL (0.60-1.30); GLOMERULAR FILTR. RATE CALC > 60 mL/min (>60); GLUCOSE,RANDOM 91 mg/dL (70-110); HDL CHOLESTEROL 50 mg/dL (40-60); PHOSPHORUS 4.2 mg/dL (2.5-4.9); POTASSIUM 4.2 mmol/L (3.5-5.1); SODIUM SERUM 138 mmol/L (136-145); TOTAL PROTEIN, SERUM 6.1 g/dL (6.4-8.2); TRIGLYCERIDES 107 mg/dL (15-150); UREA NITROGEN, BLOOD 14 mg/dL (7-18)
[2020-05-17 08:54] LABS: LDL CHOL (CALC.) 64 mg/dL (0-130); THYROID STIMULATING HORMONE 4.95 uIU/mL (0.36-3.74)
[2020-05-17] MEDS: OLANZapine 5 MG RAPDIS TABLET PO SCH (20:15)
[2020-05-17] MEDS: HALOPERIDOL 10 MG TABLET PO SCH (20:15)
[2020-05-17] MEDS: IBUPROFEN 600 MG TABLET PO PRN (22:00)
[2020-05-18 01:59] VITALS: BP 121/68
[2020-05-18] MEDS: QUEtiapine FUMARATE 300 MG TABLET PO SCH ×2 (09:08→16:26)
[2020-05-18] MEDS: DIVALPROEX SODIUM 500 MG DR TABLET PO SCH ×2 (09:08→19:54)
[2020-05-18] MEDS: LITHIUM CARBONATE 600 MG CAPSULE PO SCH ×2 (09:09→16:26)
[2020-05-18] MEDS: TRIAMCINOLONE 0.1% 80 GM CREAM TP SCH ×3 (09:09→16:26)
[2020-05-18 16:11] VITALS: BP 119/80
[2020-05-18] MEDS: ACETAMINOPHEN 325 MG TABLET PO PRN (19:45)
[2020-05-18] MEDS: OLANZapine 5 MG RAPDIS TABLET PO SCH (19:54)
[2020-05-18] MEDS: HALOPERIDOL 10 MG TABLET PO SCH (19:54)
[2020-05-18] MEDS: LORazepam 2 MG TABLET PO PRN (19:55)
[2020-05-18] MEDS: ZOLPIDEM TARTRATE 10 MG TABLET PO PRN (22:01)
[2020-05-19 01:26] VITALS: BP 111/78
[2020-05-19 08:19] VITALS: BP 116/74
[2020-05-19] MEDS: TRIAMCINOLONE 0.1% 80 GM CREAM TP SCH ×3 (08:25→16:17)
[2020-05-19] MEDS: QUEtiapine FUMARATE 300 MG TABLET PO SCH ×2 (08:25→16:13)
[2020-05-19] MEDS: DIVALPROEX SODIUM 500 MG DR TABLET PO SCH ×2 (08:25→20:05)
[2020-05-19] MEDS: LITHIUM CARBONATE 600 MG CAPSULE PO SCH ×2 (08:25→16:13)
[2020-05-19 16:00] VITALS: BP 118/76
[2020-05-19] MEDS: HALOPERIDOL 10 MG TABLET PO SCH (20:05)
[2020-05-19] MEDS: OLANZapine 5 MG RAPDIS TABLET PO SCH (20:05)
[2020-05-20 01:17] VITALS: BP 112/74
[2020-05-20 08:22] VITALS: BP 114/79
[2020-05-20] MEDS: DIVALPROEX SODIUM 500 MG DR TABLET PO SCH ×2 (08:26→20:06)
[2020-05-20] MEDS: QUEtiapine FUMARATE 300 MG TABLET PO SCH ×2 (08:26→16:20)
[2020-05-20] MEDS: LITHIUM CARBONATE 600 MG CAPSULE PO SCH ×2 (08:26→17:27)
[2020-05-20] MEDS: TRIAMCINOLONE 0.1% 80 GM CREAM TP SCH ×3 (10:22→16:21)
[2020-05-20 16:24] VITALS: BP 116/73
[2020-05-20] MEDS: OLANZapine 5 MG RAPDIS TABLET PO SCH (20:06)
[2020-05-20] MEDS: HALOPERIDOL 10 MG TABLET PO SCH (20:06)
[2020-05-21 00:39] VITALS: BP 112/74
[2020-05-21] MEDS: DIVALPROEX SODIUM 500 MG DR TABLET PO SCH ×2 (08:01→20:27)
[2020-05-21] MEDS: QUEtiapine FUMARATE 300 MG TABLET PO SCH ×2 (08:01→16:25)
[2020-05-21] MEDS: LITHIUM CARBONATE 600 MG CAPSULE PO SCH ×2 (08:01→16:25)
[2020-05-21] MEDS: TRIAMCINOLONE 0.1% 80 GM CREAM TP SCH ×3 (08:17→16:25)
[2020-05-21] MEDS: OLANZapine 5 MG RAPDIS TABLET PO SCH (20:27)
[2020-05-21] MEDS: HALOPERIDOL 10 MG TABLET PO SCH (20:27)
[2020-05-22 01:55] VITALS: BP 116/76
[2020-05-22] MEDS: TRIAMCINOLONE 0.1% 80 GM CREAM TP SCH ×3 (08:17→16:16)
[2020-05-22] MEDS: LITHIUM CARBONATE 600 MG CAPSULE PO SCH ×2 (08:17→16:15)
[2020-05-22] MEDS: QUEtiapine FUMARATE 300 MG TABLET PO SCH ×2 (08:17→16:15)
[2020-05-22] MEDS: DIVALPROEX SODIUM 500 MG DR TABLET PO SCH ×2 (08:17→20:00)
[2020-05-22 16:15] VITALS: BP 145/53
[2020-05-22] MEDS: HALOPERIDOL 5 MG TABLET PO PRN ×2 (19:19→23:48)
[2020-05-22] MEDS: OLANZapine 5 MG RAPDIS TABLET PO SCH (20:00)
[2020-05-22] MEDS: HALOPERIDOL 10 MG TABLET PO SCH (20:00)
[2020-05-23 04:58] VITALS: BP 128/67
[2020-05-23] MEDS: DIVALPROEX SODIUM 500 MG DR TABLET PO SCH ×2 (08:08→20:25)
[2020-05-23] MEDS: QUEtiapine FUMARATE 300 MG TABLET PO SCH ×2 (08:08→16:31)
[2020-05-23] MEDS: LITHIUM CARBONATE 600 MG CAPSULE PO SCH ×2 (08:09→16:31)
[2020-05-23] MEDS: TRIAMCINOLONE 0.1% 80 GM CREAM TP SCH ×3 (08:10→16:32)
[2020-05-23 08:24] VITALS: BP 124/76
[2020-05-23] MEDS: HALOPERIDOL 10 MG TABLET PO SCH (20:25)
[2020-05-23] MEDS: OLANZapine 5 MG RAPDIS TABLET PO SCH (20:25)
[2020-05-24 00:55] VITALS: BP 120/72
[2020-05-24] MEDS: LEVOTHYROXINE SODIUM 25 MCG TABLET PO SCH (06:11)
[2020-05-24] MEDS: LITHIUM CARBONATE 600 MG CAPSULE PO SCH ×2 (08:26→16:11)
[2020-05-24] MEDS: QUEtiapine FUMARATE 300 MG TABLET PO SCH ×2 (08:26→16:11)
[2020-05-24] MEDS: DIVALPROEX SODIUM 500 MG DR TABLET PO SCH ×2 (08:26→20:11)
[2020-05-24] MEDS: TRIAMCINOLONE 0.1% 80 GM CREAM TP SCH ×3 (08:28→16:11)
[2020-05-24 12:57] VITALS: BP 119/78
[2020-05-24] MEDS: HALOPERIDOL 10 MG TABLET PO SCH (20:11)
[2020-05-24] MEDS: OLANZapine 5 MG RAPDIS TABLET PO SCH (20:11)
[2020-05-25 01:23] VITALS: BP 112/76
[2020-05-25] MEDS: LEVOTHYROXINE SODIUM 25 MCG TABLET PO SCH (06:08)
[2020-05-25] MEDS: DIVALPROEX SODIUM 500 MG DR TABLET PO SCH ×2 (08:20→20:05)
[2020-05-25 08:21] VITALS: BP 119/74
[2020-05-25] MEDS: QUEtiapine FUMARATE 300 MG TABLET PO SCH ×2 (08:21→16:50)
[2020-05-25] MEDS: LITHIUM CARBONATE 600 MG CAPSULE PO SCH ×2 (08:21→16:50)
[2020-05-25] MEDS: TRIAMCINOLONE 0.1% 80 GM CREAM TP SCH ×3 (08:22→16:50)
[2020-05-25 16:50] VITALS: BP 116/70
[2020-05-25] MEDS: OLANZapine 5 MG RAPDIS TABLET PO SCH (20:05)
[2020-05-25] MEDS: HALOPERIDOL 10 MG TABLET PO SCH (20:05)
[2020-05-25] MEDS: ACETAMINOPHEN 325 MG TABLET PO PRN (20:57)
[2020-05-26 04:45] VITALS: BP 118/71
[2020-05-26] MEDS: LEVOTHYROXINE SODIUM 25 MCG TABLET PO SCH (06:23)
[2020-05-26] MEDS: LITHIUM CARBONATE 600 MG CAPSULE PO SCH ×2 (08:18→17:17)
[2020-05-26] MEDS: TRIAMCINOLONE 0.1% 80 GM CREAM TP SCH ×3 (08:18→17:18)
[2020-05-26] MEDS: DIVALPROEX SODIUM 500 MG DR TABLET PO SCH ×2 (08:18→19:55)
[2020-05-26] MEDS: QUEtiapine FUMARATE 300 MG TABLET PO SCH ×2 (08:18→17:17)
[2020-05-26] MEDS: OLANZapine 5 MG RAPDIS TABLET PO SCH (19:55)
[2020-05-26] MEDS: HALOPERIDOL 10 MG TABLET PO SCH (19:55)
[2020-05-26] MEDS: MAGNESIUM HYDROXIDE SUSPENSION 30 ML UDCUP PO PRN (20:57)
[2020-05-26] MEDS: HALOPERIDOL 5 MG TABLET PO PRN (23:02)
[2020-05-26] MEDS: ACETAMINOPHEN 325 MG TABLET PO PRN (23:02)
[2020-05-27] MEDS: LEVOTHYROXINE SODIUM 25 MCG TABLET PO SCH (06:16)
[2020-05-27] MEDS: DIVALPROEX SODIUM 500 MG DR TABLET PO SCH ×2 (09:01→20:09)
[2020-05-27] MEDS: QUEtiapine FUMARATE 300 MG TABLET PO SCH ×2 (09:01→16:30)
[2020-05-27] MEDS: LITHIUM CARBONATE 600 MG CAPSULE PO SCH ×2 (09:01→16:30)
[2020-05-27] MEDS: TRIAMCINOLONE 0.1% 80 GM CREAM TP SCH ×3 (09:21→16:30)
[2020-05-27 16:18] VITALS: BP 116/71
[2020-05-27] MEDS: OLANZapine 5 MG RAPDIS TABLET PO SCH (20:09)
[2020-05-27] MEDS: HALOPERIDOL 10 MG TABLET PO SCH (20:09)
[2020-05-28 01:58] VITALS: BP 114/69
[2020-05-28] MEDS: LEVOTHYROXINE SODIUM 25 MCG TABLET PO SCH (06:49)
[2020-05-28 08:32] VITALS: BP 116/71
[2020-05-28] MEDS: DIVALPROEX SODIUM 500 MG DR TABLET PO SCH ×2 (10:16→20:37)
[2020-05-28] MEDS: LITHIUM CARBONATE 600 MG CAPSULE PO SCH ×2 (10:16→17:11)
[2020-05-28] MEDS: TRIAMCINOLONE 0.1% 80 GM CREAM TP SCH ×3 (10:17→17:10)
[2020-05-28] MEDS: QUEtiapine FUMARATE 300 MG TABLET PO SCH ×2 (10:17→17:11)
[2020-05-28] MEDS: OLANZapine 5 MG RAPDIS TABLET PO SCH (20:37)
[2020-05-28] MEDS: HALOPERIDOL 10 MG TABLET PO SCH (20:37)
[2020-05-29 01:12] VITALS: BP 111/75
[2020-05-29] MEDS: LEVOTHYROXINE SODIUM 25 MCG TABLET PO SCH (05:59)
[2020-05-29 08:39] VITALS: BP 113/78
[2020-05-29] MEDS: TRIAMCINOLONE 0.1% 80 GM CREAM TP SCH ×3 (09:57→16:53)
[2020-05-29] MEDS: QUEtiapine FUMARATE 300 MG TABLET PO SCH ×2 (09:58→16:52)
[2020-05-29] MEDS: LITHIUM CARBONATE 600 MG CAPSULE PO SCH ×2 (09:58→16:52)
[2020-05-29] MEDS: DIVALPROEX SODIUM 500 MG DR TABLET PO SCH ×2 (09:58→20:34)
[2020-05-29] MEDS: OLANZapine 5 MG RAPDIS TABLET PO SCH (20:35)
[2020-05-29] MEDS: HALOPERIDOL 10 MG TABLET PO SCH (20:35)
[2020-05-30 01:27] VITALS: BP 110/73
[2020-05-30] MEDS: LEVOTHYROXINE SODIUM 25 MCG TABLET PO SCH (06:24)
[2020-05-30 08:20] VITALS: BP 124/82
[2020-05-30] MEDS: QUEtiapine FUMARATE 300 MG TABLET PO SCH ×2 (08:31→16:15)
[2020-05-30] MEDS: LITHIUM CARBONATE 600 MG CAPSULE PO SCH ×2 (08:31→16:15)
[2020-05-30] MEDS: DIVALPROEX SODIUM 500 MG DR TABLET PO SCH ×2 (08:31→20:16)
[2020-05-30] MEDS: TRIAMCINOLONE 0.1% 80 GM CREAM TP SCH ×3 (08:32→16:16)
[2020-05-30] MEDS: HALOPERIDOL 5 MG TABLET PO PRN (16:15)
[2020-05-30] MEDS: HALOPERIDOL 10 MG TABLET PO SCH (20:13)
[2020-05-30] MEDS: OLANZapine 5 MG RAPDIS TABLET PO SCH (20:13)
[2020-05-31 01:16] VITALS: BP 120/77
[2020-05-31] MEDS: LEVOTHYROXINE SODIUM 25 MCG TABLET PO SCH (06:20)
[2020-05-31] MEDS: TRIAMCINOLONE 0.1% 80 GM CREAM TP SCH ×3 (09:08→16:22)
[2020-05-31] MEDS: DIVALPROEX SODIUM 500 MG DR TABLET PO SCH ×2 (09:08→20:33)
[2020-05-31] MEDS: QUEtiapine FUMARATE 300 MG TABLET PO SCH ×2 (09:08→16:22)
[2020-05-31] MEDS: LITHIUM CARBONATE 600 MG CAPSULE PO SCH ×2 (09:08→16:22)
[2020-05-31] MEDS: OLANZapine 5 MG RAPDIS TABLET PO SCH (20:33)
[2020-05-31] MEDS: HALOPERIDOL 10 MG TABLET PO SCH (20:33)
[2020-06-01] MEDS: HALOPERIDOL 5 MG TABLET PO PRN (00:01)
[2020-06-01 01:21] VITALS: BP 116/74
[2020-06-01] MEDS: LEVOTHYROXINE SODIUM 25 MCG TABLET PO SCH (06:20)
[2020-06-01 08:25] VITALS: BP 118/71
[2020-06-01] MEDS: DIVALPROEX SODIUM 500 MG DR TABLET PO SCH ×2 (08:27→20:48)
[2020-06-01] MEDS: QUEtiapine FUMARATE 300 MG TABLET PO SCH ×2 (08:27→16:37)
[2020-06-01] MEDS: LITHIUM CARBONATE 600 MG CAPSULE PO SCH ×2 (08:27→16:37)
[2020-06-01] MEDS: TRIAMCINOLONE 0.1% 80 GM CREAM TP SCH ×3 (08:28→16:37)
[2020-06-01] MEDS: HALOPERIDOL 10 MG TABLET PO SCH (20:48)
[2020-06-01] MEDS: OLANZapine 5 MG RAPDIS TABLET PO SCH (20:48)
[2020-06-02] MEDS: LEVOTHYROXINE SODIUM 25 MCG TABLET PO SCH (06:41)
[2020-06-02] MEDS: LITHIUM CARBONATE 600 MG CAPSULE PO SCH ×2 (08:15→16:17)
[2020-06-02] MEDS: DIVALPROEX SODIUM 500 MG DR TABLET PO SCH ×2 (08:15→20:03)
[2020-06-02] MEDS: QUEtiapine FUMARATE 300 MG TABLET PO SCH ×2 (08:15→16:17)
[2020-06-02] MEDS: TRIAMCINOLONE 0.1% 80 GM CREAM TP SCH ×3 (08:16→16:21)
[2020-06-02] MEDS: OLANZapine 5 MG RAPDIS TABLET PO SCH (20:03)
[2020-06-02] MEDS: HALOPERIDOL 10 MG TABLET PO SCH (20:03)
[2020-06-03 01:17] VITALS: BP 106/74
[2020-06-03] MEDS: LEVOTHYROXINE SODIUM 25 MCG TABLET PO SCH (06:22)
[2020-06-03 08:25] VITALS: BP 116/16
[2020-06-03] MEDS: LITHIUM CARBONATE 600 MG CAPSULE PO SCH ×2 (08:38→16:11)
[2020-06-03] MEDS: TRIAMCINOLONE 0.1% 80 GM CREAM TP SCH ×3 (08:38→16:12)
[2020-06-03] MEDS: DIVALPROEX SODIUM 500 MG DR TABLET PO SCH ×2 (08:38→20:42)
[2020-06-03] MEDS: QUEtiapine FUMARATE 300 MG TABLET PO SCH ×2 (08:38→16:11)
[2020-06-03] MEDS: HALOPERIDOL 10 MG TABLET PO SCH (20:43)
[2020-06-03] MEDS: OLANZapine 5 MG RAPDIS TABLET PO SCH (20:44)
[2020-06-04 06:22] VITALS: BP 110/73
[2020-06-04] MEDS: LEVOTHYROXINE SODIUM 25 MCG TABLET PO SCH (06:42)
[2020-06-04 08:38] VITALS: BP 113/74
[2020-06-04] MEDS: LITHIUM CARBONATE 600 MG CAPSULE PO SCH ×2 (09:19→16:25)
[2020-06-04] MEDS: QUEtiapine FUMARATE 300 MG TABLET PO SCH ×2 (09:19→16:25)
[2020-06-04] MEDS: DIVALPROEX SODIUM 500 MG DR TABLET PO SCH ×2 (09:19→20:30)
[2020-06-04] MEDS: TRIAMCINOLONE 0.1% 80 GM CREAM TP SCH ×4 (09:20→16:25)
[2020-06-04] MEDS: ACETAMINOPHEN 325 MG TABLET PO PRN (17:52)
[2020-06-04] MEDS: OLANZapine 5 MG RAPDIS TABLET PO SCH (20:30)
[2020-06-04] MEDS: HALOPERIDOL 10 MG TABLET PO SCH (20:30)
[2020-06-05] MEDS: LEVOTHYROXINE SODIUM 25 MCG TABLET PO SCH (06:17)
[2020-06-05] MEDS: LITHIUM CARBONATE 600 MG CAPSULE PO SCH ×2 (08:20→16:45)
[2020-06-05] MEDS: DIVALPROEX SODIUM 500 MG DR TABLET PO SCH ×2 (08:20→20:06)
[2020-06-05] MEDS: QUEtiapine FUMARATE 300 MG TABLET PO SCH ×2 (08:20→16:45)
[2020-06-05] MEDS: TRIAMCINOLONE 0.1% 80 GM CREAM TP SCH ×3 (09:39→16:54)
[2020-06-05] MEDS: HALOPERIDOL 10 MG TABLET PO SCH (20:06)
[2020-06-05] MEDS: OLANZapine 5 MG RAPDIS TABLET PO SCH (20:06)
[2020-06-06 00:15] VITALS: BP 114/88
[2020-06-06] MEDS: LEVOTHYROXINE SODIUM 25 MCG TABLET PO SCH (06:10)
[2020-06-06] MEDS: LITHIUM CARBONATE 600 MG CAPSULE PO SCH ×2 (08:17→16:45)
[2020-06-06] MEDS: TRIAMCINOLONE 0.1% 80 GM CREAM TP SCH ×3 (08:17→16:45)
[2020-06-06] MEDS: QUEtiapine FUMARATE 300 MG TABLET PO SCH ×2 (08:17→16:45)
[2020-06-06] MEDS: DIVALPROEX SODIUM 500 MG DR TABLET PO SCH ×2 (08:17→20:06)
[2020-06-06] MEDS: OLANZapine 5 MG RAPDIS TABLET PO SCH (20:05)
[2020-06-06] MEDS: HALOPERIDOL 10 MG TABLET PO SCH (20:06)
[2020-06-07 01:26] VITALS: BP 116/76
[2020-06-07] MEDS: LEVOTHYROXINE SODIUM 25 MCG TABLET PO SCH (06:05)
[2020-06-07 08:20] VITALS: BP 110/74
[2020-06-07] MEDS: DIVALPROEX SODIUM 500 MG DR TABLET PO SCH ×2 (08:21→20:16)
[2020-06-07] MEDS: LITHIUM CARBONATE 600 MG CAPSULE PO SCH ×2 (08:21→16:32)
[2020-06-07] MEDS: TRIAMCINOLONE 0.1% 80 GM CREAM TP SCH ×3 (08:21→16:32)
[2020-06-07] MEDS: QUEtiapine FUMARATE 300 MG TABLET PO SCH ×2 (08:21→16:32)
[2020-06-07] MEDS: HALOPERIDOL 10 MG TABLET PO SCH (20:16)
[2020-06-07] MEDS: OLANZapine 5 MG RAPDIS TABLET PO SCH (20:16)
[2020-06-08 00:47] VITALS: BP 116/72
[2020-06-08] MEDS: LEVOTHYROXINE SODIUM 25 MCG TABLET PO SCH (06:49)
[2020-06-08] MEDS: QUEtiapine FUMARATE 300 MG TABLET PO SCH ×2 (08:19→16:51)
[2020-06-08] MEDS: LITHIUM CARBONATE 600 MG CAPSULE PO SCH ×2 (08:19→16:51)
[2020-06-08] MEDS: DIVALPROEX SODIUM 500 MG DR TABLET PO SCH ×2 (08:19→20:15)
[2020-06-08] MEDS: TRIAMCINOLONE 0.1% 80 GM CREAM TP SCH ×3 (08:23→16:52)
[2020-06-08] MEDS: HALOPERIDOL 10 MG TABLET PO SCH (20:15)
[2020-06-08] MEDS: OLANZapine 5 MG RAPDIS TABLET PO SCH (20:16)
[2020-06-09 01:11] VITALS: BP 105/74
[2020-06-09] MEDS: HALOPERIDOL 5 MG TABLET PO PRN (02:00)
[2020-06-09] MEDS: LEVOTHYROXINE SODIUM 25 MCG TABLET PO SCH (06:08)
[2020-06-09 07:44] LABS: HEMATOCRIT 36.1 % (36-46); HEMOGLOBIN 12.2 g/dL (12.0-16.0); MEAN CORPUSCULAR HEMOGLOBIN 30.5 pg (26.0-34.0); MEAN CORPUSCULAR HGB CONC 33.7 G/dL (31.0-37.0); MEAN CORPUSCULAR VOLUME 91 fL (80-100); PLATELET COUNT (AUTO) 185 K/uL (150-450); RED BLOOD CELL COUNT(AUTO) 3.98 MIL/uL (4.00-5.20); RED CELL DISTRIBUTION WIDTH 13.1 % (11.5-14.5)
[2020-06-09 08:00] LABS: ANION GAP 9 mmol/L (8-16); CALCIUM, TOTAL 8.8 mg/dL (8.8-10.5); CARBON DIOXIDE 26 mmol/L (22-29); CHLORIDE 105 mmol/L (98-107); CREATININE 0.55 mg/dL (0.60-1.30); GLOMERULAR FILTR. RATE CALC > 60 mL/min (>60); GLUCOSE,RANDOM 93 mg/dL (70-110); POTASSIUM 3.9 mmol/L (3.5-5.1); SODIUM SERUM 140 mmol/L (136-145); UREA NITROGEN, BLOOD 13 mg/dL (7-18)
[2020-06-09 08:20] LABS: BAND NEUTROPHILS % (MANUAL) 2 % (0-5); EOSINOPHILS % (MANUAL) 2 % (1-6); LYMPHOCYTES % (MANUAL) 33 % (22-44); MONOCYTES % (MANUAL) 1 % (2-9); SEGMENTED NEUTROPHILS % 62 % (40-70)
[2020-06-09] MEDS: LITHIUM CARBONATE 600 MG CAPSULE PO SCH ×2 (08:20→16:28)
[2020-06-09] MEDS: DIVALPROEX SODIUM 500 MG DR TABLET PO SCH ×2 (08:20→20:29)
[2020-06-09] MEDS: QUEtiapine FUMARATE 300 MG TABLET PO SCH ×2 (08:20→16:28)
[2020-06-09] MEDS: TRIAMCINOLONE 0.1% 80 GM CREAM TP SCH ×3 (08:20→16:29)
[2020-06-09] MEDS: OLANZapine 5 MG RAPDIS TABLET PO SCH (20:29)
[2020-06-09] MEDS: HALOPERIDOL 10 MG TABLET PO SCH (20:29)
[2020-06-09] MEDS: ACETAMINOPHEN 325 MG TABLET PO PRN (21:31)
[2020-06-10] MEDS: IBUPROFEN 600 MG TABLET PO PRN (06:13)
[2020-06-10] MEDS: LEVOTHYROXINE SODIUM 25 MCG TABLET PO SCH (06:13)
[2020-06-10] MEDS: DIVALPROEX SODIUM 500 MG DR TABLET PO SCH ×2 (08:17→20:11)
[2020-06-10] MEDS: TRIAMCINOLONE 0.1% 80 GM CREAM TP SCH ×3 (08:17→16:45)
[2020-06-10] MEDS: QUEtiapine FUMARATE 300 MG TABLET PO SCH ×2 (08:17→16:44)
[2020-06-10] MEDS: LITHIUM CARBONATE 600 MG CAPSULE PO SCH ×2 (08:17→16:44)
[2020-06-10 16:12] VITALS: BP 109/59
[2020-06-10] MEDS: OLANZapine 5 MG RAPDIS TABLET PO SCH (20:11)
[2020-06-10] MEDS: HALOPERIDOL 10 MG TABLET PO SCH (20:11)
[2020-06-11] MEDS: IBUPROFEN 600 MG TABLET PO PRN (01:02)
[2020-06-11] MEDS: HALOPERIDOL 5 MG TABLET PO PRN (01:02)
[2020-06-11 01:09] VITALS: BP 114/66
[2020-06-11] MEDS: LEVOTHYROXINE SODIUM 25 MCG TABLET PO SCH (06:16)
[2020-06-11 08:21] VITALS: BP 112/78
[2020-06-11] MEDS: TRIAMCINOLONE 0.1% 80 GM CREAM TP SCH ×3 (08:37→16:03)
[2020-06-11] MEDS: QUEtiapine FUMARATE 300 MG TABLET PO SCH ×2 (08:38→16:02)
[2020-06-11] MEDS: DIVALPROEX SODIUM 500 MG DR TABLET PO SCH ×2 (08:38→20:18)
[2020-06-11] MEDS: LITHIUM CARBONATE 600 MG CAPSULE PO SCH ×2 (08:38→16:02)
[2020-06-11] MEDS: OLANZapine 5 MG RAPDIS TABLET PO SCH (20:18)
[2020-06-11] MEDS: HALOPERIDOL 10 MG TABLET PO SCH (20:18)
[2020-06-12] MEDS: HALOPERIDOL 5 MG TABLET PO PRN ×2 (01:26→08:08)
[2020-06-12 01:55] VITALS: BP 116/75
[2020-06-12] MEDS: LEVOTHYROXINE SODIUM 25 MCG TABLET PO SCH (06:42)
[2020-06-12] MEDS: QUEtiapine FUMARATE 300 MG TABLET PO SCH ×2 (08:08→16:09)
[2020-06-12] MEDS: DIVALPROEX SODIUM 500 MG DR TABLET PO SCH ×2 (08:08→19:49)
[2020-06-12] MEDS: LITHIUM CARBONATE 600 MG CAPSULE PO SCH ×2 (08:08→16:09)
[2020-06-12] MEDS: TRIAMCINOLONE 0.1% 80 GM CREAM TP SCH ×3 (08:08→16:57)
[2020-06-12 08:15] VITALS: BP 103/64
[2020-06-12] MEDS: HALOPERIDOL 10 MG TABLET PO SCH (19:48)
[2020-06-12] MEDS: OLANZapine 5 MG RAPDIS TABLET PO SCH (19:48)
[2020-06-13 01:29] VITALS: BP 101/69
[2020-06-13] MEDS: ACETAMINOPHEN 325 MG TABLET PO PRN ×2 (02:02→11:06)
[2020-06-13] MEDS: HALOPERIDOL 5 MG TABLET PO PRN ×2 (02:34→08:08)
[2020-06-13] MEDS: LEVOTHYROXINE SODIUM 25 MCG TABLET PO SCH (06:02)
[2020-06-13] MEDS: QUEtiapine FUMARATE 300 MG TABLET PO SCH ×2 (08:08→16:55)
[2020-06-13] MEDS: DIVALPROEX SODIUM 500 MG DR TABLET PO SCH ×2 (08:08→20:12)
[2020-06-13] MEDS: LITHIUM CARBONATE 600 MG CAPSULE PO SCH ×2 (08:08→16:55)
[2020-06-13 08:22] VITALS: BP 123/94
[2020-06-13] MEDS: TRIAMCINOLONE 0.1% 80 GM CREAM TP SCH ×3 (09:00→16:57)
[2020-06-13 16:05] VITALS: BP 122/69
[2020-06-13] MEDS: HALOPERIDOL 10 MG TABLET PO SCH (20:12)
[2020-06-13] MEDS: OLANZapine 5 MG RAPDIS TABLET PO SCH (20:12)
[2020-06-14 01:25] VITALS: BP 116/72
[2020-06-14] MEDS: LEVOTHYROXINE SODIUM 25 MCG TABLET PO SCH (06:27)
[2020-06-14] MEDS: LITHIUM CARBONATE 600 MG CAPSULE PO SCH ×2 (09:23→16:39)
[2020-06-14] MEDS: DIVALPROEX SODIUM 500 MG DR TABLET PO SCH ×2 (09:23→20:32)
[2020-06-14] MEDS: QUEtiapine FUMARATE 300 MG TABLET PO SCH ×2 (09:23→16:39)
[2020-06-14] MEDS: TRIAMCINOLONE 0.1% 80 GM CREAM TP SCH ×3 (09:25→16:40)
[2020-06-14] MEDS: OLANZapine 5 MG RAPDIS TABLET PO SCH (20:32)
[2020-06-14] MEDS: HALOPERIDOL 10 MG TABLET PO SCH (20:32)
[2020-06-15 02:24] VITALS: BP 112/3
[2020-06-15] MEDS: LEVOTHYROXINE SODIUM 25 MCG TABLET PO SCH (06:11)
[2020-06-15 08:18] VITALS: BP 118/84
[2020-06-15] MEDS: QUEtiapine FUMARATE 300 MG TABLET PO SCH ×2 (08:26→16:47)
[2020-06-15] MEDS: LITHIUM CARBONATE 600 MG CAPSULE PO SCH ×2 (08:26→16:47)
[2020-06-15] MEDS: DIVALPROEX SODIUM 500 MG DR TABLET PO SCH ×2 (08:26→20:51)
[2020-06-15] MEDS: TRIAMCINOLONE 0.1% 80 GM CREAM TP SCH ×3 (08:26→17:03)
[2020-06-15 08:38] LABS: LITHIUM 0.6 mmol/L (0.60-1.20)
[2020-06-15] MEDS: HALOPERIDOL 10 MG TABLET PO SCH (20:52)
[2020-06-15] MEDS: OLANZapine 5 MG RAPDIS TABLET PO SCH (20:52)
[2020-06-16 01:26] VITALS: BP 111/80
[2020-06-16] MEDS: LEVOTHYROXINE SODIUM 25 MCG TABLET PO SCH (06:32)
[2020-06-16] MEDS: DIVALPROEX SODIUM 500 MG DR TABLET PO SCH ×2 (08:13→20:11)
[2020-06-16] MEDS: LITHIUM CARBONATE 600 MG CAPSULE PO SCH ×2 (08:13→16:32)
[2020-06-16] MEDS: QUEtiapine FUMARATE 300 MG TABLET PO SCH ×2 (08:13→16:32)
[2020-06-16 08:14] VITALS: BP 151/101
[2020-06-16] MEDS: ACETAMINOPHEN 325 MG TABLET PO PRN (08:14)
[2020-06-16] MEDS: TRIAMCINOLONE 0.1% 80 GM CREAM TP SCH ×3 (08:14→16:47)
[2020-06-16] MEDS: MAGNESIUM OXIDE 400 MG TABLET PO SCH ×2 (10:20→16:32)
[2020-06-16 17:22] VITALS: BP 125/82
[2020-06-16] MEDS: OLANZapine 5 MG RAPDIS TABLET PO SCH (20:10)
[2020-06-16] MEDS: HALOPERIDOL 10 MG TABLET PO SCH (20:10)
[2020-06-17 03:55] VITALS: BP 122/78
[2020-06-17] MEDS: LEVOTHYROXINE SODIUM 25 MCG TABLET PO SCH (06:22)
[2020-06-17 08:23] VITALS: BP 135/93
[2020-06-17] MEDS: MAGNESIUM OXIDE 400 MG TABLET PO SCH ×2 (08:32→16:54)
[2020-06-17] MEDS: LITHIUM CARBONATE 600 MG CAPSULE PO SCH ×2 (08:32→16:54)
[2020-06-17] MEDS: QUEtiapine FUMARATE 300 MG TABLET PO SCH ×2 (08:33→16:54)
[2020-06-17] MEDS: DIVALPROEX SODIUM 500 MG DR TABLET PO SCH ×2 (08:33→20:31)
[2020-06-17] MEDS: TRIAMCINOLONE 0.1% 80 GM CREAM TP SCH ×2 (09:30→16:55)
[2020-06-17] MEDS: DOCUSATE SODIUM 100 MG CAPSULE PO PRN (09:38)
[2020-06-17] MEDS ORDERED: MAGNESIUM CITRATE 300 ML ORAL SOLUTION PO ONE (10:30)
[2020-06-17] MEDS ORDERED: SODIUM PHOS/SODIUM BIPHOS 133 ML ENEMA PR ONE (10:45)
[2020-06-17 16:18] VITALS: BP 129/89
[2020-06-17] MEDS: SENNA/DOCUSATE SODIUM 8.6-50 MG TABLET PO SCH (18:33)
[2020-06-17] MEDS: OLANZapine 5 MG RAPDIS TABLET PO SCH (20:30)
[2020-06-17] MEDS: HALOPERIDOL 10 MG TABLET PO SCH (20:31)
[2020-06-18 00:20] VITALS: BP 124/82
[2020-06-18] MEDS: LEVOTHYROXINE SODIUM 25 MCG TABLET PO SCH (06:36)
[2020-06-18] MEDS: DIVALPROEX SODIUM 500 MG DR TABLET PO SCH ×2 (08:17→20:02)
[2020-06-18] MEDS: MAGNESIUM OXIDE 400 MG TABLET PO SCH ×2 (08:17→16:10)
[2020-06-18] MEDS: QUEtiapine FUMARATE 300 MG TABLET PO SCH ×2 (08:17→16:06)
[2020-06-18] MEDS: LITHIUM CARBONATE 600 MG CAPSULE PO SCH ×2 (08:17→16:06)
[2020-06-18] MEDS: SENNA/DOCUSATE SODIUM 8.6-50 MG TABLET PO SCH (08:19)
[2020-06-18] MEDS: TRIAMCINOLONE 0.1% 80 GM CREAM TP SCH ×3 (11:01→18:18)
[2020-06-18] MEDS: HALOPERIDOL 10 MG TABLET PO SCH (20:02)
[2020-06-18] MEDS: OLANZapine 5 MG RAPDIS TABLET PO SCH (20:02)
[2020-06-19 00:35] VITALS: BP 122/77
[2020-06-19] MEDS: LEVOTHYROXINE SODIUM 25 MCG TABLET PO SCH (06:49)
[2020-06-19] MEDS: LITHIUM CARBONATE 600 MG CAPSULE PO SCH ×2 (08:10→16:19)
[2020-06-19] MEDS: QUEtiapine FUMARATE 300 MG TABLET PO SCH ×2 (08:10→16:19)
[2020-06-19] MEDS: MAGNESIUM OXIDE 400 MG TABLET PO SCH ×2 (08:10→16:19)
[2020-06-19] MEDS: DIVALPROEX SODIUM 500 MG DR TABLET PO SCH ×2 (08:10→20:15)
[2020-06-19] MEDS: TRIAMCINOLONE 0.1% 80 GM CREAM TP SCH ×3 (08:11→16:20)
[2020-06-19] MEDS: SENNA/DOCUSATE SODIUM 8.6-50 MG TABLET PO SCH (08:11)
[2020-06-19] MEDS: MAGNESIUM HYDROXIDE SUSPENSION 30 ML UDCUP PO PRN (13:42)
[2020-06-19 16:00] VITALS: BP 138/94
[2020-06-19] MEDS: HALOPERIDOL 10 MG TABLET PO SCH (20:15)
[2020-06-19] MEDS: OLANZapine 5 MG RAPDIS TABLET PO SCH (20:15)
[2020-06-20 01:58] VITALS: BP 128/84
[2020-06-20] MEDS: LEVOTHYROXINE SODIUM 25 MCG TABLET PO SCH (06:21)
[2020-06-20 08:14] VITALS: BP 116/70
[2020-06-20] MEDS: TRIAMCINOLONE 0.1% 80 GM CREAM TP SCH ×3 (08:59→16:13)
[2020-06-20] MEDS: MAGNESIUM OXIDE 400 MG TABLET PO SCH ×2 (09:01→16:11)
[2020-06-20] MEDS: SENNA/DOCUSATE SODIUM 8.6-50 MG TABLET PO SCH (09:01)
[2020-06-20] MEDS: QUEtiapine FUMARATE 300 MG TABLET PO SCH ×2 (09:01→16:05)
[2020-06-20] MEDS: LITHIUM CARBONATE 600 MG CAPSULE PO SCH ×2 (09:02→16:05)
[2020-06-20] MEDS: DIVALPROEX SODIUM 500 MG DR TABLET PO SCH ×2 (09:02→20:54)
[2020-06-20 16:17] VITALS: BP 104/72
[2020-06-20] MEDS: HALOPERIDOL 10 MG TABLET PO SCH (20:54)
[2020-06-20] MEDS: OLANZapine 5 MG RAPDIS TABLET PO SCH (20:54)
[2020-06-21 00:43] VITALS: BP 100/70
[2020-06-21] MEDS: LEVOTHYROXINE SODIUM 25 MCG TABLET PO SCH (06:34)
[2020-06-21] MEDS: LITHIUM CARBONATE 600 MG CAPSULE PO SCH ×2 (08:25→16:14)
[2020-06-21] MEDS: DIVALPROEX SODIUM 500 MG DR TABLET PO SCH ×2 (08:25→20:31)
[2020-06-21] MEDS: QUEtiapine FUMARATE 300 MG TABLET PO SCH ×2 (08:25→16:14)
[2020-06-21] MEDS: SENNA/DOCUSATE SODIUM 8.6-50 MG TABLET PO SCH (08:25)
[2020-06-21] MEDS: MAGNESIUM OXIDE 400 MG TABLET PO SCH ×2 (08:25→16:14)
[2020-06-21 08:26] VITALS: BP 120/79
[2020-06-21] MEDS: TRIAMCINOLONE 0.1% 80 GM CREAM TP SCH ×3 (08:26→16:15)
[2020-06-21] MEDS: OLANZapine 5 MG RAPDIS TABLET PO SCH (20:31)
[2020-06-21] MEDS: HALOPERIDOL 10 MG TABLET PO SCH (20:31)
[2020-06-22 01:14] VITALS: BP 111/75
[2020-06-22] MEDS: LEVOTHYROXINE SODIUM 25 MCG TABLET PO SCH (06:52)
[2020-06-22 08:28] VITALS: BP 121/69
[2020-06-22] MEDS: MAGNESIUM OXIDE 400 MG TABLET PO SCH ×2 (08:51→16:39)
[2020-06-22] MEDS: DIVALPROEX SODIUM 500 MG DR TABLET PO SCH ×2 (08:52→20:24)
[2020-06-22] MEDS: QUEtiapine FUMARATE 300 MG TABLET PO SCH ×2 (08:52→16:39)
[2020-06-22] MEDS: LITHIUM CARBONATE 600 MG CAPSULE PO SCH ×2 (08:52→16:39)
[2020-06-22] MEDS: SENNA/DOCUSATE SODIUM 8.6-50 MG TABLET PO SCH (08:53)
[2020-06-22] MEDS: TRIAMCINOLONE 0.1% 80 GM CREAM TP SCH ×3 (08:53→16:40)
[2020-06-22 16:14] VITALS: BP 110/66
[2020-06-22] MEDS: HALOPERIDOL 10 MG TABLET PO SCH (20:24)
[2020-06-22] MEDS: OLANZapine 5 MG RAPDIS TABLET PO SCH (20:24)
[2020-06-22] MEDS: ACETAMINOPHEN 325 MG TABLET PO PRN (22:57)
[2020-06-23 00:57] VITALS: BP 117/67
[2020-06-23] MEDS: ACETAMINOPHEN 325 MG TABLET PO PRN (04:04)
[2020-06-23] MEDS: LEVOTHYROXINE SODIUM 25 MCG TABLET PO SCH (06:55)
[2020-06-23] MEDS: MAGNESIUM OXIDE 400 MG TABLET PO SCH ×2 (08:39→16:24)
[2020-06-23] MEDS: LITHIUM CARBONATE 600 MG CAPSULE PO SCH ×2 (08:39→16:24)
[2020-06-23] MEDS: TRIAMCINOLONE 0.1% 80 GM CREAM TP SCH ×3 (08:39→16:27)
[2020-06-23] MEDS: SENNA/DOCUSATE SODIUM 8.6-50 MG TABLET PO SCH (08:39)
[2020-06-23] MEDS: QUEtiapine FUMARATE 300 MG TABLET PO SCH ×2 (08:39→16:24)
[2020-06-23] MEDS: DIVALPROEX SODIUM 500 MG DR TABLET PO SCH ×2 (08:39→20:11)
[2020-06-23] MEDS: IBUPROFEN 600 MG TABLET PO PRN (16:53)
[2020-06-23] MEDS: OLANZapine 5 MG RAPDIS TABLET PO SCH (20:11)
[2020-06-23] MEDS: HALOPERIDOL 10 MG TABLET PO SCH (20:11)
[2020-06-24 00:26] VITALS: BP 114/77
[2020-06-24] MEDS: LEVOTHYROXINE SODIUM 25 MCG TABLET PO SCH (06:25)
[2020-06-24] MEDS: DIVALPROEX SODIUM 500 MG DR TABLET PO SCH ×2 (08:25→20:19)
[2020-06-24] MEDS: TRIAMCINOLONE 0.1% 80 GM CREAM TP SCH ×3 (08:25→16:01)
[2020-06-24] MEDS: LITHIUM CARBONATE 600 MG CAPSULE PO SCH ×2 (08:25→16:00)
[2020-06-24] MEDS: QUEtiapine FUMARATE 300 MG TABLET PO SCH ×2 (08:25→16:00)
[2020-06-24] MEDS: MAGNESIUM OXIDE 400 MG TABLET PO SCH ×2 (08:25→16:00)
[2020-06-24] MEDS: SENNA/DOCUSATE SODIUM 8.6-50 MG TABLET PO SCH (08:25)
[2020-06-24 18:07] VITALS: BP 116/68
[2020-06-24] MEDS: IBUPROFEN 600 MG TABLET PO PRN (18:07)
[2020-06-24] MEDS: HALOPERIDOL 10 MG TABLET PO SCH (20:19)
[2020-06-24] MEDS: OLANZapine 5 MG RAPDIS TABLET PO SCH (20:19)
[2020-06-25 00:51] VITALS: BP 112/72
[2020-06-25] MEDS: LEVOTHYROXINE SODIUM 25 MCG TABLET PO SCH (06:24)
[2020-06-25] MEDS: SENNA/DOCUSATE SODIUM 8.6-50 MG TABLET PO SCH (09:31)
[2020-06-25] MEDS: MAGNESIUM OXIDE 400 MG TABLET PO SCH ×2 (09:32→16:06)
[2020-06-25] MEDS: LITHIUM CARBONATE 600 MG CAPSULE PO SCH ×2 (09:32→16:05)
[2020-06-25] MEDS: DIVALPROEX SODIUM 500 MG DR TABLET PO SCH ×2 (09:32→20:14)
[2020-06-25] MEDS: QUEtiapine FUMARATE 300 MG TABLET PO SCH ×2 (09:32→16:06)
[2020-06-25] MEDS: TRIAMCINOLONE 0.1% 80 GM CREAM TP SCH ×3 (09:33→16:08)
[2020-06-25 16:18] VITALS: BP 113/79
[2020-06-25] MEDS: HALOPERIDOL 10 MG TABLET PO SCH (20:14)
[2020-06-25] MEDS: OLANZapine 5 MG RAPDIS TABLET PO SCH (20:14)
[2020-06-26 00:16] VITALS: BP 118/76
[2020-06-26] MEDS: LEVOTHYROXINE SODIUM 25 MCG TABLET PO SCH (05:51)
[2020-06-26] MEDS: LITHIUM CARBONATE 600 MG CAPSULE PO SCH ×2 (09:02→16:15)
[2020-06-26] MEDS: QUEtiapine FUMARATE 300 MG TABLET PO SCH ×2 (09:02→16:15)
[2020-06-26] MEDS: SENNA/DOCUSATE SODIUM 8.6-50 MG TABLET PO SCH (09:02)
[2020-06-26] MEDS: MAGNESIUM OXIDE 400 MG TABLET PO SCH ×2 (09:02→16:15)
[2020-06-26] MEDS: DIVALPROEX SODIUM 500 MG DR TABLET PO SCH ×2 (09:02→20:00)
[2020-06-26] MEDS: TRIAMCINOLONE 0.1% 80 GM CREAM TP SCH ×3 (09:03→16:16)
[2020-06-26] MEDS: HALOPERIDOL 10 MG TABLET PO SCH (20:00)
[2020-06-26] MEDS: OLANZapine 5 MG RAPDIS TABLET PO SCH (20:00)
[2020-06-27 00:38] VITALS: BP 110/73
[2020-06-27] MEDS: LEVOTHYROXINE SODIUM 25 MCG TABLET PO SCH (06:27)
[2020-06-27] MEDS: LITHIUM CARBONATE 600 MG CAPSULE PO SCH ×2 (08:11→17:04)
[2020-06-27] MEDS: MAGNESIUM OXIDE 400 MG TABLET PO SCH ×2 (08:11→17:04)
[2020-06-27] MEDS: QUEtiapine FUMARATE 300 MG TABLET PO SCH ×2 (08:11→17:04)
[2020-06-27] MEDS: DIVALPROEX SODIUM 500 MG DR TABLET PO SCH ×2 (08:11→20:47)
[2020-06-27] MEDS: SENNA/DOCUSATE SODIUM 8.6-50 MG TABLET PO SCH (08:11)
[2020-06-27] MEDS: TRIAMCINOLONE 0.1% 80 GM CREAM TP SCH ×3 (08:12→17:04)
[2020-06-27] MEDS: HALOPERIDOL 10 MG TABLET PO SCH (20:46)
[2020-06-27] MEDS: OLANZapine 5 MG RAPDIS TABLET PO SCH (20:47)
[2020-06-27 22:37] LABS: COVID AG,FIA SOURCE NASOPHARYNGEAL
[2020-06-28 00:39] VITALS: BP 112/76
[2020-06-28] MEDS: LEVOTHYROXINE SODIUM 25 MCG TABLET PO SCH (06:20)
[2020-06-28] MEDS: SENNA/DOCUSATE SODIUM 8.6-50 MG TABLET PO SCH (08:35)
[2020-06-28] MEDS: MAGNESIUM OXIDE 400 MG TABLET PO SCH ×2 (08:35→16:36)
[2020-06-28] MEDS: DIVALPROEX SODIUM 500 MG DR TABLET PO SCH ×2 (08:35→19:59)
[2020-06-28] MEDS: LITHIUM CARBONATE 600 MG CAPSULE PO SCH ×2 (08:35→16:36)
[2020-06-28] MEDS: QUEtiapine FUMARATE 300 MG TABLET PO SCH ×2 (08:35→16:36)
[2020-06-28] MEDS: TRIAMCINOLONE 0.1% 80 GM CREAM TP SCH ×3 (08:36→16:36)
[2020-06-28] MEDS: HALOPERIDOL 10 MG TABLET PO SCH (19:59)
[2020-06-28] MEDS: OLANZapine 5 MG RAPDIS TABLET PO SCH (19:59)
[2020-06-29 02:39] VITALS: BP 122/73
[2020-06-29] MEDS: LEVOTHYROXINE SODIUM 25 MCG TABLET PO SCH (06:30)
[2020-06-29 08:11] VITALS: BP 116/71
[2020-06-29] MEDS: MAGNESIUM OXIDE 400 MG TABLET PO SCH ×2 (08:19→16:57)
[2020-06-29] MEDS: DIVALPROEX SODIUM 500 MG DR TABLET PO SCH ×2 (08:19→20:40)
[2020-06-29] MEDS: SENNA/DOCUSATE SODIUM 8.6-50 MG TABLET PO SCH (08:20)
[2020-06-29] MEDS: QUEtiapine FUMARATE 300 MG TABLET PO SCH ×2 (08:20→16:57)
[2020-06-29] MEDS: LITHIUM CARBONATE 600 MG CAPSULE PO SCH ×2 (08:20→16:57)
[2020-06-29] MEDS: TRIAMCINOLONE 0.1% 80 GM CREAM TP SCH ×3 (08:20→16:57)
[2020-06-29] MEDS: DOCUSATE SODIUM 100 MG CAPSULE PO PRN (18:41)
[2020-06-29] MEDS: HALOPERIDOL 10 MG TABLET PO SCH (20:40)
[2020-06-29] MEDS: OLANZapine 5 MG RAPDIS TABLET PO SCH (20:41)
[2020-06-29] MEDS: HALOPERIDOL 5 MG TABLET PO PRN (21:22)
[2020-06-29 22:45] VITALS: BP 115/73
[2020-06-29] MEDS: ACETAMINOPHEN 325 MG TABLET PO PRN (22:52)
[2020-06-30 00:28] VITALS: BP 112/76
[2020-06-30] MEDS: LEVOTHYROXINE SODIUM 25 MCG TABLET PO SCH (06:29)
[2020-06-30 08:16] VITALS: BP 128/82
[2020-06-30] MEDS: SENNA/DOCUSATE SODIUM 8.6-50 MG TABLET PO SCH (08:18)
[2020-06-30] MEDS: QUEtiapine FUMARATE 300 MG TABLET PO SCH ×2 (08:18→16:41)
[2020-06-30] MEDS: DIVALPROEX SODIUM 500 MG DR TABLET PO SCH ×2 (08:18→20:01)
[2020-06-30] MEDS: LITHIUM CARBONATE 600 MG CAPSULE PO SCH ×2 (08:18→16:41)
[2020-06-30] MEDS: MAGNESIUM OXIDE 400 MG TABLET PO SCH ×2 (08:18→16:41)
[2020-06-30] MEDS: TRIAMCINOLONE 0.1% 80 GM CREAM TP SCH ×3 (08:19→16:42)
[2020-06-30] MEDS: HALOPERIDOL 10 MG TABLET PO SCH (20:01)
[2020-06-30] MEDS: OLANZapine 5 MG RAPDIS TABLET PO SCH (20:01)
[2020-07-01 01:55] VITALS: BP 115/79
[2020-07-01] MEDS: LEVOTHYROXINE SODIUM 25 MCG TABLET PO SCH (06:32)
[2020-07-01 08:14] VITALS: BP 114/76
[2020-07-01] MEDS: MAGNESIUM OXIDE 400 MG TABLET PO SCH ×2 (08:39→16:18)
[2020-07-01] MEDS: TRIAMCINOLONE 0.1% 80 GM CREAM TP SCH ×3 (08:39→16:18)
[2020-07-01] MEDS: SENNA/DOCUSATE SODIUM 8.6-50 MG TABLET PO SCH (08:39)
[2020-07-01] MEDS: DIVALPROEX SODIUM 500 MG DR TABLET PO SCH ×2 (08:39→20:00)
[2020-07-01] MEDS: LITHIUM CARBONATE 600 MG CAPSULE PO SCH ×2 (08:39→16:18)
[2020-07-01] MEDS: QUEtiapine FUMARATE 300 MG TABLET PO SCH ×2 (08:39→16:18)
[2020-07-01] MEDS: HALOPERIDOL 10 MG TABLET PO SCH (20:01)
[2020-07-01] MEDS: OLANZapine 5 MG RAPDIS TABLET PO SCH (20:05)
[2020-07-02 00:35] VITALS: BP 116/74
[2020-07-02] MEDS: LEVOTHYROXINE SODIUM 25 MCG TABLET PO SCH (06:51)
[2020-07-02] MEDS: DIVALPROEX SODIUM 500 MG DR TABLET PO SCH ×2 (08:30→19:56)
[2020-07-02] MEDS: LITHIUM CARBONATE 600 MG CAPSULE PO SCH ×2 (08:30→16:12)
[2020-07-02] MEDS: MAGNESIUM OXIDE 400 MG TABLET PO SCH ×2 (08:30→16:12)
[2020-07-02] MEDS: QUEtiapine FUMARATE 300 MG TABLET PO SCH ×2 (08:31→16:12)
[2020-07-02] MEDS: SENNA/DOCUSATE SODIUM 8.6-50 MG TABLET PO SCH (08:31)
[2020-07-02] MEDS: TRIAMCINOLONE 0.1% 80 GM CREAM TP SCH ×3 (08:42→16:22)
[2020-07-02] MEDS: ACETAMINOPHEN 325 MG TABLET PO PRN (18:59)
[2020-07-02] MEDS: HALOPERIDOL 10 MG TABLET PO SCH (19:56)
[2020-07-02] MEDS: OLANZapine 5 MG RAPDIS TABLET PO SCH (19:57)
[2020-07-02] MEDS: IBUPROFEN 600 MG TABLET PO PRN (21:39)
[2020-07-03 00:01] VITALS: BP 135/87
[2020-07-03] MEDS: LEVOTHYROXINE SODIUM 25 MCG TABLET PO SCH (06:41)
[2020-07-03] MEDS: MAGNESIUM OXIDE 400 MG TABLET PO SCH ×2 (08:24→16:26)
[2020-07-03] MEDS: QUEtiapine FUMARATE 300 MG TABLET PO SCH ×2 (08:24→16:26)
[2020-07-03] MEDS: DIVALPROEX SODIUM 500 MG DR TABLET PO SCH ×2 (08:24→20:03)
[2020-07-03] MEDS: LITHIUM CARBONATE 600 MG CAPSULE PO SCH ×2 (08:24→16:26)
[2020-07-03] MEDS: SENNA/DOCUSATE SODIUM 8.6-50 MG TABLET PO SCH (08:24)
[2020-07-03] MEDS: TRIAMCINOLONE 0.1% 80 GM CREAM TP SCH ×3 (08:25→16:27)
[2020-07-03] MEDS: HALOPERIDOL 10 MG TABLET PO SCH (20:03)
[2020-07-03] MEDS: OLANZapine 5 MG RAPDIS TABLET PO SCH (20:04)
[2020-07-03] MEDS: ACETAMINOPHEN 325 MG TABLET PO PRN ×2 (21:17)
[2020-07-04] MEDS: LEVOTHYROXINE SODIUM 25 MCG TABLET PO SCH (06:24)
[2020-07-04 08:10] VITALS: BP 125/80
[2020-07-04] MEDS: QUEtiapine FUMARATE 300 MG TABLET PO SCH ×2 (08:38→16:42)
[2020-07-04] MEDS: MAGNESIUM OXIDE 400 MG TABLET PO SCH ×2 (08:38→16:44)
[2020-07-04] MEDS: LITHIUM CARBONATE 600 MG CAPSULE PO SCH ×2 (08:38→16:44)
[2020-07-04] MEDS: DIVALPROEX SODIUM 500 MG DR TABLET PO SCH ×2 (08:38→20:26)
[2020-07-04] MEDS: SENNA/DOCUSATE SODIUM 8.6-50 MG TABLET PO SCH (08:39)
[2020-07-04] MEDS: TRIAMCINOLONE 0.1% 80 GM CREAM TP SCH ×3 (08:39→16:44)
[2020-07-04] MEDS: OLANZapine 5 MG RAPDIS TABLET PO SCH (20:25)
[2020-07-04] MEDS: HALOPERIDOL 10 MG TABLET PO SCH (20:26)
[2020-07-05 04:05] VITALS: BP 127/68
[2020-07-05] MEDS: LEVOTHYROXINE SODIUM 25 MCG TABLET PO SCH (06:26)
[2020-07-05 08:12] VITALS: BP 112/66
[2020-07-05] MEDS: DIVALPROEX SODIUM 500 MG DR TABLET PO SCH ×2 (08:33→20:50)
[2020-07-05] MEDS: MAGNESIUM OXIDE 400 MG TABLET PO SCH ×2 (08:33→16:26)
[2020-07-05] MEDS: SENNA/DOCUSATE SODIUM 8.6-50 MG TABLET PO SCH (08:33)
[2020-07-05] MEDS: LITHIUM CARBONATE 600 MG CAPSULE PO SCH ×2 (08:33→16:26)
[2020-07-05] MEDS: QUEtiapine FUMARATE 300 MG TABLET PO SCH ×2 (08:33→16:26)
[2020-07-05] MEDS: TRIAMCINOLONE 0.1% 80 GM CREAM TP SCH ×3 (08:35→16:26)
[2020-07-05 16:10] VITALS: BP 114/68
[2020-07-05] MEDS: OLANZapine 5 MG RAPDIS TABLET PO SCH (20:50)
[2020-07-05] MEDS: HALOPERIDOL 10 MG TABLET PO SCH (20:50)
[2020-07-06 00:47] VITALS: BP 109/76
[2020-07-06] MEDS: LEVOTHYROXINE SODIUM 25 MCG TABLET PO SCH (06:26)
[2020-07-06] MEDS: SENNA/DOCUSATE SODIUM 8.6-50 MG TABLET PO SCH (08:12)
[2020-07-06] MEDS: MAGNESIUM OXIDE 400 MG TABLET PO SCH ×2 (08:12→16:02)
[2020-07-06] MEDS: LITHIUM CARBONATE 600 MG CAPSULE PO SCH ×2 (08:13→16:02)
[2020-07-06] MEDS: DIVALPROEX SODIUM 500 MG DR TABLET PO SCH ×2 (08:13→20:33)
[2020-07-06] MEDS: QUEtiapine FUMARATE 300 MG TABLET PO SCH ×2 (08:13→16:02)
[2020-07-06] MEDS: TRIAMCINOLONE 0.1% 80 GM CREAM TP SCH ×3 (08:14→16:02)
[2020-07-06 16:12] VITALS: BP 112/71
[2020-07-06] MEDS: OLANZapine 5 MG RAPDIS TABLET PO SCH (20:33)
[2020-07-06] MEDS: HALOPERIDOL 10 MG TABLET PO SCH (20:33)
[2020-07-07 00:24] VITALS: BP 104/71
[2020-07-07] MEDS: HALOPERIDOL 5 MG TABLET PO PRN (00:39)
[2020-07-07] MEDS: LEVOTHYROXINE SODIUM 25 MCG TABLET PO SCH (06:40)
[2020-07-07] MEDS: SENNA/DOCUSATE SODIUM 8.6-50 MG TABLET PO SCH (08:02)
[2020-07-07] MEDS: DIVALPROEX SODIUM 500 MG DR TABLET PO SCH ×2 (08:02→20:25)
[2020-07-07] MEDS: LITHIUM CARBONATE 600 MG CAPSULE PO SCH ×2 (08:02→16:53)
[2020-07-07] MEDS: MAGNESIUM OXIDE 400 MG TABLET PO SCH ×2 (08:02→16:53)
[2020-07-07] MEDS: QUEtiapine FUMARATE 300 MG TABLET PO SCH ×2 (08:02→16:53)
[2020-07-07] MEDS: TRIAMCINOLONE 0.1% 80 GM CREAM TP SCH ×3 (08:02→16:53)
[2020-07-07] MEDS: OLANZapine 5 MG RAPDIS TABLET PO SCH (20:25)
[2020-07-07] MEDS: HALOPERIDOL 10 MG TABLET PO SCH (20:25)
[2020-07-08] MEDS: LEVOTHYROXINE SODIUM 25 MCG TABLET PO SCH (06:23)
[2020-07-08] MEDS: TRIAMCINOLONE 0.1% 80 GM CREAM TP SCH ×3 (08:02→16:19)
[2020-07-08] MEDS: MAGNESIUM OXIDE 400 MG TABLET PO SCH ×2 (08:02→16:19)
[2020-07-08] MEDS: SENNA/DOCUSATE SODIUM 8.6-50 MG TABLET PO SCH (08:02)
[2020-07-08] MEDS: LITHIUM CARBONATE 600 MG CAPSULE PO SCH ×2 (08:02→16:19)
[2020-07-08] MEDS: DIVALPROEX SODIUM 500 MG DR TABLET PO SCH ×2 (08:02→20:07)
[2020-07-08] MEDS: QUEtiapine FUMARATE 300 MG TABLET PO SCH ×2 (08:03→16:19)
[2020-07-08 08:20] VITALS: BP 116/71
[2020-07-08] MEDS: OLANZapine 5 MG RAPDIS TABLET PO SCH (20:07)
[2020-07-08] MEDS: HALOPERIDOL 10 MG TABLET PO SCH (20:08)
[2020-07-09 00:23] VITALS: BP 111/76
[2020-07-09] MEDS: LEVOTHYROXINE SODIUM 25 MCG TABLET PO SCH (06:17)
[2020-07-09 08:15] VITALS: BP 139/95
[2020-07-09] MEDS: TRIAMCINOLONE 0.1% 80 GM CREAM TP SCH ×3 (08:36→16:43)
[2020-07-09] MEDS: SENNA/DOCUSATE SODIUM 8.6-50 MG TABLET PO SCH (08:37)
[2020-07-09] MEDS: QUEtiapine FUMARATE 300 MG TABLET PO SCH ×2 (08:37→16:39)
[2020-07-09] MEDS: DIVALPROEX SODIUM 500 MG DR TABLET PO SCH ×2 (08:37→20:02)
[2020-07-09] MEDS: MAGNESIUM OXIDE 400 MG TABLET PO SCH ×2 (08:37→16:39)
[2020-07-09] MEDS: LITHIUM CARBONATE 600 MG CAPSULE PO SCH ×2 (08:37→16:38)
[2020-07-09] MEDS: OLANZapine 5 MG RAPDIS TABLET PO SCH (20:02)
[2020-07-09] MEDS: HALOPERIDOL 10 MG TABLET PO SCH (20:02)
[2020-07-10] MEDS: LEVOTHYROXINE SODIUM 25 MCG TABLET PO SCH (06:20)
[2020-07-10 08:09] VITALS: BP 110/74
[2020-07-10] MEDS: SENNA/DOCUSATE SODIUM 8.6-50 MG TABLET PO SCH (08:28)
[2020-07-10] MEDS: QUEtiapine FUMARATE 300 MG TABLET PO SCH ×2 (08:28→16:01)
[2020-07-10] MEDS: MAGNESIUM OXIDE 400 MG TABLET PO SCH ×2 (08:28→16:01)
[2020-07-10] MEDS: DIVALPROEX SODIUM 500 MG DR TABLET PO SCH ×2 (08:28→20:48)
[2020-07-10] MEDS: TRIAMCINOLONE 0.1% 80 GM CREAM TP SCH ×3 (08:28→16:02)
[2020-07-10] MEDS: LITHIUM CARBONATE 600 MG CAPSULE PO SCH ×2 (08:28→16:01)
[2020-07-10] MEDS: HALOPERIDOL 10 MG TABLET PO SCH (20:48)
[2020-07-10] MEDS: OLANZapine 5 MG RAPDIS TABLET PO SCH (20:48)
[2020-07-11 00:34] VITALS: BP 121/68
[2020-07-11] MEDS: LEVOTHYROXINE SODIUM 25 MCG TABLET PO SCH (06:25)
[2020-07-11 08:13] VITALS: BP 111/66
[2020-07-11] MEDS: TRIAMCINOLONE 0.1% 80 GM CREAM TP SCH ×3 (08:23→16:04)
[2020-07-11] MEDS: DIVALPROEX SODIUM 500 MG DR TABLET PO SCH ×2 (08:23→20:06)
[2020-07-11] MEDS: MAGNESIUM OXIDE 400 MG TABLET PO SCH ×2 (08:23→16:03)
[2020-07-11] MEDS: QUEtiapine FUMARATE 300 MG TABLET PO SCH ×2 (08:23→16:03)
[2020-07-11] MEDS: SENNA/DOCUSATE SODIUM 8.6-50 MG TABLET PO SCH (08:23)
[2020-07-11] MEDS: LITHIUM CARBONATE 600 MG CAPSULE PO SCH ×2 (08:23→16:03)
[2020-07-11] MEDS: HALOPERIDOL 10 MG TABLET PO SCH (20:06)
[2020-07-11] MEDS: OLANZapine 5 MG RAPDIS TABLET PO SCH (21:00)
[2020-07-12] MEDS: LEVOTHYROXINE SODIUM 25 MCG TABLET PO SCH (06:22)
[2020-07-12] MEDS: LITHIUM CARBONATE 600 MG CAPSULE PO SCH ×2 (08:00→16:03)
[2020-07-12] MEDS: TRIAMCINOLONE 0.1% 80 GM CREAM TP SCH ×3 (08:00→16:04)
[2020-07-12] MEDS: DIVALPROEX SODIUM 500 MG DR TABLET PO SCH ×2 (08:00→20:40)
[2020-07-12] MEDS: SENNA/DOCUSATE SODIUM 8.6-50 MG TABLET PO SCH (08:00)
[2020-07-12] MEDS: QUEtiapine FUMARATE 300 MG TABLET PO SCH ×2 (08:00→16:03)
[2020-07-12] MEDS: MAGNESIUM OXIDE 400 MG TABLET PO SCH ×2 (08:00→16:03)
[2020-07-12 16:16] VITALS: BP 117/92
[2020-07-12] MEDS: OLANZapine 5 MG RAPDIS TABLET PO SCH (20:40)
[2020-07-12] MEDS: HALOPERIDOL 10 MG TABLET PO SCH (20:40)
[2020-07-13] MEDS: LEVOTHYROXINE SODIUM 25 MCG TABLET PO SCH (06:44)
[2020-07-13 08:22] VITALS: BP 110/69
[2020-07-13] MEDS: DIVALPROEX SODIUM 500 MG DR TABLET PO SCH ×2 (08:56→20:16)
[2020-07-13] MEDS: MAGNESIUM OXIDE 400 MG TABLET PO SCH ×2 (08:56→16:37)
[2020-07-13] MEDS: TRIAMCINOLONE 0.1% 80 GM CREAM TP SCH ×3 (08:56→16:37)
[2020-07-13] MEDS: LITHIUM CARBONATE 600 MG CAPSULE PO SCH ×2 (08:56→16:37)
[2020-07-13] MEDS: SENNA/DOCUSATE SODIUM 8.6-50 MG TABLET PO SCH (08:56)
[2020-07-13] MEDS: QUEtiapine FUMARATE 300 MG TABLET PO SCH ×2 (08:56→16:37)
[2020-07-13 16:08] VITALS: BP 118/74
[2020-07-13] MEDS: OLANZapine 5 MG RAPDIS TABLET PO SCH (20:17)
[2020-07-13] MEDS: HALOPERIDOL 10 MG TABLET PO SCH (20:17)
[2020-07-13 20:37] LABS: COVID AG,FIA SOURCE NASOPHARYNGEAL
[2020-07-14] MEDS: LEVOTHYROXINE SODIUM 25 MCG TABLET PO SCH (06:13)
[2020-07-14] MEDS: MAGNESIUM OXIDE 400 MG TABLET PO SCH ×2 (08:04→16:03)
[2020-07-14] MEDS: TRIAMCINOLONE 0.1% 80 GM CREAM TP SCH ×3 (08:05→16:04)
[2020-07-14] MEDS: LITHIUM CARBONATE 600 MG CAPSULE PO SCH ×2 (08:05→16:03)
[2020-07-14] MEDS: QUEtiapine FUMARATE 300 MG TABLET PO SCH ×2 (08:05→16:03)
[2020-07-14] MEDS: SENNA/DOCUSATE SODIUM 8.6-50 MG TABLET PO SCH (08:05)
[2020-07-14] MEDS: DIVALPROEX SODIUM 500 MG DR TABLET PO SCH ×2 (08:05→20:10)
[2020-07-14] MEDS: HALOPERIDOL 5 MG TABLET PO PRN (08:29)
[2020-07-14 08:32] VITALS: BP 121/83
[2020-07-14] MEDS: OLANZapine 5 MG RAPDIS TABLET PO SCH (20:10)
[2020-07-14] MEDS: HALOPERIDOL 10 MG TABLET PO SCH (20:10)
[2020-07-15 01:26] VITALS: BP 118/78
[2020-07-15] MEDS: LEVOTHYROXINE SODIUM 25 MCG TABLET PO SCH (06:12)
[2020-07-15] MEDS: QUEtiapine FUMARATE 300 MG TABLET PO SCH ×2 (07:59→16:25)
[2020-07-15] MEDS: DIVALPROEX SODIUM 500 MG DR TABLET PO SCH ×2 (07:59→19:47)
[2020-07-15] MEDS: LITHIUM CARBONATE 600 MG CAPSULE PO SCH ×2 (08:00→16:25)
[2020-07-15] MEDS: SENNA/DOCUSATE SODIUM 8.6-50 MG TABLET PO SCH (08:00)
[2020-07-15] MEDS: MAGNESIUM OXIDE 400 MG TABLET PO SCH ×2 (08:00→16:25)
[2020-07-15] MEDS: HALOPERIDOL 5 MG TABLET PO PRN (08:00)
[2020-07-15 08:17] VITALS: BP 110/65
[2020-07-15] MEDS: TRIAMCINOLONE 0.1% 80 GM CREAM TP SCH ×3 (09:13→16:26)
[2020-07-15] MEDS: HALOPERIDOL 10 MG TABLET PO SCH (19:47)
[2020-07-15] MEDS: OLANZapine 5 MG RAPDIS TABLET PO SCH (19:47)
[2020-07-15] MEDS ORDERED: HALOPERIDOL 10 MG TABLET PO ONE (22:30)
[2020-07-16] MEDS: LEVOTHYROXINE SODIUM 25 MCG TABLET PO SCH (06:08)
[2020-07-16 08:36] VITALS: BP 110/64
[2020-07-16] MEDS: DIVALPROEX SODIUM 500 MG DR TABLET PO SCH ×2 (08:50→20:07)
[2020-07-16] MEDS: MAGNESIUM OXIDE 400 MG TABLET PO SCH ×2 (08:50→16:11)
[2020-07-16] MEDS: QUEtiapine FUMARATE 300 MG TABLET PO SCH ×2 (08:50→16:11)
[2020-07-16] MEDS: SENNA/DOCUSATE SODIUM 8.6-50 MG TABLET PO SCH (08:50)
[2020-07-16] MEDS: LITHIUM CARBONATE 600 MG CAPSULE PO SCH ×2 (08:50→16:10)
[2020-07-16] MEDS: TRIAMCINOLONE 0.1% 80 GM CREAM TP SCH ×3 (08:51→16:11)
[2020-07-16 16:03] VITALS: BP 112/69
[2020-07-16] MEDS: HALOPERIDOL 10 MG TABLET PO SCH (20:07)
[2020-07-16] MEDS: OLANZapine 5 MG RAPDIS TABLET PO SCH (20:07)
[2020-07-17 01:18] VITALS: BP 120/81
[2020-07-17] MEDS: LEVOTHYROXINE SODIUM 25 MCG TABLET PO SCH (06:18)
[2020-07-17] MEDS: LITHIUM CARBONATE 600 MG CAPSULE PO SCH ×2 (08:11→16:00)
[2020-07-17] MEDS: SENNA/DOCUSATE SODIUM 8.6-50 MG TABLET PO SCH (08:11)
[2020-07-17] MEDS: DIVALPROEX SODIUM 500 MG DR TABLET PO SCH ×2 (08:11→20:06)
[2020-07-17] MEDS: QUEtiapine FUMARATE 300 MG TABLET PO SCH ×2 (08:11→16:01)
[2020-07-17] MEDS: MAGNESIUM OXIDE 400 MG TABLET PO SCH ×2 (08:11→16:01)
[2020-07-17] MEDS: TRIAMCINOLONE 0.1% 80 GM CREAM TP SCH ×3 (08:12→16:01)
[2020-07-17] MEDS: OLANZapine 5 MG RAPDIS TABLET PO SCH (20:07)
[2020-07-17] MEDS: HALOPERIDOL 10 MG TABLET PO SCH (20:07)
[2020-07-18 01:36] VITALS: BP 114/75
[2020-07-18] MEDS: LEVOTHYROXINE SODIUM 25 MCG TABLET PO SCH (06:07)
[2020-07-18 08:12] VITALS: BP 112/74
[2020-07-18] MEDS: TRIAMCINOLONE 0.1% 80 GM CREAM TP SCH ×3 (08:29→17:03)
[2020-07-18] MEDS: MAGNESIUM OXIDE 400 MG TABLET PO SCH ×2 (08:29→17:03)
[2020-07-18] MEDS: DIVALPROEX SODIUM 500 MG DR TABLET PO SCH ×2 (08:30→20:09)
[2020-07-18] MEDS: LITHIUM CARBONATE 600 MG CAPSULE PO SCH ×2 (08:30→17:03)
[2020-07-18] MEDS: QUEtiapine FUMARATE 300 MG TABLET PO SCH ×2 (08:30→17:03)
[2020-07-18] MEDS: SENNA/DOCUSATE SODIUM 8.6-50 MG TABLET PO SCH (08:30)
[2020-07-18] MEDS: HALOPERIDOL 10 MG TABLET PO SCH (20:09)
[2020-07-18] MEDS: OLANZapine 5 MG RAPDIS TABLET PO SCH (20:09)
[2020-07-19] MEDS: LEVOTHYROXINE SODIUM 25 MCG TABLET PO SCH (06:29)
[2020-07-19] MEDS: TRIAMCINOLONE 0.1% 80 GM CREAM TP SCH ×3 (08:08→16:16)
[2020-07-19] MEDS: SENNA/DOCUSATE SODIUM 8.6-50 MG TABLET PO SCH (08:08)
[2020-07-19] MEDS: DIVALPROEX SODIUM 500 MG DR TABLET PO SCH ×2 (08:09→20:38)
[2020-07-19] MEDS: QUEtiapine FUMARATE 300 MG TABLET PO SCH ×2 (08:09→16:16)
[2020-07-19] MEDS: LITHIUM CARBONATE 600 MG CAPSULE PO SCH ×2 (08:09→16:16)
[2020-07-19] MEDS: MAGNESIUM OXIDE 400 MG TABLET PO SCH ×2 (08:09→16:16)
[2020-07-19 08:21] VITALS: BP 134/96
[2020-07-19 16:07] VITALS: BP 112/74
[2020-07-19] MEDS: OLANZapine 5 MG RAPDIS TABLET PO SCH (20:38)
[2020-07-19] MEDS: HALOPERIDOL 10 MG TABLET PO SCH (20:38)
[2020-07-20 01:10] VITALS: BP 110/72
[2020-07-20] MEDS: LEVOTHYROXINE SODIUM 25 MCG TABLET PO SCH (06:23)
[2020-07-20 07:59] LABS: HEMATOCRIT 40.3 % (36-46); HEMOGLOBIN 13.4 g/dL (12.0-16.0); MEAN CORPUSCULAR HEMOGLOBIN 30.8 pg (26.0-34.0); MEAN CORPUSCULAR HGB CONC 33.2 G/dL (31.0-37.0); MEAN CORPUSCULAR VOLUME 93 fL (80-100); PLATELET COUNT (AUTO) 206 K/uL (150-450); RED BLOOD CELL COUNT(AUTO) 4.33 MIL/uL (4.00-5.20); RED CELL DISTRIBUTION WIDTH 12.9 % (11.5-14.5)
[2020-07-20 08:07] LABS: COVID AG,FIA SOURCE NASOPHARYNGEAL
[2020-07-20 08:20] VITALS: BP 116/74
[2020-07-20 08:36] LABS: ANION GAP 5 mmol/L (8-16); CALCIUM, TOTAL 8.7 mg/dL (8.8-10.5); CARBON DIOXIDE 27 mmol/L (22-29); CHLORIDE 106 mmol/L (98-107); CREATININE 0.68 mg/dL (0.60-1.30); GLOMERULAR FILTR. RATE CALC > 60 mL/min (>60); GLUCOSE,RANDOM 77 mg/dL (70-110); PHOSPHORUS 3.7 mg/dL (2.5-4.9); POTASSIUM 4.3 mmol/L (3.5-5.1); SODIUM SERUM 138 mmol/L (136-145); UREA NITROGEN, BLOOD 13 mg/dL (7-18)
[2020-07-20] MEDS: DIVALPROEX SODIUM 500 MG DR TABLET PO SCH ×2 (08:42→20:21)
[2020-07-20] MEDS: SENNA/DOCUSATE SODIUM 8.6-50 MG TABLET PO SCH (08:42)
[2020-07-20] MEDS: LITHIUM CARBONATE 600 MG CAPSULE PO SCH ×2 (08:42→16:33)
[2020-07-20] MEDS: TRIAMCINOLONE 0.1% 80 GM CREAM TP SCH ×3 (08:42→16:33)
[2020-07-20] MEDS: MAGNESIUM OXIDE 400 MG TABLET PO SCH ×2 (08:42→16:32)
[2020-07-20] MEDS: QUEtiapine FUMARATE 300 MG TABLET PO SCH ×2 (08:42→16:33)
[2020-07-20 09:01] LABS: BAND NEUTROPHILS % (MANUAL) 3 % (0-5); EOSINOPHILS % (MANUAL) 2 % (1-6); LYMPHOCYTES % (MANUAL) 31 % (22-44); MONOCYTES % (MANUAL) 2 % (2-9); SEGMENTED NEUTROPHILS % 62 % (40-70)
[2020-07-20] MEDS: HALOPERIDOL 10 MG TABLET PO SCH (20:21)
[2020-07-20] MEDS: OLANZapine 5 MG RAPDIS TABLET PO SCH (20:21)
[2020-07-21 01:46] VITALS: BP 110/68
[2020-07-21] MEDS: LEVOTHYROXINE SODIUM 25 MCG TABLET PO SCH (06:28)
[2020-07-21] MEDS: DIVALPROEX SODIUM 500 MG DR TABLET PO SCH ×2 (08:05→20:05)
[2020-07-21] MEDS: LITHIUM CARBONATE 600 MG CAPSULE PO SCH ×2 (08:05→16:24)
[2020-07-21] MEDS: MAGNESIUM OXIDE 400 MG TABLET PO SCH ×2 (08:05→16:24)
[2020-07-21] MEDS: QUEtiapine FUMARATE 300 MG TABLET PO SCH ×2 (08:05→16:24)
[2020-07-21] MEDS: SENNA/DOCUSATE SODIUM 8.6-50 MG TABLET PO SCH (08:06)
[2020-07-21] MEDS: TRIAMCINOLONE 0.1% 80 GM CREAM TP SCH ×3 (08:06→16:24)
[2020-07-21] MEDS: MAG HYDROX/AL HYDROX/SIMETH ES 30 ML SUSPENSION UDCUP PO PRN (16:23)
[2020-07-21] MEDS: HALOPERIDOL 10 MG TABLET PO SCH (20:05)
[2020-07-21] MEDS: OLANZapine 5 MG RAPDIS TABLET PO SCH (20:05)
[2020-07-22] MEDS: LEVOTHYROXINE SODIUM 25 MCG TABLET PO SCH (06:52)
[2020-07-22] MEDS: DIVALPROEX SODIUM 500 MG DR TABLET PO SCH ×2 (08:41→20:40)
[2020-07-22] MEDS: LITHIUM CARBONATE 600 MG CAPSULE PO SCH ×2 (08:41→16:38)
[2020-07-22] MEDS: QUEtiapine FUMARATE 300 MG TABLET PO SCH ×2 (08:41→16:38)
[2020-07-22] MEDS: MAGNESIUM OXIDE 400 MG TABLET PO SCH ×2 (08:41→16:38)
[2020-07-22] MEDS: SENNA/DOCUSATE SODIUM 8.6-50 MG TABLET PO SCH (08:41)
[2020-07-22] MEDS: TRIAMCINOLONE 0.1% 80 GM CREAM TP SCH ×3 (08:41→16:42)
[2020-07-22 16:19] VITALS: BP 117/65
[2020-07-22] MEDS: HALOPERIDOL 10 MG TABLET PO SCH (20:40)
[2020-07-22] MEDS: OLANZapine 5 MG RAPDIS TABLET PO SCH (20:40)
[2020-07-23 00:36] VITALS: BP 110/74
[2020-07-23] MEDS: LEVOTHYROXINE SODIUM 25 MCG TABLET PO SCH (06:59)
[2020-07-23] MEDS: TRIAMCINOLONE 0.1% 80 GM CREAM TP SCH ×3 (08:10→16:53)
[2020-07-23] MEDS: LITHIUM CARBONATE 600 MG CAPSULE PO SCH ×2 (08:10→16:52)
[2020-07-23] MEDS: SENNA/DOCUSATE SODIUM 8.6-50 MG TABLET PO SCH (08:10)
[2020-07-23] MEDS: QUEtiapine FUMARATE 300 MG TABLET PO SCH ×2 (08:11→16:52)
[2020-07-23] MEDS: MAGNESIUM OXIDE 400 MG TABLET PO SCH ×2 (08:11→16:52)
[2020-07-23] MEDS: DIVALPROEX SODIUM 500 MG DR TABLET PO SCH ×2 (08:11→20:47)
[2020-07-23 08:28] VITALS: BP 114/72
[2020-07-23] MEDS: HALOPERIDOL 10 MG TABLET PO SCH (20:47)
[2020-07-23] MEDS: OLANZapine 5 MG RAPDIS TABLET PO SCH (20:48)
[2020-07-24 06:05] VITALS: BP 110/66
[2020-07-24] MEDS: LEVOTHYROXINE SODIUM 25 MCG TABLET PO SCH (06:48)
[2020-07-24] MEDS: LITHIUM CARBONATE 600 MG CAPSULE PO SCH ×2 (08:12→16:08)
[2020-07-24] MEDS: SENNA/DOCUSATE SODIUM 8.6-50 MG TABLET PO SCH (08:12)
[2020-07-24] MEDS: TRIAMCINOLONE 0.1% 80 GM CREAM TP SCH ×3 (08:12→16:08)
[2020-07-24] MEDS: DIVALPROEX SODIUM 500 MG DR TABLET PO SCH ×2 (08:12→20:16)
[2020-07-24] MEDS: MAGNESIUM OXIDE 400 MG TABLET PO SCH ×2 (08:12→16:08)
[2020-07-24] MEDS: QUEtiapine FUMARATE 300 MG TABLET PO SCH ×2 (08:12→16:08)
[2020-07-24 08:13] VITALS: BP 112/69
[2020-07-24 16:08] VITALS: BP 120/89
[2020-07-24] MEDS: ACETAMINOPHEN 325 MG TABLET PO PRN (19:05)
[2020-07-24] MEDS: HALOPERIDOL 10 MG TABLET PO SCH (20:15)
[2020-07-24] MEDS: OLANZapine 5 MG RAPDIS TABLET PO SCH (20:15)
[2020-07-25 01:33] VITALS: BP 115/86
[2020-07-25] MEDS: LEVOTHYROXINE SODIUM 25 MCG TABLET PO SCH (06:45)
[2020-07-25] MEDS: QUEtiapine FUMARATE 300 MG TABLET PO SCH ×2 (08:22→16:35)
[2020-07-25] MEDS: DIVALPROEX SODIUM 500 MG DR TABLET PO SCH ×2 (08:22→20:02)
[2020-07-25] MEDS: TRIAMCINOLONE 0.1% 80 GM CREAM TP SCH ×3 (08:22→17:00)
[2020-07-25] MEDS: SENNA/DOCUSATE SODIUM 8.6-50 MG TABLET PO SCH (08:22)
[2020-07-25] MEDS: MAGNESIUM OXIDE 400 MG TABLET PO SCH ×2 (08:22→16:35)
[2020-07-25] MEDS: LITHIUM CARBONATE 600 MG CAPSULE PO SCH ×2 (08:22→16:35)
[2020-07-25] MEDS: HALOPERIDOL 10 MG TABLET PO SCH (20:01)
[2020-07-25] MEDS: OLANZapine 5 MG RAPDIS TABLET PO SCH (20:02)
[2020-07-26] MEDS: LEVOTHYROXINE SODIUM 25 MCG TABLET PO SCH (06:25)
[2020-07-26] MEDS: TRIAMCINOLONE 0.1% 80 GM CREAM TP SCH ×3 (08:06→16:03)
[2020-07-26] MEDS: MAGNESIUM OXIDE 400 MG TABLET PO SCH ×2 (08:06→16:03)
[2020-07-26] MEDS: SENNA/DOCUSATE SODIUM 8.6-50 MG TABLET PO SCH (08:07)
[2020-07-26] MEDS: DIVALPROEX SODIUM 500 MG DR TABLET PO SCH ×2 (08:07→20:33)
[2020-07-26] MEDS: LITHIUM CARBONATE 600 MG CAPSULE PO SCH ×2 (08:07→16:03)
[2020-07-26] MEDS: QUEtiapine FUMARATE 300 MG TABLET PO SCH ×2 (08:07→16:03)
[2020-07-26 12:28] VITALS: BP 112/66
[2020-07-26 16:13] VITALS: BP 116/74
[2020-07-26] MEDS: OLANZapine 5 MG RAPDIS TABLET PO SCH (20:33)
[2020-07-26] MEDS: HALOPERIDOL 10 MG TABLET PO SCH (20:34)
[2020-07-27] MEDS: LEVOTHYROXINE SODIUM 25 MCG TABLET PO SCH (06:36)
[2020-07-27] MEDS: MAGNESIUM OXIDE 400 MG TABLET PO SCH ×2 (08:10→16:59)
[2020-07-27] MEDS: QUEtiapine FUMARATE 300 MG TABLET PO SCH ×2 (08:10→17:00)
[2020-07-27] MEDS: TRIAMCINOLONE 0.1% 80 GM CREAM TP SCH ×3 (08:10→17:00)
[2020-07-27] MEDS: LITHIUM CARBONATE 600 MG CAPSULE PO SCH ×2 (08:10→16:59)
[2020-07-27] MEDS: SENNA/DOCUSATE SODIUM 8.6-50 MG TABLET PO SCH (08:10)
[2020-07-27] MEDS: DIVALPROEX SODIUM 500 MG DR TABLET PO SCH ×2 (08:11→20:20)
[2020-07-27] MEDS: HALOPERIDOL 10 MG TABLET PO SCH (20:20)
[2020-07-27] MEDS: OLANZapine 5 MG RAPDIS TABLET PO SCH (20:20)
[2020-07-28] MEDS: LEVOTHYROXINE SODIUM 25 MCG TABLET PO SCH (06:30)
[2020-07-28] MEDS: LITHIUM CARBONATE 600 MG CAPSULE PO SCH ×2 (08:08→16:25)
[2020-07-28] MEDS: QUEtiapine FUMARATE 300 MG TABLET PO SCH ×2 (08:08→16:25)
[2020-07-28] MEDS: DIVALPROEX SODIUM 500 MG DR TABLET PO SCH ×2 (08:08→20:04)
[2020-07-28] MEDS: MAGNESIUM OXIDE 400 MG TABLET PO SCH ×2 (08:08→16:25)
[2020-07-28] MEDS: TRIAMCINOLONE 0.1% 80 GM CREAM TP SCH ×3 (08:08→16:27)
[2020-07-28] MEDS: SENNA/DOCUSATE SODIUM 8.6-50 MG TABLET PO SCH (08:08)
[2020-07-28 08:43] VITALS: BP 119/66
[2020-07-28 16:02] VITALS: BP 145/82
[2020-07-28] MEDS: HALOPERIDOL 10 MG TABLET PO SCH (20:04)
[2020-07-28] MEDS: OLANZapine 5 MG RAPDIS TABLET PO SCH (20:04)
[2020-07-29 05:30] VITALS: BP 125/74
[2020-07-29] MEDS: LEVOTHYROXINE SODIUM 25 MCG TABLET PO SCH (06:44)
[2020-07-29] MEDS: TRIAMCINOLONE 0.1% 80 GM CREAM TP SCH ×3 (08:14→16:18)
[2020-07-29] MEDS: SENNA/DOCUSATE SODIUM 8.6-50 MG TABLET PO SCH (08:14)
[2020-07-29] MEDS: DIVALPROEX SODIUM 500 MG DR TABLET PO SCH ×2 (08:14→20:13)
[2020-07-29] MEDS: MAGNESIUM OXIDE 400 MG TABLET PO SCH ×2 (08:14→16:17)
[2020-07-29] MEDS: LITHIUM CARBONATE 600 MG CAPSULE PO SCH ×2 (08:14→16:17)
[2020-07-29] MEDS: QUEtiapine FUMARATE 300 MG TABLET PO SCH ×2 (08:14→16:17)
[2020-07-29 10:39] LABS: COVID AG,FIA SOURCE NASOPHARYNGEAL
[2020-07-29 16:21] VITALS: BP 140/80
[2020-07-29] MEDS: OLANZapine 5 MG RAPDIS TABLET PO SCH (20:13)
[2020-07-29] MEDS: HALOPERIDOL 10 MG TABLET PO SCH (20:13)
[2020-07-30 00:27] VITALS: BP 126/78
[2020-07-30] MEDS: LEVOTHYROXINE SODIUM 25 MCG TABLET PO SCH (06:41)
[2020-07-30 09:19] VITALS: BP 120/74
[2020-07-30] MEDS: LITHIUM CARBONATE 600 MG CAPSULE PO SCH ×2 (10:25→16:35)
[2020-07-30] MEDS: MAGNESIUM OXIDE 400 MG TABLET PO SCH ×2 (10:25→16:36)
[2020-07-30] MEDS: DIVALPROEX SODIUM 500 MG DR TABLET PO SCH ×2 (10:25→20:08)
[2020-07-30] MEDS: QUEtiapine FUMARATE 300 MG TABLET PO SCH ×2 (10:25→16:36)
[2020-07-30] MEDS: TRIAMCINOLONE 0.1% 80 GM CREAM TP SCH ×3 (10:26→16:36)
[2020-07-30] MEDS: SENNA/DOCUSATE SODIUM 8.6-50 MG TABLET PO SCH (10:26)
[2020-07-30] MEDS: HALOPERIDOL 10 MG TABLET PO SCH (20:09)
[2020-07-30] MEDS: OLANZapine 5 MG RAPDIS TABLET PO SCH (20:09)
[2020-07-31 00:35] VITALS: BP 115/72
[2020-07-31] MEDS: LEVOTHYROXINE SODIUM 25 MCG TABLET PO SCH (06:48)
[2020-07-31] MEDS: LITHIUM CARBONATE 600 MG CAPSULE PO SCH ×2 (09:39→16:22)
[2020-07-31] MEDS: TRIAMCINOLONE 0.1% 80 GM CREAM TP SCH ×3 (09:39→16:23)
[2020-07-31] MEDS: DIVALPROEX SODIUM 500 MG DR TABLET PO SCH ×2 (09:39→20:02)
[2020-07-31] MEDS: MAGNESIUM OXIDE 400 MG TABLET PO SCH ×2 (09:39→16:22)
[2020-07-31] MEDS: QUEtiapine FUMARATE 300 MG TABLET PO SCH ×2 (09:39→16:22)
[2020-07-31] MEDS: SENNA/DOCUSATE SODIUM 8.6-50 MG TABLET PO SCH (09:40)
[2020-07-31] MEDS: HALOPERIDOL 10 MG TABLET PO SCH (20:02)
[2020-07-31] MEDS: OLANZapine 5 MG RAPDIS TABLET PO SCH (20:03)
[2020-08-01 01:08] VITALS: BP 104/70
[2020-08-01] MEDS: LEVOTHYROXINE SODIUM 25 MCG TABLET PO SCH (06:29)
[2020-08-01] MEDS: TRIAMCINOLONE 0.1% 80 GM CREAM TP SCH ×3 (08:08→16:52)
[2020-08-01] MEDS: DIVALPROEX SODIUM 500 MG DR TABLET PO SCH ×2 (08:08→20:57)
[2020-08-01] MEDS: MAGNESIUM OXIDE 400 MG TABLET PO SCH ×2 (08:08→16:51)
[2020-08-01] MEDS: SENNA/DOCUSATE SODIUM 8.6-50 MG TABLET PO SCH (08:08)
[2020-08-01] MEDS: LITHIUM CARBONATE 600 MG CAPSULE PO SCH ×2 (08:08→16:51)
[2020-08-01] MEDS: QUEtiapine FUMARATE 300 MG TABLET PO SCH ×2 (08:08→16:51)
[2020-08-01] MEDS: OLANZapine 5 MG RAPDIS TABLET PO SCH (20:56)
[2020-08-01] MEDS: HALOPERIDOL 10 MG TABLET PO SCH (20:56)
[2020-08-02] MEDS: LEVOTHYROXINE SODIUM 25 MCG TABLET PO SCH (06:16)
[2020-08-02 08:04] VITALS: BP 110/64
[2020-08-02] MEDS: QUEtiapine FUMARATE 300 MG TABLET PO SCH ×2 (08:16→16:45)
[2020-08-02] MEDS: SENNA/DOCUSATE SODIUM 8.6-50 MG TABLET PO SCH (08:16)
[2020-08-02] MEDS: MAGNESIUM OXIDE 400 MG TABLET PO SCH ×2 (08:16→16:45)
[2020-08-02] MEDS: LITHIUM CARBONATE 600 MG CAPSULE PO SCH ×2 (08:16→16:45)
[2020-08-02] MEDS: TRIAMCINOLONE 0.1% 80 GM CREAM TP SCH ×3 (08:16→16:46)
[2020-08-02] MEDS: DIVALPROEX SODIUM 500 MG DR TABLET PO SCH ×2 (08:17→20:20)
[2020-08-02] MEDS: OLANZapine 5 MG RAPDIS TABLET PO SCH (20:20)
[2020-08-02] MEDS: HALOPERIDOL 10 MG TABLET PO SCH (20:20)
[2020-08-03 01:00] VITALS: BP 102/68
[2020-08-03] MEDS: LEVOTHYROXINE SODIUM 25 MCG TABLET PO SCH (06:15)
[2020-08-03 08:28] VITALS: BP 110/69
[2020-08-03] MEDS: QUEtiapine FUMARATE 300 MG TABLET PO SCH ×2 (08:48→17:10)
[2020-08-03] MEDS: DIVALPROEX SODIUM 500 MG DR TABLET PO SCH ×2 (08:48→20:59)
[2020-08-03] MEDS: SENNA/DOCUSATE SODIUM 8.6-50 MG TABLET PO SCH (08:48)
[2020-08-03] MEDS: TRIAMCINOLONE 0.1% 80 GM CREAM TP SCH ×3 (08:48→17:10)
[2020-08-03] MEDS: MAGNESIUM OXIDE 400 MG TABLET PO SCH ×2 (08:48→17:10)
[2020-08-03] MEDS: LITHIUM CARBONATE 600 MG CAPSULE PO SCH ×2 (08:48→17:10)
[2020-08-03 16:03] VITALS: BP 116/68
[2020-08-03] MEDS: OLANZapine 5 MG RAPDIS TABLET PO SCH (20:59)
[2020-08-03] MEDS: HALOPERIDOL 10 MG TABLET PO SCH (20:59)
[2020-08-04 00:15] VITALS: BP 107/74
[2020-08-04] MEDS: LEVOTHYROXINE SODIUM 25 MCG TABLET PO SCH (06:29)
[2020-08-04] MEDS: QUEtiapine FUMARATE 300 MG TABLET PO SCH ×2 (08:46→16:31)
[2020-08-04] MEDS: DIVALPROEX SODIUM 500 MG DR TABLET PO SCH ×2 (08:46→20:17)
[2020-08-04] MEDS: TRIAMCINOLONE 0.1% 80 GM CREAM TP SCH ×3 (08:46→16:31)
[2020-08-04] MEDS: MAGNESIUM OXIDE 400 MG TABLET PO SCH ×2 (08:46→16:31)
[2020-08-04] MEDS: SENNA/DOCUSATE SODIUM 8.6-50 MG TABLET PO SCH (08:46)
[2020-08-04] MEDS: LITHIUM CARBONATE 600 MG CAPSULE PO SCH ×2 (08:46→16:31)
[2020-08-04 17:51] LABS: LITHIUM 0.84 mmol/L (0.60-1.20)
[2020-08-04] MEDS: OLANZapine 5 MG RAPDIS TABLET PO SCH (20:17)
[2020-08-04] MEDS: HALOPERIDOL 10 MG TABLET PO SCH (20:18)
[2020-08-05 00:34] VITALS: BP 110/68
[2020-08-05 01:32] VITALS: BP 114/69
[2020-08-05] MEDS: LEVOTHYROXINE SODIUM 25 MCG TABLET PO SCH (06:30)
[2020-08-05] MEDS: LITHIUM CARBONATE 600 MG CAPSULE PO SCH ×2 (09:03→17:05)
[2020-08-05] MEDS: QUEtiapine FUMARATE 300 MG TABLET PO SCH ×2 (09:03→17:05)
[2020-08-05] MEDS: TRIAMCINOLONE 0.1% 80 GM CREAM TP SCH ×3 (09:03→17:05)
[2020-08-05] MEDS: MAGNESIUM OXIDE 400 MG TABLET PO SCH ×2 (09:03→17:05)
[2020-08-05] MEDS: DIVALPROEX SODIUM 500 MG DR TABLET PO SCH ×2 (09:03→20:27)
[2020-08-05] MEDS: SENNA/DOCUSATE SODIUM 8.6-50 MG TABLET PO SCH (09:03)
[2020-08-05 12:53] VITALS: BP 118/74
[2020-08-05] MEDS: HALOPERIDOL 10 MG TABLET PO SCH (20:27)
[2020-08-05] MEDS: OLANZapine 5 MG RAPDIS TABLET PO SCH (20:27)
[2020-08-06 01:50] VITALS: BP 115/71
[2020-08-06] MEDS: LEVOTHYROXINE SODIUM 25 MCG TABLET PO SCH (06:39)
[2020-08-06 08:07] VITALS: BP 124/73
[2020-08-06] MEDS: LITHIUM CARBONATE 600 MG CAPSULE PO SCH ×2 (08:20→16:48)
[2020-08-06] MEDS: TRIAMCINOLONE 0.1% 80 GM CREAM TP SCH ×3 (08:20→16:54)
[2020-08-06] MEDS: MAGNESIUM OXIDE 400 MG TABLET PO SCH ×2 (08:20→16:48)
[2020-08-06] MEDS: SENNA/DOCUSATE SODIUM 8.6-50 MG TABLET PO SCH (08:20)
[2020-08-06] MEDS: DIVALPROEX SODIUM 500 MG DR TABLET PO SCH ×2 (08:21→20:17)
[2020-08-06] MEDS: QUEtiapine FUMARATE 300 MG TABLET PO SCH ×2 (08:21→16:48)
[2020-08-06] MEDS: HALOPERIDOL 10 MG TABLET PO SCH (20:17)
[2020-08-06] MEDS: OLANZapine 5 MG RAPDIS TABLET PO SCH (20:17)
[2020-08-07 04:27] VITALS: BP 112/82
[2020-08-07] MEDS: LEVOTHYROXINE SODIUM 25 MCG TABLET PO SCH (06:35)
[2020-08-07 08:31] VITALS: BP 114/69
[2020-08-07] MEDS: DIVALPROEX SODIUM 500 MG DR TABLET PO SCH ×2 (09:18→20:25)
[2020-08-07] MEDS: MAGNESIUM OXIDE 400 MG TABLET PO SCH ×2 (09:18→16:39)
[2020-08-07] MEDS: LITHIUM CARBONATE 600 MG CAPSULE PO SCH ×2 (09:19→16:39)
[2020-08-07] MEDS: TRIAMCINOLONE 0.1% 80 GM CREAM TP SCH ×3 (09:19→16:39)
[2020-08-07] MEDS: SENNA/DOCUSATE SODIUM 8.6-50 MG TABLET PO SCH (09:19)
[2020-08-07] MEDS: QUEtiapine FUMARATE 300 MG TABLET PO SCH ×2 (09:19→16:39)
[2020-08-07] MEDS: HALOPERIDOL 10 MG TABLET PO SCH (20:24)
[2020-08-07] MEDS: OLANZapine 5 MG RAPDIS TABLET PO SCH (20:25)
[2020-08-08 01:55] VITALS: BP 118/70
[2020-08-08] MEDS: LEVOTHYROXINE SODIUM 25 MCG TABLET PO SCH (06:27)
[2020-08-08 08:14] VITALS: BP 110/69
[2020-08-08] MEDS: DIVALPROEX SODIUM 500 MG DR TABLET PO SCH ×2 (08:46→20:04)
[2020-08-08] MEDS: QUEtiapine FUMARATE 300 MG TABLET PO SCH ×2 (08:46→16:27)
[2020-08-08] MEDS: MAGNESIUM OXIDE 400 MG TABLET PO SCH ×2 (08:46→16:27)
[2020-08-08] MEDS: SENNA/DOCUSATE SODIUM 8.6-50 MG TABLET PO SCH (08:46)
[2020-08-08] MEDS: LITHIUM CARBONATE 600 MG CAPSULE PO SCH ×2 (08:46→16:27)
[2020-08-08] MEDS: TRIAMCINOLONE 0.1% 80 GM CREAM TP SCH (16:27)
[2020-08-08] MEDS: HALOPERIDOL 10 MG TABLET PO SCH (20:04)
[2020-08-08] MEDS: OLANZapine 5 MG RAPDIS TABLET PO SCH (20:04)
[2020-08-09 00:28] VITALS: BP 103/72
[2020-08-09] MEDS: LEVOTHYROXINE SODIUM 25 MCG TABLET PO SCH (06:38)
[2020-08-09] MEDS: TRIAMCINOLONE 0.1% 80 GM CREAM TP SCH ×3 (08:02→16:27)
[2020-08-09] MEDS: MAGNESIUM OXIDE 400 MG TABLET PO SCH ×2 (08:02→16:27)
[2020-08-09] MEDS: QUEtiapine FUMARATE 300 MG TABLET PO SCH ×2 (08:02→16:27)
[2020-08-09] MEDS: SENNA/DOCUSATE SODIUM 8.6-50 MG TABLET PO SCH (08:02)
[2020-08-09] MEDS: LITHIUM CARBONATE 600 MG CAPSULE PO SCH ×2 (08:02→16:27)
[2020-08-09] MEDS: DIVALPROEX SODIUM 500 MG DR TABLET PO SCH ×2 (08:02→20:06)
[2020-08-09] MEDS ORDERED: PETROLATUM,WHITE 28 GM JELLY TP PRN (17:45)
[2020-08-09] MEDS: OLANZapine 5 MG RAPDIS TABLET PO SCH (20:06)
[2020-08-09] MEDS: HALOPERIDOL 10 MG TABLET PO SCH (20:06)
[2020-08-10] MEDS: LEVOTHYROXINE SODIUM 25 MCG TABLET PO SCH (06:53)
[2020-08-10 07:13] VITALS: BP 112/80
[2020-08-10] MEDS: MAGNESIUM OXIDE 400 MG TABLET PO SCH ×2 (08:31→16:24)
[2020-08-10] MEDS: LITHIUM CARBONATE 600 MG CAPSULE PO SCH ×2 (08:31→16:23)
[2020-08-10] MEDS: QUEtiapine FUMARATE 300 MG TABLET PO SCH ×2 (08:31→16:24)
[2020-08-10] MEDS: SENNA/DOCUSATE SODIUM 8.6-50 MG TABLET PO SCH (08:32)
[2020-08-10] MEDS: TRIAMCINOLONE 0.1% 80 GM CREAM TP SCH ×3 (08:32→16:23)
[2020-08-10] MEDS: DIVALPROEX SODIUM 500 MG DR TABLET PO SCH ×2 (08:32→20:39)
[2020-08-10 12:52] VITALS: BP 118/71
[2020-08-10 18:05] LABS: COVID AG,FIA SOURCE NASOPHARYNGEAL
[2020-08-10] MEDS: HALOPERIDOL 10 MG TABLET PO SCH (20:39)
[2020-08-10] MEDS: OLANZapine 5 MG RAPDIS TABLET PO SCH (20:40)
[2020-08-11] MEDS: LEVOTHYROXINE SODIUM 25 MCG TABLET PO SCH (06:54)
[2020-08-11] MEDS: TRIAMCINOLONE 0.1% 80 GM CREAM TP SCH ×3 (08:30→16:40)
[2020-08-11] MEDS: SENNA/DOCUSATE SODIUM 8.6-50 MG TABLET PO SCH (08:30)
[2020-08-11] MEDS: DIVALPROEX SODIUM 500 MG DR TABLET PO SCH ×2 (08:30→20:42)
[2020-08-11] MEDS: LITHIUM CARBONATE 600 MG CAPSULE PO SCH ×2 (08:30→16:40)
[2020-08-11] MEDS: QUEtiapine FUMARATE 300 MG TABLET PO SCH ×2 (08:30→16:40)
[2020-08-11] MEDS: MAGNESIUM OXIDE 400 MG TABLET PO SCH ×2 (08:30→16:40)
[2020-08-11 12:44] VITALS: BP 118/79
[2020-08-11] MEDS: HALOPERIDOL 10 MG TABLET PO SCH (20:43)
[2020-08-11] MEDS: OLANZapine 5 MG RAPDIS TABLET PO SCH (20:43)
[2020-08-12 01:04] VITALS: BP 112/80
[2020-08-12] MEDS: LEVOTHYROXINE SODIUM 25 MCG TABLET PO SCH (06:32)
[2020-08-12 08:14] VITALS: BP 115/73
[2020-08-12] MEDS: TRIAMCINOLONE 0.1% 80 GM CREAM TP SCH ×3 (08:53→16:19)
[2020-08-12] MEDS: DIVALPROEX SODIUM 500 MG DR TABLET PO SCH ×2 (08:53→20:14)
[2020-08-12] MEDS: LITHIUM CARBONATE 600 MG CAPSULE PO SCH ×2 (08:54→16:14)
[2020-08-12] MEDS: MAGNESIUM OXIDE 400 MG TABLET PO SCH ×2 (08:54→16:14)
[2020-08-12] MEDS: QUEtiapine FUMARATE 300 MG TABLET PO SCH ×2 (08:54→16:14)
[2020-08-12] MEDS: SENNA/DOCUSATE SODIUM 8.6-50 MG TABLET PO SCH (08:54)
[2020-08-12] MEDS: HALOPERIDOL 10 MG TABLET PO SCH (20:15)
[2020-08-12] MEDS: OLANZapine 5 MG RAPDIS TABLET PO SCH (20:15)
[2020-08-13] MEDS: LEVOTHYROXINE SODIUM 25 MCG TABLET PO SCH (06:54)
[2020-08-13 08:19] VITALS: BP 121/78
[2020-08-13] MEDS: DIVALPROEX SODIUM 500 MG DR TABLET PO SCH ×2 (08:36→20:50)
[2020-08-13] MEDS: MAGNESIUM OXIDE 400 MG TABLET PO SCH ×2 (08:36→17:05)
[2020-08-13] MEDS: LITHIUM CARBONATE 600 MG CAPSULE PO SCH ×2 (08:37→17:05)
[2020-08-13] MEDS: TRIAMCINOLONE 0.1% 80 GM CREAM TP SCH ×3 (08:37→17:05)
[2020-08-13] MEDS: SENNA/DOCUSATE SODIUM 8.6-50 MG TABLET PO SCH (08:37)
[2020-08-13] MEDS: QUEtiapine FUMARATE 300 MG TABLET PO SCH ×2 (08:37→17:05)
[2020-08-13 16:11] VITALS: BP 120/83
[2020-08-13] MEDS: OLANZapine 5 MG RAPDIS TABLET PO SCH (20:50)
[2020-08-13] MEDS: HALOPERIDOL 10 MG TABLET PO SCH (20:50)
[2020-08-14] MEDS: LEVOTHYROXINE SODIUM 25 MCG TABLET PO SCH (05:36)
[2020-08-14] MEDS: SENNA/DOCUSATE SODIUM 8.6-50 MG TABLET PO SCH (08:33)
[2020-08-14] MEDS: TRIAMCINOLONE 0.1% 80 GM CREAM TP SCH ×3 (08:33→17:04)
[2020-08-14] MEDS: QUEtiapine FUMARATE 300 MG TABLET PO SCH ×2 (08:33→17:04)
[2020-08-14] MEDS: LITHIUM CARBONATE 600 MG CAPSULE PO SCH ×2 (08:33→17:04)
[2020-08-14] MEDS: DIVALPROEX SODIUM 500 MG DR TABLET PO SCH ×2 (08:33→20:02)
[2020-08-14] MEDS: MAGNESIUM OXIDE 400 MG TABLET PO SCH ×2 (08:33→17:04)
[2020-08-14 13:40] VITALS: BP 125/79
[2020-08-14] MEDS: OLANZapine 5 MG RAPDIS TABLET PO SCH (20:02)
[2020-08-14] MEDS: HALOPERIDOL 10 MG TABLET PO SCH (20:03)
[2020-08-15] MEDS: LEVOTHYROXINE SODIUM 25 MCG TABLET PO SCH (06:16)
[2020-08-15] MEDS: QUEtiapine FUMARATE 300 MG TABLET PO SCH ×2 (08:04→16:43)
[2020-08-15] MEDS: LITHIUM CARBONATE 600 MG CAPSULE PO SCH ×2 (08:04→16:43)
[2020-08-15] MEDS: SENNA/DOCUSATE SODIUM 8.6-50 MG TABLET PO SCH (08:04)
[2020-08-15] MEDS: MAGNESIUM OXIDE 400 MG TABLET PO SCH ×2 (08:04→16:43)
[2020-08-15] MEDS: DIVALPROEX SODIUM 500 MG DR TABLET PO SCH ×2 (08:05→20:00)
[2020-08-15] MEDS: TRIAMCINOLONE 0.1% 80 GM CREAM TP SCH ×3 (08:05→16:43)
[2020-08-15] MEDS: HALOPERIDOL 10 MG TABLET PO SCH (20:00)
[2020-08-15] MEDS: OLANZapine 5 MG RAPDIS TABLET PO SCH (20:01)
[2020-08-16] MEDS: LEVOTHYROXINE SODIUM 25 MCG TABLET PO SCH (06:30)
[2020-08-16] MEDS: DIVALPROEX SODIUM 500 MG DR TABLET PO SCH ×2 (08:24→20:11)
[2020-08-16] MEDS: TRIAMCINOLONE 0.1% 80 GM CREAM TP SCH ×3 (08:24→16:19)
[2020-08-16] MEDS: QUEtiapine FUMARATE 300 MG TABLET PO SCH ×2 (08:24→16:18)
[2020-08-16] MEDS: SENNA/DOCUSATE SODIUM 8.6-50 MG TABLET PO SCH (08:24)
[2020-08-16] MEDS: MAGNESIUM OXIDE 400 MG TABLET PO SCH ×2 (08:24→16:18)
[2020-08-16] MEDS: LITHIUM CARBONATE 600 MG CAPSULE PO SCH ×2 (08:24→16:18)
[2020-08-16 12:35] VITALS: BP 115/76
[2020-08-16] MEDS: OLANZapine 5 MG RAPDIS TABLET PO SCH (20:11)
[2020-08-16] MEDS: HALOPERIDOL 10 MG TABLET PO SCH (20:11)
[2020-08-17] MEDS: LEVOTHYROXINE SODIUM 25 MCG TABLET PO SCH (06:24)
[2020-08-17 07:30] LABS: COVID AG,FIA SOURCE NASOPHARYNGEAL
[2020-08-17 08:20] VITALS: BP 119/73
[2020-08-17] MEDS: LITHIUM CARBONATE 600 MG CAPSULE PO SCH ×2 (09:03→16:16)
[2020-08-17] MEDS: SENNA/DOCUSATE SODIUM 8.6-50 MG TABLET PO SCH (09:03)
[2020-08-17] MEDS: MAGNESIUM OXIDE 400 MG TABLET PO SCH ×2 (09:03→16:16)
[2020-08-17] MEDS: DIVALPROEX SODIUM 500 MG DR TABLET PO SCH ×2 (09:03→20:24)
[2020-08-17] MEDS: QUEtiapine FUMARATE 300 MG TABLET PO SCH ×2 (09:03→16:16)
[2020-08-17] MEDS: TRIAMCINOLONE 0.1% 80 GM CREAM TP SCH ×3 (09:03→16:16)
[2020-08-17] MEDS: OLANZapine 5 MG RAPDIS TABLET PO SCH (20:24)
[2020-08-17] MEDS: HALOPERIDOL 10 MG TABLET PO SCH (20:24)
[2020-08-18 00:58] VITALS: BP 118/72
[2020-08-18] MEDS: LEVOTHYROXINE SODIUM 25 MCG TABLET PO SCH (06:09)
[2020-08-18 08:31] VITALS: BP 131/83
[2020-08-18] MEDS: DIVALPROEX SODIUM 500 MG DR TABLET PO SCH ×2 (08:34→20:05)
[2020-08-18] MEDS: MAGNESIUM OXIDE 400 MG TABLET PO SCH ×2 (08:34→16:17)
[2020-08-18] MEDS: QUEtiapine FUMARATE 300 MG TABLET PO SCH ×2 (08:34→16:17)
[2020-08-18] MEDS: LITHIUM CARBONATE 600 MG CAPSULE PO SCH ×2 (08:34→16:17)
[2020-08-18] MEDS: SENNA/DOCUSATE SODIUM 8.6-50 MG TABLET PO SCH (08:34)
[2020-08-18] MEDS: TRIAMCINOLONE 0.1% 80 GM CREAM TP SCH ×3 (08:34→16:17)
[2020-08-18] MEDS: IBUPROFEN 600 MG TABLET PO PRN (18:15)
[2020-08-18] MEDS: HALOPERIDOL 10 MG TABLET PO SCH (20:05)
[2020-08-18] MEDS: OLANZapine 5 MG RAPDIS TABLET PO SCH (20:05)
[2020-08-19 00:27] VITALS: BP 116/73
[2020-08-19] MEDS: HALOPERIDOL 5 MG TABLET PO PRN ×2 (00:59→23:34)
[2020-08-19] MEDS: LEVOTHYROXINE SODIUM 25 MCG TABLET PO SCH (06:41)
[2020-08-19] MEDS: DIVALPROEX SODIUM 500 MG DR TABLET PO SCH ×2 (08:06→20:31)
[2020-08-19] MEDS: LITHIUM CARBONATE 600 MG CAPSULE PO SCH ×2 (08:06→17:14)
[2020-08-19] MEDS: MAGNESIUM OXIDE 400 MG TABLET PO SCH ×2 (08:06→17:14)
[2020-08-19] MEDS: QUEtiapine FUMARATE 300 MG TABLET PO SCH ×2 (08:06→17:14)
[2020-08-19] MEDS: SENNA/DOCUSATE SODIUM 8.6-50 MG TABLET PO SCH (08:07)
[2020-08-19] MEDS: TRIAMCINOLONE 0.1% 80 GM CREAM TP SCH ×3 (08:07→17:48)
[2020-08-19 08:08] VITALS: BP 114/72
[2020-08-19] MEDS: HALOPERIDOL 10 MG TABLET PO SCH (20:31)
[2020-08-19] MEDS: OLANZapine 5 MG RAPDIS TABLET PO SCH (20:31)
[2020-08-20] MEDS: LEVOTHYROXINE SODIUM 25 MCG TABLET PO SCH (06:31)
[2020-08-20 08:19] VITALS: BP 112/68
[2020-08-20] MEDS: TRIAMCINOLONE 0.1% 80 GM CREAM TP SCH ×3 (08:30→16:11)
[2020-08-20] MEDS: LITHIUM CARBONATE 600 MG CAPSULE PO SCH ×2 (08:30→16:10)
[2020-08-20] MEDS: SENNA/DOCUSATE SODIUM 8.6-50 MG TABLET PO SCH (08:30)
[2020-08-20] MEDS: DIVALPROEX SODIUM 500 MG DR TABLET PO SCH ×2 (08:30→20:05)
[2020-08-20] MEDS: MAGNESIUM OXIDE 400 MG TABLET PO SCH ×2 (08:30→16:11)
[2020-08-20] MEDS: QUEtiapine FUMARATE 300 MG TABLET PO SCH ×2 (08:30→16:10)
[2020-08-20] MEDS: OLANZapine 5 MG RAPDIS TABLET PO SCH (20:05)
[2020-08-20] MEDS: HALOPERIDOL 10 MG TABLET PO SCH (20:05)
[2020-08-21 01:40] VITALS: BP 114/72
[2020-08-21] MEDS: LEVOTHYROXINE SODIUM 25 MCG TABLET PO SCH (06:29)
[2020-08-21] MEDS: SENNA/DOCUSATE SODIUM 8.6-50 MG TABLET PO SCH (08:51)
[2020-08-21] MEDS: MAGNESIUM OXIDE 400 MG TABLET PO SCH ×2 (08:51→16:40)
[2020-08-21] MEDS: QUEtiapine FUMARATE 300 MG TABLET PO SCH ×2 (08:51→16:40)
[2020-08-21] MEDS: DIVALPROEX SODIUM 500 MG DR TABLET PO SCH ×2 (08:51→20:04)
[2020-08-21] MEDS: LITHIUM CARBONATE 600 MG CAPSULE PO SCH ×2 (08:51→16:40)
[2020-08-21] MEDS: TRIAMCINOLONE 0.1% 80 GM CREAM TP SCH ×3 (08:51→16:44)
[2020-08-21 12:43] VITALS: BP 116/83
[2020-08-21] MEDS: HALOPERIDOL 10 MG TABLET PO SCH (20:03)
[2020-08-21] MEDS: OLANZapine 5 MG RAPDIS TABLET PO SCH (20:04)
[2020-08-22 04:21] VITALS: BP 114/71
[2020-08-22] MEDS: LEVOTHYROXINE SODIUM 25 MCG TABLET PO SCH (06:23)
[2020-08-22 08:00] VITALS: BP 118/72
[2020-08-22] MEDS: SENNA/DOCUSATE SODIUM 8.6-50 MG TABLET PO SCH (08:28)
[2020-08-22] MEDS: MAGNESIUM OXIDE 400 MG TABLET PO SCH ×2 (08:28→16:14)
[2020-08-22] MEDS: TRIAMCINOLONE 0.1% 80 GM CREAM TP SCH ×3 (08:28→16:15)
[2020-08-22] MEDS: QUEtiapine FUMARATE 300 MG TABLET PO SCH ×2 (08:28→16:14)
[2020-08-22] MEDS: DIVALPROEX SODIUM 500 MG DR TABLET PO SCH ×2 (08:28→20:13)
[2020-08-22] MEDS: LITHIUM CARBONATE 600 MG CAPSULE PO SCH ×2 (08:28→16:14)
[2020-08-22] MEDS: HALOPERIDOL 10 MG TABLET PO SCH (20:13)
[2020-08-22] MEDS: OLANZapine 5 MG RAPDIS TABLET PO SCH (20:13)
[2020-08-23] MEDS: LEVOTHYROXINE SODIUM 25 MCG TABLET PO SCH (06:35)
[2020-08-23] MEDS: SENNA/DOCUSATE SODIUM 8.6-50 MG TABLET PO SCH (08:14)
[2020-08-23] MEDS: QUEtiapine FUMARATE 300 MG TABLET PO SCH ×2 (08:14→16:17)
[2020-08-23] MEDS: MAGNESIUM OXIDE 400 MG TABLET PO SCH ×2 (08:14→16:17)
[2020-08-23] MEDS: DIVALPROEX SODIUM 500 MG DR TABLET PO SCH ×2 (08:14→20:17)
[2020-08-23] MEDS: TRIAMCINOLONE 0.1% 80 GM CREAM TP SCH ×3 (08:14→16:17)
[2020-08-23] MEDS: LITHIUM CARBONATE 600 MG CAPSULE PO SCH ×2 (08:14→16:17)
[2020-08-23 12:41] VITALS: BP 119/76
[2020-08-23] MEDS: OLANZapine 5 MG RAPDIS TABLET PO SCH (20:16)
[2020-08-23] MEDS: HALOPERIDOL 10 MG TABLET PO SCH (20:17)
[2020-08-24] MEDS: LEVOTHYROXINE SODIUM 25 MCG TABLET PO SCH (06:55)
[2020-08-24] MEDS: LITHIUM CARBONATE 600 MG CAPSULE PO SCH ×2 (08:27→16:11)
[2020-08-24] MEDS: SENNA/DOCUSATE SODIUM 8.6-50 MG TABLET PO SCH (08:27)
[2020-08-24] MEDS: TRIAMCINOLONE 0.1% 80 GM CREAM TP SCH ×3 (08:27→16:11)
[2020-08-24] MEDS: MAGNESIUM OXIDE 400 MG TABLET PO SCH ×2 (08:27→16:11)
[2020-08-24] MEDS: DIVALPROEX SODIUM 500 MG DR TABLET PO SCH ×2 (08:27→20:05)
[2020-08-24] MEDS: QUEtiapine FUMARATE 300 MG TABLET PO SCH ×2 (08:27→16:11)
[2020-08-24] MEDS: HALOPERIDOL 10 MG TABLET PO SCH (20:06)
[2020-08-24] MEDS: OLANZapine 5 MG RAPDIS TABLET PO SCH (20:06)
[2020-08-25 00:51] VITALS: BP 114/73
[2020-08-25] MEDS: LEVOTHYROXINE SODIUM 25 MCG TABLET PO SCH (06:23)
[2020-08-25] MEDS: MAGNESIUM OXIDE 400 MG TABLET PO SCH ×2 (09:14→17:20)
[2020-08-25] MEDS: SENNA/DOCUSATE SODIUM 8.6-50 MG TABLET PO SCH (09:14)
[2020-08-25] MEDS: LITHIUM CARBONATE 600 MG CAPSULE PO SCH ×2 (09:14→17:06)
[2020-08-25] MEDS: DIVALPROEX SODIUM 500 MG DR TABLET PO SCH ×2 (09:14→20:25)
[2020-08-25] MEDS: TRIAMCINOLONE 0.1% 80 GM CREAM TP SCH ×3 (09:14→17:19)
[2020-08-25] MEDS: QUEtiapine FUMARATE 300 MG TABLET PO SCH ×2 (09:15→17:06)
[2020-08-25 09:17] LABS: COVID AG,FIA SOURCE NASOPHARYNGEAL
[2020-08-25 12:53] VITALS: BP 112/74
[2020-08-25] MEDS: OLANZapine 5 MG RAPDIS TABLET PO SCH (20:25)
[2020-08-25] MEDS: HALOPERIDOL 10 MG TABLET PO SCH (20:25)
[2020-08-26 05:22] VITALS: BP 143/100
[2020-08-26] MEDS: LEVOTHYROXINE SODIUM 25 MCG TABLET PO SCH (06:05)
[2020-08-26] MEDS: QUEtiapine FUMARATE 300 MG TABLET PO SCH ×2 (08:08→16:05)
[2020-08-26] MEDS: SENNA/DOCUSATE SODIUM 8.6-50 MG TABLET PO SCH (08:08)
[2020-08-26] MEDS: MAGNESIUM OXIDE 400 MG TABLET PO SCH ×2 (08:09→16:05)
[2020-08-26] MEDS: LITHIUM CARBONATE 600 MG CAPSULE PO SCH ×2 (08:09→16:05)
[2020-08-26] MEDS: TRIAMCINOLONE 0.1% 80 GM CREAM TP SCH ×3 (08:09→16:05)
[2020-08-26] MEDS: DIVALPROEX SODIUM 500 MG DR TABLET PO SCH ×2 (08:09→20:27)
[2020-08-26 08:30] VITALS: BP 114/69
[2020-08-26] MEDS: HALOPERIDOL 5 MG TABLET PO PRN (08:50)
[2020-08-26] MEDS: HALOPERIDOL 10 MG TABLET PO SCH (20:26)
[2020-08-26] MEDS: OLANZapine 5 MG RAPDIS TABLET PO SCH (20:28)
[2020-08-27] MEDS: LEVOTHYROXINE SODIUM 25 MCG TABLET PO SCH (06:34)
[2020-08-27] MEDS: DIVALPROEX SODIUM 500 MG DR TABLET PO SCH ×2 (09:20→20:21)
[2020-08-27] MEDS: MAGNESIUM OXIDE 400 MG TABLET PO SCH ×2 (09:20→16:48)
[2020-08-27] MEDS: LITHIUM CARBONATE 600 MG CAPSULE PO SCH ×2 (09:20→16:48)
[2020-08-27] MEDS: QUEtiapine FUMARATE 300 MG TABLET PO SCH ×2 (09:20→16:48)
[2020-08-27] MEDS: TRIAMCINOLONE 0.1% 80 GM CREAM TP SCH ×3 (09:21→16:48)
[2020-08-27] MEDS: SENNA/DOCUSATE SODIUM 8.6-50 MG TABLET PO SCH (09:21)
[2020-08-27] MEDS: HALOPERIDOL 10 MG TABLET PO SCH (20:22)
[2020-08-27] MEDS: OLANZapine 5 MG RAPDIS TABLET PO SCH (20:22)
[2020-08-28] MEDS: HALOPERIDOL 5 MG TABLET PO PRN (05:17)
[2020-08-28] MEDS: LEVOTHYROXINE SODIUM 25 MCG TABLET PO SCH (06:30)
[2020-08-28] MEDS: LITHIUM CARBONATE 600 MG CAPSULE PO SCH ×2 (08:06→16:07)
[2020-08-28] MEDS: MAGNESIUM OXIDE 400 MG TABLET PO SCH ×2 (08:06→16:07)
[2020-08-28] MEDS: DIVALPROEX SODIUM 500 MG DR TABLET PO SCH ×2 (08:07→20:11)
[2020-08-28] MEDS: SENNA/DOCUSATE SODIUM 8.6-50 MG TABLET PO SCH (08:07)
[2020-08-28] MEDS: TRIAMCINOLONE 0.1% 80 GM CREAM TP SCH ×3 (08:07→16:07)
[2020-08-28] MEDS: QUEtiapine FUMARATE 300 MG TABLET PO SCH ×2 (08:07→16:07)
[2020-08-28 08:08] VITALS: BP 121/89
[2020-08-28] MEDS: HALOPERIDOL 10 MG TABLET PO SCH (20:11)
[2020-08-28] MEDS: OLANZapine 5 MG RAPDIS TABLET PO SCH (20:11)
[2020-08-29] MEDS: LEVOTHYROXINE SODIUM 25 MCG TABLET PO SCH (06:14)
[2020-08-29] MEDS: TRIAMCINOLONE 0.1% 80 GM CREAM TP SCH ×3 (08:22→17:11)
[2020-08-29] MEDS: SENNA/DOCUSATE SODIUM 8.6-50 MG TABLET PO SCH (08:23)
[2020-08-29] MEDS: LITHIUM CARBONATE 600 MG CAPSULE PO SCH ×2 (08:23→17:10)
[2020-08-29] MEDS: QUEtiapine FUMARATE 300 MG TABLET PO SCH ×2 (08:23→16:38)
[2020-08-29] MEDS: MAGNESIUM OXIDE 400 MG TABLET PO SCH ×2 (08:23→16:38)
[2020-08-29] MEDS: DIVALPROEX SODIUM 500 MG DR TABLET PO SCH ×2 (08:23→20:42)
[2020-08-29] MEDS: HALOPERIDOL 10 MG TABLET PO SCH (20:42)
[2020-08-29] MEDS: OLANZapine 5 MG RAPDIS TABLET PO SCH (20:42)
[2020-08-30] MEDS: LEVOTHYROXINE SODIUM 25 MCG TABLET PO SCH (06:10)
[2020-08-30] MEDS: MAGNESIUM OXIDE 400 MG TABLET PO SCH ×2 (08:08→17:24)
[2020-08-30] MEDS: TRIAMCINOLONE 0.1% 80 GM CREAM TP SCH ×3 (08:08→17:24)
[2020-08-30] MEDS: DIVALPROEX SODIUM 500 MG DR TABLET PO SCH ×2 (08:08→21:00)
[2020-08-30] MEDS: QUEtiapine FUMARATE 300 MG TABLET PO SCH ×2 (08:08→17:24)
[2020-08-30] MEDS: LITHIUM CARBONATE 600 MG CAPSULE PO SCH ×2 (08:08→17:24)
[2020-08-30] MEDS: SENNA/DOCUSATE SODIUM 8.6-50 MG TABLET PO SCH (08:09)
[2020-08-30 08:14] VITALS: BP 119/66
[2020-08-30] MEDS: HALOPERIDOL 10 MG TABLET PO SCH (21:00)
[2020-08-30] MEDS: OLANZapine 5 MG RAPDIS TABLET PO SCH (21:01)
[2020-08-31 00:31] VITALS: BP 114/63
[2020-08-31] MEDS: LEVOTHYROXINE SODIUM 25 MCG TABLET PO SCH (06:34)
[2020-08-31 08:22] LABS: COVID AG,FIA SOURCE NASOPHARYNGEAL
[2020-08-31] MEDS: TRIAMCINOLONE 0.1% 80 GM CREAM TP SCH ×3 (08:51→16:50)
[2020-08-31] MEDS: SENNA/DOCUSATE SODIUM 8.6-50 MG TABLET PO SCH (08:51)
[2020-08-31] MEDS: MAGNESIUM OXIDE 400 MG TABLET PO SCH ×2 (08:52→16:50)
[2020-08-31] MEDS: DIVALPROEX SODIUM 500 MG DR TABLET PO SCH ×2 (08:52→20:38)
[2020-08-31] MEDS: LITHIUM CARBONATE 600 MG CAPSULE PO SCH ×2 (08:53→16:50)
[2020-08-31] MEDS: QUEtiapine FUMARATE 300 MG TABLET PO SCH ×2 (08:57→16:50)
[2020-08-31] MEDS: HALOPERIDOL 10 MG TABLET PO SCH (20:39)
[2020-08-31] MEDS: OLANZapine 5 MG RAPDIS TABLET PO SCH (20:39)
[2020-09-01 01:12] VITALS: BP 111/72
[2020-09-01] MEDS: LEVOTHYROXINE SODIUM 25 MCG TABLET PO SCH (06:08)
[2020-09-01] MEDS: LITHIUM CARBONATE 600 MG CAPSULE PO SCH ×2 (08:21→16:17)
[2020-09-01] MEDS: DIVALPROEX SODIUM 500 MG DR TABLET PO SCH ×2 (08:21→20:11)
[2020-09-01] MEDS: MAGNESIUM OXIDE 400 MG TABLET PO SCH ×2 (08:21→16:17)
[2020-09-01] MEDS: TRIAMCINOLONE 0.1% 80 GM CREAM TP SCH ×3 (08:21→16:17)
[2020-09-01] MEDS: SENNA/DOCUSATE SODIUM 8.6-50 MG TABLET PO SCH (08:21)
[2020-09-01] MEDS: QUEtiapine FUMARATE 300 MG TABLET PO SCH ×2 (08:21→16:17)
[2020-09-01 08:22] VITALS: BP 125/84
[2020-09-01] MEDS: HALOPERIDOL 5 MG TABLET PO PRN (13:47)
[2020-09-01] MEDS: OLANZapine 5 MG RAPDIS TABLET PO SCH (20:10)
[2020-09-01] MEDS: HALOPERIDOL 10 MG TABLET PO SCH (20:11)
[2020-09-02 00:38] VITALS: BP 122/81
[2020-09-02] MEDS: LEVOTHYROXINE SODIUM 25 MCG TABLET PO SCH (06:21)
[2020-09-02] MEDS: QUEtiapine FUMARATE 300 MG TABLET PO SCH ×2 (08:24→15:40)
[2020-09-02] MEDS: TRIAMCINOLONE 0.1% 80 GM CREAM TP SCH ×3 (08:24→15:40)
[2020-09-02] MEDS: SENNA/DOCUSATE SODIUM 8.6-50 MG TABLET PO SCH (08:24)
[2020-09-02] MEDS: LITHIUM CARBONATE 600 MG CAPSULE PO SCH ×2 (08:24→15:40)
[2020-09-02] MEDS: MAGNESIUM OXIDE 400 MG TABLET PO SCH ×2 (08:24→15:40)
[2020-09-02] MEDS: DIVALPROEX SODIUM 500 MG DR TABLET PO SCH ×2 (08:24→20:15)
[2020-09-02 08:29] VITALS: BP 119/87
[2020-09-02] MEDS: HALOPERIDOL 10 MG TABLET PO SCH (20:15)
[2020-09-02] MEDS: OLANZapine 5 MG RAPDIS TABLET PO SCH (20:15)
[2020-09-03 00:16] VITALS: BP 115/80
[2020-09-03] MEDS: LEVOTHYROXINE SODIUM 25 MCG TABLET PO SCH (06:37)
[2020-09-03] MEDS: LITHIUM CARBONATE 600 MG CAPSULE PO SCH ×2 (08:14→16:23)
[2020-09-03] MEDS: SENNA/DOCUSATE SODIUM 8.6-50 MG TABLET PO SCH (08:14)
[2020-09-03] MEDS: QUEtiapine FUMARATE 300 MG TABLET PO SCH ×2 (08:14→16:23)
[2020-09-03] MEDS: DIVALPROEX SODIUM 500 MG DR TABLET PO SCH ×2 (08:14→20:33)
[2020-09-03] MEDS: MAGNESIUM OXIDE 400 MG TABLET PO SCH ×2 (08:14→16:23)
[2020-09-03 08:15] VITALS: BP 118/73
[2020-09-03] MEDS: TRIAMCINOLONE 0.1% 80 GM CREAM TP SCH ×3 (08:18→16:23)
[2020-09-03] MEDS: HALOPERIDOL 10 MG TABLET PO SCH (20:33)
[2020-09-03] MEDS: OLANZapine 5 MG RAPDIS TABLET PO SCH (20:34)
[2020-09-04] MEDS: LEVOTHYROXINE SODIUM 25 MCG TABLET PO SCH (06:26)
[2020-09-04] MEDS: TRIAMCINOLONE 0.1% 80 GM CREAM TP SCH ×3 (08:19→16:48)
[2020-09-04] MEDS: MAGNESIUM OXIDE 400 MG TABLET PO SCH ×2 (08:20→16:48)
[2020-09-04] MEDS: QUEtiapine FUMARATE 300 MG TABLET PO SCH ×2 (08:20→16:48)
[2020-09-04] MEDS: SENNA/DOCUSATE SODIUM 8.6-50 MG TABLET PO SCH (08:20)
[2020-09-04] MEDS: LITHIUM CARBONATE 600 MG CAPSULE PO SCH ×2 (08:20→16:48)
[2020-09-04] MEDS: DIVALPROEX SODIUM 500 MG DR TABLET PO SCH ×2 (08:20→20:10)
[2020-09-04 08:22] VITALS: BP 119/78
[2020-09-04] MEDS: OLANZapine 5 MG RAPDIS TABLET PO SCH (20:10)
[2020-09-04] MEDS: HALOPERIDOL 10 MG TABLET PO SCH (20:10)
[2020-09-05 00:32] VITALS: BP 111/73
[2020-09-05] MEDS: LEVOTHYROXINE SODIUM 25 MCG TABLET PO SCH (06:42)
[2020-09-05 08:18] VITALS: BP 116/71
[2020-09-05] MEDS: QUEtiapine FUMARATE 300 MG TABLET PO SCH ×2 (08:47→16:17)
[2020-09-05] MEDS: MAGNESIUM OXIDE 400 MG TABLET PO SCH ×2 (08:47→16:17)
[2020-09-05] MEDS: DIVALPROEX SODIUM 500 MG DR TABLET PO SCH ×2 (08:47→20:04)
[2020-09-05] MEDS: TRIAMCINOLONE 0.1% 80 GM CREAM TP SCH ×2 (08:47→12:06)
[2020-09-05] MEDS: SENNA/DOCUSATE SODIUM 8.6-50 MG TABLET PO SCH (08:47)
[2020-09-05] MEDS: LITHIUM CARBONATE 600 MG CAPSULE PO SCH ×2 (08:47→16:17)
[2020-09-05] MEDS: HALOPERIDOL 10 MG TABLET PO SCH (20:04)
[2020-09-05] MEDS: OLANZapine 5 MG RAPDIS TABLET PO SCH (20:05)
[2020-09-05] MEDS: HYPROMELLOSE 0.5% 15 ML OPHTHALMIC SOLUTION OU PRN (20:07)
[2020-09-06 01:27] VITALS: BP 106/69
[2020-09-06] MEDS: LEVOTHYROXINE SODIUM 25 MCG TABLET PO SCH (06:20)
[2020-09-06] MEDS: DIVALPROEX SODIUM 500 MG DR TABLET PO SCH ×2 (08:03→20:36)
[2020-09-06] MEDS: MAGNESIUM OXIDE 400 MG TABLET PO SCH ×2 (08:03→16:16)
[2020-09-06] MEDS: SENNA/DOCUSATE SODIUM 8.6-50 MG TABLET PO SCH (08:03)
[2020-09-06] MEDS: QUEtiapine FUMARATE 300 MG TABLET PO SCH ×2 (08:03→16:19)
[2020-09-06] MEDS: LITHIUM CARBONATE 600 MG CAPSULE PO SCH ×2 (08:03→16:19)
[2020-09-06] MEDS: OMEPRAZOLE 20 MG CAPSULE PO PRN ×2 (20:36→20:42)
[2020-09-06] MEDS: HALOPERIDOL 10 MG TABLET PO SCH (20:36)
[2020-09-06] MEDS: OLANZapine 5 MG RAPDIS TABLET PO SCH (20:45)
[2020-09-07 01:34] VITALS: BP 102/73
[2020-09-07] MEDS: LEVOTHYROXINE SODIUM 25 MCG TABLET PO SCH (06:49)
[2020-09-07 08:03] VITALS: BP 111/73
[2020-09-07] MEDS: LITHIUM CARBONATE 600 MG CAPSULE PO SCH ×2 (08:38→16:39)
[2020-09-07] MEDS: SENNA/DOCUSATE SODIUM 8.6-50 MG TABLET PO SCH (08:38)
[2020-09-07] MEDS: MAGNESIUM OXIDE 400 MG TABLET PO SCH ×2 (08:38→16:39)
[2020-09-07] MEDS: DIVALPROEX SODIUM 500 MG DR TABLET PO SCH ×2 (08:39→20:34)
[2020-09-07] MEDS: QUEtiapine FUMARATE 300 MG TABLET PO SCH ×2 (08:39→16:39)
[2020-09-07] MEDS: HALOPERIDOL 10 MG TABLET PO SCH (20:35)
[2020-09-07] MEDS: OLANZapine 5 MG RAPDIS TABLET PO SCH (20:35)
[2020-09-08] MEDS: LEVOTHYROXINE SODIUM 25 MCG TABLET PO SCH (06:17)
[2020-09-08 07:49] LABS: COVID AG,FIA SOURCE NASOPHARYNGEAL
[2020-09-08 08:03] VITALS: BP 109/70
[2020-09-08] MEDS: SENNA/DOCUSATE SODIUM 8.6-50 MG TABLET PO SCH (09:00)
[2020-09-08] MEDS: LITHIUM CARBONATE 600 MG CAPSULE PO SCH ×2 (09:09→16:07)
[2020-09-08] MEDS: QUEtiapine FUMARATE 300 MG TABLET PO SCH ×2 (09:09→16:07)
[2020-09-08] MEDS: DIVALPROEX SODIUM 500 MG DR TABLET PO SCH ×2 (09:09→20:26)
[2020-09-08] MEDS: MAGNESIUM OXIDE 400 MG TABLET PO SCH ×2 (09:09→16:07)
[2020-09-08] MEDS: OLANZapine 5 MG RAPDIS TABLET PO SCH (20:26)
[2020-09-08] MEDS: HALOPERIDOL 10 MG TABLET PO SCH (20:26)
[2020-09-09] VITALS: BP 114/74
[2020-09-09] MEDS: LEVOTHYROXINE SODIUM 25 MCG TABLET PO SCH (06:21)
[2020-09-09] MEDS: LITHIUM CARBONATE 600 MG CAPSULE PO SCH ×2 (08:34→16:25)
[2020-09-09] MEDS: MAGNESIUM OXIDE 400 MG TABLET PO SCH ×2 (08:34→16:25)
[2020-09-09] MEDS: QUEtiapine FUMARATE 300 MG TABLET PO SCH ×2 (08:34→16:25)
[2020-09-09] MEDS: DIVALPROEX SODIUM 500 MG DR TABLET PO SCH ×2 (08:34→19:58)
[2020-09-09] MEDS: SENNA/DOCUSATE SODIUM 8.6-50 MG TABLET PO SCH (08:39)
[2020-09-09 12:32] VITALS: BP 114/72
[2020-09-09] MEDS: HALOPERIDOL 10 MG TABLET PO SCH (19:58)
[2020-09-09] MEDS: OLANZapine 5 MG RAPDIS TABLET PO SCH (19:58)
[2020-09-10 00:06] VITALS: BP 102/78
[2020-09-10] MEDS: LEVOTHYROXINE SODIUM 25 MCG TABLET PO SCH (06:54)
[2020-09-10] MEDS: DIVALPROEX SODIUM 500 MG DR TABLET PO SCH ×2 (08:02→20:01)
[2020-09-10] MEDS: MAGNESIUM OXIDE 400 MG TABLET PO SCH ×2 (08:02→16:29)
[2020-09-10] MEDS: LITHIUM CARBONATE 600 MG CAPSULE PO SCH ×2 (08:02→16:29)
[2020-09-10] MEDS: SENNA/DOCUSATE SODIUM 8.6-50 MG TABLET PO SCH (08:03)
[2020-09-10] MEDS: QUEtiapine FUMARATE 300 MG TABLET PO SCH ×2 (08:05→16:29)
[2020-09-10 08:43] VITALS: BP 110/72
[2020-09-10] MEDS: HALOPERIDOL 10 MG TABLET PO SCH (20:01)
[2020-09-10] MEDS: OLANZapine 5 MG RAPDIS TABLET PO SCH (20:01)
[2020-09-11 00:07] VITALS: BP 73/68
[2020-09-11] MEDS: LEVOTHYROXINE SODIUM 25 MCG TABLET PO SCH (06:27)
[2020-09-11 08:07] VITALS: BP 113/69
[2020-09-11] MEDS: LITHIUM CARBONATE 600 MG CAPSULE PO SCH ×2 (08:36→16:33)
[2020-09-11] MEDS: DIVALPROEX SODIUM 500 MG DR TABLET PO SCH ×2 (08:36→20:47)
[2020-09-11] MEDS: MAGNESIUM OXIDE 400 MG TABLET PO SCH ×2 (08:36→16:33)
[2020-09-11] MEDS: SENNA/DOCUSATE SODIUM 8.6-50 MG TABLET PO SCH (08:37)
[2020-09-11] MEDS: QUEtiapine FUMARATE 300 MG TABLET PO SCH ×2 (08:37→16:33)
[2020-09-11 16:06] VITALS: BP 116/73
[2020-09-11] MEDS: DOCUSATE SODIUM 100 MG CAPSULE PO PRN (16:33)
[2020-09-11] MEDS: OLANZapine 5 MG RAPDIS TABLET PO SCH (20:47)
[2020-09-11] MEDS: HALOPERIDOL 10 MG TABLET PO SCH (20:47)
[2020-09-12 00:26] VITALS: BP 110/69
[2020-09-12] MEDS: LEVOTHYROXINE SODIUM 25 MCG TABLET PO SCH (06:51)
[2020-09-12] MEDS: MAGNESIUM OXIDE 400 MG TABLET PO SCH ×2 (08:39→16:13)
[2020-09-12] MEDS: LITHIUM CARBONATE 600 MG CAPSULE PO SCH ×2 (08:39→16:13)
[2020-09-12] MEDS: QUEtiapine FUMARATE 300 MG TABLET PO SCH ×2 (08:40→16:13)
[2020-09-12] MEDS: DIVALPROEX SODIUM 500 MG DR TABLET PO SCH ×2 (08:40→20:03)
[2020-09-12] MEDS: SENNA/DOCUSATE SODIUM 8.6-50 MG TABLET PO SCH (08:41)
[2020-09-12] MEDS: HALOPERIDOL 10 MG TABLET PO SCH (20:04)
[2020-09-12] MEDS: OLANZapine 5 MG RAPDIS TABLET PO SCH (20:04)
[2020-09-12] MEDS: ACETAMINOPHEN 325 MG TABLET PO PRN (22:09)
[2020-09-12] MEDS: HYPROMELLOSE 0.5% 15 ML OPHTHALMIC SOLUTION OU PRN (22:10)
[2020-09-13 00:45] VITALS: BP 102/71
[2020-09-13] MEDS: LEVOTHYROXINE SODIUM 25 MCG TABLET PO SCH (06:40)
[2020-09-13] MEDS: LITHIUM CARBONATE 600 MG CAPSULE PO SCH ×2 (08:25→16:28)
[2020-09-13] MEDS: QUEtiapine FUMARATE 300 MG TABLET PO SCH ×2 (08:25→16:28)
[2020-09-13] MEDS: DIVALPROEX SODIUM 500 MG DR TABLET PO SCH ×2 (08:25→20:36)
[2020-09-13] MEDS: MAGNESIUM OXIDE 400 MG TABLET PO SCH ×2 (08:25→16:28)
[2020-09-13] MEDS: SENNA/DOCUSATE SODIUM 8.6-50 MG TABLET PO SCH (08:29)
[2020-09-13] MEDS: OLANZapine 5 MG RAPDIS TABLET PO SCH (20:36)
[2020-09-13] MEDS: HALOPERIDOL 10 MG TABLET PO SCH (20:36)
[2020-09-14 00:05] VITALS: BP 109/74
[2020-09-14] MEDS: LEVOTHYROXINE SODIUM 25 MCG TABLET PO SCH (06:37)
[2020-09-14] MEDS: QUEtiapine FUMARATE 300 MG TABLET PO SCH ×2 (08:35→16:34)
[2020-09-14] MEDS: MAGNESIUM OXIDE 400 MG TABLET PO SCH ×2 (08:35→16:34)
[2020-09-14] MEDS: LITHIUM CARBONATE 600 MG CAPSULE PO SCH ×2 (08:35→16:34)
[2020-09-14] MEDS: DIVALPROEX SODIUM 500 MG DR TABLET PO SCH ×2 (08:35→20:06)
[2020-09-14] MEDS: SENNA/DOCUSATE SODIUM 8.6-50 MG TABLET PO SCH (08:41)
[2020-09-14 09:18] LABS: BASOPHILS % (AUTO) 0.4 % (0.0-2.0); EOSINOPHILS % (AUTO) 2.6 % (1.0-6.0); HEMOGLOBIN 12.1 g/dL (12.0-16.0); LYMPHOCYTES # (AUTO) 3.1 K/uL (1.0-4.8); LYMPHOCYTES % (AUTO) 38.5 % (22.0-44.0); MEAN CORPUSCULAR HGB CONC 33.6 G/dL (31.0-37.0); MEAN CORPUSCULAR VOLUME 92 fL (80-100); MONOCYTES # (AUTO) 0.6 K/uL (0.1-1.0); MONOCYTES % (AUTO) 7.1 % (2.0-9.0); NEUTROPHILS # (AUTO) 4.2 K/uL (1.8-7.7); NEUTROPHILS % (AUTO) 51.4 % (40.0-70.0); PLATELET COUNT (AUTO) 186 K/uL (150-450); RED BLOOD CELL COUNT(AUTO) 3.91 MIL/uL (4.00-5.20); RED CELL DISTRIBUTION WIDTH 12.6 % (11.5-14.5)
[2020-09-14 10:09] LABS: ALANINE AMINOTRANSFERASE 20 U/L (12-78); ALBUMIN 2.8 g/dL (3.4-5.0); ALKALINE PHOSPHATASE 69 U/L (46-116); ANION GAP 11 mmol/L (8-16); ASPARTATE AMINOTRANSFERASE 12 U/L (15-37); BILIRUBIN,TOTAL 0.1 mg/dL (0.1-1.0); CALCIUM, TOTAL 8.5 mg/dL (8.8-10.5); CARBON DIOXIDE 25 mmol/L (22-29); CHLORIDE 108 mmol/L (98-107); CHOLESTEROL 129 mg/dL (131-200); CREATININE 0.81 mg/dL (0.60-1.30); GLOMERULAR FILTR. RATE CALC > 60 mL/min (>60); GLUCOSE,RANDOM 134 mg/dL (70-110); POTASSIUM 3.8 mmol/L (3.5-5.1); SODIUM SERUM 144 mmol/L (136-145); TOTAL PROTEIN, SERUM 6.3 g/dL (6.4-8.2); TRIGLYCERIDES 187 mg/dL (15-150); UREA NITROGEN, BLOOD 17 mg/dL (7-18)
[2020-09-14 10:10] LABS: CHOL/HDL RATIO 2.9 (3.9-5.7); HDL CHOLESTEROL 45 mg/dL (40-60); LDL CHOL (CALC.) 47 mg/dL (0-130); THYROID STIMULATING HORMONE 6.67 uIU/mL (0.36-3.74)
[2020-09-14 11:00] LABS: HEMOGLOBIN A1C 4.9 % (3.8-5.6)
[2020-09-14] MEDS: HALOPERIDOL 10 MG TABLET PO SCH (20:05)
[2020-09-14] MEDS: OLANZapine 5 MG RAPDIS TABLET PO SCH (20:07)
[2020-09-15] MEDS: LEVOTHYROXINE SODIUM 25 MCG TABLET PO SCH (07:23)
[2020-09-15] MEDS: QUEtiapine FUMARATE 300 MG TABLET PO SCH ×2 (08:02→16:04)
[2020-09-15] MEDS: DIVALPROEX SODIUM 500 MG DR TABLET PO SCH ×2 (08:02→20:00)
[2020-09-15] MEDS: SENNA/DOCUSATE SODIUM 8.6-50 MG TABLET PO SCH (08:02)
[2020-09-15] MEDS: MAGNESIUM OXIDE 400 MG TABLET PO SCH ×2 (08:02→16:04)
[2020-09-15] MEDS: LITHIUM CARBONATE 600 MG CAPSULE PO SCH ×2 (08:02→16:04)
[2020-09-15] MEDS: HALOPERIDOL 10 MG TABLET PO SCH (20:00)
[2020-09-15] MEDS: OLANZapine 5 MG RAPDIS TABLET PO SCH (20:00)
[2020-09-16] MEDS: LEVOTHYROXINE SODIUM 25 MCG TABLET PO SCH (06:27)
[2020-09-16] MEDS: MAGNESIUM OXIDE 400 MG TABLET PO SCH ×2 (08:38→16:47)
[2020-09-16] MEDS: QUEtiapine FUMARATE 300 MG TABLET PO SCH ×2 (08:38→16:47)
[2020-09-16] MEDS: DIVALPROEX SODIUM 500 MG DR TABLET PO SCH ×2 (08:38→20:05)
[2020-09-16] MEDS: LITHIUM CARBONATE 600 MG CAPSULE PO SCH ×2 (08:38→16:47)
[2020-09-16] MEDS: SENNA/DOCUSATE SODIUM 8.6-50 MG TABLET PO SCH (08:39)
[2020-09-16] MEDS: OLANZapine 5 MG RAPDIS TABLET PO SCH (20:05)
[2020-09-16] MEDS: HALOPERIDOL 10 MG TABLET PO SCH (20:05)
[2020-09-17] MEDS: LEVOTHYROXINE SODIUM 25 MCG TABLET PO SCH (06:30)
[2020-09-17] MEDS: QUEtiapine FUMARATE 300 MG TABLET PO SCH ×2 (08:46→16:23)
[2020-09-17] MEDS: MAGNESIUM OXIDE 400 MG TABLET PO SCH ×2 (08:46→16:23)
[2020-09-17] MEDS: LITHIUM CARBONATE 600 MG CAPSULE PO SCH ×2 (08:46→16:23)
[2020-09-17] MEDS: SENNA/DOCUSATE SODIUM 8.6-50 MG TABLET PO SCH (08:46)
[2020-09-17] MEDS: DIVALPROEX SODIUM 500 MG DR TABLET PO SCH ×2 (08:46→20:18)
[2020-09-17] MEDS: OLANZapine 5 MG RAPDIS TABLET PO SCH (20:18)
[2020-09-17] MEDS: HALOPERIDOL 10 MG TABLET PO SCH (20:18)
[2020-09-18] MEDS: LEVOTHYROXINE SODIUM 25 MCG TABLET PO SCH (06:30)
[2020-09-18] MEDS: MAGNESIUM OXIDE 400 MG TABLET PO SCH ×2 (09:08→16:38)
[2020-09-18] MEDS: SENNA/DOCUSATE SODIUM 8.6-50 MG TABLET PO SCH (09:08)
[2020-09-18] MEDS: LITHIUM CARBONATE 600 MG CAPSULE PO SCH ×2 (09:08→16:38)
[2020-09-18] MEDS: QUEtiapine FUMARATE 300 MG TABLET PO SCH ×2 (09:09→16:38)
[2020-09-18] MEDS: DIVALPROEX SODIUM 500 MG DR TABLET PO SCH ×2 (09:09→20:16)
[2020-09-18] MEDS: HALOPERIDOL 10 MG TABLET PO SCH (20:15)
[2020-09-18] MEDS: OLANZapine 5 MG RAPDIS TABLET PO SCH (20:16)
[2020-09-19 02:11] VITALS: BP 117/74
[2020-09-19] MEDS: LEVOTHYROXINE SODIUM 25 MCG TABLET PO SCH (06:13)
[2020-09-19 07:50] VITALS: BP 115/68
[2020-09-19] MEDS: SENNA/DOCUSATE SODIUM 8.6-50 MG TABLET PO SCH (08:37)
[2020-09-19] MEDS: MAGNESIUM OXIDE 400 MG TABLET PO SCH ×2 (08:37→16:07)
[2020-09-19] MEDS: DIVALPROEX SODIUM 500 MG DR TABLET PO SCH ×2 (08:37→20:04)
[2020-09-19] MEDS: LITHIUM CARBONATE 600 MG CAPSULE PO SCH ×2 (08:37→16:07)
[2020-09-19] MEDS: QUEtiapine FUMARATE 300 MG TABLET PO SCH ×2 (08:38→16:07)
[2020-09-19 09:30] VITALS: BP 115/68
[2020-09-19] MEDS: HALOPERIDOL 10 MG TABLET PO SCH (20:04)
[2020-09-19] MEDS: OLANZapine 5 MG RAPDIS TABLET PO SCH (20:04)
[2020-09-20 00:47] VITALS: BP 110/72
[2020-09-20] MEDS: LEVOTHYROXINE SODIUM 25 MCG TABLET PO SCH (06:39)
[2020-09-20] MEDS: MAGNESIUM OXIDE 400 MG TABLET PO SCH ×2 (08:17→16:09)
[2020-09-20] MEDS: LITHIUM CARBONATE 600 MG CAPSULE PO SCH ×2 (08:17→16:09)
[2020-09-20] MEDS: QUEtiapine FUMARATE 300 MG TABLET PO SCH ×2 (08:17→16:09)
[2020-09-20] MEDS: DIVALPROEX SODIUM 500 MG DR TABLET PO SCH ×2 (08:18→20:40)
[2020-09-20] MEDS: SENNA/DOCUSATE SODIUM 8.6-50 MG TABLET PO SCH (08:18)
[2020-09-20] MEDS: OLANZapine 5 MG RAPDIS TABLET PO SCH (20:40)
[2020-09-20] MEDS: HALOPERIDOL 10 MG TABLET PO SCH (20:41)
[2020-09-21 00:34] VITALS: BP 116/70
[2020-09-21] MEDS: LEVOTHYROXINE SODIUM 25 MCG TABLET PO SCH (06:20)
[2020-09-21] MEDS: SENNA/DOCUSATE SODIUM 8.6-50 MG TABLET PO SCH (09:06)
[2020-09-21] MEDS: DIVALPROEX SODIUM 500 MG DR TABLET PO SCH ×2 (09:06→20:18)
[2020-09-21] MEDS: LITHIUM CARBONATE 600 MG CAPSULE PO SCH ×2 (09:07→16:27)
[2020-09-21] MEDS: QUEtiapine FUMARATE 300 MG TABLET PO SCH ×2 (09:07→16:27)
[2020-09-21] MEDS: MAGNESIUM OXIDE 400 MG TABLET PO SCH ×2 (09:07→16:27)
[2020-09-21] MEDS: OLANZapine 5 MG RAPDIS TABLET PO SCH (20:18)
[2020-09-21] MEDS: HALOPERIDOL 10 MG TABLET PO SCH (20:18)
[2020-09-22 00:09] VITALS: BP 115/82
[2020-09-22] MEDS: LEVOTHYROXINE SODIUM 25 MCG TABLET PO SCH (06:27)
[2020-09-22 08:00] VITALS: BP 114/74
[2020-09-22] MEDS: QUEtiapine FUMARATE 300 MG TABLET PO SCH ×2 (08:45→16:55)
[2020-09-22] MEDS: LITHIUM CARBONATE 600 MG CAPSULE PO SCH ×2 (08:45→16:55)
[2020-09-22] MEDS: DIVALPROEX SODIUM 500 MG DR TABLET PO SCH ×2 (08:45→20:24)
[2020-09-22] MEDS: SENNA/DOCUSATE SODIUM 8.6-50 MG TABLET PO SCH (08:45)
[2020-09-22] MEDS: MAGNESIUM OXIDE 400 MG TABLET PO SCH ×2 (08:45→16:55)
[2020-09-22] MEDS: OLANZapine 5 MG RAPDIS TABLET PO SCH (20:24)
[2020-09-22] MEDS: HALOPERIDOL 10 MG TABLET PO SCH (20:25)
[2020-09-23 00:17] VITALS: BP 116/73
[2020-09-23] MEDS: LEVOTHYROXINE SODIUM 25 MCG TABLET PO SCH (06:22)
[2020-09-23 08:10] VITALS: BP 112/66
[2020-09-23] MEDS: QUEtiapine FUMARATE 300 MG TABLET PO SCH ×2 (08:16→16:33)
[2020-09-23] MEDS: LITHIUM CARBONATE 600 MG CAPSULE PO SCH ×2 (08:16→16:33)
[2020-09-23] MEDS: SENNA/DOCUSATE SODIUM 8.6-50 MG TABLET PO SCH (08:16)
[2020-09-23] MEDS: DIVALPROEX SODIUM 500 MG DR TABLET PO SCH ×2 (08:16→20:27)
[2020-09-23] MEDS: MAGNESIUM OXIDE 400 MG TABLET PO SCH ×2 (08:16→16:33)
[2020-09-23 08:19] LABS: COVID AG,FIA SOURCE NASOPHARYNGEAL
[2020-09-23 16:06] VITALS: BP 114/74
[2020-09-23] MEDS: DOCUSATE SODIUM 100 MG CAPSULE PO PRN (18:24)
[2020-09-23] MEDS: HALOPERIDOL 10 MG TABLET PO SCH (20:27)
[2020-09-23] MEDS: OLANZapine 5 MG RAPDIS TABLET PO SCH (20:28)
[2020-09-24 00:45] VITALS: BP 110/69
[2020-09-24] MEDS: LEVOTHYROXINE SODIUM 25 MCG TABLET PO SCH (06:25)
[2020-09-24] MEDS: MAGNESIUM OXIDE 400 MG TABLET PO SCH ×2 (08:02→16:09)
[2020-09-24] MEDS: SENNA/DOCUSATE SODIUM 8.6-50 MG TABLET PO SCH (08:02)
[2020-09-24] MEDS: QUEtiapine FUMARATE 300 MG TABLET PO SCH ×2 (08:02→16:09)
[2020-09-24] MEDS: DIVALPROEX SODIUM 500 MG DR TABLET PO SCH ×2 (08:02→20:01)
[2020-09-24] MEDS: LITHIUM CARBONATE 600 MG CAPSULE PO SCH ×2 (08:02→16:09)
[2020-09-24] MEDS: HALOPERIDOL 10 MG TABLET PO SCH (20:01)
[2020-09-24] MEDS: OLANZapine 5 MG RAPDIS TABLET PO SCH (20:01)
[2020-09-25] MEDS: LEVOTHYROXINE SODIUM 25 MCG TABLET PO SCH (06:26)
[2020-09-25] MEDS: QUEtiapine FUMARATE 300 MG TABLET PO SCH ×2 (08:07→16:51)
[2020-09-25] MEDS: MAGNESIUM OXIDE 400 MG TABLET PO SCH ×2 (08:07→16:51)
[2020-09-25] MEDS: LITHIUM CARBONATE 600 MG CAPSULE PO SCH ×2 (08:07→16:51)
[2020-09-25] MEDS: DIVALPROEX SODIUM 500 MG DR TABLET PO SCH ×2 (08:07→20:28)
[2020-09-25] MEDS: SENNA/DOCUSATE SODIUM 8.6-50 MG TABLET PO SCH (08:08)
[2020-09-25 08:18] VITALS: BP 116/73
[2020-09-25] MEDS: OLANZapine 5 MG RAPDIS TABLET PO SCH (20:27)
[2020-09-25] MEDS: HALOPERIDOL 10 MG TABLET PO SCH (20:28)
[2020-09-26 01:38] VITALS: BP 118/71
[2020-09-26] MEDS: IBUPROFEN 600 MG TABLET PO PRN (05:29)
[2020-09-26] MEDS: LEVOTHYROXINE SODIUM 25 MCG TABLET PO SCH (06:30)
[2020-09-26] MEDS: MAGNESIUM OXIDE 400 MG TABLET PO SCH ×2 (07:59→17:00)
[2020-09-26] MEDS: LITHIUM CARBONATE 600 MG CAPSULE PO SCH ×2 (07:59→17:00)
[2020-09-26] MEDS: QUEtiapine FUMARATE 300 MG TABLET PO SCH ×2 (08:00→17:00)
[2020-09-26] MEDS: SENNA/DOCUSATE SODIUM 8.6-50 MG TABLET PO SCH (08:00)
[2020-09-26] MEDS: DIVALPROEX SODIUM 500 MG DR TABLET PO SCH ×2 (08:00→20:17)
[2020-09-26 08:05] VITALS: BP 114/68
[2020-09-26] MEDS: HALOPERIDOL 10 MG TABLET PO SCH (20:17)
[2020-09-26] MEDS: OLANZapine 5 MG RAPDIS TABLET PO SCH (20:18)
[2020-09-27] MEDS: LEVOTHYROXINE SODIUM 25 MCG TABLET PO SCH (06:30)
[2020-09-27] MEDS: SENNA/DOCUSATE SODIUM 8.6-50 MG TABLET PO SCH (08:27)
[2020-09-27] MEDS: DIVALPROEX SODIUM 500 MG DR TABLET PO SCH ×2 (08:27→20:07)
[2020-09-27] MEDS: MAGNESIUM OXIDE 400 MG TABLET PO SCH ×2 (08:29→16:24)
[2020-09-27] MEDS: QUEtiapine FUMARATE 300 MG TABLET PO SCH ×2 (08:29→16:24)
[2020-09-27] MEDS: LITHIUM CARBONATE 600 MG CAPSULE PO SCH ×2 (08:29→16:24)
[2020-09-27] MEDS: HALOPERIDOL 10 MG TABLET PO SCH (20:07)
[2020-09-27] MEDS: OLANZapine 5 MG RAPDIS TABLET PO SCH (20:08)
[2020-09-28 00:39] VITALS: BP 114/76
[2020-09-28] MEDS: LEVOTHYROXINE SODIUM 25 MCG TABLET PO SCH (06:56)
[2020-09-28] MEDS: LITHIUM CARBONATE 600 MG CAPSULE PO SCH ×2 (08:04→16:02)
[2020-09-28] MEDS: DIVALPROEX SODIUM 500 MG DR TABLET PO SCH ×2 (08:04→20:33)
[2020-09-28] MEDS: MAGNESIUM OXIDE 400 MG TABLET PO SCH ×2 (08:04→16:01)
[2020-09-28] MEDS: SENNA/DOCUSATE SODIUM 8.6-50 MG TABLET PO SCH (08:04)
[2020-09-28] MEDS: QUEtiapine FUMARATE 300 MG TABLET PO SCH ×2 (08:04→16:01)
[2020-09-28 16:03] VITALS: BP 110/71
[2020-09-28] MEDS: HALOPERIDOL 10 MG TABLET PO SCH (20:32)
[2020-09-28] MEDS: OLANZapine 5 MG RAPDIS TABLET PO SCH (20:33)
[2020-09-29 00:08] VITALS: BP 112/73
[2020-09-29] MEDS: LEVOTHYROXINE SODIUM 25 MCG TABLET PO SCH (06:27)
[2020-09-29] MEDS: LITHIUM CARBONATE 600 MG CAPSULE PO SCH ×2 (08:06→16:36)
[2020-09-29] MEDS: DIVALPROEX SODIUM 500 MG DR TABLET PO SCH ×2 (08:06→20:30)
[2020-09-29] MEDS: SENNA/DOCUSATE SODIUM 8.6-50 MG TABLET PO SCH (08:06)
[2020-09-29] MEDS: MAGNESIUM OXIDE 400 MG TABLET PO SCH ×2 (08:06→16:36)
[2020-09-29] MEDS: QUEtiapine FUMARATE 300 MG TABLET PO SCH ×2 (08:06→16:36)
[2020-09-29] MEDS: OLANZapine 5 MG RAPDIS TABLET PO SCH (20:30)
[2020-09-29] MEDS: HALOPERIDOL 10 MG TABLET PO SCH (20:30)
[2020-09-30] MEDS: LEVOTHYROXINE SODIUM 25 MCG TABLET PO SCH (06:58)
[2020-09-30] MEDS: QUEtiapine FUMARATE 300 MG TABLET PO SCH ×2 (08:19→16:59)
[2020-09-30] MEDS: DIVALPROEX SODIUM 500 MG DR TABLET PO SCH ×2 (08:19→20:13)
[2020-09-30] MEDS: LITHIUM CARBONATE 600 MG CAPSULE PO SCH ×2 (08:19→16:59)
[2020-09-30] MEDS: MAGNESIUM OXIDE 400 MG TABLET PO SCH ×2 (08:19→16:59)
[2020-09-30] MEDS: SENNA/DOCUSATE SODIUM 8.6-50 MG TABLET PO SCH (08:19)
[2020-09-30] MEDS: OMEGA-3/DHA/EPA/FISH OIL 1,000 MG CAPSULE PO SCH (12:23)
[2020-09-30] MEDS: HYPROMELLOSE 0.5% 15 ML OPHTHALMIC SOLUTION OU PRN (19:10)
[2020-09-30] MEDS: OLANZapine 5 MG RAPDIS TABLET PO SCH (20:13)
[2020-09-30] MEDS: HALOPERIDOL 10 MG TABLET PO SCH (20:14)
[2020-10-01] MEDS: LEVOTHYROXINE SODIUM 25 MCG TABLET PO SCH (06:57)
[2020-10-01] MEDS: DIVALPROEX SODIUM 500 MG DR TABLET PO SCH ×2 (08:29→20:41)
[2020-10-01] MEDS: SENNA/DOCUSATE SODIUM 8.6-50 MG TABLET PO SCH (08:29)
[2020-10-01] MEDS: LITHIUM CARBONATE 600 MG CAPSULE PO SCH ×2 (08:29→16:11)
[2020-10-01] MEDS: QUEtiapine FUMARATE 300 MG TABLET PO SCH ×2 (08:29→16:11)
[2020-10-01] MEDS: MAGNESIUM OXIDE 400 MG TABLET PO SCH ×2 (08:29→16:11)
[2020-10-01] MEDS: OMEGA-3/DHA/EPA/FISH OIL 1,000 MG CAPSULE PO SCH (08:29)
[2020-10-01] MEDS: OLANZapine 5 MG RAPDIS TABLET PO SCH (20:42)
[2020-10-01] MEDS: HALOPERIDOL 10 MG TABLET PO SCH (20:42)
[2020-10-02 02:02] VITALS: BP 114/74
[2020-10-02] MEDS: LEVOTHYROXINE SODIUM 25 MCG TABLET PO SCH (06:08)
[2020-10-02] MEDS: MAGNESIUM OXIDE 400 MG TABLET PO SCH ×2 (08:09→16:06)
[2020-10-02] MEDS: SENNA/DOCUSATE SODIUM 8.6-50 MG TABLET PO SCH (08:09)
[2020-10-02] MEDS: DIVALPROEX SODIUM 500 MG DR TABLET PO SCH ×2 (08:10→20:04)
[2020-10-02] MEDS: OMEGA-3/DHA/EPA/FISH OIL 1,000 MG CAPSULE PO SCH (08:10)
[2020-10-02] MEDS: LITHIUM CARBONATE 600 MG CAPSULE PO SCH ×2 (08:10→16:06)
[2020-10-02] MEDS: QUEtiapine FUMARATE 300 MG TABLET PO SCH ×2 (08:10→16:05)
[2020-10-02 08:38] VITALS: BP 117/74
[2020-10-02] MEDS: HALOPERIDOL 10 MG TABLET PO SCH (20:05)
[2020-10-02] MEDS: OLANZapine 5 MG RAPDIS TABLET PO SCH (20:05)
[2020-10-03 01:34] VITALS: BP 114/70
[2020-10-03] MEDS: LEVOTHYROXINE SODIUM 25 MCG TABLET PO SCH (06:30)
[2020-10-03] MEDS: MAGNESIUM OXIDE 400 MG TABLET PO SCH ×2 (08:25→16:16)
[2020-10-03] MEDS: LITHIUM CARBONATE 600 MG CAPSULE PO SCH ×2 (08:25→16:16)
[2020-10-03] MEDS: QUEtiapine FUMARATE 300 MG TABLET PO SCH ×2 (08:25→16:16)
[2020-10-03] MEDS: OMEGA-3/DHA/EPA/FISH OIL 1,000 MG CAPSULE PO SCH (08:25)
[2020-10-03] MEDS: DIVALPROEX SODIUM 500 MG DR TABLET PO SCH ×2 (08:25→20:01)
[2020-10-03] MEDS: SENNA/DOCUSATE SODIUM 8.6-50 MG TABLET PO SCH (08:26)
[2020-10-03] MEDS: HALOPERIDOL 10 MG TABLET PO SCH (20:01)
[2020-10-03] MEDS: OLANZapine 5 MG RAPDIS TABLET PO SCH (20:01)
[2020-10-04] MEDS: LEVOTHYROXINE SODIUM 25 MCG TABLET PO SCH (06:42)
[2020-10-04] MEDS: OMEGA-3/DHA/EPA/FISH OIL 1,000 MG CAPSULE PO SCH (09:40)
[2020-10-04] MEDS: DIVALPROEX SODIUM 500 MG DR TABLET PO SCH ×2 (09:41→20:46)
[2020-10-04] MEDS: QUEtiapine FUMARATE 300 MG TABLET PO SCH ×2 (09:41→18:00)
[2020-10-04] MEDS: MAGNESIUM OXIDE 400 MG TABLET PO SCH ×2 (09:41→18:00)
[2020-10-04] MEDS: LITHIUM CARBONATE 600 MG CAPSULE PO SCH ×2 (09:41→18:15)
[2020-10-04] MEDS: SENNA/DOCUSATE SODIUM 8.6-50 MG TABLET PO SCH (09:43)
[2020-10-04] MEDS: HALOPERIDOL 10 MG TABLET PO SCH (20:46)
[2020-10-04] MEDS: OLANZapine 5 MG RAPDIS TABLET PO SCH (20:47)
[2020-10-05 00:09] VITALS: BP 110/76
[2020-10-05] MEDS: LEVOTHYROXINE SODIUM 25 MCG TABLET PO SCH (06:30)
[2020-10-05] MEDS: OMEGA-3/DHA/EPA/FISH OIL 1,000 MG CAPSULE PO SCH (08:37)
[2020-10-05] MEDS: LITHIUM CARBONATE 600 MG CAPSULE PO SCH ×2 (08:37→16:47)
[2020-10-05] MEDS: QUEtiapine FUMARATE 300 MG TABLET PO SCH ×2 (08:37→16:47)
[2020-10-05] MEDS: MAGNESIUM OXIDE 400 MG TABLET PO SCH ×2 (08:37→16:47)
[2020-10-05] MEDS: DIVALPROEX SODIUM 500 MG DR TABLET PO SCH ×2 (08:37→21:18)
[2020-10-05] MEDS: SENNA/DOCUSATE SODIUM 8.6-50 MG TABLET PO SCH (08:37)
[2020-10-05 12:57] VITALS: BP 117/72
[2020-10-05] MEDS: HALOPERIDOL 10 MG TABLET PO SCH (21:18)
[2020-10-05] MEDS: OLANZapine 5 MG RAPDIS TABLET PO SCH (21:18)
[2020-10-06 01:17] VITALS: BP 102/69
[2020-10-06] MEDS: LEVOTHYROXINE SODIUM 25 MCG TABLET PO SCH (07:00)
[2020-10-06] MEDS: LITHIUM CARBONATE 600 MG CAPSULE PO SCH ×2 (08:23→16:02)
[2020-10-06] MEDS: SENNA/DOCUSATE SODIUM 8.6-50 MG TABLET PO SCH (08:23)
[2020-10-06] MEDS: DIVALPROEX SODIUM 500 MG DR TABLET PO SCH ×2 (08:23→20:08)
[2020-10-06] MEDS: MAGNESIUM OXIDE 400 MG TABLET PO SCH ×2 (08:23→16:02)
[2020-10-06] MEDS: QUEtiapine FUMARATE 300 MG TABLET PO SCH ×2 (08:23→16:02)
[2020-10-06] MEDS: OMEGA-3/DHA/EPA/FISH OIL 1,000 MG CAPSULE PO SCH (08:23)
[2020-10-06] MEDS ORDERED: ZOLPIDEM TARTRATE 10 MG TABLET PO PRN (12:45)
[2020-10-06] MEDS: HALOPERIDOL 10 MG TABLET PO SCH (20:08)
[2020-10-06] MEDS: OLANZapine 5 MG RAPDIS TABLET PO SCH (20:10)
[2020-10-07] MEDS: LEVOTHYROXINE SODIUM 25 MCG TABLET PO SCH (06:09)
[2020-10-07 08:16] VITALS: BP 116/69
[2020-10-07] MEDS: SENNA/DOCUSATE SODIUM 8.6-50 MG TABLET PO SCH (08:16)
[2020-10-07] MEDS: LITHIUM CARBONATE 600 MG CAPSULE PO SCH ×2 (08:17→16:23)
[2020-10-07] MEDS: DIVALPROEX SODIUM 500 MG DR TABLET PO SCH ×2 (08:17→20:27)
[2020-10-07] MEDS: MAGNESIUM OXIDE 400 MG TABLET PO SCH ×2 (08:18→16:23)
[2020-10-07] MEDS: QUEtiapine FUMARATE 300 MG TABLET PO SCH ×2 (08:18→16:23)
[2020-10-07] MEDS: OMEGA-3/DHA/EPA/FISH OIL 1,000 MG CAPSULE PO SCH (08:18)
[2020-10-07] MEDS: OLANZapine 5 MG RAPDIS TABLET PO SCH (20:27)
[2020-10-07] MEDS: HALOPERIDOL 10 MG TABLET PO SCH (20:27)
[2020-10-07] MEDS: ZOLPIDEM TARTRATE 10 MG TABLET PO PRN (21:03)
[2020-10-08 05:37] VITALS: BP 118/72
[2020-10-08] MEDS: LEVOTHYROXINE SODIUM 25 MCG TABLET PO SCH (06:22)
[2020-10-08] MEDS: SENNA/DOCUSATE SODIUM 8.6-50 MG TABLET PO SCH (08:40)
[2020-10-08] MEDS: LITHIUM CARBONATE 600 MG CAPSULE PO SCH ×2 (08:41→16:36)
[2020-10-08] MEDS: DIVALPROEX SODIUM 500 MG DR TABLET PO SCH ×2 (08:41→20:45)
[2020-10-08] MEDS: MAGNESIUM OXIDE 400 MG TABLET PO SCH ×2 (08:41→16:36)
[2020-10-08] MEDS: QUEtiapine FUMARATE 300 MG TABLET PO SCH ×2 (08:41→16:36)
[2020-10-08] MEDS: OMEGA-3/DHA/EPA/FISH OIL 1,000 MG CAPSULE PO SCH (08:41)
[2020-10-08] MEDS: LORazepam 2 MG TABLET PO PRN (14:31)
[2020-10-08 14:45] VITALS: BP 138/91
[2020-10-08] MEDS: HALOPERIDOL 10 MG TABLET PO SCH (20:45)
[2020-10-08] MEDS: OLANZapine 5 MG RAPDIS TABLET PO SCH (20:46)
[2020-10-09 00:03] VITALS: BP 122/87
[2020-10-09] MEDS: LEVOTHYROXINE SODIUM 25 MCG TABLET PO SCH (06:38)
[2020-10-09] MEDS: LITHIUM CARBONATE 600 MG CAPSULE PO SCH ×2 (08:06→16:22)
[2020-10-09] MEDS: DIVALPROEX SODIUM 500 MG DR TABLET PO SCH ×2 (08:06→20:21)
[2020-10-09] MEDS: QUEtiapine FUMARATE 300 MG TABLET PO SCH ×2 (08:06→16:22)
[2020-10-09] MEDS: SENNA/DOCUSATE SODIUM 8.6-50 MG TABLET PO SCH (08:06)
[2020-10-09] MEDS: MAGNESIUM OXIDE 400 MG TABLET PO SCH ×2 (08:06→16:22)
[2020-10-09] MEDS: OMEGA-3/DHA/EPA/FISH OIL 1,000 MG CAPSULE PO SCH (08:06)
[2020-10-09] MEDS: MAGNESIUM HYDROXIDE SUSPENSION 30 ML UDCUP PO PRN (17:05)
[2020-10-09] MEDS: LORazepam 2 MG TABLET PO PRN (20:21)
[2020-10-09] MEDS: HALOPERIDOL 10 MG TABLET PO SCH (20:21)
[2020-10-09] MEDS: OLANZapine 5 MG RAPDIS TABLET PO SCH (20:21)
[2020-10-10 01:01] VITALS: BP 114/78
[2020-10-10] MEDS: LEVOTHYROXINE SODIUM 25 MCG TABLET PO SCH (06:36)
[2020-10-10] MEDS: SENNA/DOCUSATE SODIUM 8.6-50 MG TABLET PO SCH (08:08)
[2020-10-10] MEDS: MAGNESIUM OXIDE 400 MG TABLET PO SCH ×2 (08:08→16:20)
[2020-10-10] MEDS: DIVALPROEX SODIUM 500 MG DR TABLET PO SCH ×2 (08:08→20:33)
[2020-10-10] MEDS: LITHIUM CARBONATE 600 MG CAPSULE PO SCH ×2 (08:08→16:20)
[2020-10-10] MEDS: QUEtiapine FUMARATE 300 MG TABLET PO SCH ×2 (08:08→16:20)
[2020-10-10] MEDS: OMEGA-3/DHA/EPA/FISH OIL 1,000 MG CAPSULE PO SCH (08:11)
[2020-10-10] MEDS: LORazepam 2 MG TABLET PO PRN (16:21)
[2020-10-10] MEDS: OLANZapine 5 MG RAPDIS TABLET PO SCH (20:34)
[2020-10-10] MEDS: HALOPERIDOL 10 MG TABLET PO SCH (20:34)
[2020-10-11] MEDS: LEVOTHYROXINE SODIUM 25 MCG TABLET PO SCH (06:03)
[2020-10-11] MEDS: QUEtiapine FUMARATE 300 MG TABLET PO SCH ×2 (08:22→16:18)
[2020-10-11] MEDS: SENNA/DOCUSATE SODIUM 8.6-50 MG TABLET PO SCH (08:22)
[2020-10-11] MEDS: LITHIUM CARBONATE 600 MG CAPSULE PO SCH ×2 (08:22→16:18)
[2020-10-11] MEDS: OMEGA-3/DHA/EPA/FISH OIL 1,000 MG CAPSULE PO SCH (08:22)
[2020-10-11] MEDS: MAGNESIUM OXIDE 400 MG TABLET PO SCH ×2 (08:22→16:18)
[2020-10-11] MEDS: DIVALPROEX SODIUM 500 MG DR TABLET PO SCH ×2 (08:23→21:58)
[2020-10-11] MEDS: OLANZapine 5 MG RAPDIS TABLET PO SCH (21:58)
[2020-10-11] MEDS: HALOPERIDOL 10 MG TABLET PO SCH (21:58)
[2020-10-11] MEDS: LORazepam 2 MG TABLET PO PRN (21:59)
[2020-10-12 00:44] VITALS: BP 106/72
[2020-10-12] MEDS: LEVOTHYROXINE SODIUM 25 MCG TABLET PO SCH (06:15)
[2020-10-12] MEDS: SENNA/DOCUSATE SODIUM 8.6-50 MG TABLET PO SCH (08:50)
[2020-10-12] MEDS: MAGNESIUM OXIDE 400 MG TABLET PO SCH ×2 (08:50→16:10)
[2020-10-12] MEDS: QUEtiapine FUMARATE 300 MG TABLET PO SCH ×2 (08:50→16:10)
[2020-10-12] MEDS: OMEGA-3/DHA/EPA/FISH OIL 1,000 MG CAPSULE PO SCH (08:50)
[2020-10-12] MEDS: DIVALPROEX SODIUM 500 MG DR TABLET PO SCH ×2 (08:50→19:33)
[2020-10-12] MEDS: LITHIUM CARBONATE 600 MG CAPSULE PO SCH ×2 (08:50→16:10)
[2020-10-12 16:15] VITALS: BP 112/63
[2020-10-12] MEDS: LORazepam 2 MG TABLET PO PRN (18:33)
[2020-10-12] MEDS: HALOPERIDOL 10 MG TABLET PO SCH (19:32)
[2020-10-12] MEDS: OLANZapine 5 MG RAPDIS TABLET PO SCH (19:32)
[2020-10-12] MEDS: ZOLPIDEM TARTRATE 10 MG TABLET PO PRN (21:43)
[2020-10-13 00:15] VITALS: BP 116/71
[2020-10-13] MEDS: LEVOTHYROXINE SODIUM 25 MCG TABLET PO SCH (06:50)
[2020-10-13] MEDS: OMEGA-3/DHA/EPA/FISH OIL 1,000 MG CAPSULE PO SCH (08:13)
[2020-10-13] MEDS: DIVALPROEX SODIUM 500 MG DR TABLET PO SCH ×2 (08:13→20:02)
[2020-10-13] MEDS: MAGNESIUM OXIDE 400 MG TABLET PO SCH ×2 (08:13→16:40)
[2020-10-13] MEDS: LITHIUM CARBONATE 600 MG CAPSULE PO SCH ×2 (08:13→16:39)
[2020-10-13] MEDS: QUEtiapine FUMARATE 300 MG TABLET PO SCH ×2 (08:13→16:40)
[2020-10-13] MEDS: SENNA/DOCUSATE SODIUM 8.6-50 MG TABLET PO SCH (08:13)
[2020-10-13] MEDS: OLANZapine 5 MG RAPDIS TABLET PO SCH (20:02)
[2020-10-13] MEDS: HALOPERIDOL 10 MG TABLET PO SCH (20:03)
[2020-10-13] MEDS: ZOLPIDEM TARTRATE 10 MG TABLET PO PRN (20:56)
[2020-10-14] MEDS: HALOPERIDOL 5 MG TABLET PO PRN (00:30)
[2020-10-14] MEDS: LORazepam 2 MG TABLET PO PRN ×2 (00:30→18:32)
[2020-10-14 02:02] VITALS: BP 114/65
[2020-10-14] MEDS: LEVOTHYROXINE SODIUM 25 MCG TABLET PO SCH (06:30)
[2020-10-14] MEDS: MAGNESIUM OXIDE 400 MG TABLET PO SCH ×2 (08:18→16:19)
[2020-10-14] MEDS: LITHIUM CARBONATE 600 MG CAPSULE PO SCH ×2 (08:18→16:19)
[2020-10-14] MEDS: QUEtiapine FUMARATE 300 MG TABLET PO SCH ×2 (08:19→16:19)
[2020-10-14] MEDS: OMEGA-3/DHA/EPA/FISH OIL 1,000 MG CAPSULE PO SCH (08:19)
[2020-10-14] MEDS: DIVALPROEX SODIUM 500 MG DR TABLET PO SCH ×2 (08:19→20:22)
[2020-10-14] MEDS: SENNA/DOCUSATE SODIUM 8.6-50 MG TABLET PO SCH (08:19)
[2020-10-14 12:47] VITALS: BP 114/70
[2020-10-14] MEDS: HALOPERIDOL 10 MG TABLET PO SCH (20:17)
[2020-10-14] MEDS: OLANZapine 5 MG RAPDIS TABLET PO SCH (20:17)
[2020-10-14] MEDS: ZOLPIDEM TARTRATE 10 MG TABLET PO PRN (20:22)
[2020-10-15 00:12] VITALS: BP 116/67
[2020-10-15 00:28] VITALS: BP 116/67
[2020-10-15] MEDS: LEVOTHYROXINE SODIUM 25 MCG TABLET PO SCH (06:22)
[2020-10-15] MEDS: QUEtiapine FUMARATE 300 MG TABLET PO SCH ×2 (09:07→16:18)
[2020-10-15] MEDS: SENNA/DOCUSATE SODIUM 8.6-50 MG TABLET PO SCH (09:07)
[2020-10-15] MEDS: MAGNESIUM OXIDE 400 MG TABLET PO SCH ×2 (09:07→16:18)
[2020-10-15] MEDS: DIVALPROEX SODIUM 500 MG DR TABLET PO SCH ×2 (09:07→20:09)
[2020-10-15] MEDS: OMEGA-3/DHA/EPA/FISH OIL 1,000 MG CAPSULE PO SCH (09:07)
[2020-10-15] MEDS: LITHIUM CARBONATE 600 MG CAPSULE PO SCH ×2 (09:07→16:18)
[2020-10-15] MEDS: HALOPERIDOL 10 MG TABLET PO SCH (20:09)
[2020-10-15] MEDS: LORazepam 2 MG TABLET PO PRN (20:09)
[2020-10-15] MEDS: ZOLPIDEM TARTRATE 10 MG TABLET PO PRN (20:09)
[2020-10-15] MEDS: OLANZapine 5 MG RAPDIS TABLET PO SCH (20:10)
[2020-10-16 00:41] VITALS: BP 111/64
[2020-10-16] MEDS: LEVOTHYROXINE SODIUM 25 MCG TABLET PO SCH (06:53)
[2020-10-16] MEDS: OMEGA-3/DHA/EPA/FISH OIL 1,000 MG CAPSULE PO SCH (09:05)
[2020-10-16] MEDS: SENNA/DOCUSATE SODIUM 8.6-50 MG TABLET PO SCH (09:05)
[2020-10-16] MEDS: DIVALPROEX SODIUM 500 MG DR TABLET PO SCH ×2 (09:06→20:10)
[2020-10-16] MEDS: QUEtiapine FUMARATE 300 MG TABLET PO SCH ×2 (09:06→16:10)
[2020-10-16] MEDS: LITHIUM CARBONATE 600 MG CAPSULE PO SCH ×2 (09:06→16:10)
[2020-10-16] MEDS: MAGNESIUM OXIDE 400 MG TABLET PO SCH ×2 (09:06→16:10)
[2020-10-16] MEDS: ZOLPIDEM TARTRATE 10 MG TABLET PO PRN (20:09)
[2020-10-16] MEDS: LORazepam 2 MG TABLET PO PRN (20:09)
[2020-10-16] MEDS: OLANZapine 5 MG RAPDIS TABLET PO SCH (20:10)
[2020-10-16] MEDS: HALOPERIDOL 10 MG TABLET PO SCH (20:10)
[2020-10-17 00:52] VITALS: BP 116/62
[2020-10-17] MEDS: LEVOTHYROXINE SODIUM 25 MCG TABLET PO SCH (06:20)
[2020-10-17] MEDS: SENNA/DOCUSATE SODIUM 8.6-50 MG TABLET PO SCH (08:46)
[2020-10-17] MEDS: QUEtiapine FUMARATE 300 MG TABLET PO SCH ×2 (08:47→16:35)
[2020-10-17] MEDS: LITHIUM CARBONATE 600 MG CAPSULE PO SCH ×2 (08:47→16:35)
[2020-10-17] MEDS: MAGNESIUM OXIDE 400 MG TABLET PO SCH ×2 (08:47→16:35)
[2020-10-17] MEDS: DIVALPROEX SODIUM 500 MG DR TABLET PO SCH ×2 (08:47→20:06)
[2020-10-17] MEDS: OMEGA-3/DHA/EPA/FISH OIL 1,000 MG CAPSULE PO SCH (08:47)
[2020-10-17 09:45] LABS: HEMATOCRIT 36.5 % (36-46); HEMOGLOBIN 12.1 g/dL (12.0-16.0); MEAN CORPUSCULAR HEMOGLOBIN 30.6 pg (26.0-34.0); MEAN CORPUSCULAR HGB CONC 33.2 G/dL (31.0-37.0); MEAN CORPUSCULAR VOLUME 92 fL (80-100); PLATELET COUNT (AUTO) 164 K/uL (150-450); RED BLOOD CELL COUNT(AUTO) 3.96 MIL/uL (4.00-5.20); RED CELL DISTRIBUTION WIDTH 12.9 % (11.5-14.5)
[2020-10-17 10:41] LABS: ANION GAP 12 mmol/L (8-16); CALCIUM, TOTAL 8.9 mg/dL (8.8-10.5); CARBON DIOXIDE 23 mmol/L (22-29); CHLORIDE 106 mmol/L (98-107); CHOL/HDL RATIO 3.3 (3.9-5.7); CHOLESTEROL 141 mg/dL (131-200); CREATININE 0.73 mg/dL (0.60-1.30); GLOMERULAR FILTR. RATE CALC > 60 mL/min (>60); GLUCOSE,RANDOM 89 mg/dL (70-110); HDL CHOLESTEROL 43 mg/dL (40-60); LDL CHOL (CALC.) 65 mg/dL (0-130); PHOSPHORUS 3.7 mg/dL (2.5-4.9); POTASSIUM 3.8 mmol/L (3.5-5.1); SODIUM SERUM 141 mmol/L (136-145); THYROID STIMULATING HORMONE 7.42 uIU/mL (0.36-3.74); TRIGLYCERIDES 167 mg/dL (15-150); UREA NITROGEN, BLOOD 18 mg/dL (7-18)
[2020-10-17 11:34] LABS: BAND NEUTROPHILS % (MANUAL) 2 % (0-5); LYMPHOCYTES % (MANUAL) 40 % (22-44); MONOCYTES % (MANUAL) 6 % (2-9); SEGMENTED NEUTROPHILS % 52 % (40-70)
[2020-10-17] MEDS: HALOPERIDOL 10 MG TABLET PO SCH (20:05)
[2020-10-17] MEDS: OLANZapine 5 MG RAPDIS TABLET PO SCH (20:06)
[2020-10-17] MEDS: ZOLPIDEM TARTRATE 10 MG TABLET PO PRN (20:26)
[2020-10-17] MEDS: LORazepam 2 MG TABLET PO PRN (20:26)
[2020-10-18 04:03] VITALS: BP 122/98
[2020-10-18] MEDS: LEVOTHYROXINE SODIUM 75 MCG TABLET PO SCH (07:01)
[2020-10-18] MEDS: QUEtiapine FUMARATE 300 MG TABLET PO SCH ×2 (08:29→16:30)
[2020-10-18] MEDS: DIVALPROEX SODIUM 500 MG DR TABLET PO SCH ×2 (08:29→20:13)
[2020-10-18] MEDS: MAGNESIUM OXIDE 400 MG TABLET PO SCH ×2 (08:29→16:30)
[2020-10-18] MEDS: SENNA/DOCUSATE SODIUM 8.6-50 MG TABLET PO SCH (08:29)
[2020-10-18] MEDS: LITHIUM CARBONATE 600 MG CAPSULE PO SCH ×2 (08:29→16:30)
[2020-10-18] MEDS: OMEGA-3/DHA/EPA/FISH OIL 1,000 MG CAPSULE PO SCH (08:45)
[2020-10-18] MEDS: OLANZapine 5 MG RAPDIS TABLET PO SCH (20:13)
[2020-10-18] MEDS: HALOPERIDOL 10 MG TABLET PO SCH (20:13)
[2020-10-18] MEDS: ZOLPIDEM TARTRATE 10 MG TABLET PO PRN (21:18)
[2020-10-18] MEDS: HYPROMELLOSE 0.5% 15 ML OPHTHALMIC SOLUTION OU PRN (21:45)
[2020-10-19 05:38] VITALS: BP 112/68
[2020-10-19] MEDS: LEVOTHYROXINE SODIUM 75 MCG TABLET PO SCH (06:54)
[2020-10-19] MEDS: QUEtiapine FUMARATE 300 MG TABLET PO SCH ×2 (08:56→16:28)
[2020-10-19] MEDS: SENNA/DOCUSATE SODIUM 8.6-50 MG TABLET PO SCH (08:56)
[2020-10-19] MEDS: OMEGA-3/DHA/EPA/FISH OIL 1,000 MG CAPSULE PO SCH (08:56)
[2020-10-19] MEDS: MAGNESIUM OXIDE 400 MG TABLET PO SCH ×2 (08:57→16:28)
[2020-10-19] MEDS: DIVALPROEX SODIUM 500 MG DR TABLET PO SCH ×2 (08:57→20:19)
[2020-10-19] MEDS: LITHIUM CARBONATE 600 MG CAPSULE PO SCH ×2 (08:57→16:28)
[2020-10-19] MEDS: OLANZapine 5 MG RAPDIS TABLET PO SCH (20:19)
[2020-10-19] MEDS: HALOPERIDOL 10 MG TABLET PO SCH (20:19)
[2020-10-19] MEDS: ZOLPIDEM TARTRATE 10 MG TABLET PO PRN (20:45)
[2020-10-20 01:28] VITALS: BP 114/75
[2020-10-20] MEDS: LEVOTHYROXINE SODIUM 75 MCG TABLET PO SCH (05:59)
[2020-10-20] MEDS: MAGNESIUM OXIDE 400 MG TABLET PO SCH ×2 (08:31→16:14)
[2020-10-20] MEDS: DIVALPROEX SODIUM 500 MG DR TABLET PO SCH ×2 (08:31→20:28)
[2020-10-20] MEDS: OMEGA-3/DHA/EPA/FISH OIL 1,000 MG CAPSULE PO SCH (08:31)
[2020-10-20] MEDS: QUEtiapine FUMARATE 300 MG TABLET PO SCH ×2 (08:31→16:14)
[2020-10-20] MEDS: LITHIUM CARBONATE 600 MG CAPSULE PO SCH ×2 (08:31→16:14)
[2020-10-20] MEDS: SENNA/DOCUSATE SODIUM 8.6-50 MG TABLET PO SCH (08:31)
[2020-10-20] MEDS: HALOPERIDOL 10 MG TABLET PO SCH (20:28)
[2020-10-20] MEDS: OLANZapine 5 MG RAPDIS TABLET PO SCH (20:28)
[2020-10-20] MEDS: ZOLPIDEM TARTRATE 10 MG TABLET PO PRN (20:28)
[2020-10-21 01:37] VITALS: BP 112/70
[2020-10-21] MEDS: LEVOTHYROXINE SODIUM 75 MCG TABLET PO SCH (06:06)
[2020-10-21] MEDS: MAGNESIUM OXIDE 400 MG TABLET PO SCH ×2 (08:28→16:42)
[2020-10-21] MEDS: SENNA/DOCUSATE SODIUM 8.6-50 MG TABLET PO SCH (08:28)
[2020-10-21] MEDS: OMEGA-3/DHA/EPA/FISH OIL 1,000 MG CAPSULE PO SCH (08:28)
[2020-10-21] MEDS: QUEtiapine FUMARATE 300 MG TABLET PO SCH ×2 (08:28→16:42)
[2020-10-21] MEDS: DIVALPROEX SODIUM 500 MG DR TABLET PO SCH ×2 (08:28→20:11)
[2020-10-21] MEDS: LITHIUM CARBONATE 600 MG CAPSULE PO SCH ×2 (08:28→16:42)
[2020-10-21] MEDS: HALOPERIDOL 10 MG TABLET PO SCH (20:11)
[2020-10-21] MEDS: OLANZapine 5 MG RAPDIS TABLET PO SCH (20:11)
[2020-10-21] MEDS: ZOLPIDEM TARTRATE 10 MG TABLET PO PRN (20:25)
[2020-10-21 20:27] VITALS: BP 120/74
[2020-10-22 01:05] VITALS: BP 112/73
[2020-10-22] MEDS: LEVOTHYROXINE SODIUM 75 MCG TABLET PO SCH (06:54)
[2020-10-22] MEDS: MAGNESIUM OXIDE 400 MG TABLET PO SCH ×2 (08:36→16:08)
[2020-10-22] MEDS: QUEtiapine FUMARATE 300 MG TABLET PO SCH ×2 (08:36→16:08)
[2020-10-22] MEDS: OMEGA-3/DHA/EPA/FISH OIL 1,000 MG CAPSULE PO SCH (08:36)
[2020-10-22] MEDS: SENNA/DOCUSATE SODIUM 8.6-50 MG TABLET PO SCH (08:37)
[2020-10-22] MEDS: DIVALPROEX SODIUM 500 MG DR TABLET PO SCH ×2 (08:37→20:06)
[2020-10-22] MEDS: LITHIUM CARBONATE 600 MG CAPSULE PO SCH ×2 (08:37→16:08)
[2020-10-22] MEDS: HALOPERIDOL 10 MG TABLET PO SCH (20:07)
[2020-10-22] MEDS: ZOLPIDEM TARTRATE 10 MG TABLET PO PRN (20:07)
[2020-10-22] MEDS: OLANZapine 5 MG RAPDIS TABLET PO SCH (20:07)
[2020-10-22] MEDS: MAGNESIUM HYDROXIDE SUSPENSION 30 ML UDCUP PO PRN (22:22)
[2020-10-22] MEDS: DOCUSATE SODIUM 100 MG CAPSULE PO PRN (22:22)
[2020-10-23 00:24] VITALS: BP 114/77
[2020-10-23] MEDS: LEVOTHYROXINE SODIUM 75 MCG TABLET PO SCH (06:25)
[2020-10-23 08:07] VITALS: BP 108/69
[2020-10-23] MEDS: DIVALPROEX SODIUM 500 MG DR TABLET PO SCH ×2 (08:43→20:01)
[2020-10-23] MEDS: LITHIUM CARBONATE 600 MG CAPSULE PO SCH ×2 (08:43→16:11)
[2020-10-23] MEDS: SENNA/DOCUSATE SODIUM 8.6-50 MG TABLET PO SCH (08:43)
[2020-10-23] MEDS: QUEtiapine FUMARATE 300 MG TABLET PO SCH ×2 (08:43→16:11)
[2020-10-23] MEDS: OMEGA-3/DHA/EPA/FISH OIL 1,000 MG CAPSULE PO SCH (08:43)
[2020-10-23] MEDS: MAGNESIUM OXIDE 400 MG TABLET PO SCH ×2 (08:43→16:11)
[2020-10-23] MEDS: MAGNESIUM HYDROXIDE SUSPENSION 30 ML UDCUP PO PRN (15:50)
[2020-10-23] MEDS: OLANZapine 5 MG RAPDIS TABLET PO SCH (20:01)
[2020-10-23] MEDS: ZOLPIDEM TARTRATE 10 MG TABLET PO PRN (20:01)
[2020-10-23] MEDS: HALOPERIDOL 10 MG TABLET PO SCH (20:01)
[2020-10-24] MEDS: LEVOTHYROXINE SODIUM 75 MCG TABLET PO SCH (06:17)
[2020-10-24] MEDS: MAGNESIUM OXIDE 400 MG TABLET PO SCH ×2 (08:12→16:41)
[2020-10-24] MEDS: OMEGA-3/DHA/EPA/FISH OIL 1,000 MG CAPSULE PO SCH (08:12)
[2020-10-24] MEDS: DIVALPROEX SODIUM 500 MG DR TABLET PO SCH ×2 (08:12→20:03)
[2020-10-24] MEDS: LITHIUM CARBONATE 600 MG CAPSULE PO SCH ×2 (08:12→16:41)
[2020-10-24] MEDS: QUEtiapine FUMARATE 300 MG TABLET PO SCH ×2 (08:13→16:42)
[2020-10-24] MEDS: SENNA/DOCUSATE SODIUM 8.6-50 MG TABLET PO SCH (08:13)
[2020-10-24] MEDS: HALOPERIDOL 10 MG TABLET PO SCH (20:03)
[2020-10-24] MEDS: OLANZapine 5 MG RAPDIS TABLET PO SCH (20:03)
[2020-10-24] MEDS: ZOLPIDEM TARTRATE 10 MG TABLET PO PRN (20:15)
[2020-10-25 01:01] VITALS: BP 112/75
[2020-10-25] MEDS: LEVOTHYROXINE SODIUM 75 MCG TABLET PO SCH (06:41)
[2020-10-25] MEDS: OMEGA-3/DHA/EPA/FISH OIL 1,000 MG CAPSULE PO SCH (08:34)
[2020-10-25] MEDS: LITHIUM CARBONATE 600 MG CAPSULE PO SCH ×2 (08:34→16:01)
[2020-10-25] MEDS: QUEtiapine FUMARATE 300 MG TABLET PO SCH ×2 (08:34→16:02)
[2020-10-25] MEDS: DIVALPROEX SODIUM 500 MG DR TABLET PO SCH ×2 (08:34→20:27)
[2020-10-25] MEDS: MAGNESIUM OXIDE 400 MG TABLET PO SCH ×2 (08:34→16:02)
[2020-10-25] MEDS: SENNA/DOCUSATE SODIUM 8.6-50 MG TABLET PO SCH (08:34)
[2020-10-25] MEDS: IBUPROFEN 600 MG TABLET PO PRN (16:20)
[2020-10-25] MEDS: HALOPERIDOL 10 MG TABLET PO SCH (20:27)
[2020-10-25] MEDS: OLANZapine 5 MG RAPDIS TABLET PO SCH (20:29)
[2020-10-25] MEDS: ZOLPIDEM TARTRATE 10 MG TABLET PO PRN (20:51)
[2020-10-26 00:34] VITALS: BP 118/76
[2020-10-26] MEDS: LEVOTHYROXINE SODIUM 75 MCG TABLET PO SCH (06:28)
[2020-10-26] MEDS: QUEtiapine FUMARATE 300 MG TABLET PO SCH ×2 (08:34→16:10)
[2020-10-26] MEDS: LITHIUM CARBONATE 600 MG CAPSULE PO SCH ×2 (08:34→16:09)
[2020-10-26] MEDS: SENNA/DOCUSATE SODIUM 8.6-50 MG TABLET PO SCH (08:34)
[2020-10-26] MEDS: DIVALPROEX SODIUM 500 MG DR TABLET PO SCH ×2 (08:35→20:31)
[2020-10-26] MEDS: OMEGA-3/DHA/EPA/FISH OIL 1,000 MG CAPSULE PO SCH (08:35)
[2020-10-26] MEDS: MAGNESIUM OXIDE 400 MG TABLET PO SCH ×2 (08:35→16:10)
[2020-10-26] MEDS: HALOPERIDOL 10 MG TABLET PO SCH (20:31)
[2020-10-26] MEDS: ZOLPIDEM TARTRATE 10 MG TABLET PO PRN (20:32)
[2020-10-26] MEDS: OLANZapine 5 MG RAPDIS TABLET PO SCH (20:32)
[2020-10-27 00:24] VITALS: BP 119/72
[2020-10-27] MEDS: LEVOTHYROXINE SODIUM 75 MCG TABLET PO SCH (06:45)
[2020-10-27] MEDS: LITHIUM CARBONATE 600 MG CAPSULE PO SCH ×2 (08:07→16:07)
[2020-10-27] MEDS: DIVALPROEX SODIUM 500 MG DR TABLET PO SCH ×2 (08:07→21:12)
[2020-10-27] MEDS: OMEGA-3/DHA/EPA/FISH OIL 1,000 MG CAPSULE PO SCH (08:07)
[2020-10-27] MEDS: MAGNESIUM OXIDE 400 MG TABLET PO SCH ×2 (08:07→16:07)
[2020-10-27] MEDS: SENNA/DOCUSATE SODIUM 8.6-50 MG TABLET PO SCH (08:07)
[2020-10-27] MEDS: QUEtiapine FUMARATE 300 MG TABLET PO SCH ×2 (08:07→16:07)
[2020-10-27] MEDS: HALOPERIDOL 10 MG TABLET PO SCH (20:12)
[2020-10-27] MEDS: OLANZapine 5 MG RAPDIS TABLET PO SCH (20:12)
[2020-10-27] MEDS: ZOLPIDEM TARTRATE 10 MG TABLET PO PRN (23:19)
[2020-10-28 04:13] VITALS: BP 121/76
[2020-10-28] MEDS: LEVOTHYROXINE SODIUM 75 MCG TABLET PO SCH (06:28)
[2020-10-28] MEDS: MAGNESIUM OXIDE 400 MG TABLET PO SCH ×2 (08:01→16:25)
[2020-10-28] MEDS: DIVALPROEX SODIUM 500 MG DR TABLET PO SCH ×2 (08:01→20:10)
[2020-10-28] MEDS: LITHIUM CARBONATE 600 MG CAPSULE PO SCH ×2 (08:01→16:25)
[2020-10-28] MEDS: OMEGA-3/DHA/EPA/FISH OIL 1,000 MG CAPSULE PO SCH (08:01)
[2020-10-28] MEDS: QUEtiapine FUMARATE 300 MG TABLET PO SCH ×2 (08:01→16:25)
[2020-10-28] MEDS: SENNA/DOCUSATE SODIUM 8.6-50 MG TABLET PO SCH (08:02)
[2020-10-28] MEDS: HALOPERIDOL 10 MG TABLET PO SCH (20:10)
[2020-10-28] MEDS: OLANZapine 5 MG RAPDIS TABLET PO SCH (20:10)
[2020-10-28] MEDS: DOCUSATE SODIUM 100 MG CAPSULE PO PRN (20:10)
[2020-10-28] MEDS: MAGNESIUM HYDROXIDE SUSPENSION 30 ML UDCUP PO PRN (21:30)
[2020-10-28] MEDS: ZOLPIDEM TARTRATE 10 MG TABLET PO PRN (21:30)
[2020-10-29 00:02] VITALS: BP 116/72
[2020-10-29] MEDS: LEVOTHYROXINE SODIUM 75 MCG TABLET PO SCH (06:27)
[2020-10-29] MEDS: DIVALPROEX SODIUM 500 MG DR TABLET PO SCH ×2 (08:16→20:00)
[2020-10-29] MEDS: MAGNESIUM OXIDE 400 MG TABLET PO SCH ×2 (08:16→16:13)
[2020-10-29] MEDS: SENNA/DOCUSATE SODIUM 8.6-50 MG TABLET PO SCH (08:16)
[2020-10-29] MEDS: QUEtiapine FUMARATE 300 MG TABLET PO SCH ×2 (08:16→16:13)
[2020-10-29] MEDS: LITHIUM CARBONATE 600 MG CAPSULE PO SCH ×2 (08:16→16:13)
[2020-10-29] MEDS: OMEGA-3/DHA/EPA/FISH OIL 1,000 MG CAPSULE PO SCH (08:19)
[2020-10-29] MEDS: HALOPERIDOL 10 MG TABLET PO SCH (20:01)
[2020-10-29] MEDS: OLANZapine 5 MG RAPDIS TABLET PO SCH (20:01)
[2020-10-29] MEDS: ZOLPIDEM TARTRATE 10 MG TABLET PO PRN (21:29)
[2020-10-30 00:30] VITALS: BP 102/74
[2020-10-30] MEDS: LEVOTHYROXINE SODIUM 75 MCG TABLET PO SCH (06:36)
[2020-10-30] MEDS: QUEtiapine FUMARATE 300 MG TABLET PO SCH ×2 (08:20→16:00)
[2020-10-30] MEDS: SENNA/DOCUSATE SODIUM 8.6-50 MG TABLET PO SCH (08:20)
[2020-10-30] MEDS: DIVALPROEX SODIUM 500 MG DR TABLET PO SCH ×2 (08:20→20:19)
[2020-10-30] MEDS: LITHIUM CARBONATE 600 MG CAPSULE PO SCH ×2 (08:20→16:00)
[2020-10-30] MEDS: MAGNESIUM OXIDE 400 MG TABLET PO SCH ×2 (08:20→16:00)
[2020-10-30] MEDS: OMEGA-3/DHA/EPA/FISH OIL 1,000 MG CAPSULE PO SCH (08:20)
[2020-10-30] MEDS: MAGNESIUM HYDROXIDE SUSPENSION 30 ML UDCUP PO PRN (18:35)
[2020-10-30] MEDS: OLANZapine 5 MG RAPDIS TABLET PO SCH (20:20)
[2020-10-30] MEDS: HALOPERIDOL 10 MG TABLET PO SCH (20:20)
[2020-10-30] MEDS: ZOLPIDEM TARTRATE 10 MG TABLET PO PRN (20:21)
[2020-10-31 00:06] VITALS: BP 114/78
[2020-10-31] MEDS: LEVOTHYROXINE SODIUM 75 MCG TABLET PO SCH (06:52)
[2020-10-31] MEDS: DIVALPROEX SODIUM 500 MG DR TABLET PO SCH ×2 (08:15→20:19)
[2020-10-31] MEDS: OMEGA-3/DHA/EPA/FISH OIL 1,000 MG CAPSULE PO SCH (08:15)
[2020-10-31] MEDS: LITHIUM CARBONATE 600 MG CAPSULE PO SCH ×2 (08:15→17:00)
[2020-10-31] MEDS: QUEtiapine FUMARATE 300 MG TABLET PO SCH ×2 (08:15→17:00)
[2020-10-31] MEDS: MAGNESIUM OXIDE 400 MG TABLET PO SCH ×2 (08:15→17:00)
[2020-10-31] MEDS: SENNA/DOCUSATE SODIUM 8.6-50 MG TABLET PO SCH (08:15)
[2020-10-31] MEDS: IBUPROFEN 600 MG TABLET PO PRN ×3 (08:16→22:55)
[2020-10-31] MEDS ORDERED: BENZOCAINE 20% 7 GM GEL TP PRN (18:00)
[2020-10-31] MEDS: ZOLPIDEM TARTRATE 10 MG TABLET PO PRN (20:16)
[2020-10-31] MEDS: ACETAMINOPHEN 325 MG TABLET PO PRN (20:16)
[2020-10-31] MEDS: OLANZapine 5 MG RAPDIS TABLET PO SCH (20:17)
[2020-10-31] MEDS: HALOPERIDOL 10 MG TABLET PO SCH (20:17)
[2020-10-31] MEDS: LORazepam 2 MG TABLET PO PRN (22:55)
[2020-11-01 01:33] VITALS: BP 112/76
[2020-11-01] MEDS: ACETAMINOPHEN 325 MG TABLET PO PRN (03:10)
[2020-11-01] MEDS: LEVOTHYROXINE SODIUM 75 MCG TABLET PO SCH (06:25)
[2020-11-01] MEDS: QUEtiapine FUMARATE 300 MG TABLET PO SCH ×2 (09:18→16:54)
[2020-11-01] MEDS: MAGNESIUM OXIDE 400 MG TABLET PO SCH ×2 (09:18→16:54)
[2020-11-01] MEDS: LITHIUM CARBONATE 600 MG CAPSULE PO SCH ×2 (09:18→16:54)
[2020-11-01] MEDS: DIVALPROEX SODIUM 500 MG DR TABLET PO SCH ×2 (09:18→19:53)
[2020-11-01] MEDS: OMEGA-3/DHA/EPA/FISH OIL 1,000 MG CAPSULE PO SCH (09:18)
[2020-11-01] MEDS: SENNA/DOCUSATE SODIUM 8.6-50 MG TABLET PO SCH (09:18)
[2020-11-01] MEDS: IBUPROFEN 600 MG TABLET PO PRN (09:52)
[2020-11-01] MEDS: AMOXICILLIN TRIHYDRATE 500 MG CAPSULE PO SCH ×3 (10:00→16:54)
[2020-11-01] MEDS ORDERED: HYDROCODONE/ACETAMINOPHEN 5-325 MG TABLET PO PRN (18:15)
[2020-11-01] MEDS: HALOPERIDOL 10 MG TABLET PO SCH (19:53)
[2020-11-01] MEDS: OLANZapine 5 MG RAPDIS TABLET PO SCH (19:53)
[2020-11-01] MEDS: ZOLPIDEM TARTRATE 10 MG TABLET PO PRN (20:20)
[2020-11-02 01:22] VITALS: BP 118/73
[2020-11-02] MEDS: LEVOTHYROXINE SODIUM 75 MCG TABLET PO SCH (06:45)
[2020-11-02 08:00] VITALS: BP 114/74
[2020-11-02] MEDS: AMOXICILLIN TRIHYDRATE 500 MG CAPSULE PO SCH ×3 (08:10→16:32)
[2020-11-02] MEDS: MAGNESIUM OXIDE 400 MG TABLET PO SCH ×2 (08:10→16:32)
[2020-11-02] MEDS: SENNA/DOCUSATE SODIUM 8.6-50 MG TABLET PO SCH (08:10)
[2020-11-02] MEDS: OMEGA-3/DHA/EPA/FISH OIL 1,000 MG CAPSULE PO SCH (08:11)
[2020-11-02] MEDS: QUEtiapine FUMARATE 300 MG TABLET PO SCH ×2 (08:11→16:32)
[2020-11-02] MEDS: LITHIUM CARBONATE 600 MG CAPSULE PO SCH ×2 (08:11→16:32)
[2020-11-02] MEDS: DIVALPROEX SODIUM 500 MG DR TABLET PO SCH ×2 (08:11→20:02)
[2020-11-02] MEDS: ZOLPIDEM TARTRATE 10 MG TABLET PO PRN (20:03)
[2020-11-02] MEDS: HALOPERIDOL 10 MG TABLET PO SCH (20:03)
[2020-11-02] MEDS: OLANZapine 5 MG RAPDIS TABLET PO SCH (20:03)
[2020-11-02] MEDS: IBUPROFEN 600 MG TABLET PO PRN (20:17)
[2020-11-03] VITALS: BP 116/71
[2020-11-03] MEDS: LEVOTHYROXINE SODIUM 75 MCG TABLET PO SCH (06:38)
[2020-11-03] MEDS: SENNA/DOCUSATE SODIUM 8.6-50 MG TABLET PO SCH (08:24)
[2020-11-03] MEDS: DIVALPROEX SODIUM 500 MG DR TABLET PO SCH ×2 (08:27→20:38)
[2020-11-03] MEDS: OMEGA-3/DHA/EPA/FISH OIL 1,000 MG CAPSULE PO SCH (08:27)
[2020-11-03] MEDS: QUEtiapine FUMARATE 300 MG TABLET PO SCH ×2 (08:27→16:22)
[2020-11-03] MEDS: LITHIUM CARBONATE 600 MG CAPSULE PO SCH ×2 (08:27→16:22)
[2020-11-03] MEDS: MAGNESIUM OXIDE 400 MG TABLET PO SCH ×2 (08:27→16:22)
[2020-11-03] MEDS: AMOXICILLIN TRIHYDRATE 500 MG CAPSULE PO SCH ×3 (11:56→18:02)
[2020-11-03] MEDS: OLANZapine 5 MG RAPDIS TABLET PO SCH (20:38)
[2020-11-03] MEDS: HALOPERIDOL 10 MG TABLET PO SCH (20:38)
[2020-11-03] MEDS: ZOLPIDEM TARTRATE 10 MG TABLET PO PRN (20:58)
[2020-11-03] MEDS: LORazepam 2 MG TABLET PO PRN (22:23)
[2020-11-04 00:11] VITALS: BP 114/79
[2020-11-04] MEDS: LEVOTHYROXINE SODIUM 75 MCG TABLET PO SCH (06:31)
[2020-11-04] MEDS: SENNA/DOCUSATE SODIUM 8.6-50 MG TABLET PO SCH (08:08)
[2020-11-04] MEDS: MAGNESIUM OXIDE 400 MG TABLET PO SCH ×2 (08:08→17:08)
[2020-11-04] MEDS: OMEGA-3/DHA/EPA/FISH OIL 1,000 MG CAPSULE PO SCH (08:08)
[2020-11-04] MEDS: AMOXICILLIN TRIHYDRATE 500 MG CAPSULE PO SCH ×3 (08:08→17:08)
[2020-11-04] MEDS: LITHIUM CARBONATE 600 MG CAPSULE PO SCH ×2 (08:08→17:08)
[2020-11-04] MEDS: DIVALPROEX SODIUM 500 MG DR TABLET PO SCH ×2 (08:09→20:54)
[2020-11-04] MEDS: QUEtiapine FUMARATE 300 MG TABLET PO SCH ×2 (08:09→17:08)
[2020-11-04 16:15] VITALS: BP 130/84
[2020-11-04] MEDS: ZOLPIDEM TARTRATE 10 MG TABLET PO PRN (19:42)
[2020-11-04] MEDS: HALOPERIDOL 10 MG TABLET PO SCH (20:54)
[2020-11-04] MEDS: OLANZapine 5 MG RAPDIS TABLET PO SCH (20:54)
[2020-11-04] MEDS: LORazepam 2 MG TABLET PO PRN (22:04)
[2020-11-05 01:40] VITALS: BP 118/76
[2020-11-05] MEDS: LEVOTHYROXINE SODIUM 75 MCG TABLET PO SCH (06:53)
[2020-11-05 08:04] VITALS: BP 114/79
[2020-11-05] MEDS: SENNA/DOCUSATE SODIUM 8.6-50 MG TABLET PO SCH (08:10)
[2020-11-05] MEDS: DIVALPROEX SODIUM 500 MG DR TABLET PO SCH ×2 (08:10→20:24)
[2020-11-05] MEDS: AMOXICILLIN TRIHYDRATE 500 MG CAPSULE PO SCH ×3 (08:10→16:15)
[2020-11-05] MEDS: OMEGA-3/DHA/EPA/FISH OIL 1,000 MG CAPSULE PO SCH (08:10)
[2020-11-05] MEDS: LITHIUM CARBONATE 600 MG CAPSULE PO SCH ×2 (08:11→16:15)
[2020-11-05] MEDS: MAGNESIUM OXIDE 400 MG TABLET PO SCH ×2 (08:11→16:15)
[2020-11-05] MEDS: QUEtiapine FUMARATE 300 MG TABLET PO SCH ×2 (08:11→16:15)
[2020-11-05] MEDS: IBUPROFEN 600 MG TABLET PO PRN (20:24)
[2020-11-05] MEDS: HALOPERIDOL 10 MG TABLET PO SCH (20:25)
[2020-11-05] MEDS: OLANZapine 5 MG RAPDIS TABLET PO SCH (20:25)
[2020-11-05] MEDS: LORazepam 2 MG TABLET PO PRN (20:25)
[2020-11-05] MEDS: ZOLPIDEM TARTRATE 10 MG TABLET PO PRN (21:20)
[2020-11-06 02:11] VITALS: BP 124/78
[2020-11-06] MEDS: LEVOTHYROXINE SODIUM 75 MCG TABLET PO SCH (06:59)
[2020-11-06 07:55] LABS: COVID AG,FIA SOURCE NASOPHARYNGEAL
[2020-11-06] MEDS: AMOXICILLIN TRIHYDRATE 500 MG CAPSULE PO SCH ×3 (08:45→16:04)
[2020-11-06] MEDS: SENNA/DOCUSATE SODIUM 8.6-50 MG TABLET PO SCH (08:45)
[2020-11-06] MEDS: DIVALPROEX SODIUM 500 MG DR TABLET PO SCH ×2 (08:46→20:26)
[2020-11-06] MEDS: QUEtiapine FUMARATE 300 MG TABLET PO SCH ×2 (08:46→17:03)
[2020-11-06] MEDS: LITHIUM CARBONATE 600 MG CAPSULE PO SCH ×2 (08:46→16:44)
[2020-11-06] MEDS: OMEGA-3/DHA/EPA/FISH OIL 1,000 MG CAPSULE PO SCH (08:46)
[2020-11-06] MEDS: MAGNESIUM OXIDE 400 MG TABLET PO SCH ×2 (08:46→16:44)
[2020-11-06] MEDS: LORazepam 2 MG TABLET PO PRN (16:44)
[2020-11-06] MEDS: HALOPERIDOL 10 MG TABLET PO SCH (20:26)
[2020-11-06] MEDS: OLANZapine 5 MG RAPDIS TABLET PO SCH (20:27)
[2020-11-06] MEDS: ZOLPIDEM TARTRATE 10 MG TABLET PO PRN (20:54)
[2020-11-07 00:01] VITALS: BP 140/90
[2020-11-07] MEDS: LEVOTHYROXINE SODIUM 75 MCG TABLET PO SCH (06:38)
[2020-11-07] MEDS: AMOXICILLIN TRIHYDRATE 500 MG CAPSULE PO SCH ×3 (08:28→16:11)
[2020-11-07] MEDS: LITHIUM CARBONATE 600 MG CAPSULE PO SCH ×2 (08:28→16:12)
[2020-11-07] MEDS: DIVALPROEX SODIUM 500 MG DR TABLET PO SCH ×2 (08:29→19:59)
[2020-11-07] MEDS: OMEGA-3/DHA/EPA/FISH OIL 1,000 MG CAPSULE PO SCH (08:31)
[2020-11-07] MEDS: MAGNESIUM OXIDE 400 MG TABLET PO SCH ×2 (08:31→16:12)
[2020-11-07] MEDS: QUEtiapine FUMARATE 300 MG TABLET PO SCH ×2 (08:31→16:12)
[2020-11-07] MEDS: SENNA/DOCUSATE SODIUM 8.6-50 MG TABLET PO SCH (08:31)
[2020-11-07] MEDS: LORazepam 2 MG TABLET PO PRN ×2 (19:58)
[2020-11-07] MEDS: HALOPERIDOL 10 MG TABLET PO SCH (19:58)
[2020-11-07] MEDS: OLANZapine 5 MG RAPDIS TABLET PO SCH (19:59)
[2020-11-07] MEDS: ZOLPIDEM TARTRATE 10 MG TABLET PO PRN (20:16)
[2020-11-07] MEDS: IBUPROFEN 600 MG TABLET PO PRN (23:59)
[2020-11-08] VITALS: BP 131/86
[2020-11-08 00:25] VITALS: BP 126/77
[2020-11-08] MEDS: LEVOTHYROXINE SODIUM 75 MCG TABLET PO SCH (06:34)
[2020-11-08] MEDS: OMEGA-3/DHA/EPA/FISH OIL 1,000 MG CAPSULE PO SCH (08:38)
[2020-11-08] MEDS: DIVALPROEX SODIUM 500 MG DR TABLET PO SCH ×2 (08:39→20:42)
[2020-11-08] MEDS: MAGNESIUM OXIDE 400 MG TABLET PO SCH ×2 (08:39→16:59)
[2020-11-08] MEDS: AMOXICILLIN TRIHYDRATE 500 MG CAPSULE PO SCH ×3 (08:39→18:00)
[2020-11-08] MEDS: LITHIUM CARBONATE 600 MG CAPSULE PO SCH ×2 (08:39→16:59)
[2020-11-08] MEDS: QUEtiapine FUMARATE 300 MG TABLET PO SCH ×2 (08:39→16:59)
[2020-11-08] MEDS: SENNA/DOCUSATE SODIUM 8.6-50 MG TABLET PO SCH (08:40)
[2020-11-08] MEDS: IBUPROFEN 600 MG TABLET PO PRN ×2 (12:11→23:08)
[2020-11-08] MEDS: DOCUSATE SODIUM 100 MG CAPSULE PO PRN (20:41)
[2020-11-08] MEDS: HALOPERIDOL 10 MG TABLET PO SCH (20:42)
[2020-11-08] MEDS: OLANZapine 5 MG RAPDIS TABLET PO SCH (20:42)
[2020-11-08] MEDS: ZOLPIDEM TARTRATE 10 MG TABLET PO PRN (23:09)
[2020-11-09] MEDS: LORazepam 2 MG TABLET PO PRN ×2 (00:26→20:09)
[2020-11-09 01:28] VITALS: BP 140/86
[2020-11-09] MEDS: LEVOTHYROXINE SODIUM 75 MCG TABLET PO SCH (06:32)
[2020-11-09] MEDS: AMOXICILLIN TRIHYDRATE 500 MG CAPSULE PO SCH ×3 (08:32→16:00)
[2020-11-09] MEDS: OMEGA-3/DHA/EPA/FISH OIL 1,000 MG CAPSULE PO SCH (08:33)
[2020-11-09] MEDS: QUEtiapine FUMARATE 300 MG TABLET PO SCH ×2 (08:33→16:00)
[2020-11-09] MEDS: MAGNESIUM OXIDE 400 MG TABLET PO SCH ×2 (08:33→16:00)
[2020-11-09] MEDS: SENNA/DOCUSATE SODIUM 8.6-50 MG TABLET PO SCH (08:33)
[2020-11-09] MEDS: LITHIUM CARBONATE 600 MG CAPSULE PO SCH ×2 (08:33→16:00)
[2020-11-09] MEDS: DIVALPROEX SODIUM 500 MG DR TABLET PO SCH ×2 (08:33→20:09)
[2020-11-09] MEDS: HALOPERIDOL 10 MG TABLET PO SCH (20:09)
[2020-11-09] MEDS: ZOLPIDEM TARTRATE 10 MG TABLET PO PRN (20:10)
[2020-11-09] MEDS: OLANZapine 5 MG RAPDIS TABLET PO SCH (20:10)
[2020-11-10 00:03] VITALS: BP 120/82
[2020-11-10] MEDS: LEVOTHYROXINE SODIUM 75 MCG TABLET PO SCH (06:37)
[2020-11-10] MEDS: LITHIUM CARBONATE 600 MG CAPSULE PO SCH ×2 (08:27→16:59)
[2020-11-10] MEDS: AMOXICILLIN TRIHYDRATE 500 MG CAPSULE PO SCH ×3 (08:27→20:07)
[2020-11-10] MEDS: MAGNESIUM OXIDE 400 MG TABLET PO SCH ×2 (08:27→16:59)
[2020-11-10] MEDS: QUEtiapine FUMARATE 300 MG TABLET PO SCH ×2 (08:27→16:59)
[2020-11-10] MEDS: OMEGA-3/DHA/EPA/FISH OIL 1,000 MG CAPSULE PO SCH (08:27)
[2020-11-10] MEDS: SENNA/DOCUSATE SODIUM 8.6-50 MG TABLET PO SCH (08:27)
[2020-11-10] MEDS: DIVALPROEX SODIUM 500 MG DR TABLET PO SCH ×2 (08:27→20:08)
[2020-11-10] MEDS: HALOPERIDOL 10 MG TABLET PO SCH (20:08)
[2020-11-10] MEDS: OLANZapine 5 MG RAPDIS TABLET PO SCH (20:08)
[2020-11-11] MEDS: ACETAMINOPHEN 325 MG TABLET PO PRN (00:03)
[2020-11-11] MEDS: HYDROCODONE/ACETAMINOPHEN 5-325 MG TABLET PO PRN (00:11)
[2020-11-11 00:30] VITALS: BP 136/84
[2020-11-11] MEDS: ZOLPIDEM TARTRATE 10 MG TABLET PO PRN ×2 (01:16→20:08)
[2020-11-11] MEDS: LEVOTHYROXINE SODIUM 75 MCG TABLET PO SCH (06:45)
[2020-11-11 08:14] VITALS: BP 118/73
[2020-11-11] MEDS: OMEGA-3/DHA/EPA/FISH OIL 1,000 MG CAPSULE PO SCH (08:14)
[2020-11-11] MEDS: LITHIUM CARBONATE 600 MG CAPSULE PO SCH ×2 (08:14→17:10)
[2020-11-11] MEDS: QUEtiapine FUMARATE 300 MG TABLET PO SCH ×2 (08:14→17:10)
[2020-11-11] MEDS: SENNA/DOCUSATE SODIUM 8.6-50 MG TABLET PO SCH (08:14)
[2020-11-11] MEDS: DIVALPROEX SODIUM 500 MG DR TABLET PO SCH ×2 (08:14→20:08)
[2020-11-11] MEDS: MAGNESIUM OXIDE 400 MG TABLET PO SCH ×2 (08:15→17:10)
[2020-11-11] MEDS: OLANZapine 5 MG RAPDIS TABLET PO SCH (20:07)
[2020-11-11] MEDS: HALOPERIDOL 10 MG TABLET PO SCH (20:08)
[2020-11-12] MEDS: HYDROCODONE/ACETAMINOPHEN 5-325 MG TABLET PO PRN ×2 (00:06→21:34)
[2020-11-12 00:15] VITALS: BP 126/88
[2020-11-12] MEDS: LEVOTHYROXINE SODIUM 75 MCG TABLET PO SCH (06:47)
[2020-11-12] MEDS: OMEGA-3/DHA/EPA/FISH OIL 1,000 MG CAPSULE PO SCH (07:58)
[2020-11-12] MEDS: LITHIUM CARBONATE 600 MG CAPSULE PO SCH ×2 (07:58→16:33)
[2020-11-12] MEDS: QUEtiapine FUMARATE 300 MG TABLET PO SCH ×2 (07:58→16:33)
[2020-11-12] MEDS: MAGNESIUM OXIDE 400 MG TABLET PO SCH ×2 (07:58→16:33)
[2020-11-12] MEDS: SENNA/DOCUSATE SODIUM 8.6-50 MG TABLET PO SCH (07:58)
[2020-11-12] MEDS: DIVALPROEX SODIUM 500 MG DR TABLET PO SCH ×2 (07:58→20:07)
[2020-11-12] MEDS: OLANZapine 5 MG RAPDIS TABLET PO SCH (20:06)
[2020-11-12] MEDS: HALOPERIDOL 10 MG TABLET PO SCH (20:06)
[2020-11-12] MEDS: ZOLPIDEM TARTRATE 10 MG TABLET PO PRN (20:07)
[2020-11-12 21:32] VITALS: BP 152/92
[2020-11-13 00:52] VITALS: BP 136/86
[2020-11-13] MEDS: LEVOTHYROXINE SODIUM 75 MCG TABLET PO SCH (06:30)
[2020-11-13] MEDS: DIVALPROEX SODIUM 500 MG DR TABLET PO SCH ×2 (08:07→20:19)
[2020-11-13] MEDS: QUEtiapine FUMARATE 300 MG TABLET PO SCH ×2 (08:07→16:28)
[2020-11-13] MEDS: LITHIUM CARBONATE 600 MG CAPSULE PO SCH ×2 (08:07→16:27)
[2020-11-13] MEDS: OMEGA-3/DHA/EPA/FISH OIL 1,000 MG CAPSULE PO SCH (08:08)
[2020-11-13] MEDS: MAGNESIUM OXIDE 400 MG TABLET PO SCH ×2 (08:08→16:27)
[2020-11-13] MEDS: SENNA/DOCUSATE SODIUM 8.6-50 MG TABLET PO SCH (08:08)
[2020-11-13 08:13] VITALS: BP 132/88
[2020-11-13 16:29] VITALS: BP 118/94
[2020-11-13] MEDS: HYDROCODONE/ACETAMINOPHEN 5-325 MG TABLET PO PRN (19:12)
[2020-11-13] MEDS: HALOPERIDOL 10 MG TABLET PO SCH (20:18)
[2020-11-13] MEDS: OLANZapine 5 MG RAPDIS TABLET PO SCH (20:19)
[2020-11-13] MEDS: ZOLPIDEM TARTRATE 10 MG TABLET PO PRN (21:44)
[2020-11-14 00:03] VITALS: BP 110/90
[2020-11-14] MEDS: LEVOTHYROXINE SODIUM 75 MCG TABLET PO SCH (06:28)
[2020-11-14] MEDS: LITHIUM CARBONATE 600 MG CAPSULE PO SCH ×2 (08:32→16:33)
[2020-11-14] MEDS: SENNA/DOCUSATE SODIUM 8.6-50 MG TABLET PO SCH (08:33)
[2020-11-14] MEDS: QUEtiapine FUMARATE 300 MG TABLET PO SCH ×2 (08:33→16:33)
[2020-11-14] MEDS: DIVALPROEX SODIUM 500 MG DR TABLET PO SCH ×2 (08:34→21:09)
[2020-11-14] MEDS: MAGNESIUM OXIDE 400 MG TABLET PO SCH ×2 (08:34→16:33)
[2020-11-14] MEDS: OMEGA-3/DHA/EPA/FISH OIL 1,000 MG CAPSULE PO SCH (08:34)
[2020-11-14] MEDS: LORazepam 2 MG TABLET PO PRN (10:44)
[2020-11-14] MEDS: HALOPERIDOL 10 MG TABLET PO SCH (21:07)
[2020-11-14] MEDS: OLANZapine 5 MG RAPDIS TABLET PO SCH (21:08)
[2020-11-14] MEDS: ZOLPIDEM TARTRATE 10 MG TABLET PO PRN (21:09)
[2020-11-14] MEDS: HYDROCODONE/ACETAMINOPHEN 5-325 MG TABLET PO PRN (23:39)
[2020-11-15 00:27] VITALS: BP 136/112
[2020-11-15 00:45] VITALS: BP 136/131
[2020-11-15] MEDS: LEVOTHYROXINE SODIUM 75 MCG TABLET PO SCH (06:43)
[2020-11-15 08:18] VITALS: BP 136/91
[2020-11-15] MEDS: LITHIUM CARBONATE 600 MG CAPSULE PO SCH ×2 (08:26→16:13)
[2020-11-15] MEDS: SENNA/DOCUSATE SODIUM 8.6-50 MG TABLET PO SCH (08:26)
[2020-11-15] MEDS: DIVALPROEX SODIUM 500 MG DR TABLET PO SCH ×2 (08:26→20:34)
[2020-11-15] MEDS: MAGNESIUM OXIDE 400 MG TABLET PO SCH ×2 (08:27→16:14)
[2020-11-15] MEDS: QUEtiapine FUMARATE 300 MG TABLET PO SCH ×2 (08:27→16:14)
[2020-11-15] MEDS: OMEGA-3/DHA/EPA/FISH OIL 1,000 MG CAPSULE PO SCH (08:27)
[2020-11-15] MEDS: MAGNESIUM HYDROXIDE SUSPENSION 30 ML UDCUP PO PRN (17:21)
[2020-11-15] MEDS: ZOLPIDEM TARTRATE 10 MG TABLET PO PRN (19:36)
[2020-11-15] MEDS: HALOPERIDOL 10 MG TABLET PO SCH (20:34)
[2020-11-15] MEDS: OLANZapine 5 MG RAPDIS TABLET PO SCH (20:35)
[2020-11-16] VITALS: BP 132/87
[2020-11-16] MEDS: ACETAMINOPHEN 325 MG TABLET PO PRN (00:03)
[2020-11-16 00:58] VITALS: BP 132/87
[2020-11-16] MEDS: LEVOTHYROXINE SODIUM 75 MCG TABLET PO SCH (06:29)
[2020-11-16] MEDS: LITHIUM CARBONATE 600 MG CAPSULE PO SCH ×2 (08:11→16:28)
[2020-11-16] MEDS: DIVALPROEX SODIUM 500 MG DR TABLET PO SCH ×2 (08:11→19:51)
[2020-11-16] MEDS: SENNA/DOCUSATE SODIUM 8.6-50 MG TABLET PO SCH (08:12)
[2020-11-16] MEDS: QUEtiapine FUMARATE 300 MG TABLET PO SCH ×2 (08:12→16:28)
[2020-11-16] MEDS: MAGNESIUM OXIDE 400 MG TABLET PO SCH ×2 (08:12→16:28)
[2020-11-16] MEDS: OMEGA-3/DHA/EPA/FISH OIL 1,000 MG CAPSULE PO SCH (08:12)
[2020-11-16] MEDS: HALOPERIDOL 10 MG TABLET PO SCH (19:51)
[2020-11-16] MEDS: ZOLPIDEM TARTRATE 10 MG TABLET PO PRN (19:51)
[2020-11-16] MEDS: OLANZapine 5 MG RAPDIS TABLET PO SCH (19:51)
[2020-11-16] MEDS: LORazepam 2 MG TABLET PO PRN (23:50)
[2020-11-17 00:02] VITALS: BP 121/80
[2020-11-17] MEDS: LEVOTHYROXINE SODIUM 75 MCG TABLET PO SCH (06:20)
[2020-11-17] MEDS: OMEGA-3/DHA/EPA/FISH OIL 1,000 MG CAPSULE PO SCH (08:11)
[2020-11-17] MEDS: SENNA/DOCUSATE SODIUM 8.6-50 MG TABLET PO SCH (08:11)
[2020-11-17] MEDS: LITHIUM CARBONATE 600 MG CAPSULE PO SCH ×2 (08:11→16:25)
[2020-11-17] MEDS: MAGNESIUM OXIDE 400 MG TABLET PO SCH ×2 (08:12→16:25)
[2020-11-17] MEDS: QUEtiapine FUMARATE 300 MG TABLET PO SCH ×2 (08:12→16:25)
[2020-11-17] MEDS: DIVALPROEX SODIUM 500 MG DR TABLET PO SCH ×2 (08:12→20:07)
[2020-11-17] MEDS: HALOPERIDOL 10 MG TABLET PO SCH (20:06)
[2020-11-17] MEDS: OLANZapine 5 MG RAPDIS TABLET PO SCH (20:06)
[2020-11-17] MEDS: ZOLPIDEM TARTRATE 10 MG TABLET PO PRN (20:07)
[2020-11-17] MEDS: LORazepam 2 MG TABLET PO PRN (22:58)
[2020-11-18 00:45] VITALS: BP 118/77
[2020-11-18] MEDS: LEVOTHYROXINE SODIUM 75 MCG TABLET PO SCH (06:33)
[2020-11-18] MEDS: LITHIUM CARBONATE 600 MG CAPSULE PO SCH ×2 (07:59→16:06)
[2020-11-18] MEDS: OMEGA-3/DHA/EPA/FISH OIL 1,000 MG CAPSULE PO SCH (07:59)
[2020-11-18] MEDS: SENNA/DOCUSATE SODIUM 8.6-50 MG TABLET PO SCH (07:59)
[2020-11-18] MEDS: DIVALPROEX SODIUM 500 MG DR TABLET PO SCH ×2 (07:59→20:01)
[2020-11-18] MEDS: QUEtiapine FUMARATE 300 MG TABLET PO SCH ×2 (08:00→16:06)
[2020-11-18] MEDS: MAGNESIUM OXIDE 400 MG TABLET PO SCH ×2 (08:00→16:06)
[2020-11-18] MEDS: HALOPERIDOL 10 MG TABLET PO SCH (20:00)
[2020-11-18] MEDS: OLANZapine 5 MG RAPDIS TABLET PO SCH (20:01)
[2020-11-18] MEDS: ZOLPIDEM TARTRATE 10 MG TABLET PO PRN (20:01)
[2020-11-19 00:45] VITALS: BP 112/69
[2020-11-19] MEDS: IBUPROFEN 600 MG TABLET PO PRN (01:33)
[2020-11-19] MEDS: LEVOTHYROXINE SODIUM 75 MCG TABLET PO SCH (06:31)
[2020-11-19] MEDS: OMEGA-3/DHA/EPA/FISH OIL 1,000 MG CAPSULE PO SCH (08:07)
[2020-11-19] MEDS: DIVALPROEX SODIUM 500 MG DR TABLET PO SCH ×2 (08:07→20:02)
[2020-11-19] MEDS: MAGNESIUM OXIDE 400 MG TABLET PO SCH ×2 (08:07→16:29)
[2020-11-19] MEDS: LITHIUM CARBONATE 600 MG CAPSULE PO SCH ×2 (08:07→16:29)
[2020-11-19] MEDS: QUEtiapine FUMARATE 300 MG TABLET PO SCH ×2 (08:07→16:29)
[2020-11-19] MEDS: SENNA/DOCUSATE SODIUM 8.6-50 MG TABLET PO SCH (08:08)
[2020-11-19] MEDS: OLANZapine 5 MG RAPDIS TABLET PO SCH (20:02)
[2020-11-19] MEDS: HALOPERIDOL 10 MG TABLET PO SCH (20:02)
[2020-11-19] MEDS: ZOLPIDEM TARTRATE 10 MG TABLET PO PRN (20:57)
[2020-11-20] MEDS: LORazepam 2 MG TABLET PO PRN ×2 (02:09→08:37)
[2020-11-20] MEDS: LEVOTHYROXINE SODIUM 75 MCG TABLET PO SCH (06:24)
[2020-11-20] MEDS: SENNA/DOCUSATE SODIUM 8.6-50 MG TABLET PO SCH (08:34)
[2020-11-20] MEDS: DIVALPROEX SODIUM 500 MG DR TABLET PO SCH ×2 (08:35→20:09)
[2020-11-20] MEDS: MAGNESIUM OXIDE 400 MG TABLET PO SCH ×2 (08:35→16:41)
[2020-11-20] MEDS: QUEtiapine FUMARATE 300 MG TABLET PO SCH ×2 (08:35→16:41)
[2020-11-20] MEDS: LITHIUM CARBONATE 600 MG CAPSULE PO SCH ×2 (08:35→16:41)
[2020-11-20] MEDS: OMEGA-3/DHA/EPA/FISH OIL 1,000 MG CAPSULE PO SCH (08:35)
[2020-11-20] MEDS: OLANZapine 5 MG RAPDIS TABLET PO SCH (20:09)
[2020-11-20] MEDS: HALOPERIDOL 10 MG TABLET PO SCH (20:09)
[2020-11-20] MEDS: ZOLPIDEM TARTRATE 10 MG TABLET PO PRN (20:54)
[2020-11-21] MEDS: ZOLPIDEM TARTRATE 10 MG TABLET PO PRN ×2 (01:07→20:07)
[2020-11-21] MEDS: LEVOTHYROXINE SODIUM 75 MCG TABLET PO SCH (06:14)
[2020-11-21] MEDS: DIVALPROEX SODIUM 500 MG DR TABLET PO SCH ×2 (08:49→20:08)
[2020-11-21] MEDS: SENNA/DOCUSATE SODIUM 8.6-50 MG TABLET PO SCH (08:49)
[2020-11-21] MEDS: MAGNESIUM OXIDE 400 MG TABLET PO SCH ×2 (08:49→16:31)
[2020-11-21] MEDS: OMEGA-3/DHA/EPA/FISH OIL 1,000 MG CAPSULE PO SCH (08:49)
[2020-11-21] MEDS: QUEtiapine FUMARATE 300 MG TABLET PO SCH ×2 (08:49→16:31)
[2020-11-21] MEDS: LITHIUM CARBONATE 600 MG CAPSULE PO SCH ×2 (08:49→16:31)
[2020-11-21] MEDS: HALOPERIDOL 10 MG TABLET PO SCH (20:07)
[2020-11-21] MEDS: OLANZapine 5 MG RAPDIS TABLET PO SCH (20:08)
[2020-11-22] MEDS: LORazepam 2 MG TABLET PO PRN ×2 (00:24→23:35)
[2020-11-22 00:30] VITALS: BP 126/83
[2020-11-22] MEDS: LEVOTHYROXINE SODIUM 75 MCG TABLET PO SCH (06:13)
[2020-11-22] MEDS: LITHIUM CARBONATE 600 MG CAPSULE PO SCH ×2 (08:08→16:02)
[2020-11-22] MEDS: OMEGA-3/DHA/EPA/FISH OIL 1,000 MG CAPSULE PO SCH (08:08)
[2020-11-22] MEDS: SENNA/DOCUSATE SODIUM 8.6-50 MG TABLET PO SCH (08:08)
[2020-11-22] MEDS: MAGNESIUM OXIDE 400 MG TABLET PO SCH ×2 (08:09→16:02)
[2020-11-22] MEDS: QUEtiapine FUMARATE 300 MG TABLET PO SCH ×2 (08:09→16:02)
[2020-11-22] MEDS: DIVALPROEX SODIUM 500 MG DR TABLET PO SCH ×2 (08:09→20:03)
[2020-11-22] MEDS: MAGNESIUM HYDROXIDE SUSPENSION 30 ML UDCUP PO PRN (18:08)
[2020-11-22] MEDS: HALOPERIDOL 10 MG TABLET PO SCH (20:03)
[2020-11-22] MEDS: OLANZapine 5 MG RAPDIS TABLET PO SCH (20:03)
[2020-11-22] MEDS: ZOLPIDEM TARTRATE 10 MG TABLET PO PRN (20:03)
[2020-11-23 02:02] VITALS: BP 117/78
[2020-11-23] MEDS: LEVOTHYROXINE SODIUM 75 MCG TABLET PO SCH (06:46)
[2020-11-23 07:41] LABS: BASOPHILS % (AUTO) 0.4 % (0.0-2.0); HEMATOCRIT 37.5 % (36-46); HEMOGLOBIN 12.7 g/dL (12.0-16.0); LYMPHOCYTES # (AUTO) 3.2 K/uL (1.0-4.8); LYMPHOCYTES % (AUTO) 40.4 % (22.0-44.0); MEAN CORPUSCULAR HEMOGLOBIN 30.6 pg (26.0-34.0); MEAN CORPUSCULAR HGB CONC 33.8 G/dL (31.0-37.0); MEAN CORPUSCULAR VOLUME 91 fL (80-100); MONOCYTES # (AUTO) 0.7 K/uL (0.1-1.0); MONOCYTES % (AUTO) 9.4 % (2.0-9.0); NEUTROPHILS # (AUTO) 3.7 K/uL (1.8-7.7); NEUTROPHILS % (AUTO) 45.8 % (40.0-70.0); PLATELET COUNT (AUTO) 207 K/uL (150-450); RED BLOOD CELL COUNT(AUTO) 4.14 MIL/uL (4.00-5.20); RED CELL DISTRIBUTION WIDTH 12.7 % (11.5-14.5)
[2020-11-23 07:46] LABS: HEMOGLOBIN A1C 4.8 % (3.8-5.6)
[2020-11-23 08:04] LABS: ALANINE AMINOTRANSFERASE 22 U/L (12-78); ALBUMIN 3.2 g/dL (3.4-5.0); ALKALINE PHOSPHATASE 62 U/L (46-116); ANION GAP 8 mmol/L (8-16); ASPARTATE AMINOTRANSFERASE 9 U/L (15-37); BILIRUBIN,TOTAL 0.1 mg/dL (0.1-1.0); CALCIUM, TOTAL 8.8 mg/dL (8.8-10.5); CARBON DIOXIDE 27 mmol/L (22-29); CHLORIDE 107 mmol/L (98-107); CHOL/HDL RATIO 3.1 (3.9-5.7); CHOLESTEROL 147 mg/dL (131-200); CREATININE 0.58 mg/dL (0.60-1.30); GLOMERULAR FILTR. RATE CALC > 60 mL/min (>60); GLUCOSE,RANDOM 86 mg/dL (70-110); HDL CHOLESTEROL 48 mg/dL (40-60); LDL CHOL (CALC.) 80 mg/dL (0-130); PHOSPHORUS 4.1 mg/dL (2.5-4.9); POTASSIUM 4.4 mmol/L (3.5-5.1); SODIUM SERUM 142 mmol/L (136-145); TOTAL PROTEIN, SERUM 6.9 g/dL (6.4-8.2); TRIGLYCERIDES 95 mg/dL (15-150); UREA NITROGEN, BLOOD 16 mg/dL (7-18)
[2020-11-23] MEDS: SENNA/DOCUSATE SODIUM 8.6-50 MG TABLET PO SCH (08:08)
[2020-11-23] MEDS: OMEGA-3/DHA/EPA/FISH OIL 1,000 MG CAPSULE PO SCH (08:09)
[2020-11-23] MEDS: MAGNESIUM OXIDE 400 MG TABLET PO SCH ×2 (08:09→16:08)
[2020-11-23] MEDS: LITHIUM CARBONATE 600 MG CAPSULE PO SCH ×2 (08:09→16:08)
[2020-11-23] MEDS: DIVALPROEX SODIUM 500 MG DR TABLET PO SCH ×2 (08:09→20:03)
[2020-11-23] MEDS: QUEtiapine FUMARATE 300 MG TABLET PO SCH ×2 (08:09→16:08)
[2020-11-23] MEDS: ZOLPIDEM TARTRATE 10 MG TABLET PO PRN (20:02)
[2020-11-23] MEDS: HALOPERIDOL 10 MG TABLET PO SCH (20:03)
[2020-11-23] MEDS: OLANZapine 5 MG RAPDIS TABLET PO SCH (20:03)
[2020-11-24] MEDS: LORazepam 2 MG TABLET PO PRN (01:15)
[2020-11-24] MEDS: LEVOTHYROXINE SODIUM 75 MCG TABLET PO SCH (06:46)
[2020-11-24 08:15] VITALS: BP 127/80
[2020-11-24] MEDS: DIVALPROEX SODIUM 500 MG DR TABLET PO SCH ×2 (08:35→19:52)
[2020-11-24] MEDS: QUEtiapine FUMARATE 300 MG TABLET PO SCH ×2 (08:35→16:43)
[2020-11-24] MEDS: LITHIUM CARBONATE 600 MG CAPSULE PO SCH ×2 (08:35→16:42)
[2020-11-24] MEDS: MAGNESIUM OXIDE 400 MG TABLET PO SCH ×2 (08:35→16:43)
[2020-11-24] MEDS: SENNA/DOCUSATE SODIUM 8.6-50 MG TABLET PO SCH (08:35)
[2020-11-24] MEDS: TRIAMCINOLONE 0.025% 15 GM CREAM TP SCH ×2 (08:36→17:22)
[2020-11-24] MEDS: OMEGA-3/DHA/EPA/FISH OIL 1,000 MG CAPSULE PO SCH (08:36)
[2020-11-24] MEDS: OLANZapine 5 MG RAPDIS TABLET PO SCH (19:52)
[2020-11-24] MEDS: HALOPERIDOL 10 MG TABLET PO SCH (19:52)
[2020-11-24] MEDS: ZOLPIDEM TARTRATE 10 MG TABLET PO PRN (20:25)
[2020-11-25 00:03] VITALS: BP 142/88
[2020-11-25] MEDS: LORazepam 2 MG TABLET PO PRN ×2 (01:02→23:55)
[2020-11-25] MEDS: IBUPROFEN 600 MG TABLET PO PRN (02:06)
[2020-11-25] MEDS: LEVOTHYROXINE SODIUM 75 MCG TABLET PO SCH (06:41)
[2020-11-25] MEDS: SENNA/DOCUSATE SODIUM 8.6-50 MG TABLET PO SCH (08:43)
[2020-11-25] MEDS: DIVALPROEX SODIUM 500 MG DR TABLET PO SCH ×2 (08:43→20:10)
[2020-11-25] MEDS: QUEtiapine FUMARATE 300 MG TABLET PO SCH ×2 (08:43→16:09)
[2020-11-25] MEDS: LITHIUM CARBONATE 600 MG CAPSULE PO SCH ×2 (08:43→16:09)
[2020-11-25] MEDS: OMEGA-3/DHA/EPA/FISH OIL 1,000 MG CAPSULE PO SCH (08:43)
[2020-11-25] MEDS: MAGNESIUM OXIDE 400 MG TABLET PO SCH ×2 (10:42→16:09)
[2020-11-25] MEDS: TRIAMCINOLONE 0.025% 15 GM CREAM TP SCH ×2 (10:42→17:00)
[2020-11-25] MEDS: HALOPERIDOL 10 MG TABLET PO SCH (20:09)
[2020-11-25] MEDS: OLANZapine 5 MG RAPDIS TABLET PO SCH (20:10)
[2020-11-25] MEDS: ZOLPIDEM TARTRATE 10 MG TABLET PO PRN (20:10)
[2020-11-26 00:02] VITALS: BP 140/86
[2020-11-26] MEDS: LEVOTHYROXINE SODIUM 75 MCG TABLET PO SCH (06:35)
[2020-11-26] MEDS: QUEtiapine FUMARATE 300 MG TABLET PO SCH ×2 (08:06→16:01)
[2020-11-26] MEDS: LITHIUM CARBONATE 600 MG CAPSULE PO SCH ×2 (08:06→16:01)
[2020-11-26] MEDS: DIVALPROEX SODIUM 500 MG DR TABLET PO SCH ×2 (08:06→20:04)
[2020-11-26] MEDS: OMEGA-3/DHA/EPA/FISH OIL 1,000 MG CAPSULE PO SCH (08:06)
[2020-11-26] MEDS: MAGNESIUM OXIDE 400 MG TABLET PO SCH ×2 (08:08→16:02)
[2020-11-26] MEDS: SENNA/DOCUSATE SODIUM 8.6-50 MG TABLET PO SCH (08:09)
[2020-11-26] MEDS: TRIAMCINOLONE 0.025% 15 GM CREAM TP SCH ×2 (08:09→16:03)
[2020-11-26] MEDS: OLANZapine 5 MG RAPDIS TABLET PO SCH (20:04)
[2020-11-26] MEDS: HALOPERIDOL 10 MG TABLET PO SCH (20:04)
[2020-11-26] MEDS: ZOLPIDEM TARTRATE 10 MG TABLET PO PRN (20:10)
[2020-11-27] MEDS: LORazepam 2 MG TABLET PO PRN (05:00)
[2020-11-27] MEDS: LEVOTHYROXINE SODIUM 75 MCG TABLET PO SCH (06:23)
[2020-11-27] MEDS: MAGNESIUM OXIDE 400 MG TABLET PO SCH ×2 (08:19→16:14)
[2020-11-27] MEDS: LITHIUM CARBONATE 600 MG CAPSULE PO SCH ×2 (08:19→16:14)
[2020-11-27] MEDS: QUEtiapine FUMARATE 300 MG TABLET PO SCH ×2 (08:19→16:14)
[2020-11-27] MEDS: DIVALPROEX SODIUM 500 MG DR TABLET PO SCH ×2 (08:19→20:54)
[2020-11-27] MEDS: OMEGA-3/DHA/EPA/FISH OIL 1,000 MG CAPSULE PO SCH (08:19)
[2020-11-27] MEDS: SENNA/DOCUSATE SODIUM 8.6-50 MG TABLET PO SCH (08:19)
[2020-11-27] MEDS: TRIAMCINOLONE 0.025% 15 GM CREAM TP SCH ×2 (08:20→17:00)
[2020-11-27 08:26] VITALS: BP 119/79
[2020-11-27] MEDS: OLANZapine 5 MG RAPDIS TABLET PO SCH (20:54)
[2020-11-27] MEDS: HALOPERIDOL 10 MG TABLET PO SCH (20:54)
[2020-11-28 01:13] VITALS: BP 110/76
[2020-11-28] MEDS: LORazepam 2 MG TABLET PO PRN ×2 (04:17→20:46)
[2020-11-28] MEDS: LEVOTHYROXINE SODIUM 75 MCG TABLET PO SCH (06:29)
[2020-11-28] MEDS: LITHIUM CARBONATE 600 MG CAPSULE PO SCH ×2 (08:24→16:01)
[2020-11-28] MEDS: OMEGA-3/DHA/EPA/FISH OIL 1,000 MG CAPSULE PO SCH (08:24)
[2020-11-28] MEDS: SENNA/DOCUSATE SODIUM 8.6-50 MG TABLET PO SCH (08:24)
[2020-11-28] MEDS: DIVALPROEX SODIUM 500 MG DR TABLET PO SCH ×2 (08:24→20:46)
[2020-11-28] MEDS: MAGNESIUM OXIDE 400 MG TABLET PO SCH ×2 (08:26→16:01)
[2020-11-28] MEDS: QUEtiapine FUMARATE 300 MG TABLET PO SCH ×2 (08:27→16:01)
[2020-11-28] MEDS: TRIAMCINOLONE 0.025% 15 GM CREAM TP SCH ×2 (08:32→16:01)
[2020-11-28] MEDS: HALOPERIDOL 10 MG TABLET PO SCH (20:46)
[2020-11-28] MEDS: ZOLPIDEM TARTRATE 10 MG TABLET PO PRN (20:46)
[2020-11-28] MEDS: OLANZapine 5 MG RAPDIS TABLET PO SCH (20:46)
[2020-11-29 00:42] VITALS: BP 116/72
[2020-11-29] MEDS: LORazepam 2 MG TABLET PO PRN (03:21)
[2020-11-29] MEDS: LEVOTHYROXINE SODIUM 75 MCG TABLET PO SCH (06:59)
[2020-11-29] MEDS: DIVALPROEX SODIUM 500 MG DR TABLET PO SCH ×2 (07:57→20:20)
[2020-11-29] MEDS: LITHIUM CARBONATE 600 MG CAPSULE PO SCH ×2 (07:57→16:00)
[2020-11-29] MEDS: MAGNESIUM OXIDE 400 MG TABLET PO SCH ×2 (07:57→16:00)
[2020-11-29] MEDS: OMEGA-3/DHA/EPA/FISH OIL 1,000 MG CAPSULE PO SCH (07:57)
[2020-11-29] MEDS: QUEtiapine FUMARATE 300 MG TABLET PO SCH ×2 (07:59→16:00)
[2020-11-29] MEDS: SENNA/DOCUSATE SODIUM 8.6-50 MG TABLET PO SCH (07:59)
[2020-11-29] MEDS: TRIAMCINOLONE 0.025% 15 GM CREAM TP SCH ×2 (09:00→16:00)
[2020-11-29] MEDS: HALOPERIDOL 10 MG TABLET PO SCH (20:19)
[2020-11-29] MEDS: OLANZapine 5 MG RAPDIS TABLET PO SCH (20:19)
[2020-11-29] MEDS: ZOLPIDEM TARTRATE 10 MG TABLET PO PRN (20:20)
[2020-11-30 02:30] VITALS: BP 126/78
[2020-11-30] MEDS: LORazepam 2 MG TABLET PO PRN ×2 (02:30→13:30)
[2020-11-30] MEDS: LEVOTHYROXINE SODIUM 75 MCG TABLET PO SCH (07:02)
[2020-11-30 08:02] VITALS: BP 118/82
[2020-11-30] MEDS: SENNA/DOCUSATE SODIUM 8.6-50 MG TABLET PO SCH (08:17)
[2020-11-30] MEDS: MAGNESIUM OXIDE 400 MG TABLET PO SCH ×2 (08:17→16:52)
[2020-11-30] MEDS: OMEGA-3/DHA/EPA/FISH OIL 1,000 MG CAPSULE PO SCH (08:17)
[2020-11-30] MEDS: QUEtiapine FUMARATE 300 MG TABLET PO SCH ×2 (08:17→16:52)
[2020-11-30] MEDS: LITHIUM CARBONATE 600 MG CAPSULE PO SCH ×2 (08:17→16:52)
[2020-11-30] MEDS: DIVALPROEX SODIUM 500 MG DR TABLET PO SCH ×2 (08:17→20:08)
[2020-11-30] MEDS: TRIAMCINOLONE 0.025% 15 GM CREAM TP SCH ×2 (08:18→17:05)
[2020-11-30] MEDS: HALOPERIDOL 10 MG TABLET PO SCH (20:08)
[2020-11-30] MEDS: OLANZapine 5 MG RAPDIS TABLET PO SCH (20:09)
[2020-12-01 01:14] VITALS: BP 112/78
[2020-12-01] MEDS: LEVOTHYROXINE SODIUM 75 MCG TABLET PO SCH (06:30)
[2020-12-01] MEDS: SENNA/DOCUSATE SODIUM 8.6-50 MG TABLET PO SCH (08:57)
[2020-12-01] MEDS: QUEtiapine FUMARATE 300 MG TABLET PO SCH ×2 (08:57→17:00)
[2020-12-01] MEDS: TRIAMCINOLONE 0.025% 15 GM CREAM TP SCH ×2 (08:57→17:17)
[2020-12-01] MEDS: MAGNESIUM OXIDE 400 MG TABLET PO SCH ×2 (08:57→17:00)
[2020-12-01] MEDS: OMEGA-3/DHA/EPA/FISH OIL 1,000 MG CAPSULE PO SCH (08:57)
[2020-12-01] MEDS: DIVALPROEX SODIUM 500 MG DR TABLET PO SCH ×2 (08:57→20:04)
[2020-12-01] MEDS: LITHIUM CARBONATE 600 MG CAPSULE PO SCH ×2 (08:57→17:00)
[2020-12-01] MEDS: OLANZapine 5 MG RAPDIS TABLET PO SCH (20:03)
[2020-12-01] MEDS: HALOPERIDOL 10 MG TABLET PO SCH (20:04)
[2020-12-01] MEDS: LORazepam 2 MG TABLET PO PRN (20:38)
[2020-12-02] MEDS: ZOLPIDEM TARTRATE 10 MG TABLET PO PRN ×2 (02:31→20:02)
[2020-12-02] MEDS: LEVOTHYROXINE SODIUM 75 MCG TABLET PO SCH (06:31)
[2020-12-02 08:15] VITALS: BP 153/98
[2020-12-02] MEDS: SENNA/DOCUSATE SODIUM 8.6-50 MG TABLET PO SCH (08:21)
[2020-12-02] MEDS: LITHIUM CARBONATE 600 MG CAPSULE PO SCH ×2 (08:21→16:03)
[2020-12-02] MEDS: QUEtiapine FUMARATE 300 MG TABLET PO SCH ×2 (08:21→16:04)
[2020-12-02] MEDS: TRIAMCINOLONE 0.025% 15 GM CREAM TP SCH ×2 (08:21→16:06)
[2020-12-02] MEDS: MAGNESIUM OXIDE 400 MG TABLET PO SCH ×2 (08:21→16:04)
[2020-12-02] MEDS: DIVALPROEX SODIUM 500 MG DR TABLET PO SCH ×2 (08:21→20:02)
[2020-12-02] MEDS: OMEGA-3/DHA/EPA/FISH OIL 1,000 MG CAPSULE PO SCH (08:22)
[2020-12-02 16:05] VITALS: BP 123/89
[2020-12-02] MEDS: HALOPERIDOL 10 MG TABLET PO SCH (20:02)
[2020-12-02] MEDS: OLANZapine 5 MG RAPDIS TABLET PO SCH (20:02)
[2020-12-02] MEDS: LORazepam 2 MG TABLET PO PRN (20:41)
[2020-12-03 00:33] VITALS: BP 118/84
[2020-12-03] MEDS: LEVOTHYROXINE SODIUM 75 MCG TABLET PO SCH (06:44)
[2020-12-03] MEDS: SENNA/DOCUSATE SODIUM 8.6-50 MG TABLET PO SCH (08:37)
[2020-12-03] MEDS: OMEGA-3/DHA/EPA/FISH OIL 1,000 MG CAPSULE PO SCH (08:37)
[2020-12-03] MEDS: QUEtiapine FUMARATE 300 MG TABLET PO SCH ×2 (08:37→16:41)
[2020-12-03] MEDS: DIVALPROEX SODIUM 500 MG DR TABLET PO SCH ×2 (08:37→20:11)
[2020-12-03] MEDS: MAGNESIUM OXIDE 400 MG TABLET PO SCH ×2 (08:37→16:41)
[2020-12-03] MEDS: LITHIUM CARBONATE 600 MG CAPSULE PO SCH ×2 (08:37→16:41)
[2020-12-03] MEDS: TRIAMCINOLONE 0.025% 15 GM CREAM TP SCH ×2 (08:38→16:44)
[2020-12-03] MEDS: OLANZapine 5 MG RAPDIS TABLET PO SCH (20:11)
[2020-12-03] MEDS: HALOPERIDOL 10 MG TABLET PO SCH (20:11)
[2020-12-03] MEDS: IBUPROFEN 600 MG TABLET PO PRN (21:13)
[2020-12-03] MEDS ORDERED: ZOLPIDEM TARTRATE 10 MG TABLET PO PRN (23:30)
[2020-12-04 01:56] VITALS: BP 113/80
[2020-12-04] MEDS: LEVOTHYROXINE SODIUM 75 MCG TABLET PO SCH (06:47)
[2020-12-04] MEDS: OMEGA-3/DHA/EPA/FISH OIL 1,000 MG CAPSULE PO SCH (08:07)
[2020-12-04] MEDS: DIVALPROEX SODIUM 500 MG DR TABLET PO SCH ×2 (08:07→20:18)
[2020-12-04] MEDS: QUEtiapine FUMARATE 300 MG TABLET PO SCH ×2 (08:07→17:11)
[2020-12-04] MEDS: MAGNESIUM OXIDE 400 MG TABLET PO SCH ×2 (08:07→17:11)
[2020-12-04] MEDS: LITHIUM CARBONATE 600 MG CAPSULE PO SCH ×2 (08:07→17:11)
[2020-12-04] MEDS: SENNA/DOCUSATE SODIUM 8.6-50 MG TABLET PO SCH (08:08)
[2020-12-04] MEDS: TRIAMCINOLONE 0.025% 15 GM CREAM TP SCH ×2 (08:08→17:11)
[2020-12-04 08:27] VITALS: BP 160/102
[2020-12-04] MEDS: MAGNESIUM HYDROXIDE SUSPENSION 30 ML UDCUP PO PRN (08:36)
[2020-12-04 09:00] VITALS: BP 136/91
[2020-12-04] MEDS: OLANZapine 5 MG RAPDIS TABLET PO SCH (20:18)
[2020-12-04] MEDS: HALOPERIDOL 10 MG TABLET PO SCH (20:18)
[2020-12-05 00:34] VITALS: BP 124/81
[2020-12-05] MEDS: LEVOTHYROXINE SODIUM 75 MCG TABLET PO SCH (06:31)
[2020-12-05] MEDS: SENNA/DOCUSATE SODIUM 8.6-50 MG TABLET PO SCH (08:03)
[2020-12-05] MEDS: LITHIUM CARBONATE 600 MG CAPSULE PO SCH ×2 (08:04→16:00)
[2020-12-05] MEDS: OMEGA-3/DHA/EPA/FISH OIL 1,000 MG CAPSULE PO SCH (08:04)
[2020-12-05] MEDS: MAGNESIUM OXIDE 400 MG TABLET PO SCH ×2 (08:04→16:00)
[2020-12-05] MEDS: QUEtiapine FUMARATE 300 MG TABLET PO SCH ×2 (08:04→16:00)
[2020-12-05] MEDS: DIVALPROEX SODIUM 500 MG DR TABLET PO SCH ×2 (08:04→20:07)
[2020-12-05] MEDS: TRIAMCINOLONE 0.025% 15 GM CREAM TP SCH ×3 (08:04→17:30)
[2020-12-05 08:10] VITALS: BP 141/96
[2020-12-05] MEDS: HALOPERIDOL 10 MG TABLET PO SCH (20:07)
[2020-12-05] MEDS: OLANZapine 5 MG RAPDIS TABLET PO SCH (20:07)
[2020-12-06] MEDS: LEVOTHYROXINE SODIUM 75 MCG TABLET PO SCH (06:52)
[2020-12-06 08:37] VITALS: BP 121/66
[2020-12-06] MEDS: DIVALPROEX SODIUM 500 MG DR TABLET PO SCH ×2 (08:38→20:04)
[2020-12-06] MEDS: LITHIUM CARBONATE 600 MG CAPSULE PO SCH ×2 (08:38→16:13)
[2020-12-06] MEDS: OMEGA-3/DHA/EPA/FISH OIL 1,000 MG CAPSULE PO SCH (08:38)
[2020-12-06] MEDS: MAGNESIUM OXIDE 400 MG TABLET PO SCH ×2 (08:38→16:13)
[2020-12-06] MEDS: SENNA/DOCUSATE SODIUM 8.6-50 MG TABLET PO SCH (08:39)
[2020-12-06] MEDS: TRIAMCINOLONE 0.025% 15 GM CREAM TP SCH ×2 (08:39→16:13)
[2020-12-06] MEDS: QUEtiapine FUMARATE 300 MG TABLET PO SCH ×2 (08:39→16:13)
[2020-12-06] MEDS: ACETAMINOPHEN 325 MG TABLET PO PRN (17:08)
[2020-12-06] MEDS: OLANZapine 5 MG RAPDIS TABLET PO SCH (20:04)
[2020-12-06] MEDS: HALOPERIDOL 10 MG TABLET PO SCH (20:04)
[2020-12-07 00:44] VITALS: BP 117/67
[2020-12-07] MEDS: LEVOTHYROXINE SODIUM 75 MCG TABLET PO SCH (06:26)
[2020-12-07] MEDS: MAGNESIUM OXIDE 400 MG TABLET PO SCH ×2 (08:06→16:17)
[2020-12-07] MEDS: SENNA/DOCUSATE SODIUM 8.6-50 MG TABLET PO SCH (08:06)
[2020-12-07] MEDS: DIVALPROEX SODIUM 500 MG DR TABLET PO SCH ×2 (08:06→20:15)
[2020-12-07] MEDS: OMEGA-3/DHA/EPA/FISH OIL 1,000 MG CAPSULE PO SCH (08:06)
[2020-12-07] MEDS: TRIAMCINOLONE 0.025% 15 GM CREAM TP SCH ×2 (08:06→16:18)
[2020-12-07] MEDS: LITHIUM CARBONATE 600 MG CAPSULE PO SCH ×2 (08:06→16:17)
[2020-12-07] MEDS: QUEtiapine FUMARATE 300 MG TABLET PO SCH ×2 (08:06→16:17)
[2020-12-07 08:26] VITALS: BP 138/108
[2020-12-07] MEDS: ACETAMINOPHEN 325 MG TABLET PO PRN (08:26)
[2020-12-07 16:15] VITALS: BP 147/93
[2020-12-07] MEDS: MAG HYDROX/AL HYDROX/SIMETH ES 30 ML SUSPENSION UDCUP PO PRN (18:29)
[2020-12-07] MEDS: OLANZapine 5 MG RAPDIS TABLET PO SCH (20:15)
[2020-12-07] MEDS: HALOPERIDOL 10 MG TABLET PO SCH (20:15)
[2020-12-08] MEDS: LEVOTHYROXINE SODIUM 75 MCG TABLET PO SCH (06:34)
[2020-12-08] MEDS: SENNA/DOCUSATE SODIUM 8.6-50 MG TABLET PO SCH (08:23)
[2020-12-08] MEDS: TRIAMCINOLONE 0.025% 15 GM CREAM TP SCH ×2 (08:24→16:20)
[2020-12-08] MEDS: LITHIUM CARBONATE 600 MG CAPSULE PO SCH ×2 (08:24→16:19)
[2020-12-08] MEDS: DIVALPROEX SODIUM 500 MG DR TABLET PO SCH ×2 (08:24→20:31)
[2020-12-08] MEDS: OMEGA-3/DHA/EPA/FISH OIL 1,000 MG CAPSULE PO SCH (08:24)
[2020-12-08] MEDS: QUEtiapine FUMARATE 300 MG TABLET PO SCH ×2 (08:24→16:19)
[2020-12-08] MEDS: MAGNESIUM OXIDE 400 MG TABLET PO SCH ×2 (08:24→16:19)
[2020-12-08] MEDS: HALOPERIDOL 10 MG TABLET PO SCH (20:31)
[2020-12-08] MEDS: OLANZapine 5 MG RAPDIS TABLET PO SCH (20:31)
[2020-12-09] MEDS: LEVOTHYROXINE SODIUM 75 MCG TABLET PO SCH (06:34)
[2020-12-09] MEDS: QUEtiapine FUMARATE 300 MG TABLET PO SCH ×2 (08:31→16:01)
[2020-12-09] MEDS: OMEGA-3/DHA/EPA/FISH OIL 1,000 MG CAPSULE PO SCH (08:31)
[2020-12-09] MEDS: LITHIUM CARBONATE 600 MG CAPSULE PO SCH ×2 (08:31→16:01)
[2020-12-09] MEDS: SENNA/DOCUSATE SODIUM 8.6-50 MG TABLET PO SCH (08:31)
[2020-12-09] MEDS: DIVALPROEX SODIUM 500 MG DR TABLET PO SCH ×2 (08:31→20:07)
[2020-12-09] MEDS: MAGNESIUM OXIDE 400 MG TABLET PO SCH ×2 (08:31→16:01)
[2020-12-09] MEDS: TRIAMCINOLONE 0.025% 15 GM CREAM TP SCH (08:32)
[2020-12-09] MEDS: MUPIROCIN CALCIUM 2% 15 GM CREAM TP SCH ×2 (13:00→16:01)
[2020-12-09] MEDS: SULFAMETHOX/TRIMETH DS 800-160 MG/TABLET PO SCH (16:01)
[2020-12-09 16:10] VITALS: BP 149/85
[2020-12-09] MEDS: OLANZapine 5 MG RAPDIS TABLET PO SCH (20:07)
[2020-12-09] MEDS: HALOPERIDOL 10 MG TABLET PO SCH (20:07)
[2020-12-09 20:53] VITALS: BP 136/82
[2020-12-10] MEDS: LEVOTHYROXINE SODIUM 75 MCG TABLET PO SCH (06:54)
[2020-12-10] MEDS: SULFAMETHOX/TRIMETH DS 800-160 MG/TABLET PO SCH ×2 (08:10→15:58)
[2020-12-10] MEDS: DIVALPROEX SODIUM 500 MG DR TABLET PO SCH ×2 (08:10→19:39)
[2020-12-10] MEDS: MAGNESIUM OXIDE 400 MG TABLET PO SCH ×2 (08:10→15:58)
[2020-12-10] MEDS: OMEGA-3/DHA/EPA/FISH OIL 1,000 MG CAPSULE PO SCH (08:10)
[2020-12-10] MEDS: QUEtiapine FUMARATE 300 MG TABLET PO SCH ×2 (08:10→15:57)
[2020-12-10] MEDS: SENNA/DOCUSATE SODIUM 8.6-50 MG TABLET PO SCH (08:10)
[2020-12-10] MEDS: LITHIUM CARBONATE 600 MG CAPSULE PO SCH ×2 (08:10→15:58)
[2020-12-10] MEDS: MUPIROCIN CALCIUM 2% 15 GM CREAM TP SCH ×3 (08:11→15:58)
[2020-12-10 08:28] VITALS: BP 124/76
[2020-12-10] MEDS: MAG HYDROX/AL HYDROX/SIMETH ES 30 ML SUSPENSION UDCUP PO PRN (15:45)
[2020-12-10] MEDS: OLANZapine 5 MG RAPDIS TABLET PO SCH (19:39)
[2020-12-10] MEDS: HALOPERIDOL 10 MG TABLET PO SCH (19:40)
[2020-12-11] MEDS: LEVOTHYROXINE SODIUM 75 MCG TABLET PO SCH (06:48)
[2020-12-11] MEDS: MAGNESIUM OXIDE 400 MG TABLET PO SCH ×2 (08:17→16:20)
[2020-12-11] MEDS: LITHIUM CARBONATE 600 MG CAPSULE PO SCH ×2 (08:17→16:21)
[2020-12-11] MEDS: OMEGA-3/DHA/EPA/FISH OIL 1,000 MG CAPSULE PO SCH (08:17)
[2020-12-11] MEDS: SENNA/DOCUSATE SODIUM 8.6-50 MG TABLET PO SCH (08:17)
[2020-12-11] MEDS: QUEtiapine FUMARATE 300 MG TABLET PO SCH ×2 (08:17→16:21)
[2020-12-11] MEDS: DIVALPROEX SODIUM 500 MG DR TABLET PO SCH ×2 (08:17→20:02)
[2020-12-11] MEDS: SULFAMETHOX/TRIMETH DS 800-160 MG/TABLET PO SCH ×2 (08:17→16:21)
[2020-12-11] MEDS: MUPIROCIN CALCIUM 2% 15 GM CREAM TP SCH ×3 (08:18→16:22)
[2020-12-11 08:23] VITALS: BP 121/64
[2020-12-11] MEDS: OLANZapine 5 MG RAPDIS TABLET PO SCH (20:02)
[2020-12-11] MEDS: HALOPERIDOL 10 MG TABLET PO SCH (20:02)
[2020-12-11] MEDS: MAGNESIUM HYDROXIDE SUSPENSION 30 ML UDCUP PO PRN (21:10)
[2020-12-12] MEDS: LEVOTHYROXINE SODIUM 75 MCG TABLET PO SCH (06:17)
[2020-12-12] MEDS: MAGNESIUM OXIDE 400 MG TABLET PO SCH ×2 (08:44→16:32)
[2020-12-12] MEDS: DIVALPROEX SODIUM 500 MG DR TABLET PO SCH ×2 (08:44→20:20)
[2020-12-12] MEDS: QUEtiapine FUMARATE 300 MG TABLET PO SCH ×2 (08:44→16:32)
[2020-12-12] MEDS: OMEGA-3/DHA/EPA/FISH OIL 1,000 MG CAPSULE PO SCH (08:44)
[2020-12-12] MEDS: SULFAMETHOX/TRIMETH DS 800-160 MG/TABLET PO SCH ×2 (08:44→16:34)
[2020-12-12] MEDS: LITHIUM CARBONATE 600 MG CAPSULE PO SCH ×2 (08:44→16:32)
[2020-12-12] MEDS: SENNA/DOCUSATE SODIUM 8.6-50 MG TABLET PO SCH (08:45)
[2020-12-12] MEDS: MUPIROCIN CALCIUM 2% 15 GM CREAM TP SCH ×3 (08:45→16:43)
[2020-12-12] MEDS ORDERED: CLINDAMYCIN PHOS 1% TP SCH (17:00)
[2020-12-12] MEDS: OLANZapine 5 MG RAPDIS TABLET PO SCH (20:19)
[2020-12-12] MEDS: HALOPERIDOL 10 MG TABLET PO SCH (20:20)
[2020-12-12] MEDS ORDERED: BACITRACIN 28 GM OINTMENT TP PRN (21:15)
[2020-12-13] MEDS: LEVOTHYROXINE SODIUM 75 MCG TABLET PO SCH (06:05)
[2020-12-13] MEDS: OMEGA-3/DHA/EPA/FISH OIL 1,000 MG CAPSULE PO SCH (08:56)
[2020-12-13] MEDS: SENNA/DOCUSATE SODIUM 8.6-50 MG TABLET PO SCH (08:57)
[2020-12-13] MEDS: DIVALPROEX SODIUM 500 MG DR TABLET PO SCH ×2 (08:58→20:31)
[2020-12-13] MEDS: MUPIROCIN CALCIUM 2% 15 GM CREAM TP SCH ×3 (10:10→16:26)
[2020-12-13] MEDS: SULFAMETHOX/TRIMETH DS 800-160 MG/TABLET PO SCH ×2 (10:11→16:25)
[2020-12-13] MEDS: QUEtiapine FUMARATE 300 MG TABLET PO SCH ×2 (10:11→16:25)
[2020-12-13] MEDS: LITHIUM CARBONATE 600 MG CAPSULE PO SCH ×2 (10:11→16:25)
[2020-12-13] MEDS: MAGNESIUM OXIDE 400 MG TABLET PO SCH ×2 (10:11→16:25)
[2020-12-13] MEDS: OLANZapine 5 MG RAPDIS TABLET PO SCH (20:31)
[2020-12-13] MEDS: HALOPERIDOL 10 MG TABLET PO SCH (20:31)
[2020-12-14] MEDS: LEVOTHYROXINE SODIUM 75 MCG TABLET PO SCH (06:50)
[2020-12-14 08:14] VITALS: BP 112/71
[2020-12-14] MEDS: LITHIUM CARBONATE 600 MG CAPSULE PO SCH ×2 (08:34→16:18)
[2020-12-14] MEDS: OMEGA-3/DHA/EPA/FISH OIL 1,000 MG CAPSULE PO SCH (08:34)
[2020-12-14] MEDS: DIVALPROEX SODIUM 500 MG DR TABLET PO SCH ×2 (08:34→20:12)
[2020-12-14] MEDS: MAGNESIUM OXIDE 400 MG TABLET PO SCH ×2 (08:34→16:18)
[2020-12-14] MEDS: MUPIROCIN CALCIUM 2% 15 GM CREAM TP SCH ×3 (08:34→16:18)
[2020-12-14] MEDS: SULFAMETHOX/TRIMETH DS 800-160 MG/TABLET PO SCH ×2 (08:34→16:24)
[2020-12-14] MEDS: SENNA/DOCUSATE SODIUM 8.6-50 MG TABLET PO SCH (08:34)
[2020-12-14] MEDS: QUEtiapine FUMARATE 300 MG TABLET PO SCH ×2 (08:34→16:18)
[2020-12-14] MEDS: ACETAMINOPHEN 325 MG TABLET PO PRN (18:59)
[2020-12-14] MEDS: HALOPERIDOL 10 MG TABLET PO SCH (20:11)
[2020-12-14] MEDS: OLANZapine 5 MG RAPDIS TABLET PO SCH (20:11)
[2020-12-15] MEDS: LEVOTHYROXINE SODIUM 75 MCG TABLET PO SCH (06:45)
[2020-12-15 08:17] VITALS: BP 112/74
[2020-12-15] MEDS: OMEGA-3/DHA/EPA/FISH OIL 1,000 MG CAPSULE PO SCH (08:20)
[2020-12-15] MEDS: SULFAMETHOX/TRIMETH DS 800-160 MG/TABLET PO SCH ×2 (08:20→16:16)
[2020-12-15] MEDS: MAGNESIUM OXIDE 400 MG TABLET PO SCH ×2 (08:20→16:16)
[2020-12-15] MEDS: LITHIUM CARBONATE 600 MG CAPSULE PO SCH ×2 (08:20→16:16)
[2020-12-15] MEDS: QUEtiapine FUMARATE 300 MG TABLET PO SCH ×2 (08:20→16:16)
[2020-12-15] MEDS: MUPIROCIN CALCIUM 2% 15 GM CREAM TP SCH ×3 (08:21→17:33)
[2020-12-15] MEDS: DIVALPROEX SODIUM 500 MG DR TABLET PO SCH ×2 (08:21→20:59)
[2020-12-15] MEDS: SENNA/DOCUSATE SODIUM 8.6-50 MG TABLET PO SCH (08:21)
[2020-12-15 16:04] VITALS: BP 152/100
[2020-12-15] MEDS: ACETAMINOPHEN 325 MG TABLET PO PRN (17:31)
[2020-12-15] MEDS: HYPROMELLOSE 0.5% 15 ML OPHTHALMIC SOLUTION OU PRN (17:48)
[2020-12-15] MEDS: OLANZapine 5 MG RAPDIS TABLET PO SCH (20:59)
[2020-12-15] MEDS: HALOPERIDOL 10 MG TABLET PO SCH (20:59)
[2020-12-15 21:23] VITALS: BP 140/89
[2020-12-16 01:32] VITALS: BP 138/84
[2020-12-16] MEDS: LEVOTHYROXINE SODIUM 75 MCG TABLET PO SCH (06:32)
[2020-12-16] MEDS: SENNA/DOCUSATE SODIUM 8.6-50 MG TABLET PO SCH (08:49)
[2020-12-16] MEDS: MUPIROCIN CALCIUM 2% 15 GM CREAM TP SCH ×3 (08:49→16:52)
[2020-12-16] MEDS: DIVALPROEX SODIUM 500 MG DR TABLET PO SCH ×2 (08:49→20:22)
[2020-12-16] MEDS: SULFAMETHOX/TRIMETH DS 800-160 MG/TABLET PO SCH ×2 (08:50→16:52)
[2020-12-16] MEDS: LITHIUM CARBONATE 600 MG CAPSULE PO SCH ×2 (08:50→16:52)
[2020-12-16] MEDS: MAGNESIUM OXIDE 400 MG TABLET PO SCH ×2 (08:50→16:52)
[2020-12-16] MEDS: QUEtiapine FUMARATE 300 MG TABLET PO SCH ×2 (08:50→16:52)
[2020-12-16] MEDS: OMEGA-3/DHA/EPA/FISH OIL 1,000 MG CAPSULE PO SCH (08:50)
[2020-12-16] MEDS: HALOPERIDOL 10 MG TABLET PO SCH (20:22)
[2020-12-16] MEDS: OLANZapine 5 MG RAPDIS TABLET PO SCH (20:22)
[2020-12-16] MEDS: ACETAMINOPHEN 325 MG TABLET PO PRN (21:21)
[2020-12-17] MEDS: LEVOTHYROXINE SODIUM 75 MCG TABLET PO SCH (06:39)
[2020-12-17] MEDS: QUEtiapine FUMARATE 300 MG TABLET PO SCH ×2 (09:28→16:20)
[2020-12-17] MEDS: DIVALPROEX SODIUM 500 MG DR TABLET PO SCH ×2 (09:28→20:05)
[2020-12-17] MEDS: MAGNESIUM OXIDE 400 MG TABLET PO SCH ×2 (09:28→16:20)
[2020-12-17] MEDS: LITHIUM CARBONATE 600 MG CAPSULE PO SCH ×2 (09:28→16:20)
[2020-12-17] MEDS: SENNA/DOCUSATE SODIUM 8.6-50 MG TABLET PO SCH (09:28)
[2020-12-17] MEDS: MUPIROCIN CALCIUM 2% 15 GM CREAM TP SCH ×2 (09:31→16:25)
[2020-12-17] MEDS: SULFAMETHOX/TRIMETH DS 800-160 MG/TABLET PO SCH ×2 (10:01→16:20)
[2020-12-17] MEDS: OMEGA-3/DHA/EPA/FISH OIL 1,000 MG CAPSULE PO SCH (10:01)
[2020-12-17] MEDS: IBUPROFEN 600 MG TABLET PO PRN (18:47)
[2020-12-17] MEDS: HALOPERIDOL 10 MG TABLET PO SCH (20:05)
[2020-12-17] MEDS: OLANZapine 5 MG RAPDIS TABLET PO SCH (20:05)
[2020-12-18] MEDS: LEVOTHYROXINE SODIUM 75 MCG TABLET PO SCH (06:29)
[2020-12-18] MEDS: LITHIUM CARBONATE 600 MG CAPSULE PO SCH ×2 (08:10→16:10)
[2020-12-18] MEDS: DIVALPROEX SODIUM 500 MG DR TABLET PO SCH ×2 (08:10→20:21)
[2020-12-18] MEDS: OMEGA-3/DHA/EPA/FISH OIL 1,000 MG CAPSULE PO SCH (08:10)
[2020-12-18] MEDS: SULFAMETHOX/TRIMETH DS 800-160 MG/TABLET PO SCH ×2 (08:10→16:10)
[2020-12-18] MEDS: MUPIROCIN CALCIUM 2% 15 GM CREAM TP SCH ×2 (08:11→16:11)
[2020-12-18] MEDS: MAGNESIUM OXIDE 400 MG TABLET PO SCH ×2 (08:11→16:10)
[2020-12-18] MEDS: QUEtiapine FUMARATE 300 MG TABLET PO SCH ×2 (08:11→16:10)
[2020-12-18] MEDS: SENNA/DOCUSATE SODIUM 8.6-50 MG TABLET PO SCH (08:11)
[2020-12-18 08:56] VITALS: BP 125/79
[2020-12-18 16:11] VITALS: BP 134/73
[2020-12-18] MEDS: IBUPROFEN 600 MG TABLET PO PRN (17:58)
[2020-12-18] MEDS: HALOPERIDOL 10 MG TABLET PO SCH (20:21)
[2020-12-18] MEDS: OLANZapine 5 MG RAPDIS TABLET PO SCH (20:22)
[2020-12-18] MEDS: MAGNESIUM HYDROXIDE SUSPENSION 30 ML UDCUP PO PRN (21:28)
[2020-12-19] MEDS: LEVOTHYROXINE SODIUM 75 MCG TABLET PO SCH (06:29)
[2020-12-19] MEDS: OMEGA-3/DHA/EPA/FISH OIL 1,000 MG CAPSULE PO SCH (08:54)
[2020-12-19] MEDS: MAGNESIUM OXIDE 400 MG TABLET PO SCH ×2 (08:54→16:47)
[2020-12-19] MEDS: DIVALPROEX SODIUM 500 MG DR TABLET PO SCH ×2 (08:54→20:27)
[2020-12-19] MEDS: QUEtiapine FUMARATE 300 MG TABLET PO SCH ×2 (08:55→16:46)
[2020-12-19] MEDS: SENNA/DOCUSATE SODIUM 8.6-50 MG TABLET PO SCH (08:55)
[2020-12-19] MEDS: LITHIUM CARBONATE 600 MG CAPSULE PO SCH ×2 (08:55→16:46)
[2020-12-19] MEDS: SULFAMETHOX/TRIMETH DS 800-160 MG/TABLET PO SCH ×2 (08:55→16:46)
[2020-12-19] MEDS: MUPIROCIN CALCIUM 2% 15 GM CREAM TP SCH ×2 (08:55→16:49)
[2020-12-19] MEDS: OLANZapine 5 MG RAPDIS TABLET PO SCH (20:27)
[2020-12-19] MEDS: HALOPERIDOL 10 MG TABLET PO SCH (20:27)
[2020-12-19] MEDS: MAG HYDROX/AL HYDROX/SIMETH ES 30 ML SUSPENSION UDCUP PO PRN (21:34)
[2020-12-20] MEDS: LEVOTHYROXINE SODIUM 75 MCG TABLET PO SCH (06:23)
[2020-12-20] MEDS: DIVALPROEX SODIUM 500 MG DR TABLET PO SCH ×2 (08:54→20:42)
[2020-12-20] MEDS: SULFAMETHOX/TRIMETH DS 800-160 MG/TABLET PO SCH ×2 (08:54→16:34)
[2020-12-20] MEDS: QUEtiapine FUMARATE 300 MG TABLET PO SCH ×2 (08:54→16:34)
[2020-12-20] MEDS: MAGNESIUM OXIDE 400 MG TABLET PO SCH ×2 (08:54→16:34)
[2020-12-20] MEDS: OMEGA-3/DHA/EPA/FISH OIL 1,000 MG CAPSULE PO SCH (08:54)
[2020-12-20] MEDS: SENNA/DOCUSATE SODIUM 8.6-50 MG TABLET PO SCH (08:54)
[2020-12-20] MEDS: MUPIROCIN CALCIUM 2% 15 GM CREAM TP SCH ×2 (08:54→16:35)
[2020-12-20] MEDS: LITHIUM CARBONATE 600 MG CAPSULE PO SCH ×2 (08:54→16:34)
[2020-12-20] MEDS: HALOPERIDOL 10 MG TABLET PO SCH (20:42)
[2020-12-20] MEDS: OLANZapine 5 MG RAPDIS TABLET PO SCH (20:42)
[2020-12-21] MEDS: LEVOTHYROXINE SODIUM 75 MCG TABLET PO SCH (06:28)
[2020-12-21] MEDS: MUPIROCIN CALCIUM 2% 15 GM CREAM TP SCH ×2 (08:19→16:17)
[2020-12-21] MEDS: QUEtiapine FUMARATE 300 MG TABLET PO SCH ×2 (08:19→16:17)
[2020-12-21] MEDS: SENNA/DOCUSATE SODIUM 8.6-50 MG TABLET PO SCH (08:19)
[2020-12-21] MEDS: LITHIUM CARBONATE 600 MG CAPSULE PO SCH ×2 (08:19→16:17)
[2020-12-21] MEDS: MAGNESIUM OXIDE 400 MG TABLET PO SCH ×2 (08:19→16:17)
[2020-12-21] MEDS: DIVALPROEX SODIUM 500 MG DR TABLET PO SCH ×2 (08:19→20:10)
[2020-12-21] MEDS: OMEGA-3/DHA/EPA/FISH OIL 1,000 MG CAPSULE PO SCH (08:19)
[2020-12-21] MEDS: SULFAMETHOX/TRIMETH DS 800-160 MG/TABLET PO SCH ×2 (08:19→16:17)
[2020-12-21] MEDS: OLANZapine 5 MG RAPDIS TABLET PO SCH (20:10)
[2020-12-21] MEDS: HALOPERIDOL 10 MG TABLET PO SCH (20:10)
[2020-12-22] MEDS: LEVOTHYROXINE SODIUM 75 MCG TABLET PO SCH ×2 (06:15→21:00)
[2020-12-22] MEDS: MUPIROCIN CALCIUM 2% 15 GM CREAM TP SCH ×2 (08:25→17:59)
[2020-12-22] MEDS: DIVALPROEX SODIUM 500 MG DR TABLET PO SCH ×2 (08:25→20:11)
[2020-12-22] MEDS: SULFAMETHOX/TRIMETH DS 800-160 MG/TABLET PO SCH (08:25)
[2020-12-22] MEDS: LITHIUM CARBONATE 600 MG CAPSULE PO SCH ×2 (08:25→16:51)
[2020-12-22] MEDS: QUEtiapine FUMARATE 300 MG TABLET PO SCH ×2 (08:25→16:51)
[2020-12-22] MEDS: MAGNESIUM OXIDE 400 MG TABLET PO SCH ×2 (08:25→16:51)
[2020-12-22] MEDS: OMEGA-3/DHA/EPA/FISH OIL 1,000 MG CAPSULE PO SCH (08:25)
[2020-12-22] MEDS: SENNA/DOCUSATE SODIUM 8.6-50 MG TABLET PO SCH (08:25)
[2020-12-22] MEDS: OLANZapine 5 MG RAPDIS TABLET PO SCH (20:11)
[2020-12-22] MEDS: HALOPERIDOL 10 MG TABLET PO SCH (21:00)
[2020-12-23 02:07] VITALS: BP 144/95
[2020-12-23] MEDS: LEVOTHYROXINE SODIUM 75 MCG TABLET PO SCH (06:32)
[2020-12-23 09:00] VITALS: BP 130/81
[2020-12-23] MEDS: OMEGA-3/DHA/EPA/FISH OIL 1,000 MG CAPSULE PO SCH (11:28)
[2020-12-23] MEDS: LITHIUM CARBONATE 600 MG CAPSULE PO SCH ×2 (11:28→16:48)
[2020-12-23] MEDS: MAGNESIUM OXIDE 400 MG TABLET PO SCH ×2 (11:29→16:48)
[2020-12-23] MEDS: SENNA/DOCUSATE SODIUM 8.6-50 MG TABLET PO SCH (11:29)
[2020-12-23] MEDS: QUEtiapine FUMARATE 300 MG TABLET PO SCH ×2 (11:29→16:48)
[2020-12-23] MEDS: MUPIROCIN CALCIUM 2% 15 GM CREAM TP SCH ×2 (11:30→16:49)
[2020-12-23] MEDS: DIVALPROEX SODIUM 500 MG DR TABLET PO SCH ×2 (11:30→20:24)
[2020-12-23] MEDS: HALOPERIDOL 10 MG TABLET PO SCH (20:23)
[2020-12-23] MEDS: OLANZapine 5 MG RAPDIS TABLET PO SCH (20:24)
[2020-12-24] MEDS: LEVOTHYROXINE SODIUM 75 MCG TABLET PO SCH (06:33)
[2020-12-24 08:12] VITALS: BP 118/79
[2020-12-24] MEDS: OMEGA-3/DHA/EPA/FISH OIL 1,000 MG CAPSULE PO SCH (08:52)
[2020-12-24] MEDS: SENNA/DOCUSATE SODIUM 8.6-50 MG TABLET PO SCH (08:52)
[2020-12-24] MEDS: DIVALPROEX SODIUM 500 MG DR TABLET PO SCH ×2 (08:52→20:06)
[2020-12-24] MEDS: LITHIUM CARBONATE 600 MG CAPSULE PO SCH ×2 (08:52→16:52)
[2020-12-24] MEDS: QUEtiapine FUMARATE 300 MG TABLET PO SCH ×2 (08:53→16:52)
[2020-12-24] MEDS: MAGNESIUM OXIDE 400 MG TABLET PO SCH ×2 (08:53→16:52)
[2020-12-24] MEDS: MUPIROCIN CALCIUM 2% 15 GM CREAM TP SCH ×2 (08:53→18:08)
[2020-12-24] MEDS ORDERED: SULFAMETHOX/TRIMETH DS 800-160 MG/TABLET PO SCH (09:00)
[2020-12-24] MEDS: OLANZapine 5 MG RAPDIS TABLET PO SCH (20:06)
[2020-12-24] MEDS: HALOPERIDOL 10 MG TABLET PO SCH (20:06)
[2020-12-24] MEDS: MAG HYDROX/AL HYDROX/SIMETH ES 30 ML SUSPENSION UDCUP PO PRN (21:34)
[2020-12-25 05:59] VITALS: BP 121/68
[2020-12-25] MEDS: LEVOTHYROXINE SODIUM 75 MCG TABLET PO SCH (06:56)
[2020-12-25] MEDS: MAGNESIUM OXIDE 400 MG TABLET PO SCH ×2 (08:24→17:40)
[2020-12-25] MEDS: DIVALPROEX SODIUM 500 MG DR TABLET PO SCH ×2 (08:24→22:18)
[2020-12-25] MEDS: MUPIROCIN CALCIUM 2% 15 GM CREAM TP SCH ×2 (08:24→17:41)
[2020-12-25] MEDS: LITHIUM CARBONATE 600 MG CAPSULE PO SCH ×2 (08:24→17:40)
[2020-12-25] MEDS: OMEGA-3/DHA/EPA/FISH OIL 1,000 MG CAPSULE PO SCH (08:24)
[2020-12-25] MEDS: QUEtiapine FUMARATE 300 MG TABLET PO SCH ×2 (08:24→17:40)
[2020-12-25] MEDS: SENNA/DOCUSATE SODIUM 8.6-50 MG TABLET PO SCH (08:24)
[2020-12-25] MEDS: OLANZapine 5 MG RAPDIS TABLET PO SCH (22:18)
[2020-12-25] MEDS: HALOPERIDOL 10 MG TABLET PO SCH (22:18)
[2020-12-26] MEDS: LEVOTHYROXINE SODIUM 75 MCG TABLET PO SCH (06:22)
[2020-12-26] MEDS: MUPIROCIN CALCIUM 2% 15 GM CREAM TP SCH ×2 (08:31→16:27)
[2020-12-26] MEDS: SENNA/DOCUSATE SODIUM 8.6-50 MG TABLET PO SCH (08:31)
[2020-12-26] MEDS: DIVALPROEX SODIUM 500 MG DR TABLET PO SCH ×2 (08:31→20:12)
[2020-12-26] MEDS: MAGNESIUM OXIDE 400 MG TABLET PO SCH ×2 (08:31→16:27)
[2020-12-26] MEDS: QUEtiapine FUMARATE 300 MG TABLET PO SCH ×2 (08:31→16:27)
[2020-12-26] MEDS: OMEGA-3/DHA/EPA/FISH OIL 1,000 MG CAPSULE PO SCH (08:31)
[2020-12-26] MEDS: LITHIUM CARBONATE 600 MG CAPSULE PO SCH ×2 (08:31→16:27)
[2020-12-26] MEDS: OLANZapine 5 MG RAPDIS TABLET PO SCH (20:12)
[2020-12-26] MEDS: HALOPERIDOL 10 MG TABLET PO SCH (20:12)
[2020-12-27] MEDS: LEVOTHYROXINE SODIUM 75 MCG TABLET PO SCH (06:31)
[2020-12-27] MEDS: OMEGA-3/DHA/EPA/FISH OIL 1,000 MG CAPSULE PO SCH (08:43)
[2020-12-27] MEDS: LITHIUM CARBONATE 600 MG CAPSULE PO SCH ×2 (08:43→17:34)
[2020-12-27] MEDS: DIVALPROEX SODIUM 500 MG DR TABLET PO SCH ×2 (08:43→20:12)
[2020-12-27] MEDS: MAGNESIUM OXIDE 400 MG TABLET PO SCH ×2 (08:43→17:34)
[2020-12-27] MEDS: QUEtiapine FUMARATE 300 MG TABLET PO SCH ×2 (08:43→17:34)
[2020-12-27] MEDS: MUPIROCIN CALCIUM 2% 22 GM OINTMENT TP SCH ×3 (08:44→17:37)
[2020-12-27] MEDS: SENNA/DOCUSATE SODIUM 8.6-50 MG TABLET PO SCH (08:44)
[2020-12-27] MEDS: MUPIROCIN CALCIUM 2% 15 GM CREAM TP SCH ×2 (08:44→13:16)
[2020-12-27] MEDS: HALOPERIDOL 10 MG TABLET PO SCH (20:12)
[2020-12-27] MEDS: OLANZapine 5 MG RAPDIS TABLET PO SCH (20:12)
[2020-12-28] MEDS: LEVOTHYROXINE SODIUM 75 MCG TABLET PO SCH (06:28)
[2020-12-28 08:15] VITALS: BP 122/63
[2020-12-28] MEDS: MUPIROCIN CALCIUM 2% 15 GM CREAM TP SCH ×2 (08:51→16:11)
[2020-12-28] MEDS: SENNA/DOCUSATE SODIUM 8.6-50 MG TABLET PO SCH (08:51)
[2020-12-28] MEDS: QUEtiapine FUMARATE 300 MG TABLET PO SCH ×2 (08:52→16:10)
[2020-12-28] MEDS: DIVALPROEX SODIUM 500 MG DR TABLET PO SCH ×2 (08:52→21:05)
[2020-12-28] MEDS: LITHIUM CARBONATE 600 MG CAPSULE PO SCH ×2 (08:52→16:10)
[2020-12-28] MEDS: MAGNESIUM OXIDE 400 MG TABLET PO SCH ×2 (08:52→16:10)
[2020-12-28] MEDS: MUPIROCIN CALCIUM 2% 22 GM OINTMENT TP SCH ×3 (08:55→16:11)
[2020-12-28] MEDS: OMEGA-3/DHA/EPA/FISH OIL 1,000 MG CAPSULE PO SCH (09:04)
[2020-12-28] MEDS: OLANZapine 5 MG RAPDIS TABLET PO SCH (21:05)
[2020-12-28] MEDS: HALOPERIDOL 10 MG TABLET PO SCH (21:05)
[2020-12-29] MEDS: LEVOTHYROXINE SODIUM 75 MCG TABLET PO SCH (06:31)
[2020-12-29 08:18] VITALS: BP 121/87
[2020-12-29] MEDS: LITHIUM CARBONATE 600 MG CAPSULE PO SCH ×2 (08:36→16:52)
[2020-12-29] MEDS: OMEGA-3/DHA/EPA/FISH OIL 1,000 MG CAPSULE PO SCH (08:36)
[2020-12-29] MEDS: DIVALPROEX SODIUM 500 MG DR TABLET PO SCH ×2 (08:36→20:23)
[2020-12-29] MEDS: SENNA/DOCUSATE SODIUM 8.6-50 MG TABLET PO SCH (08:36)
[2020-12-29] MEDS: QUEtiapine FUMARATE 300 MG TABLET PO SCH ×2 (08:36→16:52)
[2020-12-29] MEDS: MAGNESIUM OXIDE 400 MG TABLET PO SCH ×2 (08:36→16:52)
[2020-12-29] MEDS: MUPIROCIN CALCIUM 2% 22 GM OINTMENT TP SCH ×3 (08:37→16:52)
[2020-12-29] MEDS: MUPIROCIN CALCIUM 2% 15 GM CREAM TP SCH ×2 (08:37→16:52)
[2020-12-29] MEDS: OLANZapine 5 MG RAPDIS TABLET PO SCH (20:23)
[2020-12-29] MEDS: HALOPERIDOL 10 MG TABLET PO SCH (20:23)
[2020-12-30 01:09] VITALS: BP 139/96
[2020-12-30] MEDS: LEVOTHYROXINE SODIUM 75 MCG TABLET PO SCH (06:30)
[2020-12-30] MEDS: MUPIROCIN CALCIUM 2% 15 GM CREAM TP SCH ×2 (08:46→16:29)
[2020-12-30] MEDS: SENNA/DOCUSATE SODIUM 8.6-50 MG TABLET PO SCH (08:47)
[2020-12-30] MEDS: DIVALPROEX SODIUM 500 MG DR TABLET PO SCH ×2 (08:47→20:20)
[2020-12-30] MEDS: QUEtiapine FUMARATE 300 MG TABLET PO SCH ×2 (08:47→16:28)
[2020-12-30] MEDS: LITHIUM CARBONATE 600 MG CAPSULE PO SCH ×2 (08:47→16:28)
[2020-12-30] MEDS: OMEGA-3/DHA/EPA/FISH OIL 1,000 MG CAPSULE PO SCH (08:47)
[2020-12-30] MEDS: MUPIROCIN CALCIUM 2% 22 GM OINTMENT TP SCH ×3 (08:47→16:29)
[2020-12-30] MEDS: MAGNESIUM OXIDE 400 MG TABLET PO SCH ×2 (08:47→16:28)
[2020-12-30] MEDS: OLANZapine 5 MG RAPDIS TABLET PO SCH (20:20)
[2020-12-30] MEDS: HALOPERIDOL 10 MG TABLET PO SCH (20:20)
[2020-12-31 06:03] VITALS: BP 144/79
[2020-12-31] MEDS: LEVOTHYROXINE SODIUM 75 MCG TABLET PO SCH (06:34)
[2020-12-31] MEDS: SENNA/DOCUSATE SODIUM 8.6-50 MG TABLET PO SCH (08:11)
[2020-12-31] MEDS: MUPIROCIN CALCIUM 2% 15 GM CREAM TP SCH ×2 (08:11→17:06)
[2020-12-31] MEDS: LITHIUM CARBONATE 600 MG CAPSULE PO SCH ×2 (08:12→16:59)
[2020-12-31] MEDS: DIVALPROEX SODIUM 500 MG DR TABLET PO SCH ×2 (08:12→20:04)
[2020-12-31] MEDS: MUPIROCIN CALCIUM 2% 22 GM OINTMENT TP SCH ×3 (08:12→16:59)
[2020-12-31] MEDS: TRIAMCINOLONE 0.1% 80 GM CREAM TP SCH ×2 (08:12→16:59)
[2020-12-31] MEDS: OMEGA-3/DHA/EPA/FISH OIL 1,000 MG CAPSULE PO SCH (08:12)
[2020-12-31] MEDS: MAGNESIUM OXIDE 400 MG TABLET PO SCH ×2 (08:12→16:59)
[2020-12-31] MEDS: QUEtiapine FUMARATE 300 MG TABLET PO SCH ×2 (08:12→16:59)
[2020-12-31] MEDS: OLANZapine 5 MG RAPDIS TABLET PO SCH (20:05)
[2020-12-31] MEDS: HALOPERIDOL 10 MG TABLET PO SCH (20:06)
[2021-01-01] MEDS: LEVOTHYROXINE SODIUM 75 MCG TABLET PO SCH (06:38)
[2021-01-01] MEDS: OMEGA-3/DHA/EPA/FISH OIL 1,000 MG CAPSULE PO SCH (08:52)
[2021-01-01] MEDS: SENNA/DOCUSATE SODIUM 8.6-50 MG TABLET PO SCH (08:52)
[2021-01-01] MEDS: MAGNESIUM OXIDE 400 MG TABLET PO SCH ×2 (08:53→16:19)
[2021-01-01] MEDS: LITHIUM CARBONATE 600 MG CAPSULE PO SCH ×2 (08:53→16:19)
[2021-01-01] MEDS: DIVALPROEX SODIUM 500 MG DR TABLET PO SCH ×2 (08:53→20:21)
[2021-01-01] MEDS: QUEtiapine FUMARATE 300 MG TABLET PO SCH ×2 (08:53→16:19)
[2021-01-01] MEDS: MUPIROCIN CALCIUM 2% 15 GM CREAM TP SCH ×2 (08:57→16:19)
[2021-01-01] MEDS: TRIAMCINOLONE 0.1% 80 GM CREAM TP SCH ×2 (08:58→16:20)
[2021-01-01] MEDS: HALOPERIDOL 10 MG TABLET PO SCH (20:21)
[2021-01-01] MEDS: OLANZapine 5 MG RAPDIS TABLET PO SCH (20:23)
[2021-01-02] MEDS: LEVOTHYROXINE SODIUM 75 MCG TABLET PO SCH (06:04)
[2021-01-02 08:13] VITALS: BP 128/81
[2021-01-02] MEDS: MAGNESIUM OXIDE 400 MG TABLET PO SCH ×2 (08:44→17:03)
[2021-01-02] MEDS: OMEGA-3/DHA/EPA/FISH OIL 1,000 MG CAPSULE PO SCH (08:44)
[2021-01-02] MEDS: DIVALPROEX SODIUM 500 MG DR TABLET PO SCH ×2 (08:44→22:09)
[2021-01-02] MEDS: QUEtiapine FUMARATE 300 MG TABLET PO SCH ×2 (08:44→17:03)
[2021-01-02] MEDS: LITHIUM CARBONATE 600 MG CAPSULE PO SCH ×2 (08:44→17:03)
[2021-01-02] MEDS: TRIAMCINOLONE 0.1% 80 GM CREAM TP SCH ×2 (08:44→17:03)
[2021-01-02] MEDS: SENNA/DOCUSATE SODIUM 8.6-50 MG TABLET PO SCH (08:44)
[2021-01-02] MEDS: MAGNESIUM HYDROXIDE SUSPENSION 30 ML UDCUP PO PRN (12:53)
[2021-01-02] MEDS: OLANZapine 5 MG RAPDIS TABLET PO SCH (22:09)
[2021-01-02] MEDS: HALOPERIDOL 10 MG TABLET PO SCH (22:09)
[2021-01-03] MEDS: LEVOTHYROXINE SODIUM 75 MCG TABLET PO SCH (06:08)
[2021-01-03] MEDS: OMEGA-3/DHA/EPA/FISH OIL 1,000 MG CAPSULE PO SCH (08:46)
[2021-01-03] MEDS: MAGNESIUM OXIDE 400 MG TABLET PO SCH ×2 (08:46→16:39)
[2021-01-03] MEDS: SENNA/DOCUSATE SODIUM 8.6-50 MG TABLET PO SCH (08:46)
[2021-01-03] MEDS: LITHIUM CARBONATE 600 MG CAPSULE PO SCH ×2 (08:46→16:38)
[2021-01-03] MEDS: DIVALPROEX SODIUM 500 MG DR TABLET PO SCH ×2 (08:46→20:23)
[2021-01-03] MEDS: QUEtiapine FUMARATE 300 MG TABLET PO SCH ×2 (08:46→16:39)
[2021-01-03] MEDS: TRIAMCINOLONE 0.1% 80 GM CREAM TP SCH ×2 (08:47→16:37)
[2021-01-03] MEDS: OLANZapine 5 MG RAPDIS TABLET PO SCH (20:23)
[2021-01-03] MEDS: HALOPERIDOL 10 MG TABLET PO SCH (20:23)
[2021-01-04] MEDS: LEVOTHYROXINE SODIUM 75 MCG TABLET PO SCH (06:40)
[2021-01-04 08:24] VITALS: BP 166/96
[2021-01-04] MEDS: OMEGA-3/DHA/EPA/FISH OIL 1,000 MG CAPSULE PO SCH (09:09)
[2021-01-04] MEDS: MAGNESIUM OXIDE 400 MG TABLET PO SCH ×2 (09:09→16:24)
[2021-01-04] MEDS: DIVALPROEX SODIUM 500 MG DR TABLET PO SCH ×2 (09:09→20:09)
[2021-01-04] MEDS: SENNA/DOCUSATE SODIUM 8.6-50 MG TABLET PO SCH (09:09)
[2021-01-04] MEDS: LITHIUM CARBONATE 600 MG CAPSULE PO SCH ×2 (09:09→16:24)
[2021-01-04] MEDS: QUEtiapine FUMARATE 300 MG TABLET PO SCH ×2 (09:10→16:24)
[2021-01-04] MEDS: TRIAMCINOLONE 0.1% 80 GM CREAM TP SCH ×2 (09:10→16:25)
[2021-01-04] MEDS: HALOPERIDOL 10 MG TABLET PO SCH (20:09)
[2021-01-04] MEDS: OLANZapine 5 MG RAPDIS TABLET PO SCH (20:09)
[2021-01-05 00:34] VITALS: BP 135/88
[2021-01-05] MEDS: LEVOTHYROXINE SODIUM 75 MCG TABLET PO SCH (06:16)
[2021-01-05] MEDS: QUEtiapine FUMARATE 300 MG TABLET PO SCH ×2 (08:52→16:35)
[2021-01-05] MEDS: TRIAMCINOLONE 0.1% 80 GM CREAM TP SCH ×2 (08:52→16:35)
[2021-01-05] MEDS: SENNA/DOCUSATE SODIUM 8.6-50 MG TABLET PO SCH (08:52)
[2021-01-05] MEDS: LITHIUM CARBONATE 600 MG CAPSULE PO SCH ×2 (08:52→16:35)
[2021-01-05] MEDS: OMEGA-3/DHA/EPA/FISH OIL 1,000 MG CAPSULE PO SCH (08:53)
[2021-01-05] MEDS: MAGNESIUM OXIDE 400 MG TABLET PO SCH ×2 (08:53→16:35)
[2021-01-05] MEDS: DIVALPROEX SODIUM 500 MG DR TABLET PO SCH ×2 (08:53→20:17)
[2021-01-05] MEDS: IBUPROFEN 600 MG TABLET PO PRN (20:09)
[2021-01-05] MEDS: OLANZapine 5 MG RAPDIS TABLET PO SCH (20:16)
[2021-01-05] MEDS: HALOPERIDOL 10 MG TABLET PO SCH (20:17)
[2021-01-06] MEDS: ACETAMINOPHEN 325 MG TABLET PO PRN (02:16)
[2021-01-06] MEDS: LEVOTHYROXINE SODIUM 75 MCG TABLET PO SCH (06:35)
[2021-01-06] MEDS: LITHIUM CARBONATE 600 MG CAPSULE PO SCH ×2 (08:40→16:05)
[2021-01-06] MEDS: DIVALPROEX SODIUM 500 MG DR TABLET PO SCH ×2 (08:40→20:03)
[2021-01-06] MEDS: OMEGA-3/DHA/EPA/FISH OIL 1,000 MG CAPSULE PO SCH (08:41)
[2021-01-06] MEDS: TRIAMCINOLONE 0.1% 80 GM CREAM TP SCH ×2 (08:41→16:05)
[2021-01-06] MEDS: MAGNESIUM OXIDE 400 MG TABLET PO SCH ×2 (08:41→16:05)
[2021-01-06] MEDS: SENNA/DOCUSATE SODIUM 8.6-50 MG TABLET PO SCH (08:41)
[2021-01-06] MEDS: QUEtiapine FUMARATE 300 MG TABLET PO SCH ×2 (08:41→16:05)
[2021-01-06] MEDS: OLANZapine 5 MG RAPDIS TABLET PO SCH (20:03)
[2021-01-06] MEDS: HALOPERIDOL 10 MG TABLET PO SCH (20:03)
[2021-01-07] MEDS: ACETAMINOPHEN 325 MG TABLET PO PRN (01:14)
[2021-01-07 04:07] VITALS: BP 118/82
[2021-01-07] MEDS: LEVOTHYROXINE SODIUM 75 MCG TABLET PO SCH (06:43)
[2021-01-07] MEDS: DIVALPROEX SODIUM 500 MG DR TABLET PO SCH ×2 (08:17→20:41)
[2021-01-07] MEDS: QUEtiapine FUMARATE 300 MG TABLET PO SCH ×2 (08:17→17:14)
[2021-01-07] MEDS: MAGNESIUM OXIDE 400 MG TABLET PO SCH ×2 (08:17→17:14)
[2021-01-07] MEDS: LITHIUM CARBONATE 600 MG CAPSULE PO SCH ×2 (08:17→17:14)
[2021-01-07] MEDS: OMEGA-3/DHA/EPA/FISH OIL 1,000 MG CAPSULE PO SCH (08:17)
[2021-01-07] MEDS: TRIAMCINOLONE 0.1% 80 GM CREAM TP SCH ×2 (08:17→17:16)
[2021-01-07] MEDS: SENNA/DOCUSATE SODIUM 8.6-50 MG TABLET PO SCH (08:17)
[2021-01-07] MEDS: HALOPERIDOL 10 MG TABLET PO SCH (20:41)
[2021-01-07] MEDS: OLANZapine 5 MG RAPDIS TABLET PO SCH (20:41)
[2021-01-08] MEDS: LEVOTHYROXINE SODIUM 75 MCG TABLET PO SCH (06:40)
[2021-01-08] MEDS: LITHIUM CARBONATE 600 MG CAPSULE PO SCH ×2 (08:37→16:31)
[2021-01-08] MEDS: DIVALPROEX SODIUM 500 MG DR TABLET PO SCH ×2 (08:38→20:04)
[2021-01-08] MEDS: QUEtiapine FUMARATE 300 MG TABLET PO SCH ×2 (08:38→16:31)
[2021-01-08] MEDS: SENNA/DOCUSATE SODIUM 8.6-50 MG TABLET PO SCH (08:38)
[2021-01-08] MEDS: MAGNESIUM OXIDE 400 MG TABLET PO SCH ×2 (08:38→16:31)
[2021-01-08] MEDS: TRIAMCINOLONE 0.1% 80 GM CREAM TP SCH ×2 (08:39→16:34)
[2021-01-08] MEDS: OMEGA-3/DHA/EPA/FISH OIL 1,000 MG CAPSULE PO SCH (08:40)
[2021-01-08] MEDS: MAGNESIUM HYDROXIDE SUSPENSION 30 ML UDCUP PO PRN (16:50)
[2021-01-08] MEDS: HALOPERIDOL 10 MG TABLET PO SCH (20:04)
[2021-01-08] MEDS: OLANZapine 5 MG RAPDIS TABLET PO SCH (20:04)
[2021-01-09] MEDS: LEVOTHYROXINE SODIUM 75 MCG TABLET PO SCH (06:05)
[2021-01-09] MEDS: DIVALPROEX SODIUM 500 MG DR TABLET PO SCH ×2 (08:25→20:20)
[2021-01-09] MEDS: LITHIUM CARBONATE 600 MG CAPSULE PO SCH ×2 (08:25→16:13)
[2021-01-09] MEDS: MAGNESIUM OXIDE 400 MG TABLET PO SCH ×2 (08:25→16:13)
[2021-01-09] MEDS: OMEGA-3/DHA/EPA/FISH OIL 1,000 MG CAPSULE PO SCH (08:25)
[2021-01-09] MEDS: SENNA/DOCUSATE SODIUM 8.6-50 MG TABLET PO SCH (08:25)
[2021-01-09] MEDS: QUEtiapine FUMARATE 300 MG TABLET PO SCH ×2 (08:25→16:13)
[2021-01-09] MEDS: TRIAMCINOLONE 0.1% 80 GM CREAM TP SCH ×2 (08:25→16:14)
[2021-01-09] MEDS: OLANZapine 5 MG RAPDIS TABLET PO SCH (20:20)
[2021-01-09] MEDS: HALOPERIDOL 10 MG TABLET PO SCH (20:20)
[2021-01-10 00:18] VITALS: BP 138/92
[2021-01-10] MEDS: LEVOTHYROXINE SODIUM 75 MCG TABLET PO SCH (06:33)
[2021-01-10] MEDS: QUEtiapine FUMARATE 300 MG TABLET PO SCH ×2 (08:34→16:40)
[2021-01-10] MEDS: LITHIUM CARBONATE 600 MG CAPSULE PO SCH ×2 (08:34→16:40)
[2021-01-10] MEDS: OMEGA-3/DHA/EPA/FISH OIL 1,000 MG CAPSULE PO SCH (08:34)
[2021-01-10] MEDS: DIVALPROEX SODIUM 500 MG DR TABLET PO SCH ×2 (08:34→20:20)
[2021-01-10] MEDS: MAGNESIUM OXIDE 400 MG TABLET PO SCH ×2 (08:35→16:40)
[2021-01-10] MEDS: SENNA/DOCUSATE SODIUM 8.6-50 MG TABLET PO SCH (08:35)
[2021-01-10 08:51] VITALS: BP 121/66
[2021-01-10] MEDS: TRIAMCINOLONE 0.1% 80 GM CREAM TP SCH ×2 (09:40→16:41)
[2021-01-10] MEDS: HALOPERIDOL 10 MG TABLET PO SCH (20:20)
[2021-01-10] MEDS: OLANZapine 5 MG RAPDIS TABLET PO SCH (20:20)
[2021-01-11 01:53] VITALS: BP 127/62
[2021-01-11] MEDS: LEVOTHYROXINE SODIUM 75 MCG TABLET PO SCH (06:25)
[2021-01-11 08:20] VITALS: BP 156/98
[2021-01-11] MEDS: OMEGA-3/DHA/EPA/FISH OIL 1,000 MG CAPSULE PO SCH (08:26)
[2021-01-11] MEDS: QUEtiapine FUMARATE 300 MG TABLET PO SCH ×2 (08:26→16:20)
[2021-01-11] MEDS: LITHIUM CARBONATE 600 MG CAPSULE PO SCH ×2 (08:26→16:20)
[2021-01-11] MEDS: MAGNESIUM OXIDE 400 MG TABLET PO SCH ×2 (08:26→16:20)
[2021-01-11] MEDS: SENNA/DOCUSATE SODIUM 8.6-50 MG TABLET PO SCH (08:26)
[2021-01-11] MEDS: TRIAMCINOLONE 0.1% 80 GM CREAM TP SCH ×2 (08:27→16:25)
[2021-01-11] MEDS: DIVALPROEX SODIUM 500 MG DR TABLET PO SCH ×2 (08:27→20:11)
[2021-01-11] MEDS: HALOPERIDOL 5 MG TABLET PO PRN (08:27)
[2021-01-11] MEDS: MAGNESIUM HYDROXIDE SUSPENSION 30 ML UDCUP PO PRN (08:59)
[2021-01-11] MEDS: OLANZapine 5 MG RAPDIS TABLET PO SCH (20:12)
[2021-01-11] MEDS: HALOPERIDOL 10 MG TABLET PO SCH (20:12)
[2021-01-12] MEDS: LEVOTHYROXINE SODIUM 75 MCG TABLET PO SCH (06:30)
[2021-01-12] MEDS: QUEtiapine FUMARATE 300 MG TABLET PO SCH ×2 (08:09→16:35)
[2021-01-12] MEDS: OMEGA-3/DHA/EPA/FISH OIL 1,000 MG CAPSULE PO SCH (08:09)
[2021-01-12] MEDS: SENNA/DOCUSATE SODIUM 8.6-50 MG TABLET PO SCH (08:09)
[2021-01-12] MEDS: LITHIUM CARBONATE 600 MG CAPSULE PO SCH ×2 (08:09→16:35)
[2021-01-12] MEDS: MAGNESIUM OXIDE 400 MG TABLET PO SCH ×2 (08:09→16:36)
[2021-01-12] MEDS: TRIAMCINOLONE 0.1% 80 GM CREAM TP SCH ×2 (08:10→16:35)
[2021-01-12] MEDS: DIVALPROEX SODIUM 500 MG DR TABLET PO SCH ×2 (08:10→20:24)
[2021-01-12 08:31] VITALS: BP 118/74
[2021-01-12] MEDS: OLANZapine 5 MG RAPDIS TABLET PO SCH (20:24)
[2021-01-12] MEDS: HALOPERIDOL 10 MG TABLET PO SCH (20:25)
[2021-01-12] MEDS: ZOLPIDEM TARTRATE 10 MG TABLET PO PRN (22:46)
[2021-01-13] MEDS: LEVOTHYROXINE SODIUM 75 MCG TABLET PO SCH (06:39)
[2021-01-13] MEDS: MAGNESIUM OXIDE 400 MG TABLET PO SCH ×2 (08:20→16:46)
[2021-01-13] MEDS: QUEtiapine FUMARATE 300 MG TABLET PO SCH ×2 (08:21→16:46)
[2021-01-13] MEDS: DIVALPROEX SODIUM 500 MG DR TABLET PO SCH ×2 (08:21→20:38)
[2021-01-13] MEDS: LITHIUM CARBONATE 600 MG CAPSULE PO SCH ×2 (08:21→16:46)
[2021-01-13] MEDS: SENNA/DOCUSATE SODIUM 8.6-50 MG TABLET PO SCH (08:21)
[2021-01-13] MEDS: OMEGA-3/DHA/EPA/FISH OIL 1,000 MG CAPSULE PO SCH (08:21)
[2021-01-13] MEDS: TRIAMCINOLONE 0.1% 80 GM CREAM TP SCH ×2 (08:22→16:47)
[2021-01-13 08:26] VITALS: BP 108/64
[2021-01-13] MEDS: OLANZapine 5 MG RAPDIS TABLET PO SCH (20:38)
[2021-01-13] MEDS: HALOPERIDOL 10 MG TABLET PO SCH (20:38)
[2021-01-13] MEDS: ZOLPIDEM TARTRATE 10 MG TABLET PO PRN (20:43)
[2021-01-14] MEDS: LEVOTHYROXINE SODIUM 75 MCG TABLET PO SCH (06:25)
[2021-01-14] MEDS: OMEGA-3/DHA/EPA/FISH OIL 1,000 MG CAPSULE PO SCH (08:36)
[2021-01-14] MEDS: QUEtiapine FUMARATE 300 MG TABLET PO SCH ×2 (08:36→16:15)
[2021-01-14] MEDS: LITHIUM CARBONATE 600 MG CAPSULE PO SCH ×2 (08:36→16:15)
[2021-01-14] MEDS: MAGNESIUM OXIDE 400 MG TABLET PO SCH ×2 (08:36→16:15)
[2021-01-14] MEDS: SENNA/DOCUSATE SODIUM 8.6-50 MG TABLET PO SCH (08:37)
[2021-01-14] MEDS: DIVALPROEX SODIUM 500 MG DR TABLET PO SCH ×2 (08:37→20:31)
[2021-01-14] MEDS: TRIAMCINOLONE 0.1% 80 GM CREAM TP SCH ×2 (08:37→16:16)
[2021-01-14] MEDS: MAGNESIUM HYDROXIDE SUSPENSION 30 ML UDCUP PO PRN (10:37)
[2021-01-14] MEDS: OLANZapine 5 MG RAPDIS TABLET PO SCH (20:31)
[2021-01-14] MEDS: HALOPERIDOL 10 MG TABLET PO SCH (20:31)
[2021-01-15] MEDS: LEVOTHYROXINE SODIUM 75 MCG TABLET PO SCH (06:40)
[2021-01-15] MEDS: MAGNESIUM OXIDE 400 MG TABLET PO SCH ×2 (08:00→16:26)
[2021-01-15] MEDS: LITHIUM CARBONATE 600 MG CAPSULE PO SCH ×2 (08:01→16:26)
[2021-01-15] MEDS: QUEtiapine FUMARATE 300 MG TABLET PO SCH ×2 (08:01→16:26)
[2021-01-15] MEDS: DIVALPROEX SODIUM 500 MG DR TABLET PO SCH ×2 (08:01→20:52)
[2021-01-15] MEDS: OMEGA-3/DHA/EPA/FISH OIL 1,000 MG CAPSULE PO SCH (08:01)
[2021-01-15] MEDS: SENNA/DOCUSATE SODIUM 8.6-50 MG TABLET PO SCH (08:02)
[2021-01-15 08:30] VITALS: BP 121/69
[2021-01-15] MEDS: TRIAMCINOLONE 0.1% 80 GM CREAM TP SCH ×2 (09:00→16:28)
[2021-01-15] MEDS: MAGNESIUM HYDROXIDE SUSPENSION 30 ML UDCUP PO PRN (17:21)
[2021-01-15] MEDS: OLANZapine 5 MG RAPDIS TABLET PO SCH (20:52)
[2021-01-15] MEDS: HALOPERIDOL 10 MG TABLET PO SCH (20:52)
[2021-01-16] MEDS: ZOLPIDEM TARTRATE 10 MG TABLET PO PRN ×2 (01:20→20:35)
[2021-01-16] MEDS: LEVOTHYROXINE SODIUM 75 MCG TABLET PO SCH (06:58)
[2021-01-16 07:06] LABS: COVID AG,FIA SOURCE NASOPHARYNGEAL
[2021-01-16] MEDS: MAGNESIUM OXIDE 400 MG TABLET PO SCH ×2 (09:05→16:26)
[2021-01-16] MEDS: QUEtiapine FUMARATE 300 MG TABLET PO SCH ×2 (09:05→16:26)
[2021-01-16] MEDS: OMEGA-3/DHA/EPA/FISH OIL 1,000 MG CAPSULE PO SCH (09:05)
[2021-01-16] MEDS: LITHIUM CARBONATE 600 MG CAPSULE PO SCH ×2 (09:06→16:27)
[2021-01-16] MEDS: DIVALPROEX SODIUM 500 MG DR TABLET PO SCH ×2 (09:06→20:35)
[2021-01-16] MEDS: SENNA/DOCUSATE SODIUM 8.6-50 MG TABLET PO SCH (09:16)
[2021-01-16] MEDS: TRIAMCINOLONE 0.1% 80 GM CREAM TP SCH ×2 (09:16→16:26)
[2021-01-16] MEDS: HALOPERIDOL 10 MG TABLET PO SCH (20:35)
[2021-01-16] MEDS: OLANZapine 5 MG RAPDIS TABLET PO SCH (20:35)
[2021-01-17] MEDS: LEVOTHYROXINE SODIUM 75 MCG TABLET PO SCH (07:16)
[2021-01-17] MEDS: LITHIUM CARBONATE 600 MG CAPSULE PO SCH (08:52)
[2021-01-17] MEDS: QUEtiapine FUMARATE 300 MG TABLET PO SCH (08:52)
[2021-01-17] MEDS: DIVALPROEX SODIUM 500 MG DR TABLET PO SCH (08:52)
[2021-01-17] MEDS: MAGNESIUM OXIDE 400 MG TABLET PO SCH (08:52)
[2021-01-17] MEDS: OMEGA-3/DHA/EPA/FISH OIL 1,000 MG CAPSULE PO SCH (08:53)
[2021-01-17] MEDS: SENNA/DOCUSATE SODIUM 8.6-50 MG TABLET PO SCH (08:53)
[2021-01-17] MEDS: TRIAMCINOLONE 0.1% 80 GM CREAM TP SCH (08:54)
[2021-01-17] MEDS ORDERED: DIVA-112 PO (11:55)
[2021-01-17] MEDS ORDERED: HALO10 PO (11:56)
[2021-01-17] MEDS ORDERED: LITH600C5 PO (11:57)
[2021-01-17] MEDS ORDERED: OLAN7.5T22 PO (11:57)
== END 2021-01-17 12:40 | DRG 750 ==
LOC: B3A 17:28
PROVIDERS: ADMIT Psychiatry & Neurology Psychiatry; ATTEND Psychiatry & Neurology Psychiatry
DX: F20.0 Paranoid schizophrenia (principal); E44.1 Mild protein-calorie malnutrition; E87.6 Hypokalemia; F41.9 Anxiety disorder, unspecified; F15.10 Other stimulant abuse, uncomplicated; K59.00 Constipation, unspecified; G47.00 Insomnia, unspecified; Z72.0 Tobacco use; Z68.41 Body mass index [BMI] 40.0-44.9, adult; F19.10 Other psychoactive substance abuse, uncomplicated; Z59.0 Homelessness; E03.9 Hypothyroidism, unspecified; R21 Rash and other nonspecific skin eruption; Z91.19 Patient's noncompliance with other medical treatment and regimen; Z20.822 Contact with and (suspected) exposure to COVID-19; K08.89 Other specified disorders of teeth and supporting structures
CPT/HCPCS: 71046; 80048; 80053; 80061; 80164; 80178; 80307; 81001; 83036; 83540; 83550; 83735; 84100; 84132; 84439; 84443; 84702; 85007; 85025; 85027; 87070; 87077; 87081; 87086; 87101; 87186; 87205; J1200; J1630; J2060; 36415-L1; 36415-TC

== ENCOUNTER 2021-01-21 01:06 | Inpatient (IN) | payer MEDICAID ==
[~2021-01-21] VITALS: Ht 172.7 cm; Wt 120.8 kg
[~2021-01-21 01:06] MED LIST changes: -ATEN-73 PO; +DIVA-112 PO; -DIVA-80 PO; +HALO10 PO; +LITH600C5 PO; +OLAN7.5T22 PO
[2021-01-21] MEDS ORDERED: DiphenhydrAMINE HCL 50 MG/ML VIAL ONE (01:14)
[2021-01-21] MEDS ORDERED: HALOPERIDOL LACTATE 5 MG/ML VIAL ONE (01:14)
[2021-01-21] MEDS ORDERED: LORazepam 2 MG/ML VIAL ONE (01:14)
[2021-01-21] MEDS ORDERED: DiphenhydrAMINE HCL 50 MG/ML VIAL IM ONE (01:15)
[2021-01-21] MEDS ORDERED: HALOPERIDOL 5 MG TABLET PO PRN (01:15)
[2021-01-21] MEDS ORDERED: LORazepam 2 MG/ML VIAL IM ONE (01:15)
[2021-01-21] MEDS ORDERED: HALOPERIDOL LACTATE 5 MG/ML VIAL IM ONE (01:15)
[2021-01-21 01:45] VITALS: BP 102/56
[2021-01-21 08:38] VITALS: BP 136/78
[2021-01-21] MEDS: DIVALPROEX SODIUM 500 MG DR TABLET PO SCH ×2 (11:49→20:48)
[2021-01-21] MEDS: QUEtiapine FUMARATE 300 MG TABLET PO SCH ×2 (11:50→20:49)
[2021-01-21 14:57] VITALS: BP 136/78
[2021-01-21] MEDS: LITHIUM CARBONATE 600 MG CAPSULE PO SCH (17:36)
[2021-01-21] MEDS: OLANZapine 7.5 MG TABLET PO SCH (20:49)
[2021-01-21] MEDS: HALOPERIDOL 10 MG TABLET PO SCH (20:49)
[2021-01-21] MEDS: LORazepam 2 MG TABLET PO PRN (21:14)
[2021-01-22 07:52] LABS: BASOPHILS % (AUTO) 0.4 % (0.0-2.0); EOSINOPHILS % (AUTO) 3.2 % (1.0-6.0); HEMATOCRIT 35.1 % (36-46); HEMOGLOBIN 11.6 g/dL (12.0-16.0); LYMPHOCYTES # (AUTO) 2.5 K/uL (1.0-4.8); LYMPHOCYTES % (AUTO) 38.1 % (22.0-44.0); MEAN CORPUSCULAR HEMOGLOBIN 30.3 pg (26.0-34.0); MEAN CORPUSCULAR HGB CONC 33.2 G/dL (31.0-37.0); MEAN CORPUSCULAR VOLUME 91 fL (80-100); MONOCYTES # (AUTO) 0.6 K/uL (0.1-1.0); MONOCYTES % (AUTO) 9.7 % (2.0-9.0); NEUTROPHILS # (AUTO) 3.2 K/uL (1.8-7.7); NEUTROPHILS % (AUTO) 48.6 % (40.0-70.0); PLATELET COUNT (AUTO) 180 K/uL (150-450); RED BLOOD CELL COUNT(AUTO) 3.84 MIL/uL (4.00-5.20); RED CELL DISTRIBUTION WIDTH 12.8 % (11.5-14.5)
[2021-01-22 08:03] LABS: ALANINE AMINOTRANSFERASE 79 U/L (12-78); ALBUMIN 2.7 g/dL (3.4-5.0); ALKALINE PHOSPHATASE 64 U/L (46-116); ANION GAP 2 mmol/L (8-16); ASPARTATE AMINOTRANSFERASE 60 U/L (15-37); BILIRUBIN,TOTAL 0.3 mg/dL (0.1-1.0); CALCIUM, TOTAL 8.7 mg/dL (8.8-10.5); CARBON DIOXIDE 32 mmol/L (22-29); CHLORIDE 106 mmol/L (98-107); CREATININE 0.65 mg/dL (0.60-1.30); GLOMERULAR FILTR. RATE CALC > 60 mL/min (>60); GLUCOSE,RANDOM 84 mg/dL (70-110); POTASSIUM 3.5 mmol/L (3.5-5.1); SODIUM SERUM 140 mmol/L (136-145); TOTAL PROTEIN, SERUM 6.4 g/dL (6.4-8.2); UREA NITROGEN, BLOOD 12 mg/dL (7-18)
[2021-01-22] MEDS ORDERED: DOCUSATE SODIUM 100 MG CAPSULE PO PRN (08:15)
[2021-01-22] MEDS ORDERED: CloNIDine HCL 0.1 MG TABLET PO PRN (08:15)
[2021-01-22] MEDS ORDERED: ONDANSETRON HCL 4 MG TABLET PO PRN (08:15)
[2021-01-22] MEDS ORDERED: BENZOCAINE/MENTHOL LOZENGE PO PRN (08:15)
[2021-01-22] MEDS ORDERED: BACITRACIN 28 GM OINTMENT TP PRN (08:15)
[2021-01-22] MEDS ORDERED: LOPERAMIDE HCL 2 MG CAPSULE PO PRN (08:15)
[2021-01-22] MEDS ORDERED: OMEPRAZOLE 20 MG CAPSULE PO PRN (08:15)
[2021-01-22] MEDS: LITHIUM CARBONATE 600 MG CAPSULE PO SCH ×2 (08:18→17:27)
[2021-01-22] MEDS: QUEtiapine FUMARATE 300 MG TABLET PO SCH ×2 (08:19→21:07)
[2021-01-22] MEDS: DIVALPROEX SODIUM 500 MG DR TABLET PO SCH ×2 (08:21→21:07)
[2021-01-22 08:37] VITALS: BP 104/56
[2021-01-22] MEDS: LORazepam 2 MG TABLET PO PRN ×2 (12:05→17:27)
[2021-01-22] MEDS: IBUPROFEN 600 MG TABLET PO PRN (21:06)
[2021-01-22] MEDS: HALOPERIDOL 10 MG TABLET PO SCH (21:07)
[2021-01-22] MEDS: OLANZapine 7.5 MG TABLET PO SCH (21:07)
[2021-01-22 21:14] VITALS: BP 123/75
[2021-01-23] MEDS: QUEtiapine FUMARATE 300 MG TABLET PO SCH ×2 (08:30→19:01)
[2021-01-23] MEDS: DIVALPROEX SODIUM 500 MG DR TABLET PO SCH ×2 (08:30→19:01)
[2021-01-23] MEDS: LITHIUM CARBONATE 600 MG CAPSULE PO SCH ×2 (08:30→16:32)
[2021-01-23] MEDS: LORazepam 2 MG TABLET PO PRN ×2 (13:01→20:10)
[2021-01-23] MEDS: HALOPERIDOL 10 MG TABLET PO SCH (19:01)
[2021-01-23] MEDS: OLANZapine 7.5 MG TABLET PO SCH (19:02)
[2021-01-24 08:21] VITALS: BP 102/66
[2021-01-24] MEDS: DIVALPROEX SODIUM 500 MG DR TABLET PO SCH ×2 (09:48→19:19)
[2021-01-24] MEDS: QUEtiapine FUMARATE 300 MG TABLET PO SCH ×2 (09:48→19:19)
[2021-01-24] MEDS: LITHIUM CARBONATE 600 MG CAPSULE PO SCH ×2 (09:48→16:25)
[2021-01-24] MEDS: OLANZapine 7.5 MG TABLET PO SCH (19:19)
[2021-01-24] MEDS: HALOPERIDOL 10 MG TABLET PO SCH (19:19)
[2021-01-24 23:54] VITALS: BP 130/85
[2021-01-25] MEDS: IBUPROFEN 600 MG TABLET PO PRN
[2021-01-25] MEDS: DIVALPROEX SODIUM 500 MG DR TABLET PO SCH ×2 (09:00→20:39)
[2021-01-25] MEDS: QUEtiapine FUMARATE 300 MG TABLET PO SCH ×2 (09:00→20:40)
[2021-01-25] MEDS: LITHIUM CARBONATE 600 MG CAPSULE PO SCH ×2 (09:00→16:12)
[2021-01-25] MEDS: LORazepam 2 MG TABLET PO PRN ×2 (16:12→20:39)
[2021-01-25] MEDS: HALOPERIDOL 10 MG TABLET PO SCH (20:39)
[2021-01-25] MEDS: ZOLPIDEM TARTRATE 10 MG TABLET PO PRN (20:39)
[2021-01-25] MEDS: OLANZapine 7.5 MG TABLET PO SCH (20:39)
[2021-01-26 08:40] VITALS: BP 110/71
[2021-01-26] MEDS: QUEtiapine FUMARATE 300 MG TABLET PO SCH ×2 (09:00→21:00)
[2021-01-26] MEDS: LITHIUM CARBONATE 600 MG CAPSULE PO SCH ×2 (09:52→16:56)
[2021-01-26] MEDS: DIVALPROEX SODIUM 500 MG DR TABLET PO SCH ×2 (09:53→20:08)
[2021-01-26] MEDS: LORazepam 2 MG TABLET PO PRN (16:56)
[2021-01-26] MEDS: HALOPERIDOL 10 MG TABLET PO SCH (20:08)
[2021-01-26] MEDS: OLANZapine 7.5 MG TABLET PO SCH (20:09)
[2021-01-26] MEDS: ZOLPIDEM TARTRATE 10 MG TABLET PO PRN (20:44)
[2021-01-27 00:52] VITALS: BP 125/82
[2021-01-27] MEDS: LORazepam 2 MG TABLET PO PRN ×2 (01:00→20:20)
[2021-01-27 08:25] VITALS: BP 119/79
[2021-01-27] MEDS: QUEtiapine FUMARATE 300 MG TABLET PO SCH ×3 (09:00→20:21)
[2021-01-27] MEDS: DIVALPROEX SODIUM 500 MG DR TABLET PO SCH ×2 (09:34→20:20)
[2021-01-27] MEDS: LITHIUM CARBONATE 600 MG CAPSULE PO SCH ×2 (09:34→16:45)
[2021-01-27 10:08] LABS: LITHIUM 0.53 mmol/L (0.60-1.20)
[2021-01-27] MEDS: OLANZapine 7.5 MG TABLET PO SCH (20:20)
[2021-01-27] MEDS: HALOPERIDOL 10 MG TABLET PO SCH (20:21)
[2021-01-27] MEDS: ZOLPIDEM TARTRATE 10 MG TABLET PO PRN (20:51)
[2021-01-27] MEDS: ACETAMINOPHEN 325 MG TABLET PO PRN (23:07)
[2021-01-28] MEDS: DIVALPROEX SODIUM 500 MG DR TABLET PO SCH ×2 (08:24→20:01)
[2021-01-28] MEDS: MULTIVITAMINS WITH MINERALS, THERAPEUTIC TABLET PO SCH (08:24)
[2021-01-28] MEDS: FOLIC ACID 1 MG TABLET PO SCH (08:24)
[2021-01-28] MEDS: LITHIUM CARBONATE 600 MG CAPSULE PO SCH ×2 (08:24→16:07)
[2021-01-28] MEDS: QUEtiapine FUMARATE 300 MG TABLET PO SCH ×2 (08:24→20:02)
[2021-01-28] MEDS: DOXYCYCLINE HYCLATE 100 MG TABLET PO SCH ×2 (08:24→16:07)
[2021-01-28] MEDS: THIAMINE 100 MG TABLET PO SCH (08:24)
[2021-01-28] MEDS: TERBINAFINE HCL 1% 30 GM CREAM TP SCH ×2 (08:25→16:08)
[2021-01-28] MEDS: MAGNESIUM SULFATE 454 GM BOX TP SCH (08:52)
[2021-01-28] MEDS: LORazepam 2 MG TABLET PO PRN ×2 (16:08→20:49)
[2021-01-28] MEDS: HALOPERIDOL 10 MG TABLET PO SCH (20:01)
[2021-01-28] MEDS: OLANZapine 7.5 MG TABLET PO SCH (20:01)
[2021-01-28] MEDS: ZOLPIDEM TARTRATE 10 MG TABLET PO PRN (21:11)
[2021-01-29] MEDS: QUEtiapine FUMARATE 300 MG TABLET PO SCH ×2 (09:34→20:21)
[2021-01-29] MEDS: FOLIC ACID 1 MG TABLET PO SCH (09:34)
[2021-01-29] MEDS: LITHIUM CARBONATE 600 MG CAPSULE PO SCH ×2 (09:34→16:49)
[2021-01-29] MEDS: MULTIVITAMINS WITH MINERALS, THERAPEUTIC TABLET PO SCH (09:34)
[2021-01-29] MEDS: DIVALPROEX SODIUM 500 MG DR TABLET PO SCH ×2 (09:34→20:21)
[2021-01-29] MEDS: THIAMINE 100 MG TABLET PO SCH (09:34)
[2021-01-29] MEDS: TERBINAFINE HCL 1% 30 GM CREAM TP SCH ×2 (09:36→16:50)
[2021-01-29] MEDS: DOXYCYCLINE HYCLATE 100 MG TABLET PO SCH ×2 (09:36→16:49)
[2021-01-29] MEDS: MAGNESIUM SULFATE 454 GM BOX TP SCH (09:36)
[2021-01-29] MEDS: ZOLPIDEM TARTRATE 10 MG TABLET PO PRN (20:21)
[2021-01-29] MEDS: HALOPERIDOL 10 MG TABLET PO SCH (20:21)
[2021-01-29] MEDS: LORazepam 2 MG TABLET PO PRN (20:21)
[2021-01-29] MEDS: OLANZapine 7.5 MG TABLET PO SCH (20:21)
[2021-01-30] MEDS: LORazepam 2 MG TABLET PO PRN ×2 (01:47→20:26)
[2021-01-30 08:30] VITALS: BP 112/66
[2021-01-30] MEDS: TERBINAFINE HCL 1% 30 GM CREAM TP SCH ×2 (09:00→16:58)
[2021-01-30] MEDS: QUEtiapine FUMARATE 300 MG TABLET PO SCH ×2 (09:00→20:27)
[2021-01-30] MEDS: FOLIC ACID 1 MG TABLET PO SCH (09:35)
[2021-01-30] MEDS: DOXYCYCLINE HYCLATE 100 MG TABLET PO SCH ×2 (09:35→16:54)
[2021-01-30] MEDS: LITHIUM CARBONATE 600 MG CAPSULE PO SCH ×2 (09:35→16:54)
[2021-01-30] MEDS: THIAMINE 100 MG TABLET PO SCH (09:35)
[2021-01-30] MEDS: DIVALPROEX SODIUM 500 MG DR TABLET PO SCH ×2 (09:35→20:27)
[2021-01-30] MEDS: MULTIVITAMINS WITH MINERALS, THERAPEUTIC TABLET PO SCH (09:35)
[2021-01-30] MEDS: MAGNESIUM SULFATE 454 GM BOX TP SCH (09:38)
[2021-01-30] MEDS ORDERED: LORazepam 1 MG TABLET ONE (11:02)
[2021-01-30] MEDS: ZOLPIDEM TARTRATE 10 MG TABLET PO PRN (20:26)
[2021-01-30] MEDS: OLANZapine 7.5 MG TABLET PO SCH (20:27)
[2021-01-30] MEDS: HALOPERIDOL 10 MG TABLET PO SCH (20:27)
[2021-01-31 00:23] VITALS: BP 116/78
[2021-01-31] MEDS: LORazepam 2 MG TABLET PO PRN ×2 (01:06→23:00)
[2021-01-31 08:26] VITALS: BP 121/66
[2021-01-31] MEDS: THIAMINE 100 MG TABLET PO SCH (08:51)
[2021-01-31] MEDS: FOLIC ACID 1 MG TABLET PO SCH (08:51)
[2021-01-31] MEDS: MULTIVITAMINS WITH MINERALS, THERAPEUTIC TABLET PO SCH (08:52)
[2021-01-31] MEDS: DOXYCYCLINE HYCLATE 100 MG TABLET PO SCH ×2 (08:52→16:19)
[2021-01-31] MEDS: LITHIUM CARBONATE 600 MG CAPSULE PO SCH ×2 (08:52→16:17)
[2021-01-31] MEDS: DIVALPROEX SODIUM 500 MG DR TABLET PO SCH ×2 (08:55→20:08)
[2021-01-31] MEDS: TERBINAFINE HCL 1% 30 GM CREAM TP SCH ×2 (08:56→16:17)
[2021-01-31] MEDS: MAGNESIUM SULFATE 454 GM BOX TP SCH (09:00)
[2021-01-31] MEDS: QUEtiapine FUMARATE 300 MG TABLET PO SCH ×3 (09:00→20:10)
[2021-01-31 16:17] VITALS: BP 141/96
[2021-01-31] MEDS: OLANZapine 7.5 MG TABLET PO SCH (20:08)
[2021-01-31] MEDS: HALOPERIDOL 10 MG TABLET PO SCH (20:08)
[2021-01-31] MEDS: ZOLPIDEM TARTRATE 10 MG TABLET PO PRN (22:01)
[2021-02-01 00:35] VITALS: BP 138/90
[2021-02-01] MEDS: ACETAMINOPHEN 325 MG TABLET PO PRN (00:40)
[2021-02-01 04:34] VITALS: BP 132/87
[2021-02-01] MEDS: LITHIUM CARBONATE 600 MG CAPSULE PO SCH ×2 (08:37→16:09)
[2021-02-01] MEDS: DIVALPROEX SODIUM 500 MG DR TABLET PO SCH ×2 (08:37→20:20)
[2021-02-01] MEDS: DOXYCYCLINE HYCLATE 100 MG TABLET PO SCH ×2 (08:37→16:09)
[2021-02-01] MEDS: MULTIVITAMINS WITH MINERALS, THERAPEUTIC TABLET PO SCH (08:37)
[2021-02-01] MEDS: FOLIC ACID 1 MG TABLET PO SCH (08:37)
[2021-02-01] MEDS: THIAMINE 100 MG TABLET PO SCH (08:37)
[2021-02-01] MEDS: TERBINAFINE HCL 1% 30 GM CREAM TP SCH ×2 (08:38→16:09)
[2021-02-01] MEDS: MAGNESIUM SULFATE 454 GM BOX TP SCH (08:41)
[2021-02-01 16:50] VITALS: BP 137/92
[2021-02-01] MEDS: HALOPERIDOL 10 MG TABLET PO SCH (20:20)
[2021-02-01] MEDS: OLANZapine 7.5 MG TABLET PO SCH (20:20)
[2021-02-02 00:09] VITALS: BP 154/82
[2021-02-02] MEDS: LORazepam 2 MG TABLET PO PRN ×2 (00:10→22:59)
[2021-02-02] MEDS: ACETAMINOPHEN 325 MG TABLET PO PRN (00:11)
[2021-02-02] MEDS: ZOLPIDEM TARTRATE 10 MG TABLET PO PRN ×2 (01:04→20:15)
[2021-02-02 01:11] VITALS: BP 132/82
[2021-02-02 01:22] VITALS: BP 135/78
[2021-02-02] MEDS: MULTIVITAMINS WITH MINERALS, THERAPEUTIC TABLET PO SCH (08:39)
[2021-02-02] MEDS: DOXYCYCLINE HYCLATE 100 MG TABLET PO SCH ×2 (08:39→17:10)
[2021-02-02] MEDS: DIVALPROEX SODIUM 500 MG DR TABLET PO SCH ×2 (08:39→20:15)
[2021-02-02] MEDS: THIAMINE 100 MG TABLET PO SCH (08:39)
[2021-02-02] MEDS: FOLIC ACID 1 MG TABLET PO SCH (08:39)
[2021-02-02] MEDS: LITHIUM CARBONATE 600 MG CAPSULE PO SCH ×2 (08:39→17:10)
[2021-02-02] MEDS: TERBINAFINE HCL 1% 30 GM CREAM TP SCH ×2 (08:44→17:10)
[2021-02-02] MEDS: MAGNESIUM SULFATE 454 GM BOX TP SCH (08:45)
[2021-02-02 18:01] VITALS: BP 140/89
[2021-02-02] MEDS: HALOPERIDOL 10 MG TABLET PO SCH (20:16)
[2021-02-02] MEDS: OLANZapine 7.5 MG TABLET PO SCH (20:16)
[2021-02-03 01:38] VITALS: BP 132/78
[2021-02-03] MEDS: TERBINAFINE HCL 1% 30 GM CREAM TP SCH ×2 (09:00→16:21)
[2021-02-03] MEDS: MAGNESIUM SULFATE 454 GM BOX TP SCH (09:00)
[2021-02-03] MEDS: FOLIC ACID 1 MG TABLET PO SCH (09:19)
[2021-02-03] MEDS: THIAMINE 100 MG TABLET PO SCH (09:19)
[2021-02-03] MEDS: LITHIUM CARBONATE 600 MG CAPSULE PO SCH ×2 (09:19→16:20)
[2021-02-03] MEDS: MULTIVITAMINS WITH MINERALS, THERAPEUTIC TABLET PO SCH (09:19)
[2021-02-03] MEDS: DOXYCYCLINE HYCLATE 100 MG TABLET PO SCH ×2 (09:19→16:20)
[2021-02-03] MEDS: DIVALPROEX SODIUM 500 MG DR TABLET PO SCH ×2 (09:19→20:07)
[2021-02-03 17:16] VITALS: BP 141/89
[2021-02-03] MEDS: HALOPERIDOL 10 MG TABLET PO SCH (20:07)
[2021-02-03] MEDS: OLANZapine 7.5 MG TABLET PO SCH (20:07)
[2021-02-03] MEDS: LORazepam 2 MG TABLET PO PRN (20:52)
[2021-02-04] MEDS: ZOLPIDEM TARTRATE 10 MG TABLET PO PRN ×2 (00:14→22:01)
[2021-02-04 00:25] VITALS: BP 124/84
[2021-02-04] MEDS: MAGNESIUM SULFATE 454 GM BOX TP SCH ×2 (09:00→16:34)
[2021-02-04] MEDS: DIVALPROEX SODIUM 500 MG DR TABLET PO SCH ×2 (09:03→20:40)
[2021-02-04] MEDS: THIAMINE 100 MG TABLET PO SCH (09:03)
[2021-02-04] MEDS: MULTIVITAMINS WITH MINERALS, THERAPEUTIC TABLET PO SCH (09:03)
[2021-02-04] MEDS: LITHIUM CARBONATE 600 MG CAPSULE PO SCH ×2 (09:03→16:33)
[2021-02-04] MEDS: DOXYCYCLINE HYCLATE 100 MG TABLET PO SCH ×2 (09:04→16:33)
[2021-02-04] MEDS: FOLIC ACID 1 MG TABLET PO SCH (09:04)
[2021-02-04] MEDS: TERBINAFINE HCL 1% 30 GM CREAM TP SCH ×2 (09:04→16:33)
[2021-02-04] MEDS: LORazepam 2 MG TABLET PO PRN (19:08)
[2021-02-04] MEDS: HALOPERIDOL 10 MG TABLET PO SCH (20:40)
[2021-02-04] MEDS: OLANZapine 7.5 MG TABLET PO SCH (20:40)
[2021-02-04] MEDS: ACETAMINOPHEN 325 MG TABLET PO PRN (22:11)
[2021-02-05] MEDS: LORazepam 2 MG TABLET PO PRN ×2 (00:02→20:57)
[2021-02-05 00:06] VITALS: BP 140/99
[2021-02-05 08:41] VITALS: BP 131/83
[2021-02-05] MEDS: DIVALPROEX SODIUM 500 MG DR TABLET PO SCH ×2 (09:29→20:10)
[2021-02-05] MEDS: LITHIUM CARBONATE 600 MG CAPSULE PO SCH ×2 (09:29→16:18)
[2021-02-05] MEDS: THIAMINE 100 MG TABLET PO SCH (09:29)
[2021-02-05] MEDS: TERBINAFINE HCL 1% 30 GM CREAM TP SCH ×2 (09:29→16:19)
[2021-02-05] MEDS: MULTIVITAMINS WITH MINERALS, THERAPEUTIC TABLET PO SCH (09:29)
[2021-02-05] MEDS: FOLIC ACID 1 MG TABLET PO SCH (09:30)
[2021-02-05] MEDS: DOXYCYCLINE HYCLATE 100 MG TABLET PO SCH ×2 (09:31→16:18)
[2021-02-05] MEDS: MAGNESIUM SULFATE 454 GM BOX TP SCH (16:19)
[2021-02-05] MEDS: OLANZapine 7.5 MG TABLET PO SCH (20:11)
[2021-02-05] MEDS: HALOPERIDOL 10 MG TABLET PO SCH (20:11)
[2021-02-05] MEDS: ACETAMINOPHEN 325 MG TABLET PO PRN (22:43)
[2021-02-05] MEDS: ZOLPIDEM TARTRATE 10 MG TABLET PO PRN (22:43)
[2021-02-06 05:44] VITALS: BP 128/76
[2021-02-06] MEDS: DIVALPROEX SODIUM 500 MG DR TABLET PO SCH ×2 (08:59→20:03)
[2021-02-06] MEDS: MULTIVITAMINS WITH MINERALS, THERAPEUTIC TABLET PO SCH (08:59)
[2021-02-06] MEDS: FOLIC ACID 1 MG TABLET PO SCH (08:59)
[2021-02-06] MEDS: LITHIUM CARBONATE 600 MG CAPSULE PO SCH ×2 (08:59→16:14)
[2021-02-06] MEDS: THIAMINE 100 MG TABLET PO SCH (08:59)
[2021-02-06] MEDS: DOXYCYCLINE HYCLATE 100 MG TABLET PO SCH ×2 (08:59→16:14)
[2021-02-06] MEDS: TERBINAFINE HCL 1% 30 GM CREAM TP SCH ×2 (09:00→16:14)
[2021-02-06] MEDS: MAGNESIUM SULFATE 454 GM BOX TP SCH (16:14)
[2021-02-06] MEDS: LORazepam 2 MG TABLET PO PRN (18:37)
[2021-02-06] MEDS: OLANZapine 7.5 MG TABLET PO SCH (20:03)
[2021-02-06] MEDS: HALOPERIDOL 10 MG TABLET PO SCH (20:03)
[2021-02-06] MEDS: ZOLPIDEM TARTRATE 10 MG TABLET PO PRN (20:52)
[2021-02-07] MEDS: LORazepam 2 MG TABLET PO PRN ×2 (01:00→16:58)
[2021-02-07 01:08] VITALS: BP 136/90
[2021-02-07] MEDS: ACETAMINOPHEN 325 MG TABLET PO PRN (01:10)
[2021-02-07 01:12] VITALS: BP 104/69
[2021-02-07] MEDS: DIVALPROEX SODIUM 500 MG DR TABLET PO SCH ×2 (08:07→20:23)
[2021-02-07] MEDS: LITHIUM CARBONATE 600 MG CAPSULE PO SCH ×2 (08:07→16:57)
[2021-02-07] MEDS: MULTIVITAMINS WITH MINERALS, THERAPEUTIC TABLET PO SCH (08:08)
[2021-02-07] MEDS: FOLIC ACID 1 MG TABLET PO SCH (08:08)
[2021-02-07] MEDS: THIAMINE 100 MG TABLET PO SCH (08:08)
[2021-02-07] MEDS: TERBINAFINE HCL 1% 30 GM CREAM TP SCH ×2 (08:27→17:20)
[2021-02-07] MEDS: MAGNESIUM SULFATE 454 GM BOX TP SCH (17:20)
[2021-02-07] MEDS: HALOPERIDOL 10 MG TABLET PO SCH (20:22)
[2021-02-07] MEDS: OLANZapine 7.5 MG TABLET PO SCH (20:23)
[2021-02-07] MEDS: ZOLPIDEM TARTRATE 10 MG TABLET PO PRN (20:23)
[2021-02-07] MEDS: IBUPROFEN 600 MG TABLET PO PRN (20:38)
[2021-02-08] MEDS: LORazepam 2 MG TABLET PO PRN ×3 (00:17→19:41)
[2021-02-08] MEDS: ACETAMINOPHEN 325 MG TABLET PO PRN ×2 (00:17→22:36)
[2021-02-08 07:42] LABS: % IRON SATURATION 19.1 % (22-44)
[2021-02-08 08:18] VITALS: BP 115/76
[2021-02-08] MEDS: DIVALPROEX SODIUM 500 MG DR TABLET PO SCH ×2 (08:35→20:35)
[2021-02-08] MEDS: THIAMINE 100 MG TABLET PO SCH (08:35)
[2021-02-08] MEDS: LITHIUM CARBONATE 600 MG CAPSULE PO SCH ×2 (08:35→17:01)
[2021-02-08] MEDS: MULTIVITAMINS WITH MINERALS, THERAPEUTIC TABLET PO SCH (08:35)
[2021-02-08] MEDS: FOLIC ACID 1 MG TABLET PO SCH (08:35)
[2021-02-08] MEDS: TERBINAFINE HCL 1% 30 GM CREAM TP SCH ×2 (08:38→17:01)
[2021-02-08] MEDS: MAGNESIUM SULFATE 454 GM BOX TP SCH (17:01)
[2021-02-08] MEDS: OLANZapine 7.5 MG TABLET PO SCH (20:35)
[2021-02-08] MEDS: HALOPERIDOL 10 MG TABLET PO SCH (20:35)
[2021-02-08] MEDS: ZOLPIDEM TARTRATE 10 MG TABLET PO PRN (20:35)
[2021-02-08] MEDS: IBUPROFEN 600 MG TABLET PO PRN (21:18)
[2021-02-09] MEDS: FERROUS SULFATE 325 MG EC TABLET PO SCH ×2 (06:40→16:16)
[2021-02-09 08:45] VITALS: BP 109/63
[2021-02-09] MEDS: LITHIUM CARBONATE 600 MG CAPSULE PO SCH ×2 (08:59→16:15)
[2021-02-09] MEDS: MULTIVITAMINS WITH MINERALS, THERAPEUTIC TABLET PO SCH (09:00)
[2021-02-09] MEDS: THIAMINE 100 MG TABLET PO SCH (09:00)
[2021-02-09] MEDS: DIVALPROEX SODIUM 500 MG DR TABLET PO SCH ×2 (09:00→20:40)
[2021-02-09] MEDS: FOLIC ACID 1 MG TABLET PO SCH (09:00)
[2021-02-09] MEDS: TERBINAFINE HCL 1% 30 GM CREAM TP SCH ×2 (09:01→16:17)
[2021-02-09] MEDS: MAGNESIUM SULFATE 454 GM BOX TP SCH (16:16)
[2021-02-09] MEDS: LORazepam 2 MG TABLET PO PRN ×2 (16:30→23:13)
[2021-02-09] MEDS: OLANZapine 7.5 MG TABLET PO SCH (20:40)
[2021-02-09] MEDS: ZOLPIDEM TARTRATE 10 MG TABLET PO PRN (20:40)
[2021-02-09] MEDS: HALOPERIDOL 10 MG TABLET PO SCH (20:40)
[2021-02-10 01:29] VITALS: BP 111/62
[2021-02-10] MEDS: FERROUS SULFATE 325 MG EC TABLET PO SCH ×2 (07:04→16:16)
[2021-02-10] MEDS: LITHIUM CARBONATE 600 MG CAPSULE PO SCH ×2 (09:25→16:15)
[2021-02-10] MEDS: MULTIVITAMINS WITH MINERALS, THERAPEUTIC TABLET PO SCH (09:25)
[2021-02-10] MEDS: FOLIC ACID 1 MG TABLET PO SCH (09:25)
[2021-02-10] MEDS: DIVALPROEX SODIUM 500 MG DR TABLET PO SCH ×2 (09:25→20:11)
[2021-02-10] MEDS: THIAMINE 100 MG TABLET PO SCH (09:25)
[2021-02-10] MEDS: TERBINAFINE HCL 1% 30 GM CREAM TP SCH ×2 (09:26→16:24)
[2021-02-10] MEDS: LORazepam 2 MG TABLET PO PRN ×2 (15:15→23:08)
[2021-02-10 16:24] VITALS: BP 131/93
[2021-02-10] MEDS: MAGNESIUM SULFATE 454 GM BOX TP SCH (16:24)
[2021-02-10] MEDS: ZOLPIDEM TARTRATE 10 MG TABLET PO PRN (20:11)
[2021-02-10] MEDS: OLANZapine 7.5 MG TABLET PO SCH (20:11)
[2021-02-10] MEDS: HALOPERIDOL 10 MG TABLET PO SCH (20:11)
[2021-02-10] MEDS: ACETAMINOPHEN 325 MG TABLET PO PRN (23:46)
[2021-02-11 01:18] VITALS: BP 127/90
[2021-02-11] MEDS: FERROUS SULFATE 325 MG EC TABLET PO SCH ×2 (06:33→16:41)
[2021-02-11] MEDS: TERBINAFINE HCL 1% 30 GM CREAM TP SCH ×2 (09:00→16:42)
[2021-02-11] MEDS: LORazepam 2 MG TABLET PO PRN ×2 (09:20→18:08)
[2021-02-11] MEDS: THIAMINE 100 MG TABLET PO SCH (09:20)
[2021-02-11] MEDS: FOLIC ACID 1 MG TABLET PO SCH (09:20)
[2021-02-11] MEDS: DIVALPROEX SODIUM 500 MG DR TABLET PO SCH ×2 (09:20→20:13)
[2021-02-11] MEDS: MULTIVITAMINS WITH MINERALS, THERAPEUTIC TABLET PO SCH (09:20)
[2021-02-11] MEDS: LITHIUM CARBONATE 600 MG CAPSULE PO SCH ×2 (09:20→16:41)
[2021-02-11] MEDS: IBUPROFEN 600 MG TABLET PO PRN (10:04)
[2021-02-11] MEDS: MAGNESIUM SULFATE 454 GM BOX TP SCH (16:42)
[2021-02-11] MEDS: OLANZapine 7.5 MG TABLET PO SCH (20:10)
[2021-02-11] MEDS: HALOPERIDOL 10 MG TABLET PO SCH (20:13)
[2021-02-11] MEDS: ZOLPIDEM TARTRATE 10 MG TABLET PO PRN (20:50)
[2021-02-12] VITALS: BP 142/86
[2021-02-12] MEDS: LORazepam 2 MG TABLET PO PRN ×3 (00:01→23:59)
[2021-02-12] MEDS: FERROUS SULFATE 325 MG EC TABLET PO SCH ×2 (07:03→16:57)
[2021-02-12] MEDS: DIVALPROEX SODIUM 500 MG DR TABLET PO SCH ×2 (08:51→20:19)
[2021-02-12] MEDS: MULTIVITAMINS WITH MINERALS, THERAPEUTIC TABLET PO SCH (08:51)
[2021-02-12] MEDS: FOLIC ACID 1 MG TABLET PO SCH (08:51)
[2021-02-12] MEDS: THIAMINE 100 MG TABLET PO SCH (08:51)
[2021-02-12] MEDS: LITHIUM CARBONATE 600 MG CAPSULE PO SCH ×2 (08:51→16:57)
[2021-02-12] MEDS: TERBINAFINE HCL 1% 30 GM CREAM TP SCH ×2 (08:58→17:00)
[2021-02-12] MEDS: MAGNESIUM SULFATE 454 GM BOX TP SCH (17:00)
[2021-02-12] MEDS: MUPIROCIN CALCIUM 2% 15 GM CREAM TP SCH (17:02)
[2021-02-12] MEDS: OLANZapine 7.5 MG TABLET PO SCH (20:19)
[2021-02-12] MEDS: HALOPERIDOL 10 MG TABLET PO SCH (20:19)
[2021-02-12] MEDS: ZOLPIDEM TARTRATE 10 MG TABLET PO PRN (20:42)
[2021-02-13] MEDS: ACETAMINOPHEN 325 MG TABLET PO PRN ×2 (00:29→21:10)
[2021-02-13 00:43] VITALS: BP 136/87
[2021-02-13 00:45] VITALS: BP 136/87
[2021-02-13] MEDS: FERROUS SULFATE 325 MG EC TABLET PO SCH ×2 (06:48→16:34)
[2021-02-13] MEDS: MUPIROCIN CALCIUM 2% 15 GM CREAM TP SCH ×2 (09:14→16:19)
[2021-02-13] MEDS: THIAMINE 100 MG TABLET PO SCH (09:15)
[2021-02-13] MEDS: DIVALPROEX SODIUM 500 MG DR TABLET PO SCH ×2 (09:15→20:22)
[2021-02-13] MEDS: FOLIC ACID 1 MG TABLET PO SCH (09:15)
[2021-02-13] MEDS: MULTIVITAMINS WITH MINERALS, THERAPEUTIC TABLET PO SCH (09:15)
[2021-02-13] MEDS: LITHIUM CARBONATE 600 MG CAPSULE PO SCH ×2 (09:15→16:19)
[2021-02-13] MEDS: LORazepam 2 MG TABLET PO PRN (16:19)
[2021-02-13] MEDS: PETROLATUM,WHITE 28 GM JELLY TP PRN (17:20)
[2021-02-13] MEDS: HALOPERIDOL 10 MG TABLET PO SCH (20:22)
[2021-02-13] MEDS: OLANZapine 7.5 MG TABLET PO SCH (20:22)
[2021-02-13] MEDS: ZOLPIDEM TARTRATE 10 MG TABLET PO PRN (21:10)
[2021-02-14] MEDS: LORazepam 2 MG TABLET PO PRN ×2 (01:33→18:06)
[2021-02-14 02:44] VITALS: BP 153/97
[2021-02-14] MEDS: IBUPROFEN 600 MG TABLET PO PRN (02:44)
[2021-02-14] MEDS: FERROUS SULFATE 325 MG EC TABLET PO SCH ×2 (06:31→17:05)
[2021-02-14 08:26] VITALS: BP 102/71
[2021-02-14] MEDS: FOLIC ACID 1 MG TABLET PO SCH (09:32)
[2021-02-14] MEDS: MULTIVITAMINS WITH MINERALS, THERAPEUTIC TABLET PO SCH (09:32)
[2021-02-14] MEDS: DIVALPROEX SODIUM 500 MG DR TABLET PO SCH ×2 (09:32→20:18)
[2021-02-14] MEDS: THIAMINE 100 MG TABLET PO SCH (09:32)
[2021-02-14] MEDS: LITHIUM CARBONATE 600 MG CAPSULE PO SCH ×2 (09:32→16:03)
[2021-02-14] MEDS: MUPIROCIN CALCIUM 2% 15 GM CREAM TP SCH ×2 (09:34→16:04)
[2021-02-14 16:41] VITALS: BP 106/73
[2021-02-14] MEDS: OLANZapine 7.5 MG TABLET PO SCH (20:18)
[2021-02-14] MEDS: HALOPERIDOL 10 MG TABLET PO SCH (20:18)
[2021-02-15 00:36] VITALS: BP 148/92
[2021-02-15] MEDS: ZOLPIDEM TARTRATE 10 MG TABLET PO PRN ×2 (00:38→21:10)
[2021-02-15 01:38] VITALS: BP 114/82
[2021-02-15] MEDS: ACETAMINOPHEN 325 MG TABLET PO PRN (01:44)
[2021-02-15] MEDS: FERROUS SULFATE 325 MG EC TABLET PO SCH ×2 (06:21→16:20)
[2021-02-15 08:10] VITALS: BP 118/69
[2021-02-15] MEDS: DIVALPROEX SODIUM 500 MG DR TABLET PO SCH ×2 (09:24→20:45)
[2021-02-15] MEDS: THIAMINE 100 MG TABLET PO SCH (09:24)
[2021-02-15] MEDS: FOLIC ACID 1 MG TABLET PO SCH (09:24)
[2021-02-15] MEDS: MULTIVITAMINS WITH MINERALS, THERAPEUTIC TABLET PO SCH (09:24)
[2021-02-15] MEDS: MUPIROCIN CALCIUM 2% 15 GM CREAM TP SCH ×2 (09:25→16:21)
[2021-02-15] MEDS: LITHIUM CARBONATE 600 MG CAPSULE PO SCH ×2 (09:25→16:20)
[2021-02-15 16:32] VITALS: BP 120/64
[2021-02-15] MEDS: LORazepam 2 MG TABLET PO PRN (17:52)
[2021-02-15] MEDS: HALOPERIDOL 10 MG TABLET PO SCH (20:45)
[2021-02-15] MEDS: OLANZapine 7.5 MG TABLET PO SCH (20:45)
[2021-02-16 00:41] VITALS: BP 127/80
[2021-02-16] MEDS: ACETAMINOPHEN 325 MG TABLET PO PRN (00:52)
[2021-02-16] MEDS: LORazepam 2 MG TABLET PO PRN (04:35)
[2021-02-16] MEDS: FERROUS SULFATE 325 MG EC TABLET PO SCH ×2 (07:09→16:36)
[2021-02-16] MEDS: THIAMINE 100 MG TABLET PO SCH (08:54)
[2021-02-16] MEDS: DIVALPROEX SODIUM 500 MG DR TABLET PO SCH ×2 (08:54→20:06)
[2021-02-16] MEDS: FOLIC ACID 1 MG TABLET PO SCH (08:55)
[2021-02-16] MEDS: LITHIUM CARBONATE 600 MG CAPSULE PO SCH ×2 (08:55→16:36)
[2021-02-16] MEDS: MULTIVITAMINS WITH MINERALS, THERAPEUTIC TABLET PO SCH (08:55)
[2021-02-16] MEDS: MUPIROCIN CALCIUM 2% 15 GM CREAM TP SCH ×2 (08:57→16:36)
[2021-02-16] MEDS: HALOPERIDOL 10 MG TABLET PO SCH (20:05)
[2021-02-16] MEDS: OLANZapine 7.5 MG TABLET PO SCH (20:06)
[2021-02-17] MEDS: ZOLPIDEM TARTRATE 10 MG TABLET PO PRN ×2 (00:17→21:09)
[2021-02-17] MEDS: LORazepam 2 MG TABLET PO PRN (01:47)
[2021-02-17] MEDS: FERROUS SULFATE 325 MG EC TABLET PO SCH ×2 (06:50→16:19)
[2021-02-17 08:21] VITALS: BP 117/80
[2021-02-17] MEDS: THIAMINE 100 MG TABLET PO SCH (08:23)
[2021-02-17] MEDS: MULTIVITAMINS WITH MINERALS, THERAPEUTIC TABLET PO SCH (08:23)
[2021-02-17] MEDS: FOLIC ACID 1 MG TABLET PO SCH (08:24)
[2021-02-17] MEDS: LITHIUM CARBONATE 600 MG CAPSULE PO SCH ×2 (08:24→16:19)
[2021-02-17] MEDS: DIVALPROEX SODIUM 500 MG DR TABLET PO SCH ×2 (08:28→21:06)
[2021-02-17] MEDS: MUPIROCIN CALCIUM 2% 15 GM CREAM TP SCH ×2 (09:36→16:19)
[2021-02-17] MEDS: HALOPERIDOL 10 MG TABLET PO SCH (21:06)
[2021-02-17] MEDS: OLANZapine 7.5 MG TABLET PO SCH (21:06)
[2021-02-18] MEDS: LORazepam 2 MG TABLET PO PRN ×2 (01:48→17:48)
[2021-02-18] MEDS: FERROUS SULFATE 325 MG EC TABLET PO SCH ×2 (06:45→16:46)
[2021-02-18] MEDS: DIVALPROEX SODIUM 500 MG DR TABLET PO SCH ×2 (09:22→20:08)
[2021-02-18] MEDS: FOLIC ACID 1 MG TABLET PO SCH (09:22)
[2021-02-18] MEDS: LITHIUM CARBONATE 600 MG CAPSULE PO SCH ×2 (09:22→16:46)
[2021-02-18] MEDS: MULTIVITAMINS WITH MINERALS, THERAPEUTIC TABLET PO SCH (09:22)
[2021-02-18] MEDS: THIAMINE 100 MG TABLET PO SCH (09:22)
[2021-02-18] MEDS: MUPIROCIN CALCIUM 2% 15 GM CREAM TP SCH ×2 (09:22→16:46)
[2021-02-18] MEDS: OLANZapine 7.5 MG TABLET PO SCH (20:08)
[2021-02-18] MEDS: HALOPERIDOL 10 MG TABLET PO SCH (20:08)
[2021-02-18] MEDS: ZOLPIDEM TARTRATE 10 MG TABLET PO PRN (21:06)
[2021-02-19] MEDS: LORazepam 2 MG TABLET PO PRN ×2 (01:14→18:20)
[2021-02-19] MEDS: ACETAMINOPHEN 325 MG TABLET PO PRN (03:53)
[2021-02-19] MEDS: FERROUS SULFATE 325 MG EC TABLET PO SCH ×2 (06:28→16:25)
[2021-02-19] MEDS: DIVALPROEX SODIUM 500 MG DR TABLET PO SCH ×2 (09:30→20:37)
[2021-02-19] MEDS: FOLIC ACID 1 MG TABLET PO SCH (09:30)
[2021-02-19] MEDS: THIAMINE 100 MG TABLET PO SCH (09:31)
[2021-02-19] MEDS: LITHIUM CARBONATE 600 MG CAPSULE PO SCH ×2 (09:31→16:25)
[2021-02-19] MEDS: MULTIVITAMINS WITH MINERALS, THERAPEUTIC TABLET PO SCH (09:31)
[2021-02-19] MEDS: MUPIROCIN CALCIUM 2% 15 GM CREAM TP SCH ×2 (09:32→16:25)
[2021-02-19] MEDS: BENZTROPINE MESYLATE 1 MG TABLET PO SCH (20:36)
[2021-02-19] MEDS: OLANZapine 7.5 MG TABLET PO SCH (20:37)
[2021-02-19] MEDS: HALOPERIDOL 10 MG TABLET PO SCH (20:37)
[2021-02-19] MEDS: ZOLPIDEM TARTRATE 10 MG TABLET PO PRN (20:37)
[2021-02-20 02:39] VITALS: BP 130/88
[2021-02-20] MEDS: LORazepam 2 MG TABLET PO PRN ×2 (02:41→21:46)
[2021-02-20] MEDS: FERROUS SULFATE 325 MG EC TABLET PO SCH ×2 (06:28→16:08)
[2021-02-20] MEDS: BENZTROPINE MESYLATE 1 MG TABLET PO SCH ×2 (08:25→20:31)
[2021-02-20] MEDS: MULTIVITAMINS WITH MINERALS, THERAPEUTIC TABLET PO SCH (08:25)
[2021-02-20] MEDS: FOLIC ACID 1 MG TABLET PO SCH (08:25)
[2021-02-20] MEDS: LITHIUM CARBONATE 600 MG CAPSULE PO SCH ×2 (08:25→16:08)
[2021-02-20] MEDS: THIAMINE 100 MG TABLET PO SCH (08:25)
[2021-02-20] MEDS: DIVALPROEX SODIUM 500 MG DR TABLET PO SCH ×2 (08:25→20:29)
[2021-02-20] MEDS: MUPIROCIN CALCIUM 2% 15 GM CREAM TP SCH ×2 (08:26→16:11)
[2021-02-20 16:22] VITALS: BP 133/92
[2021-02-20] MEDS: HALOPERIDOL 10 MG TABLET PO SCH (20:29)
[2021-02-20] MEDS: OLANZapine 7.5 MG TABLET PO SCH (20:29)
[2021-02-20] MEDS: ZOLPIDEM TARTRATE 10 MG TABLET PO PRN (20:46)
[2021-02-20] MEDS: ACETAMINOPHEN 325 MG TABLET PO PRN (23:02)
[2021-02-21] MEDS: FERROUS SULFATE 325 MG EC TABLET PO SCH ×2 (06:56→17:07)
[2021-02-21] MEDS: LITHIUM CARBONATE 600 MG CAPSULE PO SCH ×2 (08:43→17:07)
[2021-02-21] MEDS: DIVALPROEX SODIUM 500 MG DR TABLET PO SCH ×2 (08:43→20:19)
[2021-02-21] MEDS: THIAMINE 100 MG TABLET PO SCH (08:43)
[2021-02-21] MEDS: MULTIVITAMINS WITH MINERALS, THERAPEUTIC TABLET PO SCH (08:43)
[2021-02-21] MEDS: FOLIC ACID 1 MG TABLET PO SCH (08:43)
[2021-02-21] MEDS: BENZTROPINE MESYLATE 1 MG TABLET PO SCH ×2 (08:43→20:19)
[2021-02-21] MEDS: MUPIROCIN CALCIUM 2% 15 GM CREAM TP SCH ×2 (08:45→17:07)
[2021-02-21] MEDS: LORazepam 2 MG TABLET PO PRN ×2 (17:07→22:35)
[2021-02-21] MEDS: OLANZapine 7.5 MG TABLET PO SCH (20:19)
[2021-02-21] MEDS: HALOPERIDOL 10 MG TABLET PO SCH (20:19)
[2021-02-21] MEDS: ZOLPIDEM TARTRATE 10 MG TABLET PO PRN (20:19)
[2021-02-22 00:35] VITALS: BP 102/73
[2021-02-22 05:00] VITALS: BP 105/72
[2021-02-22] MEDS: ACETAMINOPHEN 325 MG TABLET PO PRN ×2 (05:17→23:43)
[2021-02-22] MEDS: FERROUS SULFATE 325 MG EC TABLET PO SCH ×2 (06:42→16:11)
[2021-02-22] MEDS: BENZTROPINE MESYLATE 1 MG TABLET PO SCH ×2 (09:40→21:14)
[2021-02-22] MEDS: LITHIUM CARBONATE 600 MG CAPSULE PO SCH ×2 (09:41→16:11)
[2021-02-22] MEDS: MULTIVITAMINS WITH MINERALS, THERAPEUTIC TABLET PO SCH (09:41)
[2021-02-22] MEDS: MUPIROCIN CALCIUM 2% 15 GM CREAM TP SCH ×2 (09:41→16:12)
[2021-02-22] MEDS: DIVALPROEX SODIUM 500 MG DR TABLET PO SCH ×2 (09:41→20:14)
[2021-02-22] MEDS: THIAMINE 100 MG TABLET PO SCH (09:41)
[2021-02-22] MEDS: FOLIC ACID 1 MG TABLET PO SCH (09:41)
[2021-02-22] MEDS: LORazepam 2 MG TABLET PO PRN ×2 (12:22→23:43)
[2021-02-22] MEDS: OLANZapine 7.5 MG TABLET PO SCH (20:14)
[2021-02-22] MEDS: HALOPERIDOL 10 MG TABLET PO SCH (20:14)
[2021-02-22] MEDS: ZOLPIDEM TARTRATE 10 MG TABLET PO PRN (21:46)
[2021-02-23 00:53] VITALS: BP 140/100
[2021-02-23] MEDS: FERROUS SULFATE 325 MG EC TABLET PO SCH ×2 (06:26→16:32)
[2021-02-23] MEDS: BENZTROPINE MESYLATE 1 MG TABLET PO SCH ×2 (08:17→20:38)
[2021-02-23] MEDS: THIAMINE 100 MG TABLET PO SCH (08:17)
[2021-02-23] MEDS: MUPIROCIN CALCIUM 2% 15 GM CREAM TP SCH ×2 (08:17→16:32)
[2021-02-23] MEDS: LITHIUM CARBONATE 600 MG CAPSULE PO SCH ×2 (08:17→16:32)
[2021-02-23] MEDS: MULTIVITAMINS WITH MINERALS, THERAPEUTIC TABLET PO SCH (08:17)
[2021-02-23] MEDS: DIVALPROEX SODIUM 500 MG DR TABLET PO SCH ×2 (08:17→20:37)
[2021-02-23] MEDS: FOLIC ACID 1 MG TABLET PO SCH (08:17)
[2021-02-23 08:24] VITALS: BP 129/82
[2021-02-23] MEDS: MAG HYDROX/AL HYDROX/SIMETH ES 30 ML SUSPENSION UDCUP PO PRN (08:31)
[2021-02-23] MEDS: LORazepam 2 MG TABLET PO PRN ×2 (09:48→23:12)
[2021-02-23] MEDS: ALBUTEROL SULFATE HFA 90 MCG/PUFF 8 GM INHALER IH PRN ×2 (13:17→20:15)
[2021-02-23] MEDS: ACETAMINOPHEN 325 MG TABLET PO PRN (20:07)
[2021-02-23] MEDS: OLANZapine 7.5 MG TABLET PO SCH (20:37)
[2021-02-23] MEDS: ZOLPIDEM TARTRATE 10 MG TABLET PO PRN (20:37)
[2021-02-23] MEDS: HALOPERIDOL 10 MG TABLET PO SCH (20:37)
[2021-02-24] MEDS: FERROUS SULFATE 325 MG EC TABLET PO SCH ×2 (06:58→16:51)
[2021-02-24] MEDS: THIAMINE 100 MG TABLET PO SCH (09:47)
[2021-02-24] MEDS: MULTIVITAMINS WITH MINERALS, THERAPEUTIC TABLET PO SCH (09:47)
[2021-02-24] MEDS: DIVALPROEX SODIUM 500 MG DR TABLET PO SCH ×2 (09:47→20:52)
[2021-02-24] MEDS: LITHIUM CARBONATE 600 MG CAPSULE PO SCH ×2 (09:47→16:51)
[2021-02-24] MEDS: FOLIC ACID 1 MG TABLET PO SCH (09:47)
[2021-02-24] MEDS: MUPIROCIN CALCIUM 2% 15 GM CREAM TP SCH ×2 (09:48→17:02)
[2021-02-24] MEDS: BENZTROPINE MESYLATE 1 MG TABLET PO SCH ×2 (09:52→20:52)
[2021-02-24] MEDS: LORazepam 2 MG TABLET PO PRN ×2 (12:35→23:48)
[2021-02-24] MEDS: HALOPERIDOL 10 MG TABLET PO SCH (20:52)
[2021-02-24] MEDS: OLANZapine 7.5 MG TABLET PO SCH (20:52)
[2021-02-24] MEDS: ZOLPIDEM TARTRATE 10 MG TABLET PO PRN (20:52)
[2021-02-24] MEDS: ACETAMINOPHEN 325 MG TABLET PO PRN (22:11)
[2021-02-25] MEDS: ALBUTEROL SULFATE HFA 90 MCG/PUFF 8 GM INHALER IH PRN (04:46)
[2021-02-25] MEDS: FERROUS SULFATE 325 MG EC TABLET PO SCH ×2 (06:28→16:39)
[2021-02-25] MEDS: FOLIC ACID 1 MG TABLET PO SCH (08:03)
[2021-02-25] MEDS: MULTIVITAMINS WITH MINERALS, THERAPEUTIC TABLET PO SCH (08:03)
[2021-02-25] MEDS: THIAMINE 100 MG TABLET PO SCH (08:03)
[2021-02-25] MEDS: MUPIROCIN CALCIUM 2% 15 GM CREAM TP SCH ×2 (08:03→16:39)
[2021-02-25] MEDS: LITHIUM CARBONATE 600 MG CAPSULE PO SCH ×2 (08:03→16:39)
[2021-02-25] MEDS: DIVALPROEX SODIUM 500 MG DR TABLET PO SCH ×2 (08:03→20:22)
[2021-02-25] MEDS: BENZTROPINE MESYLATE 1 MG TABLET PO SCH ×2 (08:03→20:58)
[2021-02-25] MEDS: ACETAMINOPHEN 325 MG TABLET PO PRN ×2 (08:04→13:31)
[2021-02-25 08:15] VITALS: BP 160/95
[2021-02-25] MEDS: LORazepam 2 MG TABLET PO PRN ×4 (08:26→22:15)
[2021-02-25 12:43] VITALS: BP 147/90
[2021-02-25] MEDS: IBUPROFEN 600 MG TABLET PO PRN (17:12)
[2021-02-25] MEDS: HALOPERIDOL 10 MG TABLET PO SCH (20:22)
[2021-02-25] MEDS: OLANZapine 7.5 MG TABLET PO SCH (20:22)
[2021-02-25] MEDS: ZOLPIDEM TARTRATE 10 MG TABLET PO PRN (20:23)
[2021-02-26] MEDS: FERROUS SULFATE 325 MG EC TABLET PO SCH ×2 (06:25→16:32)
[2021-02-26] MEDS: IBUPROFEN 600 MG TABLET PO PRN (06:25)
[2021-02-26 08:22] VITALS: BP 139/78
[2021-02-26] MEDS: FOLIC ACID 1 MG TABLET PO SCH (08:25)
[2021-02-26] MEDS: DIVALPROEX SODIUM 500 MG DR TABLET PO SCH ×2 (08:25→20:22)
[2021-02-26] MEDS: THIAMINE 100 MG TABLET PO SCH (08:25)
[2021-02-26] MEDS: LORazepam 2 MG TABLET PO PRN ×2 (08:26→16:32)
[2021-02-26] MEDS: LITHIUM CARBONATE 600 MG CAPSULE PO SCH ×2 (08:26→16:32)
[2021-02-26] MEDS: MULTIVITAMINS WITH MINERALS, THERAPEUTIC TABLET PO SCH (08:26)
[2021-02-26] MEDS: BENZTROPINE MESYLATE 1 MG TABLET PO SCH ×2 (08:26→20:22)
[2021-02-26] MEDS: MUPIROCIN CALCIUM 2% 15 GM CREAM TP SCH ×2 (08:28→17:00)
[2021-02-26] MEDS: ALBUTEROL SULFATE HFA 90 MCG/PUFF 8 GM INHALER IH PRN ×2 (15:03→22:05)
[2021-02-26 16:12] VITALS: BP 141/83
[2021-02-26] MEDS: OLANZapine 7.5 MG TABLET PO SCH (20:22)
[2021-02-26] MEDS: HALOPERIDOL 10 MG TABLET PO SCH (20:22)
[2021-02-26] MEDS: ZOLPIDEM TARTRATE 10 MG TABLET PO PRN (22:34)
[2021-02-27 00:42] VITALS: BP 126/82
[2021-02-27 01:45] VITALS: BP 116/62
[2021-02-27] MEDS: LORazepam 2 MG TABLET PO PRN ×3 (01:56→17:32)
[2021-02-27] MEDS: ACETAMINOPHEN 325 MG TABLET PO PRN ×2 (01:57→20:05)
[2021-02-27] MEDS: FERROUS SULFATE 325 MG EC TABLET PO SCH ×2 (06:25→17:09)
[2021-02-27] MEDS: DIVALPROEX SODIUM 500 MG DR TABLET PO SCH ×2 (08:08→20:05)
[2021-02-27] MEDS: MULTIVITAMINS WITH MINERALS, THERAPEUTIC TABLET PO SCH (08:08)
[2021-02-27] MEDS: FOLIC ACID 1 MG TABLET PO SCH (08:08)
[2021-02-27] MEDS: MUPIROCIN CALCIUM 2% 15 GM CREAM TP SCH ×2 (09:10→17:09)
[2021-02-27] MEDS: THIAMINE 100 MG TABLET PO SCH (09:10)
[2021-02-27] MEDS: LITHIUM CARBONATE 600 MG CAPSULE PO SCH ×2 (09:19→17:09)
[2021-02-27] MEDS: BENZTROPINE MESYLATE 1 MG TABLET PO SCH ×2 (09:48→20:05)
[2021-02-27 17:21] VITALS: BP 118/62
[2021-02-27 20:05] VITALS: BP 122/74
[2021-02-27] MEDS: OLANZapine 7.5 MG TABLET PO SCH (20:05)
[2021-02-27] MEDS: HALOPERIDOL 10 MG TABLET PO SCH (20:05)
[2021-02-27] MEDS: ZOLPIDEM TARTRATE 10 MG TABLET PO PRN (20:05)
[2021-02-27 21:57] VITALS: BP 120/68
[2021-02-27] MEDS: IBUPROFEN 600 MG TABLET PO PRN (21:57)
[2021-02-27] MEDS: ALBUTEROL SULFATE HFA 90 MCG/PUFF 8 GM INHALER IH PRN (21:59)
[2021-02-28 06:44] VITALS: BP 118/74
[2021-02-28] MEDS: FERROUS SULFATE 325 MG EC TABLET PO SCH ×2 (06:59→17:19)
[2021-02-28] MEDS: DIVALPROEX SODIUM 500 MG DR TABLET PO SCH ×2 (08:22→20:03)
[2021-02-28] MEDS: MULTIVITAMINS WITH MINERALS, THERAPEUTIC TABLET PO SCH (08:22)
[2021-02-28] MEDS: LITHIUM CARBONATE 600 MG CAPSULE PO SCH ×2 (08:22→16:12)
[2021-02-28] MEDS: BENZTROPINE MESYLATE 1 MG TABLET PO SCH ×2 (08:22→20:03)
[2021-02-28] MEDS: MUPIROCIN CALCIUM 2% 15 GM CREAM TP SCH ×2 (08:22→16:16)
[2021-02-28] MEDS: FOLIC ACID 1 MG TABLET PO SCH (08:22)
[2021-02-28] MEDS: THIAMINE 100 MG TABLET PO SCH (08:22)
[2021-02-28 08:23] VITALS: BP 126/79
[2021-02-28] MEDS: ALBUTEROL SULFATE HFA 90 MCG/PUFF 8 GM INHALER IH PRN ×2 (08:27→19:42)
[2021-02-28] MEDS: LORazepam 2 MG TABLET PO PRN (13:25)
[2021-02-28] MEDS: MAG HYDROX/AL HYDROX/SIMETH ES 30 ML SUSPENSION UDCUP PO PRN (15:18)
[2021-02-28] MEDS: ACETAMINOPHEN 325 MG TABLET PO PRN (16:11)
[2021-02-28 16:15] VITALS: BP 107/67
[2021-02-28] MEDS: HALOPERIDOL 10 MG TABLET PO SCH (20:03)
[2021-02-28] MEDS: OLANZapine 7.5 MG TABLET PO SCH (20:03)
[2021-02-28] MEDS: ZOLPIDEM TARTRATE 10 MG TABLET PO PRN (20:24)
[2021-02-28] MEDS: IBUPROFEN 600 MG TABLET PO PRN (21:51)
[2021-03-01 01:15] VITALS: BP 110/70
[2021-03-01] MEDS: ACETAMINOPHEN 325 MG TABLET PO PRN ×3 (01:19→19:33)
[2021-03-01 02:05] VITALS: BP 116/75
[2021-03-01] MEDS: FERROUS SULFATE 325 MG EC TABLET PO SCH ×2 (07:05→16:35)
[2021-03-01 08:00] VITALS: BP 120/78
[2021-03-01] MEDS: DIVALPROEX SODIUM 500 MG DR TABLET PO SCH ×2 (09:28→20:29)
[2021-03-01] MEDS: BENZTROPINE MESYLATE 1 MG TABLET PO SCH ×2 (09:28→20:29)
[2021-03-01] MEDS: LITHIUM CARBONATE 600 MG CAPSULE PO SCH ×2 (09:28→16:35)
[2021-03-01] MEDS: MULTIVITAMINS WITH MINERALS, THERAPEUTIC TABLET PO SCH (09:28)
[2021-03-01] MEDS: MUPIROCIN CALCIUM 2% 15 GM CREAM TP SCH ×2 (09:29→16:36)
[2021-03-01] MEDS: THIAMINE 100 MG TABLET PO SCH (09:29)
[2021-03-01] MEDS: FOLIC ACID 1 MG TABLET PO SCH (09:29)
[2021-03-01] MEDS: ALBUTEROL SULFATE HFA 90 MCG/PUFF 8 GM INHALER IH PRN (11:50)
[2021-03-01] MEDS: MAG HYDROX/AL HYDROX/SIMETH ES 30 ML SUSPENSION UDCUP PO PRN (15:08)
[2021-03-01] MEDS: IBUPROFEN 600 MG TABLET PO PRN (16:04)
[2021-03-01] MEDS: OLANZapine 7.5 MG TABLET PO SCH (20:28)
[2021-03-01] MEDS: HALOPERIDOL 10 MG TABLET PO SCH (20:28)
[2021-03-01 20:37] VITALS: BP 122/63
[2021-03-02 00:18] VITALS: BP 114/67
[2021-03-02] MEDS: ACETAMINOPHEN 325 MG TABLET PO PRN ×2 (02:44→12:31)
[2021-03-02] MEDS: FERROUS SULFATE 325 MG EC TABLET PO SCH ×2 (06:21→16:02)
[2021-03-02] MEDS: LITHIUM CARBONATE 600 MG CAPSULE PO SCH ×2 (09:25→16:02)
[2021-03-02] MEDS: THIAMINE 100 MG TABLET PO SCH (09:25)
[2021-03-02] MEDS: DIVALPROEX SODIUM 500 MG DR TABLET PO SCH ×2 (09:26→22:26)
[2021-03-02] MEDS: FOLIC ACID 1 MG TABLET PO SCH (09:26)
[2021-03-02] MEDS: BENZTROPINE MESYLATE 1 MG TABLET PO SCH ×2 (09:26→22:26)
[2021-03-02] MEDS: MULTIVITAMINS WITH MINERALS, THERAPEUTIC TABLET PO SCH (09:26)
[2021-03-02] MEDS: IBUPROFEN 600 MG TABLET PO PRN (16:02)
[2021-03-02 16:13] VITALS: BP 140/84
[2021-03-02] MEDS: TraMADol HCL 50 MG TABLET PO PRN (17:27)
[2021-03-02 17:29] VITALS: BP 145/82
[2021-03-02] MEDS: HALOPERIDOL 10 MG TABLET PO SCH (22:24)
[2021-03-02] MEDS: OLANZapine 7.5 MG TABLET PO SCH (22:25)
[2021-03-03] MEDS: ZOLPIDEM TARTRATE 10 MG TABLET PO PRN ×2 (00:59→20:23)
[2021-03-03] MEDS: ACETAMINOPHEN 325 MG TABLET PO PRN (01:00)
[2021-03-03] MEDS: FERROUS SULFATE 325 MG EC TABLET PO SCH ×2 (06:33→16:25)
[2021-03-03 08:05] VITALS: BP 112/66
[2021-03-03] MEDS: FOLIC ACID 1 MG TABLET PO SCH (08:18)
[2021-03-03] MEDS: THIAMINE 100 MG TABLET PO SCH (08:19)
[2021-03-03] MEDS: MULTIVITAMINS WITH MINERALS, THERAPEUTIC TABLET PO SCH (08:19)
[2021-03-03] MEDS: DIVALPROEX SODIUM 500 MG DR TABLET PO SCH ×2 (08:19→20:05)
[2021-03-03] MEDS: BENZTROPINE MESYLATE 1 MG TABLET PO SCH ×2 (08:19→20:05)
[2021-03-03] MEDS: LITHIUM CARBONATE 600 MG CAPSULE PO SCH ×2 (08:19→16:25)
[2021-03-03] MEDS: TraMADol HCL 50 MG TABLET PO PRN ×2 (12:49→19:44)
[2021-03-03 16:06] VITALS: BP 136/83
[2021-03-03 19:44] VITALS: BP 135/78
[2021-03-03] MEDS: MAG HYDROX/AL HYDROX/SIMETH ES 30 ML SUSPENSION UDCUP PO PRN (19:44)
[2021-03-03] MEDS: HALOPERIDOL 10 MG TABLET PO SCH (20:05)
[2021-03-03] MEDS: OLANZapine 7.5 MG TABLET PO SCH (20:05)
[2021-03-04 00:38] VITALS: BP 126/101
[2021-03-04] MEDS: FERROUS SULFATE 325 MG EC TABLET PO SCH ×2 (06:34→16:10)
[2021-03-04] MEDS: MULTIVITAMINS WITH MINERALS, THERAPEUTIC TABLET PO SCH (08:29)
[2021-03-04] MEDS: LITHIUM CARBONATE 600 MG CAPSULE PO SCH ×2 (08:29→16:10)
[2021-03-04] MEDS: THIAMINE 100 MG TABLET PO SCH (08:30)
[2021-03-04] MEDS: FOLIC ACID 1 MG TABLET PO SCH (08:30)
[2021-03-04] MEDS: DIVALPROEX SODIUM 500 MG DR TABLET PO SCH ×2 (08:30→20:16)
[2021-03-04] MEDS: BENZTROPINE MESYLATE 1 MG TABLET PO SCH ×2 (08:30→20:16)
[2021-03-04] MEDS: ACETAMINOPHEN 325 MG TABLET PO PRN (11:35)
[2021-03-04] MEDS: MAGNESIUM HYDROXIDE SUSPENSION 30 ML UDCUP PO PRN (13:03)
[2021-03-04] MEDS: TraMADol HCL 50 MG TABLET PO PRN (13:04)
[2021-03-04 16:09] VITALS: BP 134/83
[2021-03-04] MEDS: PETROLATUM,WHITE 28 GM JELLY TP PRN (17:16)
[2021-03-04] MEDS: OLANZapine 7.5 MG TABLET PO SCH (20:16)
[2021-03-04] MEDS: HALOPERIDOL 10 MG TABLET PO SCH (20:16)
[2021-03-04] MEDS: ZOLPIDEM TARTRATE 10 MG TABLET PO PRN (20:41)
[2021-03-05 00:55] VITALS: BP 128/80
[2021-03-05] MEDS: FERROUS SULFATE 325 MG EC TABLET PO SCH ×2 (06:32→16:13)
[2021-03-05 08:16] VITALS: BP 119/74
[2021-03-05] MEDS: BENZTROPINE MESYLATE 1 MG TABLET PO SCH ×2 (09:21→20:14)
[2021-03-05] MEDS: LITHIUM CARBONATE 600 MG CAPSULE PO SCH ×2 (09:21→16:13)
[2021-03-05] MEDS: DIVALPROEX SODIUM 500 MG DR TABLET PO SCH ×2 (09:21→20:14)
[2021-03-05] MEDS: THIAMINE 100 MG TABLET PO SCH (09:21)
[2021-03-05] MEDS: FOLIC ACID 1 MG TABLET PO SCH (09:21)
[2021-03-05] MEDS: MULTIVITAMINS WITH MINERALS, THERAPEUTIC TABLET PO SCH (09:21)
[2021-03-05] MEDS: MAGNESIUM HYDROXIDE SUSPENSION 30 ML UDCUP PO PRN (16:41)
[2021-03-05 16:59] VITALS: BP 132/65
[2021-03-05] MEDS: HALOPERIDOL 10 MG TABLET PO SCH (20:14)
[2021-03-05] MEDS: OLANZapine 7.5 MG TABLET PO SCH (20:14)
[2021-03-05] MEDS: ALBUTEROL SULFATE HFA 90 MCG/PUFF 8 GM INHALER IH PRN (20:25)
[2021-03-05] MEDS: ZOLPIDEM TARTRATE 10 MG TABLET PO PRN (21:09)
[2021-03-06 00:54] VITALS: BP 130/69
[2021-03-06] MEDS: ACETAMINOPHEN 325 MG TABLET PO PRN ×3 (03:17→20:34)
[2021-03-06] MEDS: FERROUS SULFATE 325 MG EC TABLET PO SCH ×2 (06:47→16:12)
[2021-03-06 08:12] VITALS: BP 119/73
[2021-03-06] MEDS: MULTIVITAMINS WITH MINERALS, THERAPEUTIC TABLET PO SCH (09:41)
[2021-03-06] MEDS: THIAMINE 100 MG TABLET PO SCH (09:41)
[2021-03-06] MEDS: FOLIC ACID 1 MG TABLET PO SCH (09:41)
[2021-03-06] MEDS: LITHIUM CARBONATE 600 MG CAPSULE PO SCH ×2 (09:41→16:11)
[2021-03-06] MEDS: BENZTROPINE MESYLATE 1 MG TABLET PO SCH ×2 (09:41→20:24)
[2021-03-06] MEDS: DIVALPROEX SODIUM 500 MG DR TABLET PO SCH ×2 (09:41→20:24)
[2021-03-06 16:17] VITALS: BP 135/82
[2021-03-06] MEDS: OLANZapine 7.5 MG TABLET PO SCH (20:24)
[2021-03-06] MEDS: HALOPERIDOL 10 MG TABLET PO SCH (20:24)
[2021-03-06] MEDS: ZOLPIDEM TARTRATE 10 MG TABLET PO PRN (20:25)
[2021-03-07 00:12] VITALS: BP 132/76
[2021-03-07] MEDS: IBUPROFEN 600 MG TABLET PO PRN ×2 (00:41→22:02)
[2021-03-07] MEDS: ACETAMINOPHEN 325 MG TABLET PO PRN ×2 (01:09→20:05)
[2021-03-07] MEDS: FERROUS SULFATE 325 MG EC TABLET PO SCH ×2 (06:45→16:06)
[2021-03-07 07:30] LABS: HEMATOCRIT 36.3 % (36-46); HEMOGLOBIN 12.2 g/dL (12.0-16.0); MEAN CORPUSCULAR HEMOGLOBIN 30.5 pg (26.0-34.0); MEAN CORPUSCULAR HGB CONC 33.5 G/dL (31.0-37.0); MEAN CORPUSCULAR VOLUME 91 fL (80-100); PLATELET COUNT (AUTO) 159 K/uL (150-450); RED CELL DISTRIBUTION WIDTH 13.2 % (11.5-14.5)
[2021-03-07 08:02] LABS: ANION GAP 7 mmol/L (8-16); CALCIUM, TOTAL 8.6 mg/dL (8.8-10.5); CARBON DIOXIDE 27 mmol/L (22-29); CHLORIDE 108 mmol/L (98-107); CHOL/HDL RATIO 3.4 (3.9-5.7); CHOLESTEROL 121 mg/dL (131-200); CREATININE 0.46 mg/dL (0.60-1.30); GLOMERULAR FILTR. RATE CALC > 60 mL/min (>60); GLUCOSE,RANDOM 92 mg/dL (70-110); HDL CHOLESTEROL 36 mg/dL (40-60); LDL CHOL (CALC.) 63 mg/dL (0-130); PHOSPHORUS 4.5 mg/dL (2.5-4.9); SODIUM SERUM 142 mmol/L (136-145); THYROID STIMULATING HORMONE 4.88 uIU/mL (0.36-3.74); TRIGLYCERIDES 111 mg/dL (15-150); UREA NITROGEN, BLOOD 12 mg/dL (7-18)
[2021-03-07 08:15] LABS: BAND NEUTROPHILS % (MANUAL) 3 % (0-5); LYMPHOCYTES % (MANUAL) 41 % (22-44); MONOCYTES % (MANUAL) 5 % (2-9); SEGMENTED NEUTROPHILS % 51 % (40-70)
[2021-03-07] MEDS: THIAMINE 100 MG TABLET PO SCH (08:16)
[2021-03-07] MEDS: FOLIC ACID 1 MG TABLET PO SCH (08:16)
[2021-03-07] MEDS: LITHIUM CARBONATE 600 MG CAPSULE PO SCH ×2 (08:16→16:06)
[2021-03-07] MEDS: MULTIVITAMINS WITH MINERALS, THERAPEUTIC TABLET PO SCH (08:16)
[2021-03-07] MEDS: DIVALPROEX SODIUM 500 MG DR TABLET PO SCH ×2 (08:16→20:05)
[2021-03-07] MEDS: BENZTROPINE MESYLATE 1 MG TABLET PO SCH ×2 (08:16→20:05)
[2021-03-07] MEDS: MAG HYDROX/AL HYDROX/SIMETH ES 30 ML SUSPENSION UDCUP PO PRN (16:25)
[2021-03-07] MEDS: ALBUTEROL SULFATE HFA 90 MCG/PUFF 8 GM INHALER IH PRN (16:37)
[2021-03-07] MEDS: HALOPERIDOL 10 MG TABLET PO SCH (20:04)
[2021-03-07] MEDS: OLANZapine 7.5 MG TABLET PO SCH (20:04)
[2021-03-07] MEDS: ZOLPIDEM TARTRATE 10 MG TABLET PO PRN (20:05)
[2021-03-08] MEDS: ACETAMINOPHEN 325 MG TABLET PO PRN ×3 (01:31→20:28)
[2021-03-08] MEDS: FERROUS SULFATE 325 MG EC TABLET PO SCH ×2 (06:45→16:04)
[2021-03-08 08:26] VITALS: BP 129/76
[2021-03-08] MEDS: BENZTROPINE MESYLATE 1 MG TABLET PO SCH ×2 (09:44→20:06)
[2021-03-08] MEDS: LITHIUM CARBONATE 600 MG CAPSULE PO SCH ×2 (09:44→16:04)
[2021-03-08] MEDS: DIVALPROEX SODIUM 500 MG DR TABLET PO SCH ×2 (09:44→20:06)
[2021-03-08] MEDS: FOLIC ACID 1 MG TABLET PO SCH (09:44)
[2021-03-08] MEDS: MULTIVITAMINS WITH MINERALS, THERAPEUTIC TABLET PO SCH (09:45)
[2021-03-08] MEDS: THIAMINE 100 MG TABLET PO SCH (09:45)
[2021-03-08] MEDS: MAG HYDROX/AL HYDROX/SIMETH ES 30 ML SUSPENSION UDCUP PO PRN (12:46)
[2021-03-08 16:12] VITALS: BP 142/82
[2021-03-08] MEDS: ALBUTEROL SULFATE HFA 90 MCG/PUFF 8 GM INHALER IH PRN (16:39)
[2021-03-08] MEDS: HALOPERIDOL 10 MG TABLET PO SCH (20:06)
[2021-03-08] MEDS: OLANZapine 7.5 MG TABLET PO SCH (20:06)
[2021-03-08] MEDS: ZOLPIDEM TARTRATE 10 MG TABLET PO PRN (20:28)
[2021-03-09 01:05] VITALS: BP 128/107
[2021-03-09 01:10] VITALS: BP 128/98
[2021-03-09] MEDS: ACETAMINOPHEN 325 MG TABLET PO PRN ×2 (01:50→22:26)
[2021-03-09] MEDS: LEVOTHYROXINE SODIUM 25 MCG TABLET PO SCH (06:30)
[2021-03-09] MEDS: FERROUS SULFATE 325 MG EC TABLET PO SCH ×2 (06:30→16:23)
[2021-03-09 08:20] VITALS: BP 111/68
[2021-03-09] MEDS: LITHIUM CARBONATE 600 MG CAPSULE PO SCH ×2 (09:05→16:22)
[2021-03-09] MEDS: MULTIVITAMINS WITH MINERALS, THERAPEUTIC TABLET PO SCH (09:05)
[2021-03-09] MEDS: THIAMINE 100 MG TABLET PO SCH (09:06)
[2021-03-09] MEDS: FOLIC ACID 1 MG TABLET PO SCH (09:06)
[2021-03-09] MEDS: DIVALPROEX SODIUM 500 MG DR TABLET PO SCH ×2 (09:06→20:22)
[2021-03-09] MEDS: BENZTROPINE MESYLATE 1 MG TABLET PO SCH ×2 (09:06→20:22)
[2021-03-09] MEDS: OLANZapine 7.5 MG TABLET PO SCH (20:21)
[2021-03-09] MEDS: HALOPERIDOL 10 MG TABLET PO SCH (20:21)
[2021-03-09] MEDS: ZOLPIDEM TARTRATE 10 MG TABLET PO PRN (20:22)
[2021-03-09] MEDS: ALBUTEROL SULFATE HFA 90 MCG/PUFF 8 GM INHALER IH PRN (22:24)
[2021-03-10 03:14] VITALS: BP 104/62
[2021-03-10] MEDS: LEVOTHYROXINE SODIUM 25 MCG TABLET PO SCH (06:30)
[2021-03-10] MEDS: FERROUS SULFATE 325 MG EC TABLET PO SCH ×2 (06:30→16:14)
[2021-03-10] MEDS: DIVALPROEX SODIUM 500 MG DR TABLET PO SCH ×2 (09:25→20:06)
[2021-03-10] MEDS: LITHIUM CARBONATE 600 MG CAPSULE PO SCH ×2 (09:25→16:14)
[2021-03-10] MEDS: FOLIC ACID 1 MG TABLET PO SCH (09:25)
[2021-03-10] MEDS: BENZTROPINE MESYLATE 1 MG TABLET PO SCH ×2 (09:26→20:06)
[2021-03-10] MEDS: THIAMINE 100 MG TABLET PO SCH (09:26)
[2021-03-10] MEDS: MULTIVITAMINS WITH MINERALS, THERAPEUTIC TABLET PO SCH (09:26)
[2021-03-10] MEDS: MAG HYDROX/AL HYDROX/SIMETH ES 30 ML SUSPENSION UDCUP PO PRN (14:57)
[2021-03-10] MEDS: OLANZapine 7.5 MG TABLET PO SCH (20:05)
[2021-03-10] MEDS: HALOPERIDOL 10 MG TABLET PO SCH (20:06)
[2021-03-10] MEDS: ZOLPIDEM TARTRATE 10 MG TABLET PO PRN (20:43)
[2021-03-10] MEDS: ACETAMINOPHEN 325 MG TABLET PO PRN (23:07)
[2021-03-11 01:08] VITALS: BP 110/68
[2021-03-11] MEDS: FERROUS SULFATE 325 MG EC TABLET PO SCH ×2 (06:18→16:13)
[2021-03-11] MEDS: LEVOTHYROXINE SODIUM 25 MCG TABLET PO SCH (06:18)
[2021-03-11] MEDS: THIAMINE 100 MG TABLET PO SCH (10:27)
[2021-03-11] MEDS: DIVALPROEX SODIUM 500 MG DR TABLET PO SCH ×2 (10:27→20:13)
[2021-03-11] MEDS: FOLIC ACID 1 MG TABLET PO SCH (10:27)
[2021-03-11] MEDS: BENZTROPINE MESYLATE 1 MG TABLET PO SCH ×2 (10:27→20:14)
[2021-03-11] MEDS: MULTIVITAMINS WITH MINERALS, THERAPEUTIC TABLET PO SCH (10:27)
[2021-03-11] MEDS: LITHIUM CARBONATE 600 MG CAPSULE PO SCH ×2 (10:27→16:13)
[2021-03-11] MEDS: ZOLPIDEM TARTRATE 10 MG TABLET PO PRN (20:13)
[2021-03-11] MEDS: HALOPERIDOL 10 MG TABLET PO SCH (20:13)
[2021-03-11] MEDS: OLANZapine 7.5 MG TABLET PO SCH (20:13)
[2021-03-12 00:30] VITALS: BP 117/72
[2021-03-12] MEDS: IBUPROFEN 600 MG TABLET PO PRN (00:32)
[2021-03-12] MEDS: FERROUS SULFATE 325 MG EC TABLET PO SCH ×2 (07:04→16:54)
[2021-03-12] MEDS: LEVOTHYROXINE SODIUM 25 MCG TABLET PO SCH (07:04)
[2021-03-12] MEDS: DIVALPROEX SODIUM 500 MG DR TABLET PO SCH ×2 (09:23→20:01)
[2021-03-12] MEDS: FOLIC ACID 1 MG TABLET PO SCH (09:23)
[2021-03-12] MEDS: LITHIUM CARBONATE 600 MG CAPSULE PO SCH ×2 (09:23→16:33)
[2021-03-12] MEDS: THIAMINE 100 MG TABLET PO SCH (09:23)
[2021-03-12] MEDS: BENZTROPINE MESYLATE 1 MG TABLET PO SCH ×2 (09:23→20:01)
[2021-03-12] MEDS: MULTIVITAMINS WITH MINERALS, THERAPEUTIC TABLET PO SCH (09:23)
[2021-03-12] MEDS: ACETAMINOPHEN 325 MG TABLET PO PRN (10:48)
[2021-03-12 16:39] VITALS: BP 125/91
[2021-03-12] MEDS: HALOPERIDOL 10 MG TABLET PO SCH (20:01)
[2021-03-12] MEDS: OLANZapine 7.5 MG TABLET PO SCH (20:01)
[2021-03-12] MEDS: ZOLPIDEM TARTRATE 10 MG TABLET PO PRN (20:31)
[2021-03-13 01:42] VITALS: BP 116/84
[2021-03-13] MEDS: ACETAMINOPHEN 325 MG TABLET PO PRN ×3 (01:59→21:21)
[2021-03-13] MEDS: LEVOTHYROXINE SODIUM 25 MCG TABLET PO SCH (06:54)
[2021-03-13] MEDS: FERROUS SULFATE 325 MG EC TABLET PO SCH ×2 (06:54→16:07)
[2021-03-13] MEDS: ALBUTEROL SULFATE HFA 90 MCG/PUFF 8 GM INHALER IH PRN ×2 (08:08→20:15)
[2021-03-13] MEDS: BENZTROPINE MESYLATE 1 MG TABLET PO SCH ×2 (08:09→20:14)
[2021-03-13] MEDS: LITHIUM CARBONATE 600 MG CAPSULE PO SCH ×2 (08:09→16:07)
[2021-03-13] MEDS: THIAMINE 100 MG TABLET PO SCH (08:09)
[2021-03-13] MEDS: DIVALPROEX SODIUM 500 MG DR TABLET PO SCH ×2 (08:09→20:14)
[2021-03-13] MEDS: FOLIC ACID 1 MG TABLET PO SCH (08:10)
[2021-03-13] MEDS: MULTIVITAMINS WITH MINERALS, THERAPEUTIC TABLET PO SCH (08:10)
[2021-03-13 08:43] VITALS: BP 119/64
[2021-03-13] MEDS: MAG HYDROX/AL HYDROX/SIMETH ES 30 ML SUSPENSION UDCUP PO PRN (12:01)
[2021-03-13] MEDS: HALOPERIDOL 10 MG TABLET PO SCH (20:13)
[2021-03-13] MEDS: OLANZapine 7.5 MG TABLET PO SCH (20:14)
[2021-03-13] MEDS: ZOLPIDEM TARTRATE 10 MG TABLET PO PRN (21:11)
[2021-03-14 02:22] VITALS: BP 126/74
[2021-03-14] MEDS: FERROUS SULFATE 325 MG EC TABLET PO SCH ×2 (06:37→17:10)
[2021-03-14] MEDS: LEVOTHYROXINE SODIUM 25 MCG TABLET PO SCH (06:37)
[2021-03-14 08:23] VITALS: BP 114/66
[2021-03-14] MEDS: DIVALPROEX SODIUM 500 MG DR TABLET PO SCH ×2 (09:08→20:03)
[2021-03-14] MEDS: BENZTROPINE MESYLATE 1 MG TABLET PO SCH ×2 (09:08→21:26)
[2021-03-14] MEDS: FOLIC ACID 1 MG TABLET PO SCH (09:08)
[2021-03-14] MEDS: THIAMINE 100 MG TABLET PO SCH (09:08)
[2021-03-14] MEDS: MULTIVITAMINS WITH MINERALS, THERAPEUTIC TABLET PO SCH (09:08)
[2021-03-14] MEDS: LITHIUM CARBONATE 600 MG CAPSULE PO SCH ×2 (09:08→17:10)
[2021-03-14 13:21] LABS: GLUCOMETER DEV NAME(LOC) POC.BV
[2021-03-14] MEDS: ACETAMINOPHEN 325 MG TABLET PO PRN ×2 (18:05→22:57)
[2021-03-14] MEDS: OLANZapine 7.5 MG TABLET PO SCH (20:03)
[2021-03-14] MEDS: HALOPERIDOL 10 MG TABLET PO SCH (20:03)
[2021-03-14] MEDS: ZOLPIDEM TARTRATE 10 MG TABLET PO PRN (20:18)
[2021-03-15] MEDS: IBUPROFEN 600 MG TABLET PO PRN (01:59)
[2021-03-15] MEDS: FERROUS SULFATE 325 MG EC TABLET PO SCH ×2 (06:36→16:55)
[2021-03-15] MEDS: LEVOTHYROXINE SODIUM 25 MCG TABLET PO SCH (06:36)
[2021-03-15 06:58] VITALS: BP 110/81
[2021-03-15 08:37] VITALS: BP 118/74
[2021-03-15] MEDS: BENZTROPINE MESYLATE 1 MG TABLET PO SCH ×2 (08:43→20:15)
[2021-03-15] MEDS: DIVALPROEX SODIUM 500 MG DR TABLET PO SCH ×2 (08:43→20:15)
[2021-03-15] MEDS: THIAMINE 100 MG TABLET PO SCH (08:43)
[2021-03-15] MEDS: MULTIVITAMINS WITH MINERALS, THERAPEUTIC TABLET PO SCH (08:43)
[2021-03-15] MEDS: FOLIC ACID 1 MG TABLET PO SCH (08:43)
[2021-03-15] MEDS: LITHIUM CARBONATE 600 MG CAPSULE PO SCH ×2 (09:08→16:55)
[2021-03-15 15:15] VITALS: BP 116/77
[2021-03-15] MEDS: ACETAMINOPHEN 325 MG TABLET PO PRN ×2 (15:15→21:09)
[2021-03-15] MEDS: OLANZapine 7.5 MG TABLET PO SCH (20:15)
[2021-03-15] MEDS: HALOPERIDOL 10 MG TABLET PO SCH (20:15)
[2021-03-15] MEDS: ZOLPIDEM TARTRATE 10 MG TABLET PO PRN (20:48)
[2021-03-15] MEDS: ALBUTEROL SULFATE HFA 90 MCG/PUFF 8 GM INHALER IH PRN (21:57)
[2021-03-16 00:57] VITALS: BP 141/86
[2021-03-16] MEDS: ACETAMINOPHEN 325 MG TABLET PO PRN ×2 (01:17→23:03)
[2021-03-16] MEDS: FERROUS SULFATE 325 MG EC TABLET PO SCH ×2 (06:25→17:01)
[2021-03-16] MEDS: LEVOTHYROXINE SODIUM 25 MCG TABLET PO SCH (06:25)
[2021-03-16] MEDS: BENZTROPINE MESYLATE 1 MG TABLET PO SCH ×2 (08:19→20:45)
[2021-03-16] MEDS: MULTIVITAMINS WITH MINERALS, THERAPEUTIC TABLET PO SCH (08:19)
[2021-03-16] MEDS: LITHIUM CARBONATE 600 MG CAPSULE PO SCH ×2 (08:19→17:01)
[2021-03-16] MEDS: FOLIC ACID 1 MG TABLET PO SCH (08:19)
[2021-03-16] MEDS: THIAMINE 100 MG TABLET PO SCH (08:19)
[2021-03-16] MEDS: DIVALPROEX SODIUM 500 MG DR TABLET PO SCH ×2 (08:19→20:45)
[2021-03-16] MEDS: HALOPERIDOL 10 MG TABLET PO SCH (20:45)
[2021-03-16] MEDS: OLANZapine 7.5 MG TABLET PO SCH (20:45)
[2021-03-16] MEDS: ZOLPIDEM TARTRATE 10 MG TABLET PO PRN (21:25)
[2021-03-17] MEDS: IBUPROFEN 600 MG TABLET PO PRN (00:03)
[2021-03-17 03:06] VITALS: BP 140/90
[2021-03-17] MEDS: LEVOTHYROXINE SODIUM 25 MCG TABLET PO SCH (06:29)
[2021-03-17] MEDS: FERROUS SULFATE 325 MG EC TABLET PO SCH ×2 (06:29→16:55)
[2021-03-17] MEDS: THIAMINE 100 MG TABLET PO SCH (09:24)
[2021-03-17] MEDS: MULTIVITAMINS WITH MINERALS, THERAPEUTIC TABLET PO SCH (09:24)
[2021-03-17] MEDS: DIVALPROEX SODIUM 500 MG DR TABLET PO SCH ×2 (09:24→20:13)
[2021-03-17] MEDS: LITHIUM CARBONATE 600 MG CAPSULE PO SCH ×2 (09:24→16:55)
[2021-03-17] MEDS: BENZTROPINE MESYLATE 1 MG TABLET PO SCH ×2 (09:24→20:13)
[2021-03-17] MEDS: FOLIC ACID 1 MG TABLET PO SCH (09:24)
[2021-03-17] MEDS: OLANZapine 7.5 MG TABLET PO SCH (20:13)
[2021-03-17] MEDS: HALOPERIDOL 10 MG TABLET PO SCH (20:14)
[2021-03-17] MEDS: ZOLPIDEM TARTRATE 10 MG TABLET PO PRN (20:30)
[2021-03-17 20:51] VITALS: BP 132/66
[2021-03-17] MEDS: ACETAMINOPHEN 325 MG TABLET PO PRN (20:51)
[2021-03-18] MEDS: ALBUTEROL SULFATE HFA 90 MCG/PUFF 8 GM INHALER IH PRN (00:02)
[2021-03-18] MEDS: IBUPROFEN 600 MG TABLET PO PRN ×2 (01:52→21:45)
[2021-03-18] MEDS: LEVOTHYROXINE SODIUM 25 MCG TABLET PO SCH (06:28)
[2021-03-18] MEDS: FERROUS SULFATE 325 MG EC TABLET PO SCH ×2 (06:29→16:34)
[2021-03-18] MEDS: DIVALPROEX SODIUM 500 MG DR TABLET PO SCH ×2 (08:39→20:11)
[2021-03-18] MEDS: BENZTROPINE MESYLATE 1 MG TABLET PO SCH ×2 (08:39→20:13)
[2021-03-18] MEDS: THIAMINE 100 MG TABLET PO SCH (08:39)
[2021-03-18] MEDS: FOLIC ACID 1 MG TABLET PO SCH (08:39)
[2021-03-18] MEDS: LITHIUM CARBONATE 600 MG CAPSULE PO SCH ×2 (08:39→16:34)
[2021-03-18] MEDS: MULTIVITAMINS WITH MINERALS, THERAPEUTIC TABLET PO SCH (08:40)
[2021-03-18] MEDS: ACETAMINOPHEN 325 MG TABLET PO PRN (16:52)
[2021-03-18] MEDS: HALOPERIDOL 10 MG TABLET PO SCH (20:11)
[2021-03-18] MEDS: OLANZapine 7.5 MG TABLET PO SCH (20:11)
[2021-03-18] MEDS: ZOLPIDEM TARTRATE 10 MG TABLET PO PRN (23:00)
[2021-03-19] MEDS: LEVOTHYROXINE SODIUM 25 MCG TABLET PO SCH (06:55)
[2021-03-19] MEDS: FERROUS SULFATE 325 MG EC TABLET PO SCH ×2 (06:55→16:30)
[2021-03-19] MEDS: LITHIUM CARBONATE 600 MG CAPSULE PO SCH ×2 (08:08→16:30)
[2021-03-19] MEDS: THIAMINE 100 MG TABLET PO SCH (08:08)
[2021-03-19] MEDS: BENZTROPINE MESYLATE 1 MG TABLET PO SCH ×2 (08:08→21:23)
[2021-03-19] MEDS: FOLIC ACID 1 MG TABLET PO SCH (08:08)
[2021-03-19] MEDS: DIVALPROEX SODIUM 500 MG DR TABLET PO SCH ×2 (08:08→21:23)
[2021-03-19] MEDS: MULTIVITAMINS WITH MINERALS, THERAPEUTIC TABLET PO SCH (08:08)
[2021-03-19 08:22] VITALS: BP 117/79
[2021-03-19] MEDS: ACETAMINOPHEN 325 MG TABLET PO PRN ×2 (14:22→20:28)
[2021-03-19] MEDS: ZOLPIDEM TARTRATE 10 MG TABLET PO PRN (21:01)
[2021-03-19] MEDS: HALOPERIDOL 10 MG TABLET PO SCH (21:23)
[2021-03-19] MEDS: OLANZapine 7.5 MG TABLET PO SCH (21:23)
[2021-03-20 00:51] VITALS: BP 111/72
[2021-03-20] MEDS: ACETAMINOPHEN 325 MG TABLET PO PRN ×2 (00:51→17:46)
[2021-03-20 02:24] VITALS: BP 111/72
[2021-03-20] MEDS: FERROUS SULFATE 325 MG EC TABLET PO SCH ×2 (06:49→17:23)
[2021-03-20] MEDS: LEVOTHYROXINE SODIUM 25 MCG TABLET PO SCH (06:49)
[2021-03-20] MEDS: LITHIUM CARBONATE 600 MG CAPSULE PO SCH ×2 (09:30→17:23)
[2021-03-20] MEDS: THIAMINE 100 MG TABLET PO SCH (09:30)
[2021-03-20] MEDS: FOLIC ACID 1 MG TABLET PO SCH (09:30)
[2021-03-20] MEDS: MULTIVITAMINS WITH MINERALS, THERAPEUTIC TABLET PO SCH (09:30)
[2021-03-20] MEDS: DIVALPROEX SODIUM 500 MG DR TABLET PO SCH ×2 (09:30→20:17)
[2021-03-20] MEDS: BENZTROPINE MESYLATE 1 MG TABLET PO SCH ×2 (09:30→20:17)
[2021-03-20 16:21] LABS: GLUCOMETER DEV NAME(LOC) POC.BV
[2021-03-20] MEDS: OLANZapine 7.5 MG TABLET PO SCH (20:17)
[2021-03-20] MEDS: HALOPERIDOL 10 MG TABLET PO SCH (20:17)
[2021-03-20] MEDS: ZOLPIDEM TARTRATE 10 MG TABLET PO PRN (21:01)
[2021-03-20] MEDS: IBUPROFEN 600 MG TABLET PO PRN (21:01)
[2021-03-21] MEDS: FERROUS SULFATE 325 MG EC TABLET PO SCH (06:40)
[2021-03-21] MEDS: LEVOTHYROXINE SODIUM 25 MCG TABLET PO SCH (06:40)
[2021-03-21 08:04] LABS: BASOPHILS % (AUTO) 0.5 % (0.0-2.0); EOSINOPHILS % (AUTO) 6.2 % (1.0-6.0); HEMATOCRIT 36.8 % (36-46); HEMOGLOBIN 12.3 g/dL (12.0-16.0); LYMPHOCYTES # (AUTO) 3.4 K/uL (1.0-4.8); LYMPHOCYTES % (AUTO) 39.3 % (22.0-44.0); MEAN CORPUSCULAR HEMOGLOBIN 30.7 pg (26.0-34.0); MEAN CORPUSCULAR HGB CONC 33.5 G/dL (31.0-37.0); MEAN CORPUSCULAR VOLUME 92 fL (80-100); MONOCYTES # (AUTO) 0.8 K/uL (0.1-1.0); MONOCYTES % (AUTO) 8.7 % (2.0-9.0); NEUTROPHILS # (AUTO) 3.9 K/uL (1.8-7.7); NEUTROPHILS % (AUTO) 45.3 % (40.0-70.0); PLATELET COUNT (AUTO) 196 K/uL (150-450); RED BLOOD CELL COUNT(AUTO) 4.01 MIL/uL (4.00-5.20); RED CELL DISTRIBUTION WIDTH 13.1 % (11.5-14.5)
[2021-03-21 08:17] LABS: ALANINE AMINOTRANSFERASE 26 U/L (12-78); ALBUMIN 2.9 g/dL (3.4-5.0); ALKALINE PHOSPHATASE 63 U/L (46-116); ANION GAP 7 mmol/L (8-16); ASPARTATE AMINOTRANSFERASE 14 U/L (15-37); BILIRUBIN,TOTAL 0.2 mg/dL (0.1-1.0); CALCIUM, TOTAL 8.8 mg/dL (8.8-10.5); CARBON DIOXIDE 28 mmol/L (22-29); CHLORIDE 108 mmol/L (98-107); GLOMERULAR FILTR. RATE CALC > 60 mL/min (>60); GLUCOSE,RANDOM 88 mg/dL (70-110); PHOSPHORUS 4.3 mg/dL (2.5-4.9); POTASSIUM 4.3 mmol/L (3.5-5.1); SODIUM SERUM 143 mmol/L (136-145); TOTAL PROTEIN, SERUM 6.2 g/dL (6.4-8.2); UREA NITROGEN, BLOOD 16 mg/dL (7-18)
[2021-03-21] MEDS: LITHIUM CARBONATE 600 MG CAPSULE PO SCH (08:30)
[2021-03-21] MEDS: FOLIC ACID 1 MG TABLET PO SCH (08:30)
[2021-03-21] MEDS: MULTIVITAMINS WITH MINERALS, THERAPEUTIC TABLET PO SCH (08:30)
[2021-03-21] MEDS: DIVALPROEX SODIUM 500 MG DR TABLET PO SCH (08:31)
[2021-03-21] MEDS: BENZTROPINE MESYLATE 1 MG TABLET PO SCH (08:31)
[2021-03-21] MEDS: THIAMINE 100 MG TABLET PO SCH (08:31)
[2021-03-21] MEDS ORDERED: BENZ1TAB10 PO (09:55)
[2021-03-21] MEDS ORDERED: FERR-89 PO (09:57)
[2021-03-21] MEDS ORDERED: FOLI-130 PO (10:07)
[2021-03-21] MEDS ORDERED: LEVO25TA9 PO (10:08)
[2021-03-21] MEDS ORDERED: THIA100T80 PO (10:09)
[2021-03-21] MEDS ORDERED: MULT-711 PO (10:10)
[2021-03-21] MEDS: ACETAMINOPHEN 325 MG TABLET PO PRN (10:38)
== END 2021-03-21 11:45 | disposition home or self-care (01) | DRG 750 ==
LOC: B3A 01:45
PROVIDERS: ADMIT Psychiatry & Neurology Psychiatry; ATTEND Psychiatry & Neurology Psychiatry
DX: F20.0 Paranoid schizophrenia (principal); E44.1 Mild protein-calorie malnutrition; K59.00 Constipation, unspecified; G47.00 Insomnia, unspecified; F41.9 Anxiety disorder, unspecified; F15.10 Other stimulant abuse, uncomplicated; K05.6 Periodontal disease, unspecified; Z20.822 Contact with and (suspected) exposure to COVID-19; F17.200 Nicotine dependence, unspecified, uncomplicated; Z71.6 Tobacco abuse counseling; Z59.0 Homelessness; Z56.0 Unemployment, unspecified; Z68.41 Body mass index [BMI] 40.0-44.9, adult
CPT/HCPCS: 71046; 80048; 80053; 80061; 80164; 80178; 83540; 83550; 83735; 84100; 84443; 84703; 85007; 85025; 85027; 87070; 87077; 87081; 87186; 87205; J1200; J1630; J2060; J3535; 36415-L1; 36415-TC

== ENCOUNTER 2021-01-21 02:20 | Emergency (ER) | payer MEDICAID, OTHER ==
[~2021-01-21] VITALS: Ht 172.7 cm; Wt 81.8 kg
[2021-01-21 02:39] LABS: BASOPHILS % (AUTO) 0.3 % (0.0-2.0); EOSINOPHILS % (AUTO) 0.3 % (1.0-6.0); HEMATOCRIT 35.7 % (36-46); HEMOGLOBIN 11.9 g/dL (12.0-16.0); LYMPHOCYTES # (AUTO) 2.3 K/uL (1.0-4.8); MEAN CORPUSCULAR HGB CONC 33.3 G/dL (31.0-37.0); MEAN CORPUSCULAR VOLUME 90 fL (80-100); MONOCYTES # (AUTO) 1.1 K/uL (0.1-1.0); MONOCYTES % (AUTO) 10.9 % (2.0-9.0); NEUTROPHILS # (AUTO) 6.9 K/uL (1.8-7.7); NEUTROPHILS % (AUTO) 66.5 % (40.0-70.0); PLATELET COUNT (AUTO) 214 K/uL (150-450); RED BLOOD CELL COUNT(AUTO) 3.97 MIL/uL (4.00-5.20); RED CELL DISTRIBUTION WIDTH 12.6 % (11.5-14.5)
[2021-01-21 02:51] LABS: ANION GAP 9 mmol/L (8-16); CARBON DIOXIDE 27 mmol/L (22-29); CHLORIDE 101 mmol/L (98-107); CREATININE 0.79 mg/dL (0.60-1.30); GLOMERULAR FILTR. RATE CALC > 60 mL/min (>60); GLUCOSE,RANDOM 126 mg/dL (70-110); POTASSIUM 3.8 mmol/L (3.5-5.1); SODIUM SERUM 137 mmol/L (136-145); UREA NITROGEN, BLOOD 11 mg/dL (7-18)
[2021-01-21 02:54] LABS: COVID AG,FIA SOURCE NASOPHARYNGEAL
[2021-01-21 02:58] LABS: LITHIUM < 0.20 mmol/L (0.60-1.20)
[2021-01-21 03:11] LABS: ALANINE AMINOTRANSFERASE 113 U/L (12-78); ALBUMIN 3.6 g/dL (3.4-5.0); ALKALINE PHOSPHATASE 66 U/L (46-116); ASPARTATE AMINOTRANSFERASE 147 U/L (15-37); BILIRUBIN,TOTAL 0.4 mg/dL (0.1-1.0); HCG,QUANTITATIVE < 1 mIU/mL (0-6); TOTAL PROTEIN, SERUM 7.4 g/dL (6.4-8.2)
[2021-01-21 03:14] LABS: VALPROIC ACID < 3 mcg/mL (50-100)
[2021-01-21 06:45] VITALS: BP 105/41
== END 2021-01-21 07:06 | disposition home or self-care (01) ==
LOC: EMS 02:24
DX: F20.9 Schizophrenia, unspecified (principal); F31.9 Bipolar disorder, unspecified; F17.200 Nicotine dependence, unspecified, uncomplicated; F19.90 Other psychoactive substance use, unspecified, uncomplicated; Z20.822 Contact with and (suspected) exposure to COVID-19
CPT/HCPCS: 36415; 80053; 80164; 80178; 84702; 85025; 87426; 99285; G0480